=== PATIENT | female | born 1965 | race Caucasian/White ===

== ENCOUNTER → 2017-10-14 | Emergency (ER) | payer BC, MEDICAID ==
[~2017-10-14] VITALS: Ht 162.6 cm; Wt 54.0 kg
[~2017-10-14] MED LIST: ALBU18HF2 INH; CYCL-1 PO; FLUT1AER IH; FURO40TA4 PO; HYDR-569 PO; IPRA3AMP INH; LORA-269 PO; LORA0.5T PO; METO50TA16 PO; PARO20TA6 PO; POTA10TA15 PO; TIOT4MIS5; UMEC1DIS; WHEE1EAC12 MC
[2017-10-14 13:09] LABS: BASOPHILS % (AUTO) 0.1 % (0-1); EOSINOPHILS # (AUTO) 0.2 X10'3 (0-0.9); EOSINOPHILS % (AUTO) 1.8 % (0-6); HEMOGLOBIN 13.7 g/dl (12.0-16.0); LYMPHOCYTES # (AUTO) 1.5 X10'3 (1.1-4.8); LYMPHOCYTES % (AUTO) 14.7 % (21-51); MEAN CORPUSCULAR HEMOGLOBIN 33.7 PG (27.0-31.0); MEAN CORPUSCULAR HGB CONC 33.4 % (33.0-36.5); MEAN CORPUSCULAR VOLUME 100.8 FL (78-98); MEAN PLATELET VOLUME 8.5 FL (7.4-10.4); MONOCYTES # (AUTO) 0.8 X10'3 (0-0.9); MONOCYTES % (AUTO) 8.5 % (2-12); NEUTROPHILS # (AUTO) 7.5 X10'3 (1.8-7.7); NEUTROPHILS % (AUTO) 74.9 % (42-75); PLATELET COUNT 213 X10'3 (140-440); RED BLOOD COUNT 4.06 X10'6 (4.20-5.60); RED CELL DISTRIBUTION WIDTH 13.5 % (11.5-14.5)
[2017-10-14] MEDS: metoprolol tartrate 1mg/ml inj IV ONE (13:19)
[2017-10-14] MEDS: LORazepam 2 mg/ml vial IV STA (13:19)
[2017-10-14] MEDS: aspirin 81mg tab.chew PO ONE (13:19)
[2017-10-14] MEDS: normal saline 1000ml 1,000 ML IV STA (13:26)
[2017-10-14 13:29] LABS: D-DIMER 0.21 MG/L FEU (0-0.50); PARTIAL THROMBOPLASTIN TIME 29 SECONDS (22-32); PROTHROMBIN TIME 9.9 SECONDS (9.0-12.0)
[2017-10-14 13:32] LABS: ALBUMIN 3.6 G/DL (3.4-5.0); BILIRUBIN,TOTAL 0.1 MG/DL (0.1-1.0); BLOOD UREA NITROGEN 11 MG/DL (7-18); BUN/CREATININE RATIO 15.7 (6.6-38.0); CALCIUM 9.3 MG/DL (8.5-10.1); CHLORIDE 97 MMOL/L (99-107); GLUCOSE 155 MG/DL (70-104); POTASSIUM 4.1 MMOL/L (3.5-5.1); SODIUM 143 MMOL/L (135-145); TOTAL PROTEIN 7.1 G/DL (6.4-8.2); eGFR 87 ML/MIN
[2017-10-14 13:33] LABS: ALANINE AMINOTRANSFERASE 11 U/L (12-78); ALKALINE PHOSPHATASE 102 IU/L (46-116); ASPARTATE AMINO TRANSFERASE 14 U/L (10-37)
[2017-10-14] MEDS: ipratropium/albuterol 3ml nebule NEB STA (13:41)
[2017-10-14 13:52] LABS: ANION GAP -1 (8-16)
[2017-10-14] MEDS: HYDROmorphone 2mg/ml vial IV ONE (13:52)
[2017-10-14] MEDS: morphine 2 MG/ML inj. syringe IV STA (13:54)
[2017-10-14 13:58] LABS: TOTAL CARBON DIOXIDE 47.1 MMOL/L (24-32)
[2017-10-14] MEDS: labetalol 20mg/4ml (5mg/ml) syringe IV STA (16:05)
[2017-10-14 16:53] VITALS: BP 130/75
== END | disposition home or self-care (01) ==
LOC: ER 12:32
DX: F13.239 Sedative, hypnotic or anxiolytic dependence with withdrawal, unspecified (principal); J44.9 Chronic obstructive pulmonary disease, unspecified; F41.9 Anxiety disorder, unspecified; I11.0 Hypertensive heart disease with heart failure; I50.9 Heart failure, unspecified; I25.2 Old myocardial infarction; I25.10 Atherosclerotic heart disease of native coronary artery without angina pectoris; F17.210 Nicotine dependence, cigarettes, uncomplicated; Z99.81 Dependence on supplemental oxygen
CPT/HCPCS: 36415; 71045; 80053; 83880; 84484; 85025; 85379; 85610; 85730; 93005; 94640; 96374; 96375; 99285; J2060; J2270; J3490; J7030

== ENCOUNTER 2017-10-17 17:14 | Emergency (ER) | payer MEDICAID ==
[~2017-10-17] VITALS: Ht 162.6 cm; Wt 53.0 kg
[2017-10-17] MEDS ORDERED: cyclobenzaprine 10mg tablet PO ONE (18:30)
[2017-10-17] MEDS ORDERED: HYDROcodone/acetaminophen 10/325mg tab PO ONE (18:30)
[2017-10-17] MEDS ORDERED: CYCL-1 PO (18:30)
[2017-10-17 18:57] VITALS: BP 153/79
== END 2017-10-17 20:41 | disposition home or self-care (01) ==
LOC: ER 17:15
DX: M62.830 Muscle spasm of back (principal); I11.0 Hypertensive heart disease with heart failure; I50.9 Heart failure, unspecified; I25.10 Atherosclerotic heart disease of native coronary artery without angina pectoris; J44.9 Chronic obstructive pulmonary disease, unspecified; I25.2 Old myocardial infarction; F17.200 Nicotine dependence, unspecified, uncomplicated; Z98.890 Other specified postprocedural states
CPT/HCPCS: 99284

== ENCOUNTER 2017-10-20 13:10 | Emergency (ER) | payer MEDICAID ==
[~2017-10-20] VITALS: Ht 162.6 cm; Wt 116.0 kg
[2017-10-20 13:45] LABS: BASOPHILS % (AUTO) 0.2 % (0-1); EOSINOPHILS # (AUTO) 0.2 X10'3 (0-0.9); HEMATOCRIT 45.1 % (35.0-45.0); HEMOGLOBIN 14.7 g/dl (12.0-16.0); LYMPHOCYTES # (AUTO) 1.1 X10'3 (1.1-4.8); LYMPHOCYTES % (AUTO) 13.3 % (21-51); MEAN CORPUSCULAR HEMOGLOBIN 32.9 PG (27.0-31.0); MEAN CORPUSCULAR HGB CONC 32.7 % (33.0-36.5); MEAN CORPUSCULAR VOLUME 100.7 FL (78-98); MONOCYTES # (AUTO) 0.6 X10'3 (0-0.9); NEUTROPHILS # (AUTO) 6.4 X10'3 (1.8-7.7); NEUTROPHILS % (AUTO) 77.5 % (42-75); PLATELET COUNT 273 X10'3 (140-440); RED BLOOD COUNT 4.48 X10'6 (4.20-5.60); RED CELL DISTRIBUTION WIDTH 14.3 % (11.5-14.5); WHITE BLOOD COUNT 8.3 X10'3 (4.5-11.0)
[2017-10-20] MEDS ORDERED: ipratropium/albuterol 3ml nebule NEB ONE (13:45)
[2017-10-20 13:56] LABS: PARTIAL THROMBOPLASTIN TIME 30 SECONDS (22-32); PROTHROMBIN TIME 10.7 SECONDS (9.0-12.0)
[2017-10-20 14:01] LABS: ALANINE AMINOTRANSFERASE 13 U/L (12-78); ALBUMIN 4.1 G/DL (3.4-5.0); ALKALINE PHOSPHATASE 114 IU/L (46-116); ASPARTATE AMINO TRANSFERASE 19 U/L (10-37); BILIRUBIN,TOTAL 0.3 MG/DL (0.1-1.0); BLOOD UREA NITROGEN 13 MG/DL (7-18); BUN/CREATININE RATIO 18.6 (6.6-38.0); CALCIUM 9.9 MG/DL (8.5-10.1); CHLORIDE 99 MMOL/L (99-107); GLUCOSE 140 MG/DL (70-104); POTASSIUM 3.7 MMOL/L (3.5-5.1); SODIUM 144 MMOL/L (135-145); TOTAL PROTEIN 8.1 G/DL (6.4-8.2); eGFR 87 ML/MIN
[2017-10-20 14:12] LABS: ANION GAP -4 (8-16); TOTAL CARBON DIOXIDE 49.2 MMOL/L (24-32)
[2017-10-20 14:29] VITALS: BP 134/78
[2017-10-20 14:46] LABS: ABG BASE EXCESS 14.5 mmol/L (-2.0-3.0); ABG HCO3 43.7 mmol/L (22.0-26.0); ABG OXYGEN SATURATION 92.8 % (95-98); ABG PCO2 (T) 77.1 mmHg (32.0-45.0); ABG PH (T) 7.371 (7.350-7.450); ABG PO2 (T) 64.7 mmHg (83-108); ALLEN'S TEST Positive; FCOHb 4.7 % (0.5-1.5); FLOW 2 L/min; FMetHb 0.1 % (0.3-1.12); FO2Hb 88.3 % (94-100); TOTAL HEMOGLOBIN 14.1 G/dl (12.0-16.0)
[2017-10-20] MEDS ORDERED: AZIT-63 PO (15:53)
[2017-10-20] MEDS ORDERED: METH4TAB81 PO (15:53)
[2017-10-20] MEDS ORDERED: HYDROcodone/acetaminophen 10/325mg tab PO ONE (16:55)
== END 2017-10-20 18:11 | disposition home or self-care (01) ==
LOC: ER 13:11
DX: J44.1 Chronic obstructive pulmonary disease with (acute) exacerbation (principal); R06.89 Other abnormalities of breathing; I25.10 Atherosclerotic heart disease of native coronary artery without angina pectoris; I11.0 Hypertensive heart disease with heart failure; I50.9 Heart failure, unspecified; I25.2 Old myocardial infarction; I49.9 Cardiac arrhythmia, unspecified; Z90.710 Acquired absence of both cervix and uterus; Z98.890 Other specified postprocedural states; Z79.899 Other long term (current) drug therapy
CPT/HCPCS: 36415; 36600; 71045; 80053; 82803; 84484; 85018; 85025; 85610; 85730; 93005; 94640; 94760; 99285

== ENCOUNTER 2017-10-22 21:59 | Inpatient (IN) | payer MEDICAID ==
[~2017-10-22] VITALS: Ht 162.6 cm; Wt 64.0 kg
[~2017-10-22 21:59] MED LIST changes: +AZIT-63 PO; +METH4TAB81 PO
[2017-10-22] MEDS ORDERED: ipratropium/albuterol 3ml nebule NEB ONE (22:30)
[2017-10-22] MEDS ORDERED: normal saline 1000ML IV soln IVB ONE (22:30)
[2017-10-22] MEDS ORDERED: methylPREDNISolone sod succ 125mg/2ml vial IV ONE (22:30)
[2017-10-22 22:38] LABS: BASOPHILS % (AUTO) 0.3 % (0-1); EOSINOPHILS # (AUTO) 0.1 X10'3 (0-0.9); EOSINOPHILS % (AUTO) 0.7 % (0-6); HEMATOCRIT 42.5 % (35.0-45.0); HEMOGLOBIN 13.9 g/dl (12.0-16.0); LYMPHOCYTES # (AUTO) 1.6 X10'3 (1.1-4.8); LYMPHOCYTES % (AUTO) 20.4 % (21-51); MEAN CORPUSCULAR HGB CONC 32.7 % (33.0-36.5); MEAN CORPUSCULAR VOLUME 100.9 FL (78-98); MEAN PLATELET VOLUME 9.3 FL (7.4-10.4); MONOCYTES # (AUTO) 0.3 X10'3 (0-0.9); MONOCYTES % (AUTO) 3.5 % (2-12); NEUTROPHILS % (AUTO) 75.1 % (42-75); PLATELET COUNT 273 X10'3 (140-440); RED BLOOD COUNT 4.21 X10'6 (4.20-5.60); RED CELL DISTRIBUTION WIDTH 14.1 % (11.5-14.5); WHITE BLOOD COUNT 7.9 X10'3 (4.5-11.0)
[2017-10-22 22:45] LABS: PROTHROMBIN TIME 10.8 SECONDS (9.0-12.0)
[2017-10-22 22:49] LABS: ALANINE AMINOTRANSFERASE 16 U/L (12-78); ALBUMIN 3.6 G/DL (3.4-5.0); ALKALINE PHOSPHATASE 98 IU/L (46-116); ANION GAP 5 (8-16); ASPARTATE AMINO TRANSFERASE 19 U/L (10-37); BILIRUBIN,TOTAL 0.2 MG/DL (0.1-1.0); BLOOD UREA NITROGEN 14 MG/DL (7-18); BUN/CREATININE RATIO 17.5 (6.6-38.0); CALCIUM 8.6 MG/DL (8.5-10.1); CHLORIDE 102 MMOL/L (99-107); GLUCOSE 123 MG/DL (70-104); POTASSIUM 4.3 MMOL/L (3.5-5.1); SODIUM 145 MMOL/L (135-145); TOTAL CARBON DIOXIDE 37.8 MMOL/L (24-32); TOTAL PROTEIN 7.2 G/DL (6.4-8.2); eGFR 75 ML/MIN
[2017-10-22 23:29] LABS: URINE AMPHETAMINE SCREEN NEGATIVE (Neg); URINE BARBITUATE SCREEN NEGATIVE (Neg); URINE BENZODIAZEPINES SCREEN NEGATIVE (Neg); URINE CANNABINOID SCREEN POSITIVE (Neg); URINE COCAINE SCREEN NEGATIVE (Neg); URINE METHADONE SCREEN NEGATIVE (Neg); URINE OPIATE SCREEN NEGATIVE (Neg); URINE PHENCYCLIDINE SCREEN NEGATIVE (Neg)
[2017-10-23] MEDS ORDERED: magnesium 2GM in 50ml NS 50 ML IV ONE (07:45)
[2017-10-23] MEDS ORDERED: ipratropium 0.5 MG/2.5ML nebule IH ONE (07:45)
[2017-10-23] MEDS ORDERED: albuterol 2.5 MG/3 ML nebule CONTNEB PRN (07:45)
[2017-10-23 08:25] LABS: ABG BASE EXCESS -2.1 mmol/L (-2.0-3.0); ABG HCO3 27.8 mmol/L (22.0-26.0); ABG OXYGEN SATURATION 98.8 % (95-98); ABG PCO2 (T) 72.8 mmHg (32.0-45.0); ABG PH (T) 7.199 (7.350-7.450); ABG PO2 (T) 208.8 mmHg (83-108); ALLEN'S TEST Positive; FCOHb 4.7 % (0.5-1.5); FLOW 7 L/min; FMetHb 0.1 % (0.3-1.12); FO2Hb 94.1 % (94-100); TOTAL HEMOGLOBIN 13.9 G/dl (12.0-16.0)
[2017-10-23 08:26] LABS: D-DIMER 0.25 MG/L FEU (0-0.50)
[2017-10-23] MEDS ORDERED: potassium Cl 20 mEq SR tablet PO PRN ×2 (09:05)
[2017-10-23] MEDS ORDERED: magnesium hydroxide 30ml (MOM) UD suspension PO PRN (09:05)
[2017-10-23] MEDS ORDERED: magnesium Cl slow-release 64mg tablet PO PRN (09:05)
[2017-10-23] MEDS ORDERED: potassium Cl 40MEQ/NS 500ml 500 ML IV PRN ×2 (09:05)
[2017-10-23] MEDS ORDERED: bisacodyl 10mg suppository rectal RC PRN (09:05)
[2017-10-23] MEDS ORDERED: ondansetron/PF 4mg/2ml inj IV PRN (09:05)
[2017-10-23] MEDS ORDERED: mag hydrox/Alum hydrox/simeth 30ml oral suspension PO PRN (09:05)
[2017-10-23] MEDS ORDERED: morphine 2 MG/ML inj. syringe IV PRN (09:05)
[2017-10-23] MEDS ORDERED: magnesium 4gm in 100ml NS 100 ML IV PRN (09:05)
[2017-10-23] MEDS ORDERED: magnesium 2GM in 50ml NS 50 ML IV PRN (09:05)
[2017-10-23] MEDS ORDERED: cefTRIAXone 1g/NS 100ml IVPB 100 ML IV SCH (09:05)
[2017-10-23] MEDS ORDERED: acetaminophen 325mg tablet PO PRN (09:05)
[2017-10-23] MEDS ORDERED: CYCL-1 PO (09:11)
[2017-10-23] MEDS ORDERED: HYDR-565 PO (09:11)
[2017-10-23] MEDS ORDERED: METO50TA17 PO (09:11)
[2017-10-23] MEDS ORDERED: LORazepam 2 mg/ml vial IV PRN (09:15)
[2017-10-23] MEDS ORDERED: LORazepam 1 MG tablet PO PRN (09:15)
[2017-10-23] MEDS ORDERED: folic acid inj. 2 MG, thiamine inj. 100 MG, MVI, adult No.4 with vit. K 10 ML in dextro... IV SCH ×4 (09:15)
[2017-10-23] MEDS ORDERED: guaiFENesin 200 MG/10 ML oral syrup UD cup PO PRN (09:15)
[2017-10-23] MEDS ORDERED: METH4TAB17 PO (09:17)
[2017-10-23] MEDS ORDERED: AZIT-63 PO (09:17)
[2017-10-23] MEDS ORDERED: CefTRIAXone/D5W-Rocephin 1gm 50 ML IV ONE ×2 (09:37→09:50)
[2017-10-23] MEDS: HYDROcodone/acetaminophen 10/325mg tab PO PRN (09:40)
[2017-10-23] MEDS ORDERED: albuterol 2.5 MG/3 ML nebule NEB PRN (09:50)
[2017-10-23] MEDS ORDERED: [UNRECOGNIZED DRUG - REMARK] IV SCH ×4 (10:03)
[2017-10-23 10:15] LABS: ABG BASE EXCESS -4.4 mmol/L (-2.0-3.0); ABG HCO3 25.4 mmol/L (22.0-26.0); ABG OXYGEN SATURATION 91.3 % (95-98); ABG PCO2 (T) 70.3 mmHg (32.0-45.0); ABG PH (T) 7.176 (7.350-7.450); ABG PO2 (T) 72.6 mmHg (83-108); FCOHb 3.5 % (0.5-1.5); FLOW 4 L/min; FMetHb 0.2 % (0.3-1.12); FO2Hb 87.9 % (94-100); TOTAL HEMOGLOBIN 13.4 G/dl (12.0-16.0)
[2017-10-23] MEDS: aspirin 81mg tablet.DR PO SCH (11:16)
[2017-10-23] MEDS: sodium chloride 0.45% 1,000 ML IV SCH ×2 (11:18→23:23)
[2017-10-23] MEDS ORDERED: nicotine 14mg patch - 24hr TD ONE (12:00)
[2017-10-23 14:12] VITALS: BP 123/73
[2017-10-23 14:30] LABS: ABG HCO3 32.3 mmol/L (22.0-26.0); ABG OXYGEN SATURATION 91.4 % (95-98); ABG PCO2 (T) 67.8 mmHg (32.0-45.0); ABG PH (T) 7.296 (7.350-7.450); ABG PO2 (T) 64.1 mmHg (83-108); FCOHb 1.7 % (0.5-1.5); FO2Hb 89.8 % (94-100); RESPIRATORY RATE 14 b/min; TOTAL HEMOGLOBIN 12.4 G/dl (12.0-16.0)
[2017-10-23] MEDS: methylPREDNISolone sod succ 125mg/2ml vial IV SCH ×2 (14:47→19:21)
[2017-10-23 15:00] VITALS: BP 131/62
[2017-10-23] MEDS: ipratropium/albuterol 3ml nebule NEB SCH ×3 (15:00→23:17)
[2017-10-23] MEDS: cyclobenzaprine 10mg tablet PO PRN (15:32)
[2017-10-23] MEDS: morphine 2 MG/ML inj. syringe IV PRN ×2 (17:01→21:10)
[2017-10-23 19:00] VITALS: BP 148/70
[2017-10-23] MEDS: metoprolol tartrate 50mg tablet PO SCH (19:21)
[2017-10-23] MEDS: docusate sod 100mg capsule PO SCH (19:24)
[2017-10-23 23:00] VITALS: BP 140/75
[2017-10-23] MEDS: HYDROcodone/acetaminophen 5mg/325mg tablet PO PRN (23:09)
[2017-10-24] MEDS: cyclobenzaprine 10mg tablet PO PRN ×2 (00:12→19:26)
[2017-10-24] MEDS: methylPREDNISolone sod succ 125mg/2ml vial IV SCH ×4 (01:43→19:27)
[2017-10-24] MEDS: morphine 2 MG/ML inj. syringe IV PRN ×4 (01:43→19:29)
[2017-10-24 03:00] VITALS: BP 151/78
[2017-10-24] MEDS: ipratropium/albuterol 3ml nebule NEB SCH ×6 (03:13→23:16)
[2017-10-24] MEDS: HYDROcodone/acetaminophen 10/325mg tab PO PRN ×5 (03:32→19:27)
[2017-10-24] MEDS: sodium chloride 0.45% 1,000 ML IV SCH (03:33)
[2017-10-24 05:10] LABS: BASOPHILS % (AUTO) 0 % (0-1); EOSINOPHILS # (AUTO) 0.1 X10'3 (0-0.9); EOSINOPHILS % (AUTO) 0.8 % (0-6); HEMATOCRIT 35.9 % (35.0-45.0); HEMOGLOBIN 11.8 g/dl (12.0-16.0); LYMPHOCYTES # (AUTO) 0.5 X10'3 (1.1-4.8); LYMPHOCYTES % (AUTO) 3.1 % (21-51); MEAN CORPUSCULAR HEMOGLOBIN 33.2 PG (27.0-31.0); MEAN CORPUSCULAR HGB CONC 32.8 % (33.0-36.5); MEAN CORPUSCULAR VOLUME 101.1 FL (78-98); MEAN PLATELET VOLUME 9.5 FL (7.4-10.4); MONOCYTES # (AUTO) 0.4 X10'3 (0-0.9); MONOCYTES % (AUTO) 2.9 % (2-12); NEUTROPHILS % (AUTO) 93.2 % (42-75); PLATELET COUNT 232 X10'3 (140-440); RED BLOOD COUNT 3.55 X10'6 (4.20-5.60); RED CELL DISTRIBUTION WIDTH 14.4 % (11.5-14.5)
[2017-10-24 05:29] LABS: ALANINE AMINOTRANSFERASE 17 U/L (12-78); ALBUMIN 3.4 G/DL (3.4-5.0); ALKALINE PHOSPHATASE 80 IU/L (46-116); ANION GAP 4 (8-16); ASPARTATE AMINO TRANSFERASE 15 U/L (10-37); BILIRUBIN,TOTAL 0.1 MG/DL (0.1-1.0); BLOOD UREA NITROGEN 18 MG/DL (7-18); BUN/CREATININE RATIO 24.3 (6.6-38.0); CALCIUM 8.8 MG/DL (8.5-10.1); CHLORIDE 103 MMOL/L (99-107); CREATININE 0.74 MG/DL (0.40-0.90); GLUCOSE 156 MG/DL (70-104); MAGNESIUM 2.2 MG/DL (1.5-2.4); PHOSPHORUS 2.7 MG/DL (2.3-4.5); POTASSIUM 4.3 MMOL/L (3.5-5.1); SODIUM 145 MMOL/L (135-145); TOTAL CARBON DIOXIDE 38.3 MMOL/L (24-32); TOTAL PROTEIN 6.7 G/DL (6.4-8.2); eGFR 82 ML/MIN
[2017-10-24 06:00] VITALS: BP 153/90
[2017-10-24] MEDS: K and/or MAG REPLACEMENT MC SCH (08:00)
[2017-10-24] MEDS: CefTRIAXone 1 gm/50ml D5W ADV 50 ML IV SCH (08:13)
[2017-10-24] MEDS: docusate sod 100mg capsule PO SCH ×2 (08:13→19:27)
[2017-10-24] MEDS: enoxaparin 40mg/0.4ml syringe SUBCUT SCH (08:15)
[2017-10-24] MEDS: multivitamins, therapeutics tablet PO SCH (08:16)
[2017-10-24] MEDS: thiamine 100mg tablet PO SCH (08:16)
[2017-10-24] MEDS: metoprolol tartrate 50mg tablet PO SCH ×2 (08:16→19:27)
[2017-10-24] MEDS: lactobacillus rhamnosus 10,000 MMU CELLS/CAPSULE PO SCH ×2 (08:16→16:23)
[2017-10-24] MEDS: aspirin 81mg tablet.DR PO SCH (08:16)
[2017-10-24] MEDS: folic acid 1mg tablet PO SCH (08:16)
[2017-10-24] MEDS: nicotine 14mg patch - 24hr TD SCH (08:17)
[2017-10-24] MEDS: PARoxetine 20mg tablet PO SCH (08:32)
[2017-10-24 11:00] VITALS: BP 150/76
[2017-10-24 15:00] VITALS: BP 149/73
[2017-10-24 19:00] VITALS: BP 136/77
[2017-10-24 23:00] VITALS: BP 144/75
[2017-10-25] VITALS (8 sets, daily range): BP systolic 94–167; BP diastolic 44–84
[2017-10-25] MEDS: morphine 2 MG/ML inj. syringe IV PRN (00:22)
[2017-10-25] MEDS: methylPREDNISolone sod succ 125mg/2ml vial IV SCH ×4 (02:07→20:13)
[2017-10-25] MEDS: sodium chloride 0.45% 1,000 ML IV SCH ×2 (04:19→19:02)
[2017-10-25] MEDS: ipratropium/albuterol 3ml nebule NEB SCH ×6 (04:52→23:22)
[2017-10-25 05:51] LABS: BASOPHILS % (AUTO) 0 % (0-1); EOSINOPHILS % (AUTO) 0 % (0-6); HEMATOCRIT 35.1 % (35.0-45.0); HEMOGLOBIN 11.3 g/dl (12.0-16.0); LYMPHOCYTES # (AUTO) 0.3 X10'3 (1.1-4.8); LYMPHOCYTES % (AUTO) 2.3 % (21-51); MEAN CORPUSCULAR HGB CONC 32.3 % (33.0-36.5); MEAN CORPUSCULAR VOLUME 102.2 FL (78-98); MEAN PLATELET VOLUME 9.7 FL (7.4-10.4); MONOCYTES # (AUTO) 0.8 X10'3 (0-0.9); NEUTROPHILS # (AUTO) 12.7 X10'3 (1.8-7.7); NEUTROPHILS % (AUTO) 91.7 % (42-75); PLATELET COUNT 219 X10'3 (140-440); RED BLOOD COUNT 3.43 X10'6 (4.20-5.60); RED CELL DISTRIBUTION WIDTH 14.5 % (11.5-14.5); WHITE BLOOD COUNT 13.8 X10'3 (4.5-11.0)
[2017-10-25 06:12] LABS: ALANINE AMINOTRANSFERASE 14 U/L (12-78); ALBUMIN 3.3 G/DL (3.4-5.0); ALBUMIN/GLOBULIN RATIO 1.1 (1.1-1.5); ALKALINE PHOSPHATASE 72 IU/L (46-116); ANION GAP 1 (8-16); ASPARTATE AMINO TRANSFERASE 17 U/L (10-37); BILIRUBIN,TOTAL 0.1 MG/DL (0.1-1.0); BLOOD UREA NITROGEN 21 MG/DL (7-18); BUN/CREATININE RATIO 27.6 (6.6-38.0); CALCIUM 9.1 MG/DL (8.5-10.1); CHLORIDE 103 MMOL/L (99-107); CREATININE 0.76 MG/DL (0.40-0.90); GLUCOSE 131 MG/DL (70-104); MAGNESIUM 2.4 MG/DL (1.5-2.4); PHOSPHORUS 2.8 MG/DL (2.3-4.5); POTASSIUM 5.6 MMOL/L (3.5-5.1); SODIUM 145 MMOL/L (135-145); TOTAL PROTEIN 6.3 G/DL (6.4-8.2); eGFR 79 ML/MIN
[2017-10-25 06:57] LABS: TOTAL CARBON DIOXIDE 41.2 MMOL/L (24-32)
[2017-10-25] MEDS: K and/or MAG REPLACEMENT MC SCH (08:00)
[2017-10-25] MEDS: folic acid 1mg tablet PO SCH (08:21)
[2017-10-25] MEDS: aspirin 81mg tablet.DR PO SCH (08:21)
[2017-10-25] MEDS: docusate sod 100mg capsule PO SCH ×2 (08:21→20:13)
[2017-10-25] MEDS: thiamine 100mg tablet PO SCH (08:21)
[2017-10-25] MEDS: lactobacillus rhamnosus 10,000 MMU CELLS/CAPSULE PO SCH ×2 (08:22→18:08)
[2017-10-25] MEDS: HYDROcodone/acetaminophen 10/325mg tab PO PRN (08:23)
[2017-10-25] MEDS: multivitamins, therapeutics tablet PO SCH (08:23)
[2017-10-25] MEDS: metoprolol tartrate 50mg tablet PO SCH ×2 (08:23→20:13)
[2017-10-25] MEDS: enoxaparin 40mg/0.4ml syringe SUBCUT SCH (08:27)
[2017-10-25 08:31] LABS: ABG BASE EXCESS 10.6 mmol/L (-2.0-3.0); ABG HCO3 43.9 mmol/L (22.0-26.0); ABG OXYGEN SATURATION 79.7 % (95-98); ABG PCO2 (T) 122.7 mmHg (32.0-45.0); ABG PH (T) 7.171 (7.350-7.450); ABG PO2 (T) 49.5 mmHg (83-108); ALLEN'S TEST Positive; FMetHb 0.2 % (0.3-1.12); FO2Hb 79.5 % (94-100); TOTAL HEMOGLOBIN 13.2 G/dl (12.0-16.0)
[2017-10-25] MEDS: nicotine 14mg patch - 24hr TD SCH (08:45)
[2017-10-25] MEDS: CefTRIAXone 1 gm/50ml D5W ADV 50 ML IV SCH (08:49)
[2017-10-25] MEDS: PARoxetine 20mg tablet PO SCH (09:05)
[2017-10-25 12:40] LABS: ABG BASE EXCESS 9.8 mmol/L (-2.0-3.0); ABG OXYGEN SATURATION 96.9 % (95-98); ABG PH (T) 7.235 (7.350-7.450); FCOHb 0.3 % (0.5-1.5); FMetHb 0.1 % (0.3-1.12); FO2Hb 96.5 % (94-100); MINUTE VOLUME 12 L/min; RESPIRATORY RATE 14 b/min; RESPIRATORY RATE (OBSERVED) 20 b/min; TIDAL VOLUME 498 mL; TOTAL HEMOGLOBIN 12.7 G/dl (12.0-16.0)
[2017-10-25] MEDS: HYDROcodone/acetaminophen 5mg/325mg tablet PO PRN ×2 (16:03→20:14)
[2017-10-26] MEDS ORDERED: furosemide 20 MG/2 ML vial IV ONE (00:15)
[2017-10-26] MEDS: methylPREDNISolone sod succ 125mg/2ml vial IV SCH ×4 (01:43→19:26)
[2017-10-26] MEDS: HYDROcodone/acetaminophen 5mg/325mg tablet PO PRN ×5 (01:43→21:08)
[2017-10-26 03:00] VITALS: BP 178/86
[2017-10-26] MEDS: ipratropium/albuterol 3ml nebule NEB SCH ×6 (03:16→23:13)
[2017-10-26 06:00] VITALS: BP 179/95
[2017-10-26 06:02] LABS: BASOPHILS % (AUTO) 0 % (0-1); EOSINOPHILS # (AUTO) 0.1 X10'3 (0-0.9); HEMOGLOBIN 11.5 g/dl (12.0-16.0); LYMPHOCYTES # (AUTO) 0.3 X10'3 (1.1-4.8); LYMPHOCYTES % (AUTO) 3.4 % (21-51); MEAN CORPUSCULAR HEMOGLOBIN 32.9 PG (27.0-31.0); MEAN CORPUSCULAR HGB CONC 32.9 % (33.0-36.5); MEAN PLATELET VOLUME 9.9 FL (7.4-10.4); MONOCYTES # (AUTO) 0.3 X10'3 (0-0.9); MONOCYTES % (AUTO) 3.8 % (2-12); NEUTROPHILS % (AUTO) 91.8 % (42-75); PLATELET COUNT 205 X10'3 (140-440); RED CELL DISTRIBUTION WIDTH 13.7 % (11.5-14.5); WHITE BLOOD COUNT 8.7 X10'3 (4.5-11.0)
[2017-10-26 06:44] LABS: ALANINE AMINOTRANSFERASE 25 U/L (12-78); ALBUMIN 3.1 G/DL (3.4-5.0); ALBUMIN/GLOBULIN RATIO 1.1 (1.1-1.5); ALKALINE PHOSPHATASE 69 IU/L (46-116); ANION GAP 0 (8-16); ASPARTATE AMINO TRANSFERASE 23 U/L (10-37); BILIRUBIN,TOTAL 0.2 MG/DL (0.1-1.0); BLOOD UREA NITROGEN 24 MG/DL (7-18); CALCIUM 8.9 MG/DL (8.5-10.1); CHLORIDE 99 MMOL/L (99-107); CREATININE 0.75 MG/DL (0.40-0.90); GLUCOSE 126 MG/DL (70-104); MAGNESIUM 2.2 MG/DL (1.5-2.4); PHOSPHORUS 2.2 MG/DL (2.3-4.5); POTASSIUM 4.8 MMOL/L (3.5-5.1); SODIUM 143 MMOL/L (135-145); eGFR 81 ML/MIN
[2017-10-26 07:13] LABS: TOTAL CARBON DIOXIDE 44.1 MMOL/L (24-32)
[2017-10-26] MEDS: metoprolol tartrate 50mg tablet PO SCH ×2 (07:49→19:26)
[2017-10-26] MEDS: folic acid 1mg tablet PO SCH (07:49)
[2017-10-26] MEDS: lactobacillus rhamnosus 10,000 MMU CELLS/CAPSULE PO SCH ×2 (07:49→17:03)
[2017-10-26] MEDS: aspirin 81mg tablet.DR PO SCH (07:54)
[2017-10-26] MEDS: docusate sod 100mg capsule PO SCH ×2 (07:54→19:26)
[2017-10-26] MEDS: multivitamins, therapeutics tablet PO SCH (07:54)
[2017-10-26] MEDS: enoxaparin 40mg/0.4ml syringe SUBCUT SCH (07:56)
[2017-10-26] MEDS: thiamine 100mg tablet PO SCH (07:57)
[2017-10-26] MEDS: K and/or MAG REPLACEMENT MC SCH (07:57)
[2017-10-26] MEDS: sodium chloride 0.45% 1,000 ML IV SCH ×2 (07:58→21:45)
[2017-10-26] MEDS: nicotine 14mg patch - 24hr TD SCH (07:58)
[2017-10-26] MEDS: cefTRIAXone 1g/NS 100ml IVPB 100 ML IV SCH (08:00)
[2017-10-26] MEDS: PARoxetine 20mg tablet PO SCH (08:00)
[2017-10-26 11:00] VITALS: BP 166/99
[2017-10-26 16:04] VITALS: BP 182/88
[2017-10-26 16:21] LABS: ABG BASE EXCESS 12.3 mmol/L (-2.0-3.0); ABG HCO3 38.2 mmol/L (22.0-26.0); ABG OXYGEN SATURATION 95.7 % (95-98); ABG PCO2 (T) 54.5 mmHg (32.0-45.0); ABG PH (T) 7.463 (7.350-7.450); ABG PO2 (T) 72.7 mmHg (83-108); ALLEN'S TEST Positive; FCOHb 0.3 % (0.5-1.5); FLOW 2 L/min; FMetHb 0.1 % (0.3-1.12); FO2Hb 95.3 % (94-100); TOTAL HEMOGLOBIN 12.7 G/dl (12.0-16.0)
[2017-10-26] MEDS: cyclobenzaprine 10mg tablet PO PRN (17:39)
[2017-10-26 19:00] VITALS: BP 191/90
[2017-10-26] MEDS: hydrALAZINE 20mg/ml inj. IV PRN (21:16)
[2017-10-26 23:00] VITALS: BP 157/76
[2017-10-27] MEDS: methylPREDNISolone sod succ 125mg/2ml vial IV SCH ×4 (01:48→20:27)
[2017-10-27] MEDS: ipratropium/albuterol 3ml nebule NEB SCH ×6 (02:45→23:14)
[2017-10-27 03:00] VITALS: BP 151/74
[2017-10-27] MEDS: HYDROcodone/acetaminophen 5mg/325mg tablet PO PRN ×3 (03:45→20:27)
[2017-10-27] MEDS: hydrALAZINE 20mg/ml inj. IV PRN ×2 (04:26→19:21)
[2017-10-27 05:36] LABS: BASOPHILS % (AUTO) 0 % (0-1); EOSINOPHILS % (AUTO) 0.2 % (0-6); HEMATOCRIT 37.7 % (35.0-45.0); HEMOGLOBIN 12.6 g/dl (12.0-16.0); LYMPHOCYTES # (AUTO) 0.4 X10'3 (1.1-4.8); LYMPHOCYTES % (AUTO) 2.9 % (21-51); MEAN CORPUSCULAR HEMOGLOBIN 33.1 PG (27.0-31.0); MEAN CORPUSCULAR HGB CONC 33.4 % (33.0-36.5); MEAN CORPUSCULAR VOLUME 99.1 FL (78-98); MEAN PLATELET VOLUME 10.1 FL (7.4-10.4); MONOCYTES # (AUTO) 0.9 X10'3 (0-0.9); NEUTROPHILS % (AUTO) 89.9 % (42-75); PLATELET COUNT 219 X10'3 (140-440); RED BLOOD COUNT 3.81 X10'6 (4.20-5.60); WHITE BLOOD COUNT 12.3 X10'3 (4.5-11.0)
[2017-10-27 06:23] LABS: ALANINE AMINOTRANSFERASE 21 U/L (12-78); ALKALINE PHOSPHATASE 67 IU/L (46-116); ANION GAP 2 (8-16); ASPARTATE AMINO TRANSFERASE 16 U/L (10-37); BILIRUBIN,TOTAL 0.2 MG/DL (0.1-1.0); BLOOD UREA NITROGEN 23 MG/DL (7-18); BUN/CREATININE RATIO 40.4 (6.6-38.0); CALCIUM 8.8 MG/DL (8.5-10.1); CHLORIDE 101 MMOL/L (99-107); CREATININE 0.57 MG/DL (0.40-0.90); GLUCOSE 122 MG/DL (70-104); MAGNESIUM 2.4 MG/DL (1.5-2.4); PHOSPHORUS 2.6 MG/DL (2.3-4.5); SODIUM 145 MMOL/L (135-145); TOTAL PROTEIN 6.1 G/DL (6.4-8.2); eGFR > 90 ML/MIN
[2017-10-27] MEDS: cyclobenzaprine 10mg tablet PO PRN ×2 (06:30→19:21)
[2017-10-27 06:31] LABS: TOTAL CARBON DIOXIDE 41.9 MMOL/L (24-32)
[2017-10-27 07:00] VITALS: BP 159/90
[2017-10-27] MEDS: K and/or MAG REPLACEMENT MC SCH (08:00)
[2017-10-27] MEDS: lactobacillus rhamnosus 10,000 MMU CELLS/CAPSULE PO SCH ×2 (09:01→17:04)
[2017-10-27] MEDS: thiamine 100mg tablet PO SCH (09:02)
[2017-10-27] MEDS: aspirin 81mg tablet.DR PO SCH (09:02)
[2017-10-27] MEDS: docusate sod 100mg capsule PO SCH ×2 (09:02→20:27)
[2017-10-27] MEDS: PARoxetine 20mg tablet PO SCH (09:02)
[2017-10-27] MEDS: folic acid 1mg tablet PO SCH (09:02)
[2017-10-27] MEDS: metoprolol tartrate 50mg tablet PO SCH ×2 (09:02→20:26)
[2017-10-27] MEDS: multivitamins, therapeutics tablet PO SCH (09:02)
[2017-10-27] MEDS: enoxaparin 40mg/0.4ml syringe SUBCUT SCH (09:05)
[2017-10-27] MEDS: cefTRIAXone 1g/NS 100ml IVPB 100 ML IV SCH (09:06)
[2017-10-27 11:00] VITALS: BP 165/86
[2017-10-27] MEDS: nicotine 14mg patch - 24hr TD SCH (11:01)
[2017-10-27] MEDS: sodium chloride 0.45% 1,000 ML IV SCH (12:01)
[2017-10-27] MEDS: LORazepam 0.5 MG tablet PO PRN ×2 (12:01→22:18)
[2017-10-27 15:00] VITALS: BP 186/91
[2017-10-27 19:00] VITALS: BP 187/97
[2017-10-27] MEDS ORDERED: LIDOcaine Viscous 15ml cup MM PRN (20:10)
[2017-10-27 23:00] VITALS: BP 182/95
[2017-10-28] MEDS: HYDROcodone/acetaminophen 5mg/325mg tablet PO PRN ×2 (01:40→08:03)
[2017-10-28] MEDS: hydrALAZINE 20mg/ml inj. IV PRN ×2 (01:40→15:54)
[2017-10-28] MEDS: methylPREDNISolone sod succ 125mg/2ml vial IV SCH ×4 (01:40→19:58)
[2017-10-28] MEDS: sodium chloride 0.45% 1,000 ML IV SCH (01:51)
[2017-10-28 03:00] VITALS: BP 147/67
[2017-10-28] MEDS: ipratropium/albuterol 3ml nebule NEB SCH ×6 (03:00→23:00)
[2017-10-28 07:00] VITALS: BP 164/92
[2017-10-28 07:09] LABS: BASOPHILS % (AUTO) 0 % (0-1); EOSINOPHILS % (AUTO) 0 % (0-6); HEMOGLOBIN 13.3 g/dl (12.0-16.0); LYMPHOCYTES # (AUTO) 0.3 X10'3 (1.1-4.8); LYMPHOCYTES % (AUTO) 2.6 % (21-51); MEAN CORPUSCULAR HEMOGLOBIN 32.9 PG (27.0-31.0); MEAN CORPUSCULAR HGB CONC 33.2 % (33.0-36.5); MEAN CORPUSCULAR VOLUME 99.1 FL (78-98); MEAN PLATELET VOLUME 10.1 FL (7.4-10.4); MONOCYTES # (AUTO) 0.3 X10'3 (0-0.9); MONOCYTES % (AUTO) 2.1 % (2-12); NEUTROPHILS # (AUTO) 12.2 X10'3 (1.8-7.7); NEUTROPHILS % (AUTO) 95.3 % (42-75); PLATELET COUNT 233 X10'3 (140-440); RED BLOOD COUNT 4.04 X10'6 (4.20-5.60); RED CELL DISTRIBUTION WIDTH 14.1 % (11.5-14.5); WHITE BLOOD COUNT 12.8 X10'3 (4.5-11.0)
[2017-10-28 07:16] LABS: ALANINE AMINOTRANSFERASE 25 U/L (12-78); ALBUMIN/GLOBULIN RATIO 1.1 (1.1-1.5); ALKALINE PHOSPHATASE 61 IU/L (46-116); ANION GAP 4 (8-16); ASPARTATE AMINO TRANSFERASE 12 U/L (10-37); BILIRUBIN,TOTAL 0.3 MG/DL (0.1-1.0); BLOOD UREA NITROGEN 27 MG/DL (7-18); CALCIUM 8.4 MG/DL (8.5-10.1); CHLORIDE 102 MMOL/L (99-107); CREATININE 0.73 MG/DL (0.40-0.90); GLUCOSE 138 MG/DL (70-104); MAGNESIUM 2.3 MG/DL (1.5-2.4); PHOSPHORUS 3.4 MG/DL (2.3-4.5); POTASSIUM 4.1 MMOL/L (3.5-5.1); SODIUM 144 MMOL/L (135-145); TOTAL CARBON DIOXIDE 37.6 MMOL/L (24-32); TOTAL PROTEIN 5.7 G/DL (6.4-8.2); eGFR 83 ML/MIN
[2017-10-28] MEDS: PARoxetine 20mg tablet PO SCH (08:00)
[2017-10-28] MEDS: K and/or MAG REPLACEMENT MC SCH (08:00)
[2017-10-28] MEDS: thiamine 100mg tablet PO SCH (08:00)
[2017-10-28] MEDS: metoprolol tartrate 50mg tablet PO SCH ×2 (08:00→19:58)
[2017-10-28] MEDS: CefTRIAXone 1 gm/50ml D5W ADV 50 ML IV SCH (08:00)
[2017-10-28] MEDS: nicotine 14mg patch - 24hr TD SCH (08:00)
[2017-10-28] MEDS: multivitamins, therapeutics tablet PO SCH (08:01)
[2017-10-28] MEDS: folic acid 1mg tablet PO SCH (08:01)
[2017-10-28] MEDS: aspirin 81mg tablet.DR PO SCH (08:01)
[2017-10-28] MEDS: lactobacillus rhamnosus 10,000 MMU CELLS/CAPSULE PO SCH ×2 (08:01→17:43)
[2017-10-28] MEDS: docusate sod 100mg capsule PO SCH ×2 (08:01→19:58)
[2017-10-28] MEDS: pantoprazole 40mg Tablet.DR PO SCH (08:01)
[2017-10-28] MEDS: enoxaparin 40mg/0.4ml syringe SUBCUT SCH (08:02)
[2017-10-28] MEDS: cyclobenzaprine 10mg tablet PO PRN ×2 (09:29→19:58)
[2017-10-28] MEDS: LORazepam 0.5 MG tablet PO PRN (09:33)
[2017-10-28 11:00] VITALS: BP 164/84
[2017-10-28] MEDS: HYDROcodone/acetaminophen 10/325mg tab PO PRN ×3 (13:51→22:26)
[2017-10-28 15:00] VITALS: BP 178/94
[2017-10-28 19:00] VITALS: BP 157/79
[2017-10-28 23:00] VITALS: BP 158/79
[2017-10-29] MEDS: methylPREDNISolone sod succ 125mg/2ml vial IV SCH ×4 (02:01→20:01)
[2017-10-29 03:00] VITALS: BP 169/92
[2017-10-29] MEDS: ipratropium/albuterol 3ml nebule NEB SCH ×6 (03:31→23:37)
[2017-10-29] MEDS: HYDROcodone/acetaminophen 10/325mg tab PO PRN ×5 (03:48→23:57)
[2017-10-29] MEDS: cyclobenzaprine 10mg tablet PO PRN ×3 (04:26→22:12)
[2017-10-29] MEDS: hydrALAZINE 20mg/ml inj. IV PRN ×2 (04:29→17:30)
[2017-10-29 06:00] VITALS: BP 153/71
[2017-10-29 07:24] LABS: BASOPHILS % (AUTO) 0 % (0-1); EOSINOPHILS # (AUTO) 0.3 X10'3 (0-0.9); EOSINOPHILS % (AUTO) 1.4 % (0-6); HEMATOCRIT 39.9 % (35.0-45.0); HEMOGLOBIN 13.2 g/dl (12.0-16.0); LYMPHOCYTES # (AUTO) 0.4 X10'3 (1.1-4.8); LYMPHOCYTES % (AUTO) 2.1 % (21-51); MEAN CORPUSCULAR HEMOGLOBIN 32.5 PG (27.0-31.0); MEAN CORPUSCULAR HGB CONC 33.2 % (33.0-36.5); MEAN CORPUSCULAR VOLUME 98.1 FL (78-98); MONOCYTES # (AUTO) 0.6 X10'3 (0-0.9); MONOCYTES % (AUTO) 3.1 % (2-12); NEUTROPHILS # (AUTO) 16.9 X10'3 (1.8-7.7); NEUTROPHILS % (AUTO) 93.4 % (42-75); PLATELET COUNT 245 X10'3 (140-440); RED BLOOD COUNT 4.06 X10'6 (4.20-5.60); RED CELL DISTRIBUTION WIDTH 14.2 % (11.5-14.5)
[2017-10-29 07:38] LABS: ALANINE AMINOTRANSFERASE 28 U/L (12-78); ALBUMIN/GLOBULIN RATIO 1.1 (1.1-1.5); ALKALINE PHOSPHATASE 62 IU/L (46-116); ANION GAP 3 (8-16); ASPARTATE AMINO TRANSFERASE 14 U/L (10-37); BILIRUBIN,TOTAL 0.3 MG/DL (0.1-1.0); BLOOD UREA NITROGEN 33 MG/DL (7-18); CALCIUM 8.5 MG/DL (8.5-10.1); CHLORIDE 101 MMOL/L (99-107); CREATININE 0.75 MG/DL (0.40-0.90); GLUCOSE 135 MG/DL (70-104); POTASSIUM 4.2 MMOL/L (3.5-5.1); SODIUM 142 MMOL/L (135-145); TOTAL CARBON DIOXIDE 38.3 MMOL/L (24-32); TOTAL PROTEIN 5.8 G/DL (6.4-8.2); eGFR 81 ML/MIN
[2017-10-29] MEDS: metoprolol tartrate 50mg tablet PO SCH ×2 (07:44→20:00)
[2017-10-29] MEDS: multivitamins, therapeutics tablet PO SCH (07:44)
[2017-10-29] MEDS: pantoprazole 40mg Tablet.DR PO SCH (07:44)
[2017-10-29] MEDS: lactobacillus rhamnosus 10,000 MMU CELLS/CAPSULE PO SCH ×2 (07:44→17:10)
[2017-10-29] MEDS: aspirin 81mg tablet.DR PO SCH (07:44)
[2017-10-29] MEDS: PARoxetine 20mg tablet PO SCH (07:44)
[2017-10-29] MEDS: thiamine 100mg tablet PO SCH (07:44)
[2017-10-29] MEDS: enoxaparin 40mg/0.4ml syringe SUBCUT SCH (07:45)
[2017-10-29] MEDS: nicotine 14mg patch - 24hr TD SCH ×2 (07:45→08:35)
[2017-10-29] MEDS: CefTRIAXone 1 gm/50ml D5W ADV 50 ML IV SCH (07:46)
[2017-10-29] MEDS: K and/or MAG REPLACEMENT MC SCH (08:00)
[2017-10-29] MEDS: docusate sod 100mg capsule PO SCH ×2 (08:00→20:00)
[2017-10-29] MEDS: folic acid 1mg tablet PO SCH (08:35)
[2017-10-29 11:00] VITALS: BP 149/76
[2017-10-29 15:00] VITALS: BP 173/84
[2017-10-29] MEDS: LORazepam 0.5 MG tablet PO PRN (16:11)
[2017-10-29 19:00] VITALS: BP 159/80
[2017-10-29 23:00] VITALS: BP 161/79
[2017-10-30] VITALS (8 sets, daily range): BP systolic 134–184; BP diastolic 68–90
[2017-10-30] MEDS: methylPREDNISolone sod succ 125mg/2ml vial IV SCH ×4 (02:07→19:47)
[2017-10-30] MEDS: ipratropium/albuterol 3ml nebule NEB SCH ×6 (03:00→23:30)
[2017-10-30] MEDS: HYDROcodone/acetaminophen 10/325mg tab PO PRN ×5 (05:37→21:32)
[2017-10-30] MEDS: docusate sod 100mg capsule PO SCH ×2 (07:34→19:48)
[2017-10-30] MEDS: pantoprazole 40mg Tablet.DR PO SCH (07:34)
[2017-10-30] MEDS: cefTRIAXone 1g/NS 100ml IVPB 100 ML IV SCH (07:34)
[2017-10-30] MEDS: lactobacillus rhamnosus 10,000 MMU CELLS/CAPSULE PO SCH ×2 (07:34→17:11)
[2017-10-30] MEDS: nicotine 14mg patch - 24hr TD SCH (07:34)
[2017-10-30] MEDS: aspirin 81mg tablet.DR PO SCH (07:34)
[2017-10-30] MEDS: folic acid 1mg tablet PO SCH (07:35)
[2017-10-30] MEDS: thiamine 100mg tablet PO SCH (07:35)
[2017-10-30] MEDS: multivitamins, therapeutics tablet PO SCH (07:35)
[2017-10-30] MEDS: PARoxetine 20mg tablet PO SCH (07:35)
[2017-10-30] MEDS: enoxaparin 40mg/0.4ml syringe SUBCUT SCH (07:35)
[2017-10-30] MEDS: metoprolol tartrate 50mg tablet PO SCH ×2 (07:35→19:48)
[2017-10-30] MEDS: K and/or MAG REPLACEMENT MC SCH (08:00)
[2017-10-30] MEDS ORDERED: hydrALAZINE 20mg/ml inj. IV PRN (09:40)
[2017-10-30] MEDS: LORazepam 0.5 MG tablet PO PRN ×3 (11:39→23:29)
[2017-10-30] MEDS: hydrALAZINE 20mg/ml inj. IV PRN (11:40)
[2017-10-30] MEDS: cyclobenzaprine 10mg tablet PO PRN ×2 (15:26→23:29)
[2017-10-31 02:00] VITALS: BP 163/81
[2017-10-31] MEDS: HYDROcodone/acetaminophen 10/325mg tab PO PRN ×5 (02:10→19:01)
[2017-10-31] MEDS: methylPREDNISolone sod succ 125mg/2ml vial IV SCH ×3 (02:10→14:21)
[2017-10-31] MEDS: ipratropium/albuterol 3ml nebule NEB SCH ×4 (03:00→16:04)
[2017-10-31] MEDS: hydrALAZINE 20mg/ml inj. IV PRN ×2 (03:14→10:55)
[2017-10-31 06:00] VITALS: BP 177/94
[2017-10-31 06:05] VITALS: BP 163/77
[2017-10-31] MEDS: K and/or MAG REPLACEMENT MC SCH (08:00)
[2017-10-31] MEDS: docusate sod 100mg capsule PO SCH (08:00)
[2017-10-31] MEDS ORDERED: acetaZOLAMIDE 250mg tablet PO SCH (08:00)
[2017-10-31] MEDS: PARoxetine 20mg tablet PO SCH (08:28)
[2017-10-31] MEDS: lactobacillus rhamnosus 10,000 MMU CELLS/CAPSULE PO SCH ×2 (08:30→17:58)
[2017-10-31] MEDS: aspirin 81mg tablet.DR PO SCH (08:31)
[2017-10-31] MEDS: pantoprazole 40mg Tablet.DR PO SCH (08:32)
[2017-10-31] MEDS: folic acid 1mg tablet PO SCH (08:33)
[2017-10-31] MEDS: metoprolol tartrate 50mg tablet PO SCH (08:33)
[2017-10-31] MEDS: thiamine 100mg tablet PO SCH (08:34)
[2017-10-31] MEDS: multivitamins, therapeutics tablet PO SCH (08:35)
[2017-10-31] MEDS: nicotine 14mg patch - 24hr TD SCH (08:36)
[2017-10-31] MEDS: enoxaparin 40mg/0.4ml syringe SUBCUT SCH (08:38)
[2017-10-31] MEDS: cyclobenzaprine 10mg tablet PO PRN ×2 (08:51→17:58)
[2017-10-31] MEDS: LORazepam 0.5 MG tablet PO PRN ×2 (08:52→16:06)
[2017-10-31] MEDS: cefTRIAXone 1g/NS 100ml IVPB 100 ML IV SCH (09:00)
[2017-10-31 09:03] LABS: ALBUMIN 3.2 G/DL (3.4-5.0); ANION GAP 4 (8-16); BLOOD UREA NITROGEN 30 MG/DL (7-18); CALCIUM 8.3 MG/DL (8.5-10.1); CHLORIDE 102 MMOL/L (99-107); GLUCOSE 182 MG/DL (70-104); POTASSIUM 4.5 MMOL/L (3.5-5.1); SODIUM 142 MMOL/L (135-145); TOTAL CARBON DIOXIDE 35.8 MMOL/L (24-32); eGFR > 90 ML/MIN
[2017-10-31 09:50] VITALS: BP 168/83
[2017-10-31 10:06] LABS: ABG BASE EXCESS 5.4 mmol/L (-2.0-3.0); ABG OXYGEN SATURATION 94.6 % (95-98); ABG PCO2 (T) 62.2 mmHg (32.0-45.0); ABG PH (T) 7.343 (7.350-7.450); ABG PO2 (T) 79.2 mmHg (83-108); FCOHb 0.2 % (0.5-1.5); FLOW 2 L/min; FMetHb 0.1 % (0.3-1.12); FO2Hb 94.3 % (94-100); TOTAL HEMOGLOBIN 13.7 G/dl (12.0-16.0)
[2017-10-31 11:00] VITALS: BP 150/74
[2017-10-31] MEDS ORDERED: ASPI-1071 PO (12:48)
[2017-10-31] MEDS ORDERED: NICO-631 TD (12:48)
[2017-10-31] MEDS ORDERED: LEVO500T2 PO (12:52)
[2017-10-31] MEDS ORDERED: CLIN-5 PO (12:52)
[2017-10-31] MEDS ORDERED: PRED20TA PO (13:01)
[2017-10-31] MEDS ORDERED: GUAI100L97 PO (13:02)
[2017-10-31 15:00] VITALS: BP 151/84
== END 2017-10-31 19:05 | disposition home or self-care (01) | DRG 720 ==
LOC: ER 21:59 → ED HOLD 10-23 09:05 → EDBEDREQTM 10-23 09:38 → EDBEDREQ 10-23 10:45 → PCU 3S 10-23 11:35
PROVIDERS: ADMIT Internal Medicine; ATTEND Family Medicine
PROC: 5A09357 Assistance with Respiratory Ventilation, Less than 24 Consecutive Hours, Continuous Positive Airway Pressure (ICD-10-PCS; principal; 2017-10-23)
PROC: 5A09457 Assistance with Respiratory Ventilation, 24-96 Consecutive Hours, Continuous Positive Airway Pressure (ICD-10-PCS; 2017-10-25)
PROC: 5A09357 Assistance with Respiratory Ventilation, Less than 24 Consecutive Hours, Continuous Positive Airway Pressure (ICD-10-PCS; 2017-10-27)
PROC: 5A09357 Assistance with Respiratory Ventilation, Less than 24 Consecutive Hours, Continuous Positive Airway Pressure (ICD-10-PCS; 2017-10-27)
PROC: 5A09357 Assistance with Respiratory Ventilation, Less than 24 Consecutive Hours, Continuous Positive Airway Pressure (ICD-10-PCS; 2017-10-29)
PROC: 5A09357 Assistance with Respiratory Ventilation, Less than 24 Consecutive Hours, Continuous Positive Airway Pressure (ICD-10-PCS; 2017-10-30)
DX: A41.9 Sepsis, unspecified organism (principal); J96.20 Acute and chronic respiratory failure, unspecified whether with hypoxia or hypercapnia; E87.4 Mixed disorder of acid-base balance; I50.9 Heart failure, unspecified; I11.0 Hypertensive heart disease with heart failure; J96.22 Acute and chronic respiratory failure with hypercapnia; F10.239 Alcohol dependence with withdrawal, unspecified; J44.1 Chronic obstructive pulmonary disease with (acute) exacerbation; F17.209 Nicotine dependence, unspecified, with unspecified nicotine-induced disorders; I25.10 Atherosclerotic heart disease of native coronary artery without angina pectoris; E87.5 Hyperkalemia; G89.4 Chronic pain syndrome; F10.229 Alcohol dependence with intoxication, unspecified; F17.210 Nicotine dependence, cigarettes, uncomplicated; J20.9 Acute bronchitis, unspecified; J44.0 Chronic obstructive pulmonary disease with (acute) lower respiratory infection; Z90.710 Acquired absence of both cervix and uterus; Z99.81 Dependence on supplemental oxygen; I25.2 Old myocardial infarction; Z82.49 Family history of ischemic heart disease and other diseases of the circulatory system; Z82.5 Family history of asthma and other chronic lower respiratory diseases; Z80.9 Family history of malignant neoplasm, unspecified
CPT/HCPCS: 36415; 36600; 71045; 80048; 80053; 80305; 80320; 82803; 82948; 83735; 84100; 84132; 84484; 85018; 85025; 85379; 85610; 87070; 93005; 94640; 94660; 94760; 96361; 96374; 97110; 97116; 97161; 97530; 99285; A6258; J0360; J0696; J1650; J1940; J2270; J2405; J2930; J3411; J3475; J3490; J7030; J7060

== ENCOUNTER 2017-11-05 11:03 | Emergency (ER) | payer MEDICAID ==
[~2017-11-05] VITALS: Ht 162.6 cm; Wt 52.5 kg
[~2017-11-05 11:03] MED LIST changes: +ASPI-1071 PO; -AZIT-63 PO; +CLIN-5 PO; -FLUT1AER IH; +GUAI100L97 PO; +HYDR-565 PO; -HYDR-569 PO; +LEVO500T2 PO; -LORA-269 PO; -METH4TAB81 PO; -METO50TA16 PO; +METO50TA17 PO; +NICO-631 TD; -PARO20TA6 PO; +PRED20TA PO; -TIOT4MIS5; -WHEE1EAC12 MC
[2017-11-05] MEDS ORDERED: LORA1TAB PO (11:48)
[2017-11-05] MEDS ORDERED: CYCL-1 PO (11:48)
[2017-11-05 11:51] VITALS: BP 142/94
== END 2017-11-05 12:00 | disposition home or self-care (01) ==
LOC: ER 11:04
DX: Z76.0 Encounter for issue of repeat prescription (principal); F41.9 Anxiety disorder, unspecified; M54.9 Dorsalgia, unspecified; I25.10 Atherosclerotic heart disease of native coronary artery without angina pectoris; I11.0 Hypertensive heart disease with heart failure; I25.2 Old myocardial infarction; I50.9 Heart failure, unspecified; J44.9 Chronic obstructive pulmonary disease, unspecified; Z90.710 Acquired absence of both cervix and uterus; Z98.890 Other specified postprocedural states; Z79.82 Long term (current) use of aspirin; Z79.899 Other long term (current) drug therapy
CPT/HCPCS: 99284

== ENCOUNTER 2017-11-12 12:22 | Emergency (ER) | payer MEDICAID ==
[~2017-11-12] VITALS: Ht 162.6 cm; Wt 52.7 kg
[~2017-11-12 12:22] MED LIST changes: -LEVO500T2 PO; +LORA1TAB PO; -PRED20TA PO
[2017-11-12] MEDS ORDERED: cyclobenzaprine 10mg tablet PO ONE (14:20)
[2017-11-12] MEDS ORDERED: HYDROcodone/acetaminophen 10/325mg tab PO ONE (14:20)
[2017-11-12] MEDS ORDERED: ketorolac trometh. 30mg/ml inj. IM ONE (14:20)
[2017-11-12] MEDS ORDERED: ondansetron 4mg rapidly disintigrating tab PO ONE (14:20)
[2017-11-12] MEDS ORDERED: HYDR-3965 PO (14:59)
[2017-11-12] MEDS ORDERED: ONDA4TAB12 PO (14:59)
[2017-11-12] MEDS ORDERED: IBUP-1984 PO (14:59)
[2017-11-12] MEDS ORDERED: HYDROcodone/acetaminophen 5mg/325mg tablet PO ONE (16:55)
[2017-11-12 17:36] VITALS: BP 141/87
== END 2017-11-12 17:38 | disposition home or self-care (01) ==
LOC: ER 12:22
DX: S42.202A Unspecified fracture of upper end of left humerus, initial encounter for closed fracture (principal); J44.9 Chronic obstructive pulmonary disease, unspecified; R09.02 Hypoxemia; S09.90XA Unspecified injury of head, initial encounter; I25.10 Atherosclerotic heart disease of native coronary artery without angina pectoris; I11.0 Hypertensive heart disease with heart failure; I50.9 Heart failure, unspecified; G89.29 Other chronic pain; I25.2 Old myocardial infarction; Z90.710 Acquired absence of both cervix and uterus; Z79.82 Long term (current) use of aspirin; Z79.899 Other long term (current) drug therapy; Z99.81 Dependence on supplemental oxygen; W01.0XXA Fall on same level from slipping, tripping and stumbling without subsequent striking against object, initial encounter; Y93.89 Activity, other specified; Y92.89 Other specified places as the place of occurrence of the external cause; Y99.8 Other external cause status
CPT/HCPCS: 29105; 71045; 71100; 72170; 73030; 73060; 96372; 99284; J1885

== ENCOUNTER 2017-11-15 14:21 | Emergency (ER) | payer MEDICAID ==
[~2017-11-15] VITALS: Ht 152.4 cm; Wt 70.0 kg
[~2017-11-15 14:21] MED LIST changes: +HYDR-3965 PO; +IBUP-1984 PO; +ONDA4TAB12 PO
[2017-11-15 15:38] VITALS: BP 122/67
[2017-11-15] MEDS ORDERED: ASPI-1264 PO (17:49)
[2017-11-15] MEDS ORDERED: aspirin 325mg tablet PO ONE (17:50)
[2017-11-25] MEDS ORDERED: LORA1TAB (10:43)
[2017-11-25] MEDS ORDERED: IBUP-1984 (10:46)
[2017-11-25] MEDS ORDERED: PARO20TA6 (10:46)
[2017-11-25] MEDS ORDERED: BECL8.7A7 (10:46)
[2017-12-05] MEDS ORDERED: PER10325T PO (12:22)
[2017-12-05] MEDS ORDERED: ATI0.5T PO (12:22)
[2017-12-05] MEDS ORDERED: ATOR10TA PO (12:22)
[2017-12-05] MEDS ORDERED: PRED20TA PO (12:22)
[2017-12-05] MEDS ORDERED: LACT10SO32 PO (12:22)
[2017-12-05] MEDS ORDERED: DILT30TA5 PO (12:22)
[2017-12-05] MEDS ORDERED: CLON0.1T20 PO (12:22)
[2017-12-05] MEDS ORDERED: CARV-50 PO (12:22)
[2017-12-05] MEDS ORDERED: PANT40TA4 PO (12:22)
[2017-12-05] MEDS ORDERED: TEMA15CA PO (12:22)
[2017-12-05] MEDS ORDERED: PER5325T PO (12:22)
[2017-12-05] MEDS ORDERED: NITR0.4T51 SL (12:22)
[2017-12-05] MEDS ORDERED: LACT1CAP26 PO (12:22)
[2017-12-23] MEDS ORDERED: MULT-1121 PO (09:58)
[2017-12-23] MEDS ORDERED: IBUP-1984 PO (09:58)
[2017-12-23] MEDS ORDERED: OMEP20TA5 PO (09:58)
[2017-12-23] MEDS ORDERED: PRAV40TA PO (09:58)
[2017-12-23] MEDS ORDERED: PARO25TA16 PO (09:58)
[2017-12-23] MEDS ORDERED: FURO-150 PO (09:58)
[2017-12-23] MEDS ORDERED: LORA1TAB PO (09:58)
[2017-12-23] MEDS ORDERED: METO50TA17 PO (09:58)
[2017-12-23] MEDS ORDERED: MORP30CA16 PO (09:58)
== END 2017-11-15 18:03 | disposition home or self-care (01) ==
LOC: ER 14:21
DX: M79.602 Pain in left arm (principal); I25.10 Atherosclerotic heart disease of native coronary artery without angina pectoris; I11.0 Hypertensive heart disease with heart failure; I50.9 Heart failure, unspecified; I25.2 Old myocardial infarction; J44.9 Chronic obstructive pulmonary disease, unspecified; G89.29 Other chronic pain; I49.9 Cardiac arrhythmia, unspecified; Z90.710 Acquired absence of both cervix and uterus; Z79.82 Long term (current) use of aspirin; Z79.899 Other long term (current) drug therapy
CPT/HCPCS: 99282; 99283

== ENCOUNTER 2018-01-25 19:13 | Emergency (ER) | payer MEDICAID ==
[~2018-01-25] VITALS: Ht 162.6 cm; Wt 50.0 kg
[~2018-01-25 19:13] MED LIST changes: -ALBU18HF2 INH; +BECL8.7A7; -CLIN-5 PO; +FURO-150 PO; -FURO40TA4 PO; -GUAI100L97 PO; +HYDR-3964; -HYDR-3965 PO; -HYDR-565 PO; -IBUP-1984 PO; -LORA0.5T PO; +MULT-1121 PO; +NITR0.4T51 SL; -ONDA4TAB12 PO; +PARO25TA16 PO; +TEMA15CA PO
[2018-01-25 19:19] VITALS: BP 129/98
[2018-01-25] MEDS ORDERED: HYDR-3965 PO (21:07)
[2018-01-25] MEDS ORDERED: HYDROcodone/acetaminophen 10/325mg tab PO ONE (21:10)
== END 2018-01-25 21:28 | disposition home or self-care (01) ==
LOC: ER 19:13
DX: S93.402A Sprain of unspecified ligament of left ankle, initial encounter (principal); S40.012A Contusion of left shoulder, initial encounter; I25.10 Atherosclerotic heart disease of native coronary artery without angina pectoris; I11.0 Hypertensive heart disease with heart failure; I50.9 Heart failure, unspecified; G89.29 Other chronic pain; I25.2 Old myocardial infarction; J44.9 Chronic obstructive pulmonary disease, unspecified; I49.9 Cardiac arrhythmia, unspecified; Z90.710 Acquired absence of both cervix and uterus; Z98.890 Other specified postprocedural states; Z79.82 Long term (current) use of aspirin; Z79.899 Other long term (current) drug therapy; W01.0XXA Fall on same level from slipping, tripping and stumbling without subsequent striking against object, initial encounter; Y93.89 Activity, other specified; Y92.89 Other specified places as the place of occurrence of the external cause; Y99.8 Other external cause status
CPT/HCPCS: 73060; 73610; 99284

== ENCOUNTER 2018-01-31 17:17 | Inpatient (IN) | payer MEDICAID ==
[~2018-01-31] VITALS: Ht 167.6 cm; Wt 41.7 kg
[2018-01-31] MEDS: K, MAG and/or Phos replacement - Verify level? MC SCH
[~2018-01-31 17:17] MED LIST changes: +0.9 % SODIUM CHLORIDE 10 ML VIAL ONE; -BECL8.7A7; +BECL8.7A7 PO; +HYDR-3965 PO; -UMEC1DIS; +UMEC1DIS PO; +etomidate 2mg/ml inj. ONE; +rocuronium 10mg/ml inj IV ONE
[2018-01-31] MEDS ORDERED: magnesium 2GM in 50ml NS 50 ML IV ONE (17:20)
[2018-01-31] MEDS ORDERED: methylPREDNISolone sod succ 125mg/2ml vial IV ONE (17:20)
[2018-01-31] MEDS ORDERED: normal saline 1000ML IV soln IVB ONE (17:45)
[2018-01-31 17:55] LABS: ABG BASE EXCESS 23.4 mmol/L (-2.0-3.0); ABG HCO3 56.5 mmol/L (22.0-26.0); ABG OXYGEN SATURATION 91.9 % (95-98); ABG PCO2 (T) 129.6 mmHg (32.0-45.0); ABG PH (T) 7.257 (7.350-7.450); ABG PO2 (T) 66.1 mmHg (83-108); FCOHb 4.5 % (0.5-1.5); FMetHb 0.4 % (0.3-1.12); FO2Hb 87.4 % (94-100); RESPIRATORY RATE 20 b/min
[2018-01-31 17:55] LABS: HEMATOCRIT 38.7 % (35.0-45.0); HEMOGLOBIN 11.6 g/dl (12.0-16.0); MEAN CORPUSCULAR HEMOGLOBIN 27.8 PG (27.0-31.0); MEAN CORPUSCULAR VOLUME 92.8 FL (78-98); MEAN PLATELET VOLUME 8.6 FL (7.4-10.4); PLATELET COUNT 311 X10'3 (140-440); RED BLOOD COUNT 4.17 X10'6 (4.20-5.60); RED CELL DISTRIBUTION WIDTH 19.4 % (11.5-14.5)
[2018-01-31 18:03] LABS: WHITE BLOOD COUNT 45.1 X10'3 (4.5-11.0)
[2018-01-31 18:04] LABS: PROTHROMBIN TIME 10.4 SECONDS (9.0-12.0)
[2018-01-31] MEDS ORDERED: levoFLOXACIN-Levaquin 750MG/D5 150 ML IV ONE (18:05)
[2018-01-31] MEDS ORDERED: vancomycin/NS 1 GM ADD-VANTAGE 250 ML IV ONE (18:05)
[2018-01-31 18:10] LABS: PLATELET ESTIMATE NORMAL; TOTAL CELLS COUNTED 100
[2018-01-31 18:12] LABS: HYPOCHROMASIA 1+; LARGE PLATELETS FEW; POLYCHROMASIA FEW; STOMATOCYTES 1+
[2018-01-31 18:19] LABS: ALANINE AMINOTRANSFERASE 21 U/L (12-78); ALBUMIN/GLOBULIN RATIO 0.7 (1.1-1.5); ALKALINE PHOSPHATASE 187 IU/L (46-116); ASPARTATE AMINO TRANSFERASE 21 U/L (10-37); BILIRUBIN,TOTAL 0.3 MG/DL (0.1-1.0); BLOOD UREA NITROGEN 10 MG/DL (7-18); BUN/CREATININE RATIO 20.8 (6.6-38.0); CALCIUM 9.4 MG/DL (8.5-10.1); CHLORIDE 98 MMOL/L (99-107); CREATININE 0.48 MG/DL (0.40-0.90); GLUCOSE 136 MG/DL (70-104); MAGNESIUM 1.6 MG/DL (1.5-2.4); POTASSIUM 3.1 MMOL/L (3.5-5.1); SODIUM 145 MMOL/L (135-145); TOTAL PROTEIN 7.5 G/DL (6.4-8.2); eGFR > 90 ML/MIN
[2018-01-31] MEDS ORDERED: propofol 1000mg/100ml bottle 100 ML IV ONE (18:40)
[2018-01-31] MEDS ORDERED: etomidate 2mg/ml inj. IV ONE (18:45)
[2018-01-31] MEDS ORDERED: rocuronium 10mg/ml inj IV ONE (18:45)
[2018-01-31 18:55] LABS: ANION GAP -2 (8-16); TOTAL CARBON DIOXIDE 49.3 MMOL/L (24-32)
[2018-01-31 19:41] LABS: ABG BASE EXCESS 15.5 mmol/L (-2.0-3.0); ABG HCO3 41.2 mmol/L (22.0-26.0); ABG OXYGEN SATURATION 99.5 % (95-98); ABG PCO2 (T) 55.6 mmHg (32.0-45.0); ABG PH (T) 7.486 (7.350-7.450); ABG PO2 (T) 252.2 mmHg (83-108); ALLEN'S TEST Positive; FCOHb 2.9 % (0.5-1.5); FMetHb 0.3 % (0.3-1.12); FO2Hb 96.3 % (94-100); MINUTE VOLUME 8 L/min; PATIENT TEMPERATURE 36.6; PEEP 5 cm H2O; RESPIRATORY RATE 22 b/min; RESPIRATORY RATE (OBSERVED) 22 b/min; TIDAL VOLUME 325 mL; TOTAL HEMOGLOBIN 10.6 G/dl (12.0-16.0)
[2018-01-31] MEDS ORDERED: magnesium 4gm in 100ml NS 100 ML IV PRN (19:45)
[2018-01-31] MEDS ORDERED: magnesium 2GM in 50ml NS 50 ML IV PRN (19:45)
[2018-01-31] MEDS ORDERED: proCHLORperazine 10 MG/2 ml inj IV PRN (19:45)
[2018-01-31] MEDS ORDERED: acetaminophen 650mg rectal suppository RC PRN (19:45)
[2018-01-31] MEDS ORDERED: morphine 4 MG/ML inj SYRINge IV PRN ×2 (19:45)
[2018-01-31] MEDS ORDERED: potassium Cl 40MEQ/NS 500ml 500 ML IV PRN ×2 (19:45)
[2018-01-31] MEDS ORDERED: magnesium Cl slow-release 64mg tablet PO PRN (19:45)
[2018-01-31] MEDS ORDERED: ondansetron/PF 4mg/2ml inj IV PRN (19:45)
[2018-01-31 19:54] LABS: COLOR,URINE YELLOW (Yellow); GLUCOSE, URINE NEGATIVE (Neg); KETONES,URINE 15 mg/dl (Neg); LEUKOCYTE ESTERASE ,URINE NEGATIVE (Neg); NITRITES, URINE NEGATIVE (Neg); OCCULT BLOOD,URINE NEGATIVE (Neg); PROTEIN,URINE 30 mg/dl (Neg); UROBILINOGEN,URINE 0.2 E.U/dL (0.2-1.0)
[2018-01-31 20:01] LABS: CLARITY,URINE SLIGHTLY CLOUDY (Clear); UA COLLECTION TYPE FOLEY CATH
[2018-01-31 20:02] LABS: BACTERIA,URINE FEW /HPF (Neg); MUCUS STRANDS FEW /LPF (Neg); RBC,URINE NONE SEEN /HPF (0-2); SQUAMOUS EPITHELIAL CELL,UR FEW /LPF (FEW)
[2018-01-31] MEDS: normal saline 1000ml 1,000 ML IV SCH (20:12)
[2018-01-31] MEDS: famotidine/PF 10 mg/ml inj IV SCH (20:15)
[2018-01-31 21:30] VITALS: BP 134/70
[2018-01-31] MEDS ORDERED: FENTANYL-0.9 % NACL/PF 100 ML IV PRN (21:45)
[2018-01-31 22:00] VITALS: BP 109/52
[2018-01-31 23:00] VITALS: BP 113/67
[2018-02-01] VITALS (23 sets, daily range): BP systolic 109–169; BP diastolic 64–85
[2018-02-01] MEDS ORDERED: VANCOMYCIN 750MG IV in NS 250 ML IV SCH ×2
[2018-02-01] MEDS: cefepime 1GM/NS ADD-VANTAGE 100 ML IV SCH ×3 (00:29→15:59)
[2018-02-01 02:37] LABS: BASOPHILS % (AUTO) 0 % (0-1); EOSINOPHILS % (AUTO) 0.1 % (0-6); HEMATOCRIT 29.4 % (35.0-45.0); HEMOGLOBIN 8.8 g/dl (12.0-16.0); LYMPHOCYTES # (AUTO) 0.9 X10'3 (1.1-4.8); LYMPHOCYTES % (AUTO) 3.2 % (21-51); MEAN CORPUSCULAR HEMOGLOBIN 27.5 PG (27.0-31.0); MEAN CORPUSCULAR VOLUME 91.5 FL (78-98); MEAN PLATELET VOLUME 8.4 FL (7.4-10.4); MONOCYTES # (AUTO) 0.3 X10'3 (0-0.9); MONOCYTES % (AUTO) 1.2 % (2-12); NEUTROPHILS % (AUTO) 95.5 % (42-75); PLATELET COUNT 222 X10'3 (140-440); RED BLOOD COUNT 3.22 X10'6 (4.20-5.60); RED CELL DISTRIBUTION WIDTH 18.8 % (11.5-14.5)
[2018-02-01] MEDS: normal saline 1000ml 1,000 ML IV SCH ×5 (02:47→19:39)
[2018-02-01 02:54] LABS: ALANINE AMINOTRANSFERASE 14 U/L (12-78); ALBUMIN 2.1 G/DL (3.4-5.0); ALBUMIN/GLOBULIN RATIO 0.6 (1.1-1.5); ALKALINE PHOSPHATASE 125 IU/L (46-116); ANION GAP 1 (8-16); ASPARTATE AMINO TRANSFERASE 16 U/L (10-37); BILIRUBIN,TOTAL 0.3 MG/DL (0.1-1.0); BLOOD UREA NITROGEN 11 MG/DL (7-18); BUN/CREATININE RATIO 25.6 (6.6-38.0); CALCIUM 8.4 MG/DL (8.5-10.1); CHLORIDE 103 MMOL/L (99-107); CREATININE 0.43 MG/DL (0.40-0.90); GLUCOSE 99 MG/DL (70-104); MAGNESIUM 1.8 MG/DL (1.5-2.4); PHOSPHORUS 1.5 MG/DL (2.3-4.5); SODIUM 143 MMOL/L (135-145); TOTAL CARBON DIOXIDE 38.9 MMOL/L (24-32); TOTAL PROTEIN 5.5 G/DL (6.4-8.2); eGFR > 90 ML/MIN
[2018-02-01 03:04] LABS: WHITE BLOOD COUNT 28.2 X10'3 (4.5-11.0)
[2018-02-01] MEDS ORDERED: POTASSIUM CL IV ONE (03:08)
[2018-02-01] MEDS ORDERED: [UNRECOGNIZED DRUG - OTHER] IV ONE (03:08)
[2018-02-01 03:16] LABS: ABG BASE EXCESS 12.5 mmol/L (-2.0-3.0); ABG PCO2 (T) 54.3 mmHg (32.0-45.0); ABG PH (T) 7.462 (7.350-7.450); ABG PO2 (T) 52.4 mmHg (83-108); ALLEN'S TEST Positive; FCOHb 0.6 % (0.5-1.5); FMetHb 0.4 % (0.3-1.12); FO2Hb 90.1 % (94-100); MINUTE VOLUME 6 L/min; PATIENT TEMPERATURE 37.1; PEEP 5 cm H2O; RESPIRATORY RATE 16 b/min; RESPIRATORY RATE (OBSERVED) 16 b/min; TIDAL VOLUME 325 mL; TOTAL HEMOGLOBIN 9.9 G/dl (12.0-16.0)
[2018-02-01] MEDS ORDERED: potassium Cl 40MEQ/250ML bag 250 ML IV ONE (03:33)
[2018-02-01] MEDS ORDERED: sodium phosphate inj. 15 MMOL in dextrose 5%-water 145 ML IV ONE (04:15)
[2018-02-01 04:23] LABS: PLATELET ESTIMATE NORMAL; TOTAL CELLS COUNTED 100
[2018-02-01 04:24] LABS: ANISOCYTOSIS 2+; LARGE PLATELETS FEW; STOMATOCYTES 1+
[2018-02-01] MEDS: potassium Cl 40MEQ/250ML bag 250 ML IV PRN ×2 (04:30→08:01)
[2018-02-01] MEDS ORDERED: K and/or MAG REPLACEMENT MC SCH (08:00)
[2018-02-01] MEDS ORDERED: vancomycin inj 500 MG in normal saline 100ml IV soln 100 ML IV SCH (08:00)
[2018-02-01] MEDS ORDERED: levoFLOXACIN-Levaquin 750MG/D5 150 ML IV SCH (08:00)
[2018-02-01] MEDS: K, MAG and/or Phos replacement - Verify level? MC SCH (08:00)
[2018-02-01] MEDS: famotidine/PF 10 mg/ml inj IV SCH ×2 (08:09→19:39)
[2018-02-01] MEDS: levoFLOXACIN-Levaquin 500mg/D5 100 ML IV SCH (08:33)
[2018-02-01] MEDS ORDERED: iohexol 300mg/ml 100ml inj. ONE (10:17)
[2018-02-01] MEDS ORDERED: CYCL10TA26 PO (10:40)
[2018-02-01] MEDS ORDERED: PRAV40TA3 PO (10:47)
[2018-02-01] MEDS ORDERED: NICO-630 TOP (10:47)
[2018-02-01] MEDS ORDERED: CARV-50 PO (10:47)
[2018-02-01] MEDS ORDERED: MULT-933 PO (10:47)
[2018-02-01] MEDS ORDERED: OMEP20CA10 PO (10:47)
[2018-02-01] MEDS ORDERED: DILTIAZEM PO (10:47)
[2018-02-01] MEDS ORDERED: ASPI-611 PO (10:50)
[2018-02-01] MEDS: FENTANYL-0.9 % NACL/PF 100 ML IV PRN ×3 (11:46→22:15)
[2018-02-01] MEDS: midazolam 100mg in NS 100ml 100 ML IV PRN (11:47)
[2018-02-01 16:04] LABS: MAGNESIUM 1.8 MG/DL (1.5-2.4); PHOSPHORUS 1.9 MG/DL (2.3-4.5); POTASSIUM 4.2 MMOL/L (3.5-5.1)
[2018-02-01] MEDS: VANCOMYCIN 750MG IV in NS 250 ML IV SCH (16:51)
[2018-02-02] VITALS (24 sets, daily range): BP systolic 105–166; BP diastolic 55–92
[2018-02-02] MEDS: cefepime 1GM/NS ADD-VANTAGE 100 ML IV SCH ×3 (00:56→16:34)
[2018-02-02] MEDS: VANCOMYCIN 750MG IV in NS 250 ML IV SCH ×2 (00:56→08:00)
[2018-02-02 02:47] LABS: BASOPHILS % (AUTO) 0 % (0-1); EOSINOPHILS % (AUTO) 0 % (0-6); HEMATOCRIT 26.6 % (35.0-45.0); HEMOGLOBIN 8.1 g/dl (12.0-16.0); LYMPHOCYTES % (AUTO) 4.6 % (21-51); MEAN CORPUSCULAR HEMOGLOBIN 27.6 PG (27.0-31.0); MEAN CORPUSCULAR HGB CONC 30.6 % (33.0-36.5); MEAN CORPUSCULAR VOLUME 90.3 FL (78-98); MEAN PLATELET VOLUME 8.6 FL (7.4-10.4); MONOCYTES # (AUTO) 1.9 X10'3 (0-0.9); MONOCYTES % (AUTO) 8.3 % (2-12); NEUTROPHILS # (AUTO) 19.6 X10'3 (1.8-7.7); NEUTROPHILS % (AUTO) 87.1 % (42-75); PLATELET COUNT 215 X10'3 (140-440); RED BLOOD COUNT 2.95 X10'6 (4.20-5.60); RED CELL DISTRIBUTION WIDTH 20.1 % (11.5-14.5); WHITE BLOOD COUNT 22.5 X10'3 (4.5-11.0)
[2018-02-02] MEDS: FENTANYL-0.9 % NACL/PF 100 ML IV PRN ×4 (03:00→19:32)
[2018-02-02] MEDS: normal saline 1000ml 1,000 ML IV SCH ×4 (03:01→23:13)
[2018-02-02 03:02] LABS: ALANINE AMINOTRANSFERASE 15 U/L (12-78); ALBUMIN 1.9 G/DL (3.4-5.0); ALBUMIN/GLOBULIN RATIO 0.6 (1.1-1.5); ALKALINE PHOSPHATASE 105 IU/L (46-116); ANION GAP 2 (8-16); ASPARTATE AMINO TRANSFERASE 15 U/L (10-37); BILIRUBIN,TOTAL 0.2 MG/DL (0.1-1.0); BLOOD UREA NITROGEN 19 MG/DL (7-18); BUN/CREATININE RATIO 34.5 (6.6-38.0); CALCIUM 8.5 MG/DL (8.5-10.1); CHLORIDE 111 MMOL/L (99-107); CREATININE 0.55 MG/DL (0.40-0.90); GLUCOSE 80 MG/DL (70-104); MAGNESIUM 1.6 MG/DL (1.5-2.4); PHOSPHORUS 2.2 MG/DL (2.3-4.5); SODIUM 145 MMOL/L (135-145); TOTAL CARBON DIOXIDE 31.7 MMOL/L (24-32); eGFR > 90 ML/MIN
[2018-02-02 03:41] LABS: ABG BASE EXCESS 3.8 mmol/L (-2.0-3.0); ABG HCO3 28.9 mmol/L (22.0-26.0); ABG OXYGEN SATURATION 98.3 % (95-98); ABG PCO2 (T) 46.7 mmHg (32.0-45.0); ABG PO2 (T) 112.7 mmHg (83-108); ALLEN'S TEST Positive; FCOHb 0.3 % (0.5-1.5); FMetHb 0.3 % (0.3-1.12); FO2Hb 97.7 % (94-100); MINUTE VOLUME 6 L/min; PEEP 5 cm H2O; RESPIRATORY RATE 16 b/min; RESPIRATORY RATE (OBSERVED) 16 b/min; TIDAL VOLUME 325 mL; TOTAL HEMOGLOBIN 9.2 G/dl (12.0-16.0)
[2018-02-02 03:53] LABS: ANISOCYTOSIS 2+; PLATELET ESTIMATE NORMAL; TOTAL CELLS COUNTED 100
[2018-02-02 03:54] LABS: LARGE PLATELETS FEW; POLYCHROMASIA FEW; STOMATOCYTES FEW
[2018-02-02] MEDS: levoFLOXACIN-Levaquin 500mg/D5 100 ML IV SCH (07:16)
[2018-02-02] MEDS: midazolam 100mg in NS 100ml 100 ML IV PRN (07:17)
[2018-02-02] MEDS: famotidine/PF 10 mg/ml inj IV SCH ×2 (07:18→20:00)
[2018-02-02] MEDS ORDERED: VANCOMYCIN LEVEL IV NR (07:30)
[2018-02-02] MEDS ORDERED: dextrose 50%-water 50ml dispensing syringe IV ONE ×2 (14:00)
[2018-02-02] MEDS: vancomycin inj 500 MG in normal saline 100ml IV soln 100 ML IV SCH (16:31)
[2018-02-02] MEDS ORDERED: magnesium 4gm in 100ml NS 100 ML IV ONE (17:45)
[2018-02-02] MEDS ORDERED: glucagon, human recombinant 1mg kit SUBCUT PRN (23:00)
[2018-02-02] MEDS ORDERED: dextrose ORAL solution 15 GM/59 ML bottle PO PRN ×2 (23:00)
[2018-02-02] MEDS ORDERED: dextrose 50%-water 50ml dispensing syringe IV PRN ×2 (23:00)
[2018-02-02] MEDS ORDERED: insulin Lispro (HumaLOG) vial - multi-dose SQ SCH (23:00)
[2018-02-03] VITALS (24 sets, daily range): BP systolic 14–160; BP diastolic 36–105
[2018-02-03] MEDS: cefepime 1GM/NS ADD-VANTAGE 100 ML IV SCH ×4 (00:32→23:10)
[2018-02-03] MEDS: FENTANYL-0.9 % NACL/PF 100 ML IV PRN ×2 (00:55→14:22)
[2018-02-03] MEDS: vancomycin inj 500 MG in normal saline 100ml IV soln 100 ML IV SCH ×4 (01:14→23:43)
[2018-02-03 04:05] LABS: ABG BASE EXCESS 0.7 mmol/L (-2.0-3.0); ABG HCO3 26.3 mmol/L (22.0-26.0); ABG OXYGEN SATURATION 91.1 % (95-98); ABG PCO2 (T) 48.1 mmHg (32.0-45.0); ABG PH (T) 7.358 (7.350-7.450); ABG PO2 (T) 63.7 mmHg (83-108); ALLEN'S TEST Positive; FCOHb 0.1 % (0.5-1.5); FMetHb 0.3 % (0.3-1.12); FO2Hb 90.7 % (94-100); MINUTE VOLUME 6 L/min; PATIENT TEMPERATURE 37.5; PEEP 5 cm H2O; RESPIRATORY RATE 16 b/min; RESPIRATORY RATE (OBSERVED) 16 b/min; TIDAL VOLUME 325 mL; TOTAL HEMOGLOBIN 8.9 G/dl (12.0-16.0)
[2018-02-03 05:25] LABS: BASOPHILS % (AUTO) 0.1 % (0-1); EOSINOPHILS # (AUTO) 0.2 X10'3 (0-0.9); EOSINOPHILS % (AUTO) 1.6 % (0-6); HEMATOCRIT 26.1 % (35.0-45.0); LYMPHOCYTES # (AUTO) 1.4 X10'3 (1.1-4.8); LYMPHOCYTES % (AUTO) 9.7 % (21-51); MEAN CORPUSCULAR HEMOGLOBIN 27.3 PG (27.0-31.0); MEAN CORPUSCULAR HGB CONC 30.7 % (33.0-36.5); MEAN CORPUSCULAR VOLUME 88.8 FL (78-98); MEAN PLATELET VOLUME 9.3 FL (7.4-10.4); MONOCYTES # (AUTO) 1.2 X10'3 (0-0.9); MONOCYTES % (AUTO) 8.1 % (2-12); NEUTROPHILS # (AUTO) 11.6 X10'3 (1.8-7.7); NEUTROPHILS % (AUTO) 80.5 % (42-75); PLATELET COUNT 201 X10'3 (140-440); RED BLOOD COUNT 2.94 X10'6 (4.20-5.60); RED CELL DISTRIBUTION WIDTH 20.8 % (11.5-14.5); WHITE BLOOD COUNT 14.4 X10'3 (4.5-11.0)
[2018-02-03] MEDS: normal saline 1000ml 1,000 ML IV SCH ×3 (05:25→19:37)
[2018-02-03 06:01] LABS: ALANINE AMINOTRANSFERASE 12 U/L (12-78); ALBUMIN 1.8 G/DL (3.4-5.0); ALBUMIN/GLOBULIN RATIO 0.6 (1.1-1.5); ALKALINE PHOSPHATASE 93 IU/L (46-116); ANION GAP 6 (8-16); ASPARTATE AMINO TRANSFERASE 13 U/L (10-37); BILIRUBIN,TOTAL 0.2 MG/DL (0.1-1.0); BLOOD UREA NITROGEN 10 MG/DL (7-18); BUN/CREATININE RATIO 23.3 (6.6-38.0); CALCIUM 8.5 MG/DL (8.5-10.1); CHLORIDE 112 MMOL/L (99-107); CREATININE 0.43 MG/DL (0.40-0.90); GLUCOSE 92 MG/DL (70-104); MAGNESIUM 1.6 MG/DL (1.5-2.4); PHOSPHORUS 2.6 MG/DL (2.3-4.5); POTASSIUM 3.2 MMOL/L (3.5-5.1); SODIUM 146 MMOL/L (135-145); TOTAL CARBON DIOXIDE 28.4 MMOL/L (24-32); TOTAL PROTEIN 4.8 G/DL (6.4-8.2); eGFR > 90 ML/MIN
[2018-02-03 06:41] LABS: PREALBUMIN 11.6 MG/DL (19-36)
[2018-02-03] MEDS: levoFLOXACIN-Levaquin 500mg/D5 100 ML IV SCH (08:02)
[2018-02-03] MEDS: famotidine/PF 10 mg/ml inj IV SCH ×2 (08:02→19:56)
[2018-02-03] MEDS: midazolam 100mg in NS 100ml 100 ML IV PRN (08:02)
[2018-02-03] MEDS ORDERED: VANCOMYCIN LEVEL IV NR (15:30)
[2018-02-03] MEDS ORDERED: dextrose ORAL solution 15 GM/59 ML bottle NG PRN (18:55)
[2018-02-03] MEDS: potassium Cl 40MEQ/250ML bag 250 ML IV PRN (20:07)
[2018-02-03] MEDS: insulin glargine (Lantus) pen - multi-dose SQ SCH (21:00)
[2018-02-04] VITALS (28 sets, daily range): BP systolic 99–206; BP diastolic 56–110
[2018-02-04] MEDS: normal saline 1000ml 1,000 ML IV SCH ×4 (01:25→21:43)
[2018-02-04 03:44] LABS: BASOPHILS % (AUTO) 0 % (0-1); EOSINOPHILS # (AUTO) 0.1 X10'3 (0-0.9); EOSINOPHILS % (AUTO) 0.9 % (0-6); HEMATOCRIT 28.4 % (35.0-45.0); HEMOGLOBIN 8.8 g/dl (12.0-16.0); LYMPHOCYTES # (AUTO) 1.5 X10'3 (1.1-4.8); MEAN CORPUSCULAR HEMOGLOBIN 27.1 PG (27.0-31.0); MEAN CORPUSCULAR HGB CONC 30.9 % (33.0-36.5); MEAN CORPUSCULAR VOLUME 87.9 FL (78-98); MONOCYTES # (AUTO) 1.2 X10'3 (0-0.9); NEUTROPHILS # (AUTO) 12.3 X10'3 (1.8-7.7); NEUTROPHILS % (AUTO) 81.1 % (42-75); PLATELET COUNT 217 X10'3 (140-440); RED BLOOD COUNT 3.23 X10'6 (4.20-5.60); RED CELL DISTRIBUTION WIDTH 20.3 % (11.5-14.5); WHITE BLOOD COUNT 15.2 X10'3 (4.5-11.0)
[2018-02-04 03:56] LABS: ABG BASE EXCESS 2.7 mmol/L (-2.0-3.0); ABG HCO3 29.1 mmol/L (22.0-26.0); ABG OXYGEN SATURATION 92.7 % (95-98); ABG PCO2 (T) 54.5 mmHg (32.0-45.0); ABG PH (T) 7.345 (7.350-7.450); ABG PO2 (T) 68.4 mmHg (83-108); ALLEN'S TEST Positive; FMetHb 0.2 % (0.3-1.12); FO2Hb 92.5 % (94-100); MINUTE VOLUME 6 L/min; PEEP 5 cm H2O; RESPIRATORY RATE 16 b/min; RESPIRATORY RATE (OBSERVED) 16 b/min; TIDAL VOLUME 325 mL; TOTAL HEMOGLOBIN 9.5 G/dl (12.0-16.0)
[2018-02-04 03:59] LABS: ALANINE AMINOTRANSFERASE 9 U/L (12-78); ALBUMIN 1.8 G/DL (3.4-5.0); ALBUMIN/GLOBULIN RATIO 0.6 (1.1-1.5); ALKALINE PHOSPHATASE 103 IU/L (46-116); ANION GAP 4 (8-16); ASPARTATE AMINO TRANSFERASE 18 U/L (10-37); BILIRUBIN,TOTAL 0.2 MG/DL (0.1-1.0); BLOOD UREA NITROGEN 6 MG/DL (7-18); BUN/CREATININE RATIO 15.8 (6.6-38.0); CALCIUM 8.5 MG/DL (8.5-10.1); CHLORIDE 110 MMOL/L (99-107); CREATININE 0.38 MG/DL (0.40-0.90); GLUCOSE 97 MG/DL (70-104); MAGNESIUM 1.6 MG/DL (1.5-2.4); PHOSPHORUS 3.1 MG/DL (2.3-4.5); POTASSIUM 3.5 MMOL/L (3.5-5.1); SODIUM 144 MMOL/L (135-145); TOTAL CARBON DIOXIDE 29.6 MMOL/L (24-32); TOTAL PROTEIN 4.9 G/DL (6.4-8.2); eGFR > 90 ML/MIN
[2018-02-04] MEDS: FENTANYL-0.9 % NACL/PF 100 ML IV PRN ×3 (04:11→22:52)
[2018-02-04] MEDS: levoFLOXACIN-Levaquin 500mg/D5 100 ML IV SCH (07:59)
[2018-02-04] MEDS: cefepime 1GM/NS ADD-VANTAGE 100 ML IV SCH (07:59)
[2018-02-04] MEDS: famotidine/PF 10 mg/ml inj IV SCH ×2 (08:00→20:00)
[2018-02-04] MEDS: vancomycin inj 500 MG in normal saline 100ml IV soln 100 ML IV SCH (08:00)
[2018-02-04] MEDS ORDERED: methylnaltrexone br 12mg/0.6ml inj***SubQ only SQ ONE (08:25)
[2018-02-04] MEDS ORDERED: bisacodyl 10mg suppository rectal RC PRN (08:25)
[2018-02-04] MEDS ORDERED: DILT30TA5 PO (08:37)
[2018-02-04] MEDS: carVEDilol 12.5mg tablet PO SCH ×2 (08:46→20:00)
[2018-02-04] MEDS: nicotine 7mg patch - 24hr TD SCH (08:59)
[2018-02-04] MEDS: dexmedetomidin/NS 400mcg/100ml 100 ML IV SCH ×2 (09:24→22:50)
[2018-02-04 14:31] LABS: CRYPTOSPORIDIUM AG NEGATIVE (Neg); GIARDIA LAMBLIA AG NEGATIVE (Neg)
[2018-02-04] MEDS: VANCOMYCIN 750MG IV in NS 250 ML IV SCH (16:11)
[2018-02-04] MEDS: budesonide 0.5mg/2ml UD nebule IH SCH (19:04)
[2018-02-04] MEDS: ipratropium/albuterol 3ml nebule NEB PRN (19:04)
[2018-02-04] MEDS: lactobacillus rhamnosus 10,000 MMU CELLS/CAPSULE PO SCH (20:00)
[2018-02-04] MEDS: insulin glargine (Lantus) pen - multi-dose SQ SCH (21:00)
[2018-02-04] MEDS: atorvastatin 10mg tablet PO SCH (21:42)
[2018-02-05] VITALS (24 sets, daily range): BP systolic 124–177; BP diastolic 57–96
[2018-02-05] MEDS: VANCOMYCIN 750MG IV in NS 250 ML IV SCH ×4 (01:12→23:53)
[2018-02-05 03:10] LABS: BASOPHILS % (AUTO) 0 % (0-1); EOSINOPHILS # (AUTO) 0.2 X10'3 (0-0.9); EOSINOPHILS % (AUTO) 1.4 % (0-6); HEMATOCRIT 27.9 % (35.0-45.0); HEMOGLOBIN 8.7 g/dl (12.0-16.0); LYMPHOCYTES # (AUTO) 1.1 X10'3 (1.1-4.8); MEAN CORPUSCULAR HEMOGLOBIN 27.3 PG (27.0-31.0); MEAN CORPUSCULAR VOLUME 87.9 FL (78-98); MEAN PLATELET VOLUME 9.9 FL (7.4-10.4); MONOCYTES # (AUTO) 1.4 X10'3 (0-0.9); MONOCYTES % (AUTO) 8.7 % (2-12); NEUTROPHILS # (AUTO) 13.5 X10'3 (1.8-7.7); NEUTROPHILS % (AUTO) 82.9 % (42-75); PLATELET COUNT 204 X10'3 (140-440); RED BLOOD COUNT 3.18 X10'6 (4.20-5.60); RED CELL DISTRIBUTION WIDTH 19.4 % (11.5-14.5); WHITE BLOOD COUNT 16.3 X10'3 (4.5-11.0)
[2018-02-05 03:26] LABS: ALANINE AMINOTRANSFERASE 21 U/L (12-78); ALBUMIN 1.8 G/DL (3.4-5.0); ALBUMIN/GLOBULIN RATIO 0.6 (1.1-1.5); ALKALINE PHOSPHATASE 134 IU/L (46-116); ANION GAP 7 (8-16); ASPARTATE AMINO TRANSFERASE 35 U/L (10-37); BILIRUBIN,TOTAL 0.3 MG/DL (0.1-1.0); BLOOD UREA NITROGEN 3 MG/DL (7-18); BUN/CREATININE RATIO 7.1 (6.6-38.0); CALCIUM 8.3 MG/DL (8.5-10.1); CHLORIDE 107 MMOL/L (99-107); CREATININE 0.42 MG/DL (0.40-0.90); GLUCOSE 91 MG/DL (70-104); MAGNESIUM 1.5 MG/DL (1.5-2.4); PHOSPHORUS 3.4 MG/DL (2.3-4.5); POTASSIUM 3.1 MMOL/L (3.5-5.1); SODIUM 142 MMOL/L (135-145); TOTAL CARBON DIOXIDE 28.5 MMOL/L (24-32); TOTAL PROTEIN 4.8 G/DL (6.4-8.2); eGFR > 90 ML/MIN
[2018-02-05 04:28] LABS: ANISOCYTOSIS 2+; MICROCYTOSIS 1+; PLATELET ESTIMATE NORMAL; POLYCHROMASIA 1+
[2018-02-05] MEDS ORDERED: potassium Cl 40MEQ/250ML bag 250 ML IV ONE (04:28)
[2018-02-05] MEDS: normal saline 1000ml 1,000 ML IV SCH (04:33)
[2018-02-05] MEDS: potassium Cl 40MEQ/250ML bag 250 ML IV PRN (04:33)
[2018-02-05 05:11] LABS: ABG BASE EXCESS -0.7 mmol/L (-2.0-3.0); ABG HCO3 26.3 mmol/L (22.0-26.0); ABG OXYGEN SATURATION 94.4 % (95-98); ABG PCO2 (T) 54.5 mmHg (32.0-45.0); ALLEN'S TEST Positive; FCOHb 0.3 % (0.5-1.5); FMetHb 0.4 % (0.3-1.12); FO2Hb 93.7 % (94-100); MINUTE VOLUME 6 L/min; PATIENT TEMPERATURE 36.8; PEEP 5 cm H2O; RESPIRATORY RATE (OBSERVED) 18 b/min; TOTAL HEMOGLOBIN 9.8 G/dl (12.0-16.0)
[2018-02-05] MEDS: FENTANYL-0.9 % NACL/PF 100 ML IV PRN (06:00)
[2018-02-05] MEDS: budesonide 0.5mg/2ml UD nebule IH SCH ×2 (07:37→19:55)
[2018-02-05] MEDS: levoFLOXACIN-Levaquin 500mg/D5 100 ML IV SCH (08:52)
[2018-02-05] MEDS: lactobacillus rhamnosus 10,000 MMU CELLS/CAPSULE PO SCH ×2 (08:54→20:38)
[2018-02-05] MEDS: multivitamins, therapeutics tablet PO SCH (08:54)
[2018-02-05] MEDS: carVEDilol 12.5mg tablet PO SCH ×2 (08:54→20:38)
[2018-02-05] MEDS: nicotine 7mg patch - 24hr TD SCH (08:55)
[2018-02-05] MEDS: aspirin 81mg tab.chew PO SCH (08:55)
[2018-02-05] MEDS: famotidine/PF 10 mg/ml inj IV SCH ×2 (08:55→20:38)
[2018-02-05] MEDS ORDERED: HYDROcodone/acetaminophen 10/325mg tab PO PRN (15:05)
[2018-02-05] MEDS ORDERED: VANCOMYCIN LEVEL IV ONE (15:30)
[2018-02-05] MEDS: ipratropium/albuterol 3ml nebule NEB PRN (19:55)
[2018-02-05] MEDS: atorvastatin 10mg tablet PO SCH (20:39)
[2018-02-05] MEDS: HYDROcodone/acetaminophen 10/325mg tab PO PRN (21:49)
[2018-02-06] VITALS (15 sets, daily range): BP systolic 141–182; BP diastolic 67–97
[2018-02-06] MEDS: HYDROcodone/acetaminophen 10/325mg tab PO PRN ×3 (04:03→22:33)
[2018-02-06 04:55] LABS: ALANINE AMINOTRANSFERASE 17 U/L (12-78); ALBUMIN 1.9 G/DL (3.4-5.0); ALBUMIN/GLOBULIN RATIO 0.6 (1.1-1.5); ALKALINE PHOSPHATASE 134 IU/L (46-116); ANION GAP 4 (8-16); ASPARTATE AMINO TRANSFERASE 23 U/L (10-37); BILIRUBIN,TOTAL 0.3 MG/DL (0.1-1.0); BLOOD UREA NITROGEN 2 MG/DL (7-18); BUN/CREATININE RATIO 4.3 (6.6-38.0); CALCIUM 8.4 MG/DL (8.5-10.1); CHLORIDE 106 MMOL/L (99-107); CREATININE 0.46 MG/DL (0.40-0.90); GLUCOSE 107 MG/DL (70-104); MAGNESIUM 1.5 MG/DL (1.5-2.4); POTASSIUM 3.5 MMOL/L (3.5-5.1); SODIUM 143 MMOL/L (135-145); TOTAL CARBON DIOXIDE 33.4 MMOL/L (24-32); eGFR > 90 ML/MIN
[2018-02-06 04:58] LABS: PREALBUMIN 9.1 MG/DL (19-36)
[2018-02-06 04:59] LABS: BASOPHILS % (AUTO) 0.2 % (0-1); EOSINOPHILS # (AUTO) 0.5 X10'3 (0-0.9); HEMOGLOBIN 9.4 g/dl (12.0-16.0); LYMPHOCYTES # (AUTO) 1.6 X10'3 (1.1-4.8); LYMPHOCYTES % (AUTO) 10.2 % (21-51); MEAN CORPUSCULAR HEMOGLOBIN 27.2 PG (27.0-31.0); MEAN CORPUSCULAR HGB CONC 31.2 % (33.0-36.5); MEAN CORPUSCULAR VOLUME 87.2 FL (78-98); MEAN PLATELET VOLUME 9.6 FL (7.4-10.4); MONOCYTES # (AUTO) 2.1 X10'3 (0-0.9); MONOCYTES % (AUTO) 13.3 % (2-12); NEUTROPHILS # (AUTO) 11.5 X10'3 (1.8-7.7); NEUTROPHILS % (AUTO) 73.3 % (42-75); PLATELET COUNT 295 X10'3 (140-440); RED BLOOD COUNT 3.44 X10'6 (4.20-5.60); RED CELL DISTRIBUTION WIDTH 19.5 % (11.5-14.5); WHITE BLOOD COUNT 15.6 X10'3 (4.5-11.0)
[2018-02-06 05:14] LABS: TOTAL CELLS COUNTED 100
[2018-02-06 05:16] LABS: ANISOCYTOSIS 2+; HYPOCHROMASIA 2+; MICROCYTOSIS 2+; PLATELET ESTIMATE NORMAL; POLYCHROMASIA 1+
[2018-02-06] MEDS: famotidine/PF 10 mg/ml inj IV SCH ×2 (08:27→20:43)
[2018-02-06] MEDS: levoFLOXACIN-Levaquin 500mg/D5 100 ML IV SCH (08:27)
[2018-02-06] MEDS: carVEDilol 12.5mg tablet PO SCH ×2 (08:28→20:44)
[2018-02-06] MEDS: aspirin 81mg tab.chew PO SCH (08:28)
[2018-02-06] MEDS: multivitamins, therapeutics tablet PO SCH (08:28)
[2018-02-06] MEDS: lactobacillus rhamnosus 10,000 MMU CELLS/CAPSULE PO SCH ×2 (08:28→20:44)
[2018-02-06] MEDS: nicotine 7mg patch - 24hr TD SCH (08:28)
[2018-02-06] MEDS: ipratropium/albuterol 3ml nebule NEB PRN ×2 (09:24→20:01)
[2018-02-06] MEDS: budesonide 0.5mg/2ml UD nebule IH SCH ×2 (09:26→20:01)
[2018-02-06] MEDS: VANCOMYCIN 750MG IV in NS 250 ML IV SCH ×2 (11:20→16:11)
[2018-02-06 12:17] LABS: ALLEN'S TEST Positive
[2018-02-06] MEDS: atorvastatin 20mg tablet PO SCH (20:44)
[2018-02-07] MEDS ORDERED: vancomycin 750mg inj ONE (00:16)
[2018-02-07] MEDS: VANCOMYCIN 750MG IV in NS 250 ML IV SCH (00:20)
[2018-02-07 02:00] VITALS: BP 171/79
[2018-02-07] MEDS: HYDROcodone/acetaminophen 10/325mg tab PO PRN ×4 (04:37→23:00)
[2018-02-07] MEDS ORDERED: hydrALAZINE 20mg/ml inj. IV ONE (05:20)
[2018-02-07 06:00] VITALS: BP 163/73
[2018-02-07 06:05] LABS: BASOPHILS # (AUTO) 0.1 X10'3 (0-0.2); BASOPHILS % (AUTO) 0.6 % (0-1); EOSINOPHILS # (AUTO) 0.4 X10'3 (0-0.9); EOSINOPHILS % (AUTO) 3.5 % (0-6); HEMATOCRIT 29.1 % (35.0-45.0); HEMOGLOBIN 9.1 g/dl (12.0-16.0); LYMPHOCYTES # (AUTO) 1.5 X10'3 (1.1-4.8); LYMPHOCYTES % (AUTO) 11.6 % (21-51); MEAN CORPUSCULAR HGB CONC 31.2 % (33.0-36.5); MEAN CORPUSCULAR VOLUME 86.7 FL (78-98); MEAN PLATELET VOLUME 9.1 FL (7.4-10.4); MONOCYTES # (AUTO) 1.6 X10'3 (0-0.9); MONOCYTES % (AUTO) 12.4 % (2-12); NEUTROPHILS # (AUTO) 9.3 X10'3 (1.8-7.7); NEUTROPHILS % (AUTO) 71.9 % (42-75); PLATELET COUNT 313 X10'3 (140-440); RED BLOOD COUNT 3.35 X10'6 (4.20-5.60); RED CELL DISTRIBUTION WIDTH 19.5 % (11.5-14.5); WHITE BLOOD COUNT 12.9 X10'3 (4.5-11.0)
[2018-02-07 07:03] LABS: ALANINE AMINOTRANSFERASE 17 U/L (12-78); ALBUMIN 1.9 G/DL (3.4-5.0); ALBUMIN/GLOBULIN RATIO 0.6 (1.1-1.5); ALKALINE PHOSPHATASE 131 IU/L (46-116); ANION GAP 4 (8-16); ASPARTATE AMINO TRANSFERASE 26 U/L (10-37); BILIRUBIN,TOTAL 0.3 MG/DL (0.1-1.0); BLOOD UREA NITROGEN 1 MG/DL (7-18); BUN/CREATININE RATIO 2.4 (6.6-38.0); CALCIUM 8.1 MG/DL (8.5-10.1); CHLORIDE 103 MMOL/L (99-107); CREATININE 0.42 MG/DL (0.40-0.90); GLUCOSE 89 MG/DL (70-104); MAGNESIUM 1.4 MG/DL (1.5-2.4); POTASSIUM 3.2 MMOL/L (3.5-5.1); SODIUM 144 MMOL/L (135-145); TOTAL CARBON DIOXIDE 37.1 MMOL/L (24-32); TOTAL PROTEIN 4.9 G/DL (6.4-8.2); eGFR > 90 ML/MIN
[2018-02-07] MEDS: levoFLOXACIN-Levaquin 500mg/D5 100 ML IV SCH (07:50)
[2018-02-07] MEDS: famotidine/PF 10 mg/ml inj IV SCH ×2 (07:50→21:27)
[2018-02-07] MEDS: aspirin 81mg tab.chew PO SCH (07:50)
[2018-02-07] MEDS: multivitamins, therapeutics tablet PO SCH (07:50)
[2018-02-07] MEDS: lactobacillus rhamnosus 10,000 MMU CELLS/CAPSULE PO SCH ×2 (07:50→21:28)
[2018-02-07] MEDS: carVEDilol 12.5mg tablet PO SCH ×2 (07:50→21:27)
[2018-02-07] MEDS: nicotine 7mg patch - 24hr TD SCH (07:51)
[2018-02-07] MEDS: budesonide 0.5mg/2ml UD nebule IH SCH ×2 (08:02→20:04)
[2018-02-07] MEDS ORDERED: potassium Cl 40MEQ/NS 500ml 500 ML IV PRN ×2 (09:00)
[2018-02-07] MEDS ORDERED: potassium Cl 20 mEq SR tablet PO PRN (09:00)
[2018-02-07] MEDS: potassium Cl 20 mEq SR tablet PO PRN (09:42)
[2018-02-07 11:00] VITALS: BP 171/84
[2018-02-07 15:00] VITALS: BP 183/88
[2018-02-07] MEDS: hydrALAZINE 20mg/ml inj. IV PRN ×2 (16:32→21:42)
[2018-02-07] MEDS: methylPREDNISolone sod succ/PF 40mg inj. IV SCH (16:33)
[2018-02-07 19:00] VITALS: BP 192/90
[2018-02-07] MEDS: ipratropium/albuterol 3ml nebule NEB PRN (20:04)
[2018-02-07] MEDS: atorvastatin 20mg tablet PO SCH (21:41)
[2018-02-07 23:00] VITALS: BP 168/80
[2018-02-08] MEDS: methylPREDNISolone sod succ/PF 40mg inj. IV SCH ×3 (00:15→15:59)
[2018-02-08 03:00] VITALS: BP 170/89
[2018-02-08] MEDS: HYDROcodone/acetaminophen 10/325mg tab PO PRN (05:12)
[2018-02-08 05:32] LABS: BASOPHILS % (AUTO) 0.3 % (0-1); EOSINOPHILS % (AUTO) 0.5 % (0-6); LYMPHOCYTES # (AUTO) 0.7 X10'3 (1.1-4.8); LYMPHOCYTES % (AUTO) 7.7 % (21-51); MEAN CORPUSCULAR HEMOGLOBIN 27.1 PG (27.0-31.0); MEAN CORPUSCULAR HGB CONC 31.1 % (33.0-36.5); MEAN CORPUSCULAR VOLUME 86.9 FL (78-98); MEAN PLATELET VOLUME 8.9 FL (7.4-10.4); MONOCYTES # (AUTO) 0.1 X10'3 (0-0.9); MONOCYTES % (AUTO) 0.8 % (2-12); NEUTROPHILS # (AUTO) 8.3 X10'3 (1.8-7.7); NEUTROPHILS % (AUTO) 90.7 % (42-75); PLATELET COUNT 390 X10'3 (140-440); RED BLOOD COUNT 3.68 X10'6 (4.20-5.60); RED CELL DISTRIBUTION WIDTH 20.1 % (11.5-14.5); WHITE BLOOD COUNT 9.2 X10'3 (4.5-11.0)
[2018-02-08 06:00] VITALS: BP 168/80
[2018-02-08 06:01] LABS: ALANINE AMINOTRANSFERASE 16 U/L (12-78); ALBUMIN 2.5 G/DL (3.4-5.0); ALBUMIN/GLOBULIN RATIO 0.8 (1.1-1.5); ALKALINE PHOSPHATASE 151 IU/L (46-116); ANION GAP 1 (8-16); ASPARTATE AMINO TRANSFERASE 22 U/L (10-37); BILIRUBIN,TOTAL 0.3 MG/DL (0.1-1.0); BLOOD UREA NITROGEN 1 MG/DL (7-18); CALCIUM 8.3 MG/DL (8.5-10.1); CHLORIDE 99 MMOL/L (99-107); CREATININE 0.49 MG/DL (0.40-0.90); GLUCOSE 157 MG/DL (70-104); MAGNESIUM 1.7 MG/DL (1.5-2.4); POTASSIUM 3.2 MMOL/L (3.5-5.1); SODIUM 142 MMOL/L (135-145); TOTAL PROTEIN 5.8 G/DL (6.4-8.2); eGFR > 90 ML/MIN
[2018-02-08 06:03] LABS: TOTAL CARBON DIOXIDE 41.7 MMOL/L (24-32)
[2018-02-08] MEDS: levoFLOXACIN-Levaquin 500mg/D5 100 ML IV SCH (08:01)
[2018-02-08] MEDS: carVEDilol 12.5mg tablet PO SCH ×2 (08:01→20:45)
[2018-02-08] MEDS: lactobacillus rhamnosus 10,000 MMU CELLS/CAPSULE PO SCH ×2 (08:01→20:39)
[2018-02-08] MEDS: aspirin 81mg tab.chew PO SCH (08:01)
[2018-02-08] MEDS: multivitamins, therapeutics tablet PO SCH (08:01)
[2018-02-08] MEDS: nicotine 7mg patch - 24hr TD SCH (08:02)
[2018-02-08] MEDS: famotidine/PF 10 mg/ml inj IV SCH ×2 (08:03→20:46)
[2018-02-08] MEDS: potassium Cl 20 mEq SR tablet PO PRN ×2 (08:57→14:25)
[2018-02-08] MEDS: budesonide 0.5mg/2ml UD nebule IH SCH ×2 (10:13→21:13)
[2018-02-08 11:00] VITALS: BP 182/89
[2018-02-08] MEDS: HYDROcodone/acetaminophen 5mg/325mg tablet PO PRN ×3 (11:00→20:41)
[2018-02-08 12:30] LABS: ABG BASE EXCESS 17.6 mmol/L (-2.0-3.0); ABG HCO3 44.1 mmol/L (22.0-26.0); ABG OXYGEN SATURATION 93.5 % (95-98); ABG PCO2 (T) 63.9 mmHg (32.0-45.0); ABG PH (T) 7.457 (7.350-7.450); ABG PO2 (T) 68.8 mmHg (83-108); FCOHb 0.3 % (0.5-1.5); FLOW 3 L/min; FMetHb 0.3 % (0.3-1.12); FO2Hb 92.9 % (94-100); TOTAL HEMOGLOBIN 10.5 G/dl (12.0-16.0)
[2018-02-08] MEDS: lisinopril 10 MG tablet PO SCH (14:25)
[2018-02-08 15:00] VITALS: BP 171/86
[2018-02-08 19:00] VITALS: BP 188/88
[2018-02-08] MEDS: atorvastatin 20mg tablet PO SCH (20:41)
[2018-02-08] MEDS: hydrALAZINE 20mg/ml inj. IV PRN (20:56)
[2018-02-08] MEDS: ipratropium/albuterol 3ml nebule NEB PRN (21:13)
[2018-02-08 23:00] VITALS: BP 141/69
[2018-02-09] MEDS: methylPREDNISolone sod succ/PF 40mg inj. IV SCH ×3 (00:51→16:22)
[2018-02-09] MEDS: potassium Cl 20 mEq SR tablet PO PRN ×3 (00:52→21:20)
[2018-02-09] MEDS: HYDROcodone/acetaminophen 5mg/325mg tablet PO PRN ×5 (00:52→21:21)
[2018-02-09 03:00] VITALS: BP 185/98
[2018-02-09 05:31] LABS: BASOPHILS % (AUTO) 0.1 % (0-1); EOSINOPHILS % (AUTO) 0 % (0-6); HEMATOCRIT 30.4 % (35.0-45.0); HEMOGLOBIN 9.3 g/dl (12.0-16.0); LYMPHOCYTES # (AUTO) 0.8 X10'3 (1.1-4.8); LYMPHOCYTES % (AUTO) 4.3 % (21-51); MEAN CORPUSCULAR HGB CONC 30.8 % (33.0-36.5); MEAN CORPUSCULAR VOLUME 87.8 FL (78-98); MEAN PLATELET VOLUME 8.9 FL (7.4-10.4); MONOCYTES # (AUTO) 0.4 X10'3 (0-0.9); MONOCYTES % (AUTO) 2.2 % (2-12); NEUTROPHILS # (AUTO) 16.4 X10'3 (1.8-7.7); NEUTROPHILS % (AUTO) 93.4 % (42-75); PLATELET COUNT 441 X10'3 (140-440); RED BLOOD COUNT 3.46 X10'6 (4.20-5.60); RED CELL DISTRIBUTION WIDTH 20.1 % (11.5-14.5); WHITE BLOOD COUNT 17.5 X10'3 (4.5-11.0)
[2018-02-09 05:53] LABS: ALANINE AMINOTRANSFERASE 17 U/L (12-78); ALBUMIN 2.7 G/DL (3.4-5.0); ALBUMIN/GLOBULIN RATIO 0.8 (1.1-1.5); ALKALINE PHOSPHATASE 132 IU/L (46-116); ASPARTATE AMINO TRANSFERASE 24 U/L (10-37); BILIRUBIN,TOTAL 0.2 MG/DL (0.1-1.0); BLOOD UREA NITROGEN 4 MG/DL (7-18); BUN/CREATININE RATIO 7.8 (6.6-38.0); CALCIUM 8.7 MG/DL (8.5-10.1); CHLORIDE 101 MMOL/L (99-107); CREATININE 0.51 MG/DL (0.40-0.90); GLUCOSE 144 MG/DL (70-104); MAGNESIUM 1.6 MG/DL (1.5-2.4); PHOSPHORUS 2.2 MG/DL (2.3-4.5); POTASSIUM 3.3 MMOL/L (3.5-5.1); SODIUM 146 MMOL/L (135-145); TOTAL PROTEIN 5.9 G/DL (6.4-8.2); eGFR > 90 ML/MIN
[2018-02-09 06:00] VITALS: BP 186/102
[2018-02-09 06:26] LABS: ANION GAP 7 (8-16); TOTAL CARBON DIOXIDE 38.2 MMOL/L (24-32)
[2018-02-09] MEDS: lisinopril 10 MG tablet PO SCH ×2 (07:46→09:17)
[2018-02-09] MEDS: carVEDilol 12.5mg tablet PO SCH ×2 (07:46→19:20)
[2018-02-09] MEDS: multivitamins, therapeutics tablet PO SCH (07:46)
[2018-02-09] MEDS: nicotine 7mg patch - 24hr TD SCH (07:47)
[2018-02-09] MEDS: famotidine/PF 10 mg/ml inj IV SCH ×2 (07:47→19:20)
[2018-02-09] MEDS: hydrALAZINE 20mg/ml inj. IV PRN ×3 (07:47→17:02)
[2018-02-09] MEDS: levoFLOXACIN-Levaquin 500mg/D5 100 ML IV SCH (07:47)
[2018-02-09] MEDS: aspirin 81mg tab.chew PO SCH (08:45)
[2018-02-09] MEDS: lactobacillus rhamnosus 10,000 MMU CELLS/CAPSULE PO SCH ×2 (08:45→19:20)
[2018-02-09] MEDS: budesonide 0.5mg/2ml UD nebule IH SCH ×2 (08:51→19:41)
[2018-02-09 11:00] VITALS: BP 187/89
[2018-02-09 15:00] VITALS: BP 199/90
[2018-02-09 19:00] VITALS: BP 168/77
[2018-02-09] MEDS: ipratropium/albuterol 3ml nebule NEB PRN (19:41)
[2018-02-09] MEDS ORDERED: acetaminophen 325mg tablet PO PRN (19:50)
[2018-02-09] MEDS: atorvastatin 20mg tablet PO SCH (21:20)
[2018-02-09 23:00] VITALS: BP 178/76
[2018-02-10] MEDS: methylPREDNISolone sod succ/PF 40mg inj. IV SCH ×4 (00:10→23:29)
[2018-02-10] MEDS: hydrALAZINE 20mg/ml inj. IV PRN ×4 (00:20→19:22)
[2018-02-10] MEDS ORDERED: carVEDilol 12.5mg tablet PO SCH (01:45)
[2018-02-10] MEDS: HYDROcodone/acetaminophen 5mg/325mg tablet PO PRN ×5 (01:57→19:59)
[2018-02-10 03:00] VITALS: BP 151/79
[2018-02-10 05:54] LABS: BASOPHILS % (AUTO) 0 % (0-1); EOSINOPHILS # (AUTO) 0.2 X10'3 (0-0.9); EOSINOPHILS % (AUTO) 1.2 % (0-6); HEMATOCRIT 31.9 % (35.0-45.0); HEMOGLOBIN 9.9 g/dl (12.0-16.0); LYMPHOCYTES # (AUTO) 0.7 X10'3 (1.1-4.8); LYMPHOCYTES % (AUTO) 3.8 % (21-51); MEAN CORPUSCULAR VOLUME 87.1 FL (78-98); MEAN PLATELET VOLUME 8.7 FL (7.4-10.4); MONOCYTES # (AUTO) 0.8 X10'3 (0-0.9); MONOCYTES % (AUTO) 3.9 % (2-12); NEUTROPHILS # (AUTO) 17.8 X10'3 (1.8-7.7); NEUTROPHILS % (AUTO) 91.1 % (42-75); PLATELET COUNT 489 X10'3 (140-440); RED BLOOD COUNT 3.66 X10'6 (4.20-5.60); WHITE BLOOD COUNT 19.5 X10'3 (4.5-11.0)
[2018-02-10 05:55] LABS: ALANINE AMINOTRANSFERASE 12 U/L (12-78); ALBUMIN 2.9 G/DL (3.4-5.0); ALBUMIN/GLOBULIN RATIO 0.9 (1.1-1.5); ALKALINE PHOSPHATASE 131 IU/L (46-116); ASPARTATE AMINO TRANSFERASE 21 U/L (10-37); BILIRUBIN,TOTAL 0.3 MG/DL (0.1-1.0); BLOOD UREA NITROGEN 9 MG/DL (7-18); BUN/CREATININE RATIO 18.4 (6.6-38.0); CALCIUM 8.6 MG/DL (8.5-10.1); CHLORIDE 97 MMOL/L (99-107); CREATININE 0.49 MG/DL (0.40-0.90); GLUCOSE 139 MG/DL (70-104); MAGNESIUM 1.9 MG/DL (1.5-2.4); POTASSIUM 3.2 MMOL/L (3.5-5.1); PREALBUMIN 18.1 MG/DL (19-36); SODIUM 141 MMOL/L (135-145); TOTAL PROTEIN 6.2 G/DL (6.4-8.2); eGFR > 90 ML/MIN
[2018-02-10 06:00] VITALS: BP 193/92
[2018-02-10 06:09] LABS: ANION GAP -2 (8-16)
[2018-02-10 06:11] LABS: TOTAL CARBON DIOXIDE 45.5 MMOL/L (24-32)
[2018-02-10 06:42] LABS: ANISOCYTOSIS 3+; LARGE PLATELETS FEW; PLATELET ESTIMATE INCREASED; TOTAL CELLS COUNTED 100
[2018-02-10] MEDS: famotidine/PF 10 mg/ml inj IV SCH ×2 (08:09→19:58)
[2018-02-10] MEDS: lactobacillus rhamnosus 10,000 MMU CELLS/CAPSULE PO SCH ×2 (08:09→19:58)
[2018-02-10] MEDS: multivitamins, therapeutics tablet PO SCH (08:09)
[2018-02-10] MEDS: nicotine 7mg patch - 24hr TD SCH (08:09)
[2018-02-10] MEDS: aspirin 81mg tab.chew PO SCH (08:09)
[2018-02-10] MEDS: carVEDilol 12.5mg tablet PO SCH ×2 (08:09→19:59)
[2018-02-10] MEDS: lisinopril 10 MG tablet PO SCH (08:10)
[2018-02-10] MEDS: levoFLOXACIN-Levaquin 500mg/D5 100 ML IV SCH (08:34)
[2018-02-10] MEDS: budesonide 0.5mg/2ml UD nebule IH SCH ×2 (08:44→20:35)
[2018-02-10] MEDS: ipratropium/albuterol 3ml nebule NEB PRN ×2 (08:44→20:35)
[2018-02-10 11:00] VITALS: BP 177/83
[2018-02-10] MEDS ORDERED: VANCOMYCIN 750MG IV in NS 250 ML IV SCH (14:00)
[2018-02-10] MEDS ORDERED: vancomycin/NS 1 GM ADD-VANTAGE 250 ML X 1 DOSE IV ONE (14:05)
[2018-02-10 15:00] VITALS: BP 206/94
[2018-02-10] MEDS ORDERED: amLODIPine 5mg tablet PO ONE (15:35)
[2018-02-10] MEDS ORDERED: magnesium Cl slow-release 64mg tablet PO PRN (18:30)
[2018-02-10] MEDS ORDERED: magnesium 2GM in 50ml NS 50 ML IV PRN (18:30)
[2018-02-10] MEDS ORDERED: potassium Cl 40MEQ/NS 500ml 500 ML IV PRN ×2 (18:30)
[2018-02-10] MEDS ORDERED: magnesium 4gm in 100ml NS 100 ML IV PRN (18:30)
[2018-02-10] MEDS ORDERED: potassium Cl 20 mEq SR tablet PO PRN (18:30)
[2018-02-10 19:00] VITALS: BP 185/90
[2018-02-10] MEDS: atorvastatin 20mg tablet PO SCH (20:23)
[2018-02-10] MEDS: potassium Cl 20 mEq SR tablet PO PRN (21:15)
[2018-02-10 23:00] VITALS: BP 151/70
[2018-02-10] MEDS: VANCOMYCIN 750MG IV in NS 250 ML IV SCH (23:29)
[2018-02-11] MEDS: HYDROcodone/acetaminophen 5mg/325mg tablet PO PRN ×6 (00:24→21:11)
[2018-02-11] MEDS: potassium Cl 20 mEq SR tablet PO PRN ×5 (01:36→17:49)
[2018-02-11 03:00] VITALS: BP 165/85
[2018-02-11 06:00] VITALS: BP 173/94
[2018-02-11 06:27] LABS: HEMATOCRIT 34.1 % (35.0-45.0); HEMOGLOBIN 10.6 g/dl (12.0-16.0); MEAN CORPUSCULAR HEMOGLOBIN 27.3 PG (27.0-31.0); MEAN CORPUSCULAR HGB CONC 31.2 % (33.0-36.5); MEAN CORPUSCULAR VOLUME 87.5 FL (78-98); MEAN PLATELET VOLUME 8.5 FL (7.4-10.4); PLATELET COUNT 498 X10'3 (140-440); RED BLOOD COUNT 3.89 X10'6 (4.20-5.60); RED CELL DISTRIBUTION WIDTH 21.4 % (11.5-14.5); WHITE BLOOD COUNT 19.2 X10'3 (4.5-11.0)
[2018-02-11 06:45] LABS: ANISOCYTOSIS 3+; PLATELET ESTIMATE INCREASED; TOTAL CELLS COUNTED 100
[2018-02-11 06:47] LABS: ALANINE AMINOTRANSFERASE 23 U/L (12-78); ALBUMIN 3.2 G/DL (3.4-5.0); ALBUMIN/GLOBULIN RATIO 0.9 (1.1-1.5); ALKALINE PHOSPHATASE 123 IU/L (46-116); ANION GAP 4 (8-16); ASPARTATE AMINO TRANSFERASE 22 U/L (10-37); BILIRUBIN,TOTAL 0.3 MG/DL (0.1-1.0); BLOOD UREA NITROGEN 11 MG/DL (7-18); BUN/CREATININE RATIO 20.8 (6.6-38.0); CALCIUM 8.9 MG/DL (8.5-10.1); CHLORIDE 97 MMOL/L (99-107); CREATININE 0.53 MG/DL (0.40-0.90); GLUCOSE 134 MG/DL (70-104); MAGNESIUM 1.8 MG/DL (1.5-2.4); PHOSPHORUS 2.8 MG/DL (2.3-4.5); POTASSIUM 3.4 MMOL/L (3.5-5.1); SODIUM 142 MMOL/L (135-145); TOTAL PROTEIN 6.6 G/DL (6.4-8.2); eGFR > 90 ML/MIN
[2018-02-11 06:56] LABS: TOTAL CARBON DIOXIDE 41.4 MMOL/L (24-32)
[2018-02-11] MEDS: lactobacillus rhamnosus 10,000 MMU CELLS/CAPSULE PO SCH ×2 (07:39→20:44)
[2018-02-11] MEDS: carVEDilol 12.5mg tablet PO SCH ×2 (07:40→20:45)
[2018-02-11] MEDS: aspirin 81mg tab.chew PO SCH (07:40)
[2018-02-11] MEDS: amLODIPine 5mg tablet PO SCH (07:40)
[2018-02-11] MEDS: multivitamins, therapeutics tablet PO SCH (07:40)
[2018-02-11] MEDS: nicotine 7mg patch - 24hr TD SCH (07:41)
[2018-02-11] MEDS: lisinopril 10 MG tablet PO SCH (07:41)
[2018-02-11] MEDS: methylPREDNISolone sod succ/PF 40mg inj. IV SCH ×2 (07:42→20:44)
[2018-02-11] MEDS: famotidine/PF 10 mg/ml inj IV SCH ×2 (07:42→20:44)
[2018-02-11] MEDS: VANCOMYCIN 750MG IV in NS 250 ML IV SCH ×3 (07:42→14:59)
[2018-02-11] MEDS: budesonide 0.5mg/2ml UD nebule IH SCH ×2 (08:15→19:05)
[2018-02-11] MEDS: ipratropium/albuterol 3ml nebule NEB PRN ×2 (08:15→19:06)
[2018-02-11 11:00] VITALS: BP 181/88
[2018-02-11] MEDS: hydrALAZINE 20mg/ml inj. IV PRN (12:37)
[2018-02-11] MEDS ORDERED: LORazepam 0.5 MG tablet PO PRN (12:45)
[2018-02-11 15:00] VITALS: BP 160/73
[2018-02-11 19:00] VITALS: BP 172/84
[2018-02-11] MEDS: atorvastatin 20mg tablet PO SCH (20:45)
[2018-02-11] MEDS ORDERED: VANCOMYCIN LEVEL IV ONE (22:30)
[2018-02-11 23:00] VITALS: BP 162/86
[2018-02-12] MEDS: HYDROcodone/acetaminophen 5mg/325mg tablet PO PRN ×3 (02:28→14:39)
[2018-02-12 03:00] VITALS: BP 162/78
[2018-02-12 06:00] VITALS: BP 179/97
[2018-02-12 06:03] LABS: HEMATOCRIT 34.9 % (35.0-45.0); HEMOGLOBIN 10.9 g/dl (12.0-16.0); MEAN CORPUSCULAR HEMOGLOBIN 27.1 PG (27.0-31.0); MEAN CORPUSCULAR HGB CONC 31.1 % (33.0-36.5); MEAN CORPUSCULAR VOLUME 87.2 FL (78-98); MEAN PLATELET VOLUME 8.7 FL (7.4-10.4); PLATELET COUNT 469 X10'3 (140-440); RED BLOOD COUNT 4.01 X10'6 (4.20-5.60); RED CELL DISTRIBUTION WIDTH 20.2 % (11.5-14.5); WHITE BLOOD COUNT 20.2 X10'3 (4.5-11.0)
[2018-02-12 06:25] LABS: LYMPHOCYTES % (MANUAL) 4 % (21-51); MONOCYTES % (MANUAL) 5 % (2-12); NEUTROPHILS % (MANUAL) 91 % (42-75); PLATELET ESTIMATE INCREASED; TOTAL CELLS COUNTED 100
[2018-02-12 06:27] LABS: ANISOCYTOSIS 2+
[2018-02-12 06:30] LABS: ALANINE AMINOTRANSFERASE 20 U/L (12-78); ALBUMIN 3.1 G/DL (3.4-5.0); ALBUMIN/GLOBULIN RATIO 0.9 (1.1-1.5); ALKALINE PHOSPHATASE 124 IU/L (46-116); ANION GAP 4 (8-16); ASPARTATE AMINO TRANSFERASE 24 U/L (10-37); BILIRUBIN,TOTAL 0.3 MG/DL (0.1-1.0); BLOOD UREA NITROGEN 15 MG/DL (7-18); BUN/CREATININE RATIO 29.4 (6.6-38.0); CALCIUM 9.2 MG/DL (8.5-10.1); CHLORIDE 100 MMOL/L (99-107); CREATININE 0.51 MG/DL (0.40-0.90); GLUCOSE 134 MG/DL (70-104); PHOSPHORUS 3.5 MG/DL (2.3-4.5); POTASSIUM 4.6 MMOL/L (3.5-5.1); SODIUM 142 MMOL/L (135-145); TOTAL CARBON DIOXIDE 37.9 MMOL/L (24-32); TOTAL PROTEIN 6.4 G/DL (6.4-8.2); eGFR > 90 ML/MIN
[2018-02-12] MEDS: methylPREDNISolone sod succ/PF 40mg inj. IV SCH (08:05)
[2018-02-12] MEDS: famotidine/PF 10 mg/ml inj IV SCH (08:05)
[2018-02-12] MEDS: aspirin 81mg tab.chew PO SCH (08:05)
[2018-02-12] MEDS: amLODIPine 5mg tablet PO SCH (08:05)
[2018-02-12] MEDS: nicotine 7mg patch - 24hr TD SCH (08:05)
[2018-02-12] MEDS: multivitamins, therapeutics tablet PO SCH (08:05)
[2018-02-12] MEDS: lactobacillus rhamnosus 10,000 MMU CELLS/CAPSULE PO SCH (08:05)
[2018-02-12] MEDS: carVEDilol 12.5mg tablet PO SCH (08:06)
[2018-02-12] MEDS: lisinopril 10 MG tablet PO SCH (08:06)
[2018-02-12] MEDS: VANCOMYCIN 750MG IV in NS 250 ML IV SCH (08:07)
[2018-02-12] MEDS: budesonide 0.5mg/2ml UD nebule IH SCH (08:18)
[2018-02-12] MEDS: ipratropium/albuterol 3ml nebule NEB PRN (08:20)
[2018-02-12] MEDS ORDERED: VANC125C4 PO (10:28)
[2018-02-12] MEDS ORDERED: LISI40TA4 PO (10:28)
[2018-02-12] MEDS ORDERED: PRED10TA23 PO (10:28)
[2018-02-12 11:36] VITALS: BP 182/87
[2018-02-12 11:45] VITALS: BP 154/93
[2018-02-12] MEDS ORDERED: VANC125S MT (13:13)
[2018-02-12 15:00] VITALS: BP 157/83
== END 2018-02-12 17:00 | disposition home or self-care (01) | DRG 130 ==
LOC: ER 17:18 → ED HOLD 19:45 → EDBEDREQ 21:03 → CICU 2S 21:28 → PCU 3S 02-06 15:38
PROVIDERS: ADMIT Internal Medicine Critical Care Medicine; ATTEND Family Medicine
PROC: 5A09357 Assistance with Respiratory Ventilation, Less than 24 Consecutive Hours, Continuous Positive Airway Pressure (ICD-10-PCS; principal; 2018-01-31)
PROC: 5A1955Z Respiratory Ventilation, Greater than 96 Consecutive Hours (ICD-10-PCS; 2018-01-31)
PROC: 0BH17EZ Insertion of Endotracheal Airway into Trachea, Via Natural or Artificial Opening (ICD-10-PCS; 2018-01-31)
PROC: BW211ZZ Computerized Tomography (CT Scan) of Abdomen and Pelvis using Low Osmolar Contrast (ICD-10-PCS; 2018-02-01)
PROC: 5A1935Z Respiratory Ventilation, Less than 24 Consecutive Hours (ICD-10-PCS; 2018-02-05)
DX: J96.01 Acute respiratory failure with hypoxia (principal); J18.9 Pneumonia, unspecified organism; I11.0 Hypertensive heart disease with heart failure; E87.2 Acidosis; I50.9 Heart failure, unspecified; J44.0 Chronic obstructive pulmonary disease with (acute) lower respiratory infection; J96.02 Acute respiratory failure with hypercapnia; Z68.1 Body mass index [BMI] 19.9 or less, adult; E83.39 Other disorders of phosphorus metabolism; E78.5 Hyperlipidemia, unspecified; E87.6 Hypokalemia; F41.9 Anxiety disorder, unspecified; I25.10 Atherosclerotic heart disease of native coronary artery without angina pectoris; J44.1 Chronic obstructive pulmonary disease with (acute) exacerbation; K57.30 Diverticulosis of large intestine without perforation or abscess without bleeding; N28.9 Disorder of kidney and ureter, unspecified; T38.0X5A Adverse effect of glucocorticoids and synthetic analogues, initial encounter; Z82.49 Family history of ischemic heart disease and other diseases of the circulatory system; Z82.5 Family history of asthma and other chronic lower respiratory diseases; I25.2 Old myocardial infarction; Z86.19 Personal history of other infectious and parasitic diseases; Z87.891 Personal history of nicotine dependence; Z90.710 Acquired absence of both cervix and uterus; Z79.899 Other long term (current) drug therapy
CPT/HCPCS: 36415; 36556; 36600; 71045; 74176; 74177; 80053; 80202; 81001; 82803; 82948; 83605; 83735; 83880; 84100; 84132; 84134; 84145; 84484; 85018; 85025; 85610; 87040; 87045; 87046; 87070; 87088; 87328; 87329; 87336; 89055; 93005; 94002; 94003; 94640; 94660; 94760; 96365; 96375; 97110; 97116; 97161; 97530; 99291; A6213; A6253; A6449; A7015; C1758; J0360; J0692; J1815; J1956; J2250; J2704; J2920; J2930; J3370; J3475; J3480; J3490; J7030; J7060; J7626; Q9967

== ENCOUNTER 2018-03-03 12:36 | Emergency (ER) | payer MEDICAID ==
[~2018-03-03] VITALS: Ht 565.3 cm; Wt 106.0 kg
[~2018-03-03 12:36] MED LIST changes: -0.9 % SODIUM CHLORIDE 10 ML VIAL ONE; -ASPI-1071 PO; +ASPI-611 PO; +CARV-50 PO; -CYCL-1 PO; +CYCL10TA26 PO; +DILT30TA5 PO; -FURO-150 PO; -HYDR-3964; -HYDR-3965 PO; -IPRA3AMP INH; +LISI40TA4 PO; -LORA1TAB PO; -METO50TA17 PO; +MULT-933 PO; +NICO-630 TOP; -NICO-631 TD; -NITR0.4T51 SL; +OMEP20CA10 PO; -PARO25TA16 PO; +PRAV40TA3 PO; +PRED10TA23 PO; -TEMA15CA PO; +VANC125C4 PO; +VANC125S MT; -etomidate 2mg/ml inj. ONE; -rocuronium 10mg/ml inj IV ONE
[2018-03-03] MEDS ORDERED: ipratropium/albuterol 3ml nebule NEB ONE (12:40)
[2018-03-03] MEDS ORDERED: albuterol 2.5 MG/3 ML nebule NEB ONE (12:40)
[2018-03-03 12:59] LABS: BASOPHILS % (AUTO) 0 % (0-1); EOSINOPHILS # (AUTO) 0.1 X10'3 (0-0.9); EOSINOPHILS % (AUTO) 0.9 % (0-6); HEMATOCRIT 34.8 % (35.0-45.0); HEMOGLOBIN 10.8 g/dl (12.0-16.0); LYMPHOCYTES # (AUTO) 1.4 X10'3 (1.1-4.8); LYMPHOCYTES % (AUTO) 9.1 % (21-51); MEAN CORPUSCULAR HEMOGLOBIN 27.3 PG (27.0-31.0); MEAN CORPUSCULAR HGB CONC 30.9 % (33.0-36.5); MEAN CORPUSCULAR VOLUME 88.6 FL (78-98); MEAN PLATELET VOLUME 7.8 FL (7.4-10.4); MONOCYTES # (AUTO) 0.8 X10'3 (0-0.9); MONOCYTES % (AUTO) 5.1 % (2-12); NEUTROPHILS # (AUTO) 13.1 X10'3 (1.8-7.7); NEUTROPHILS % (AUTO) 84.9 % (42-75); PLATELET COUNT 303 X10'3 (140-440); RED BLOOD COUNT 3.93 X10'6 (4.20-5.60); RED CELL DISTRIBUTION WIDTH 21.2 % (11.5-14.5); WHITE BLOOD COUNT 15.4 X10'3 (4.5-11.0)
[2018-03-03 13:11] LABS: PARTIAL THROMBOPLASTIN TIME 25 SECONDS (22-32); PROTHROMBIN TIME 10.4 SECONDS (9.0-12.0)
[2018-03-03 13:15] LABS: ALANINE AMINOTRANSFERASE 23 U/L (12-78); ALBUMIN/GLOBULIN RATIO 0.9 (1.1-1.5); ALKALINE PHOSPHATASE 107 IU/L (46-116); ANION GAP 3 (8-16); ASPARTATE AMINO TRANSFERASE 13 U/L (10-37); BILIRUBIN,TOTAL 0.2 MG/DL (0.1-1.0); BLOOD UREA NITROGEN 22 MG/DL (7-18); BUN/CREATININE RATIO 23.4 (6.6-38.0); CALCIUM 9.1 MG/DL (8.5-10.1); CHLORIDE 103 MMOL/L (99-107); CREATININE 0.94 MG/DL (0.40-0.90); GLUCOSE 162 MG/DL (70-104); SODIUM 143 MMOL/L (135-145); TOTAL CARBON DIOXIDE 36.6 MMOL/L (24-32); TOTAL PROTEIN 6.5 G/DL (6.4-8.2); eGFR 62 ML/MIN
[2018-03-03] MEDS ORDERED: normal saline 1000ML IV soln IV ONE (13:45)
[2018-03-03 14:23] LABS: CLARITY,URINE SLIGHTLY CLOUDY (Clear); COLOR,URINE YELLOW (Yellow); GLUCOSE, URINE NEGATIVE (Neg); KETONES,URINE NEGATIVE (Neg); LEUKOCYTE ESTERASE ,URINE NEGATIVE (Neg); NITRITES, URINE NEGATIVE (Neg); OCCULT BLOOD,URINE NEGATIVE (Neg); PH,URINE 5.5 (4.8-8.0); PROTEIN,URINE TRACE mg/dl (Neg); UROBILINOGEN,URINE 0.2 E.U/dL (0.2-1.0)
[2018-03-03 14:25] LABS: UA COLLECTION TYPE CLN CATCH MIDSTREAM
[2018-03-03 14:38] LABS: BACTERIA,URINE FEW /HPF (Neg); RBC,URINE 0-2 /HPF (0-2); SQUAMOUS EPITHELIAL CELL,UR MANY /LPF (FEW); WBC,URINE 0-4 /HPF (0-4)
[2018-03-03 14:39] LABS: HYALINE CASTS 0-3 /LPF (NEGATIVE); TRANSITIONAL EPI CELLS,URINE FEW /HPF
[2018-03-03 15:27] VITALS: BP 106/62
[2018-03-03] MEDS ORDERED: HYDROcodone/acetaminophen 10/325mg tab PO ONE (15:30)
[2018-03-04] MEDS ORDERED: PRED5TAB PO (23:53)
[2018-03-04] MEDS ORDERED: PARO20TA6 PO (23:53)
[2018-03-04] MEDS ORDERED: FURO20TA4 PO (23:53)
[2018-03-04] MEDS ORDERED: BUSP7.5T4 PO (23:53)
[2018-03-04] MEDS ORDERED: IPRA3AMP IH (23:53)
[2018-03-04] MEDS ORDERED: LISI40TA4 PO (23:53)
[2018-03-04] MEDS ORDERED: HYDR-3973 PO (23:53)
[2018-03-04] MEDS ORDERED: ALBU18HF2 INH (23:53)
[2018-03-04] MEDS ORDERED: LORA1TAB PO (23:53)
[2018-03-04] MEDS ORDERED: METO50TA16 PO (23:53)
== END 2018-03-03 15:48 | disposition home or self-care (01) ==
LOC: ER 12:36
DX: J44.9 Chronic obstructive pulmonary disease, unspecified (principal); R42 Dizziness and giddiness; I25.10 Atherosclerotic heart disease of native coronary artery without angina pectoris; I11.0 Hypertensive heart disease with heart failure; I50.9 Heart failure, unspecified; I25.2 Old myocardial infarction; G89.29 Other chronic pain; Z90.710 Acquired absence of both cervix and uterus; Z98.890 Other specified postprocedural states; Z79.82 Long term (current) use of aspirin; Z79.899 Other long term (current) drug therapy
CPT/HCPCS: 36415; 71045; 80053; 81001; 83605; 83880; 84145; 84484; 85025; 85610; 85730; 87040; 93005; 94640; 94760; 96360; 96361; 99285; J7030

== ENCOUNTER 2018-03-04 19:29 | Inpatient (IN) | payer MEDICAID ==
[~2018-03-04] VITALS: Ht 162.6 cm; Wt 48.2 kg
[2018-03-04] MEDS ORDERED: normal saline 1000ML IV soln IVB ONE ×2 (19:50→22:20)
[2018-03-04 20:17] LABS: BASOPHILS % (AUTO) 0 % (0-1); EOSINOPHILS # (AUTO) 0.1 X10'3 (0-0.9); HEMOGLOBIN 10.5 g/dl (12.0-16.0); LYMPHOCYTES # (AUTO) 1.4 X10'3 (1.1-4.8); LYMPHOCYTES % (AUTO) 11.9 % (21-51); MEAN CORPUSCULAR HEMOGLOBIN 27.5 PG (27.0-31.0); MEAN CORPUSCULAR HGB CONC 30.9 % (33.0-36.5); MEAN PLATELET VOLUME 8.5 FL (7.4-10.4); MONOCYTES # (AUTO) 0.9 X10'3 (0-0.9); NEUTROPHILS # (AUTO) 9.1 X10'3 (1.8-7.7); NEUTROPHILS % (AUTO) 79.1 % (42-75); PLATELET COUNT 280 X10'3 (140-440); RED BLOOD COUNT 3.82 X10'6 (4.20-5.60); RED CELL DISTRIBUTION WIDTH 20.9 % (11.5-14.5); WHITE BLOOD COUNT 11.6 X10'3 (4.5-11.0)
[2018-03-04 20:24] LABS: ALANINE AMINOTRANSFERASE 24 U/L (12-78); ALBUMIN/GLOBULIN RATIO 0.9 (1.1-1.5); ALKALINE PHOSPHATASE 108 IU/L (46-116); ANION GAP 3 (8-16); ASPARTATE AMINO TRANSFERASE 19 U/L (10-37); BILIRUBIN,TOTAL 0.2 MG/DL (0.1-1.0); BLOOD UREA NITROGEN 24 MG/DL (7-18); BUN/CREATININE RATIO 22.9 (6.6-38.0); CHLORIDE 106 MMOL/L (99-107); CREATININE 1.05 MG/DL (0.40-0.90); GLUCOSE 119 MG/DL (70-104); POTASSIUM 4.5 MMOL/L (3.5-5.1); SODIUM 143 MMOL/L (135-145); TOTAL CARBON DIOXIDE 34.1 MMOL/L (24-32); TOTAL PROTEIN 6.5 G/DL (6.4-8.2); eGFR 55 ML/MIN
[2018-03-04 20:37] LABS: MAGNESIUM 1.7 MG/DL (1.5-2.4)
[2018-03-04] MEDS ORDERED: HYDROcodone/acetaminophen 10/325mg tab PO ONE (21:25)
[2018-03-04] MEDS ORDERED: metroNIDAZOLE-Flagyl 500mg/NS 100 ML IV STA (22:15)
[2018-03-04] MEDS ORDERED: vancomycin 250MG/10ML UD oral solution 10ML BOTTLE PO STA (22:17)
[2018-03-04] MEDS ORDERED: vancomcyin 250mg capsules PO STA (22:25)
[2018-03-04] MEDS ORDERED: acetaminophen 325mg tablet PO PRN (23:50)
[2018-03-04] MEDS ORDERED: magnesium hydroxide 30ml (MOM) UD suspension PO PRN (23:50)
[2018-03-04] MEDS ORDERED: mag hydrox/Alum hydrox/simeth 30ml oral suspension PO PRN (23:50)
[2018-03-04] MEDS ORDERED: ondansetron/PF 4mg/2ml inj IV PRN (23:50)
[2018-03-04] MEDS ORDERED: IPRA3AMP IH (23:53)
[2018-03-04] MEDS ORDERED: LISI40TA4 PO (23:53)
[2018-03-04] MEDS ORDERED: BUSP7.5T4 PO (23:53)
[2018-03-04] MEDS ORDERED: PARO20TA6 PO (23:53)
[2018-03-04] MEDS ORDERED: PRED5TAB PO (23:53)
[2018-03-04] MEDS ORDERED: LORA1TAB PO (23:53)
[2018-03-04] MEDS ORDERED: METO50TA16 PO (23:53)
[2018-03-04] MEDS ORDERED: FURO20TA4 PO (23:53)
[2018-03-04] MEDS ORDERED: HYDR-3973 PO (23:53)
[2018-03-04] MEDS ORDERED: ALBU18HF2 INH (23:53)
[2018-03-05] VITALS (7 sets, daily range): BP systolic 89–114; BP diastolic 54–70
[2018-03-05] MEDS ORDERED: cyclobenzaprine 10mg tablet PO PRN (00:10)
[2018-03-05] MEDS ORDERED: albuterol 2.5 MG/3 ML nebule NEB PRN (01:05)
[2018-03-05] MEDS: normal saline 1000ml 1,000 ML IV SCH ×2 (01:08→09:55)
[2018-03-05] MEDS: HYDROcodone/acetaminophen 10/325mg tab PO PRN ×5 (01:49→20:04)
[2018-03-05] MEDS: ipratropium/albuterol 3ml nebule IH SCH ×3 (02:07→16:45)
[2018-03-05 02:25] LABS: BASOPHILS % (AUTO) 0.1 % (0-1); EOSINOPHILS # (AUTO) 0.1 X10'3 (0-0.9); EOSINOPHILS % (AUTO) 0.5 % (0-6); HEMOGLOBIN 9.4 g/dl (12.0-16.0); LYMPHOCYTES # (AUTO) 1.8 X10'3 (1.1-4.8); LYMPHOCYTES % (AUTO) 17.2 % (21-51); MEAN CORPUSCULAR HEMOGLOBIN 27.6 PG (27.0-31.0); MEAN CORPUSCULAR HGB CONC 30.4 % (33.0-36.5); MEAN CORPUSCULAR VOLUME 90.7 FL (78-98); MEAN PLATELET VOLUME 8.3 FL (7.4-10.4); MONOCYTES # (AUTO) 0.7 X10'3 (0-0.9); MONOCYTES % (AUTO) 6.6 % (2-12); NEUTROPHILS # (AUTO) 7.8 X10'3 (1.8-7.7); NEUTROPHILS % (AUTO) 75.6 % (42-75); PLATELET COUNT 261 X10'3 (140-440); RED BLOOD COUNT 3.42 X10'6 (4.20-5.60); RED CELL DISTRIBUTION WIDTH 20.3 % (11.5-14.5); WHITE BLOOD COUNT 10.4 X10'3 (4.5-11.0)
[2018-03-05 02:39] LABS: ALANINE AMINOTRANSFERASE 27 U/L (12-78); ALBUMIN 2.6 G/DL (3.4-5.0); ALBUMIN/GLOBULIN RATIO 0.8 (1.1-1.5); ALKALINE PHOSPHATASE 114 IU/L (46-116); ANION GAP 5 (8-16); ASPARTATE AMINO TRANSFERASE 25 U/L (10-37); BILIRUBIN,TOTAL 0.2 MG/DL (0.1-1.0); BLOOD UREA NITROGEN 23 MG/DL (7-18); BUN/CREATININE RATIO 26.7 (6.6-38.0); CALCIUM 7.9 MG/DL (8.5-10.1); CHLORIDE 110 MMOL/L (99-107); CREATININE 0.86 MG/DL (0.40-0.90); GLUCOSE 116 MG/DL (70-104); POTASSIUM 4.4 MMOL/L (3.5-5.1); SODIUM 144 MMOL/L (135-145); TOTAL CARBON DIOXIDE 29.3 MMOL/L (24-32); TOTAL PROTEIN 5.7 G/DL (6.4-8.2); eGFR 69 ML/MIN
[2018-03-05] MEDS: furosemide 20MG tablet PO SCH ×2 (06:08→20:04)
[2018-03-05] MEDS: VILANTEROL IH SCH (08:00)
[2018-03-05] MEDS: carVEDilol 12.5mg tablet PO SCH ×2 (08:00→20:03)
[2018-03-05] MEDS: diltiazem 30mg tablet PO SCH ×3 (08:00→23:11)
[2018-03-05] MEDS: aspirin 81mg tab.chew PO SCH (08:00)
[2018-03-05] MEDS: UMECLIDINIUM IH SCH (08:00)
[2018-03-05] MEDS: PARoxetine 20mg tablet PO SCH (08:00)
[2018-03-05] MEDS: lisinopril 20mg tablet PO SCH (08:00)
[2018-03-05] MEDS: heparin, porcine 5000 units/ml vial SQ SCH ×2 (08:27→20:03)
[2018-03-05] MEDS: pantoprazole 40mg Tablet.DR PO SCH (08:28)
[2018-03-05] MEDS: busPIRone 5mg tablet PO SCH ×2 (08:31→20:04)
[2018-03-05 09:01] LABS: OCCULT BLOOD STOOL NEGATIVE (Neg)
[2018-03-05] MEDS: metroNIDAZOLE-Flagyl 250mg/NS 50 ML IV SCH ×2 (09:50→16:03)
[2018-03-05] MEDS: predniSONE 5mg tablet PO SCH (09:50)
[2018-03-05] MEDS: budesonide 0.5mg/2ml UD nebule IH SCH ×2 (10:24→19:29)
[2018-03-05 17:05] LABS: ABG BASE EXCESS -3.7 mmol/L (-2.0-3.0); ABG HCO3 25.7 mmol/L (22.0-26.0); ABG OXYGEN SATURATION 88.4 % (95-98); ABG PCO2 (T) 72.3 mmHg (32.0-45.0); ABG PH (T) 7.168 (7.350-7.450); ABG PO2 (T) 63.9 mmHg (83-108); FCOHb 1.4 % (0.5-1.5); FLOW 2 L/min; FMetHb 0.4 % (0.3-1.12); FO2Hb 86.8 % (94-100); TOTAL HEMOGLOBIN 10.4 G/dl (12.0-16.0)
[2018-03-05] MEDS: albuterol 2.5 MG/3 ML nebule NEB SCH (19:29)
[2018-03-05] MEDS: lactobacillus rhamnosus 10,000 MMU CELLS/CAPSULE PO SCH (20:03)
[2018-03-06] VITALS (11 sets, daily range): BP systolic 84–123; BP diastolic 52–71
[2018-03-06] MEDS: albuterol 2.5 MG/3 ML nebule NEB SCH ×8 (00:32→23:03)
[2018-03-06] MEDS: HYDROcodone/acetaminophen 10/325mg tab PO PRN ×6 (00:35→21:11)
[2018-03-06 01:01] LABS: ABG BASE EXCESS -2.2 mmol/L (-2.0-3.0); ABG HCO3 25.4 mmol/L (22.0-26.0); ABG OXYGEN SATURATION 98.5 % (95-98); ABG PH (T) 7.268 (7.350-7.450); ABG PO2 (T) 151.7 mmHg (83-108); ALLEN'S TEST Positive; FCOHb 0.8 % (0.5-1.5); FMetHb 0.2 % (0.3-1.12); FO2Hb 97.5 % (94-100); MINUTE VOLUME 9 L/min; PATIENT TEMPERATURE 35.8; RESPIRATORY RATE 16 b/min; RESPIRATORY RATE (OBSERVED) 32 b/min; TOTAL HEMOGLOBIN 9.6 G/dl (12.0-16.0)
[2018-03-06 05:57] LABS: BASOPHILS % (AUTO) 0.1 % (0-1); EOSINOPHILS # (AUTO) 0.1 X10'3 (0-0.9); EOSINOPHILS % (AUTO) 1.1 % (0-6); HEMATOCRIT 27.8 % (35.0-45.0); HEMOGLOBIN 8.6 g/dl (12.0-16.0); LYMPHOCYTES # (AUTO) 1.3 X10'3 (1.1-4.8); LYMPHOCYTES % (AUTO) 17.7 % (21-51); MEAN CORPUSCULAR HEMOGLOBIN 27.5 PG (27.0-31.0); MEAN CORPUSCULAR HGB CONC 31.1 % (33.0-36.5); MEAN CORPUSCULAR VOLUME 88.5 FL (78-98); MEAN PLATELET VOLUME 8.6 FL (7.4-10.4); MONOCYTES # (AUTO) 0.9 X10'3 (0-0.9); MONOCYTES % (AUTO) 12.6 % (2-12); NEUTROPHILS # (AUTO) 4.9 X10'3 (1.8-7.7); NEUTROPHILS % (AUTO) 68.5 % (42-75); PLATELET COUNT 220 X10'3 (140-440); RED BLOOD COUNT 3.15 X10'6 (4.20-5.60); RED CELL DISTRIBUTION WIDTH 20.6 % (11.5-14.5); WHITE BLOOD COUNT 7.2 X10'3 (4.5-11.0)
[2018-03-06 06:07] LABS: ALANINE AMINOTRANSFERASE 30 U/L (12-78); ALBUMIN 2.5 G/DL (3.4-5.0); ALBUMIN/GLOBULIN RATIO 0.8 (1.1-1.5); ALKALINE PHOSPHATASE 110 IU/L (46-116); ANION GAP 3 (8-16); ASPARTATE AMINO TRANSFERASE 25 U/L (10-37); BILIRUBIN,TOTAL 0.1 MG/DL (0.1-1.0); BLOOD UREA NITROGEN 18 MG/DL (7-18); BUN/CREATININE RATIO 23.7 (6.6-38.0); CALCIUM 8.3 MG/DL (8.5-10.1); CHLORIDE 109 MMOL/L (99-107); CREATININE 0.76 MG/DL (0.40-0.90); GLUCOSE 110 MG/DL (70-104); POTASSIUM 4.2 MMOL/L (3.5-5.1); SODIUM 144 MMOL/L (135-145); TOTAL CARBON DIOXIDE 31.7 MMOL/L (24-32); TOTAL PROTEIN 5.5 G/DL (6.4-8.2); eGFR 79 ML/MIN
[2018-03-06] MEDS: budesonide 0.5mg/2ml UD nebule IH SCH ×2 (07:09→19:09)
[2018-03-06] MEDS: VILANTEROL IH SCH (08:00)
[2018-03-06] MEDS: aspirin 81mg tab.chew PO SCH ×2 (08:00→08:13)
[2018-03-06] MEDS: UMECLIDINIUM IH SCH (08:00)
[2018-03-06] MEDS: lactobacillus rhamnosus 10,000 MMU CELLS/CAPSULE PO SCH ×2 (08:13→20:49)
[2018-03-06] MEDS: busPIRone 5mg tablet PO SCH ×2 (08:13→20:49)
[2018-03-06] MEDS: diltiazem 30mg tablet PO SCH ×2 (08:13→16:20)
[2018-03-06] MEDS: predniSONE 5mg tablet PO SCH (08:14)
[2018-03-06] MEDS: PARoxetine 20mg tablet PO SCH (08:14)
[2018-03-06] MEDS: lisinopril 20mg tablet PO SCH (08:14)
[2018-03-06] MEDS: furosemide 20MG tablet PO SCH ×2 (08:14→20:49)
[2018-03-06] MEDS: carVEDilol 12.5mg tablet PO SCH ×2 (08:14→20:49)
[2018-03-06] MEDS: heparin, porcine 5000 units/ml vial SQ SCH ×2 (08:15→20:50)
[2018-03-06] MEDS: pantoprazole 40mg Tablet.DR PO SCH (08:16)
[2018-03-06 16:56] LABS: ABG BASE EXCESS 1.3 mmol/L (-2.0-3.0); ABG HCO3 30.9 mmol/L (22.0-26.0); ABG PCO2 (T) 81.4 mmHg (32.0-45.0); ABG PH (T) 7.197 (7.350-7.450); ABG PO2 (T) 54.4 mmHg (83-108); ALLEN'S TEST Positive; FLOW 5 L/min; FMetHb 0.4 % (0.3-1.12); FO2Hb 82.7 % (94-100); TOTAL HEMOGLOBIN 10.2 G/dl (12.0-16.0)
[2018-03-06] MEDS ORDERED: prednisone 10mg tablet PO SCH (18:21)
[2018-03-06] MEDS: methylPREDNISolone sod succ/PF 40mg inj. IV SCH (20:50)
[2018-03-07] MEDS: diltiazem 30mg tablet PO SCH ×2 (00:52→08:50)
[2018-03-07 03:00] VITALS: BP 155/72
[2018-03-07] MEDS: albuterol 2.5 MG/3 ML nebule NEB SCH ×3 (03:05→12:00)
[2018-03-07] MEDS: HYDROcodone/acetaminophen 10/325mg tab PO PRN ×3 (03:19→15:50)
[2018-03-07 06:28] LABS: ALANINE AMINOTRANSFERASE 28 U/L (12-78); ALBUMIN 2.9 G/DL (3.4-5.0); ALBUMIN/GLOBULIN RATIO 0.9 (1.1-1.5); ALKALINE PHOSPHATASE 108 IU/L (46-116); ANION GAP 4 (8-16); ASPARTATE AMINO TRANSFERASE 19 U/L (10-37); BILIRUBIN,TOTAL 0.1 MG/DL (0.1-1.0); BLOOD UREA NITROGEN 15 MG/DL (7-18); BUN/CREATININE RATIO 16.1 (6.6-38.0); CALCIUM 8.7 MG/DL (8.5-10.1); CHLORIDE 104 MMOL/L (99-107); CREATININE 0.93 MG/DL (0.40-0.90); GLUCOSE 163 MG/DL (70-104); POTASSIUM 4.3 MMOL/L (3.5-5.1); SODIUM 142 MMOL/L (135-145); TOTAL CARBON DIOXIDE 33.6 MMOL/L (24-32); TOTAL PROTEIN 6.1 G/DL (6.4-8.2); eGFR 63 ML/MIN
[2018-03-07 06:44] LABS: BASOPHILS % (AUTO) 0 % (0-1); EOSINOPHILS % (AUTO) 0.1 % (0-6); HEMATOCRIT 28.7 % (35.0-45.0); HEMOGLOBIN 8.9 g/dl (12.0-16.0); LYMPHOCYTES # (AUTO) 0.4 X10'3 (1.1-4.8); LYMPHOCYTES % (AUTO) 8.2 % (21-51); MEAN CORPUSCULAR HEMOGLOBIN 27.7 PG (27.0-31.0); MEAN CORPUSCULAR VOLUME 89.2 FL (78-98); MEAN PLATELET VOLUME 8.9 FL (7.4-10.4); MONOCYTES # (AUTO) 0.1 X10'3 (0-0.9); NEUTROPHILS # (AUTO) 4.8 X10'3 (1.8-7.7); NEUTROPHILS % (AUTO) 89.7 % (42-75); PLATELET COUNT 201 X10'3 (140-440); RED BLOOD COUNT 3.21 X10'6 (4.20-5.60); RED CELL DISTRIBUTION WIDTH 19.3 % (11.5-14.5); WHITE BLOOD COUNT 5.3 X10'3 (4.5-11.0)
[2018-03-07] MEDS: VILANTEROL IH SCH (08:00)
[2018-03-07] MEDS: UMECLIDINIUM IH SCH (08:00)
[2018-03-07] MEDS ORDERED: levoFLOXACIN 500mg tablet PO SCH (08:00)
[2018-03-07] MEDS: carVEDilol 12.5mg tablet PO SCH (08:49)
[2018-03-07] MEDS: lactobacillus rhamnosus 10,000 MMU CELLS/CAPSULE PO SCH (08:50)
[2018-03-07] MEDS: PARoxetine 20mg tablet PO SCH (08:50)
[2018-03-07] MEDS: furosemide 20MG tablet PO SCH (08:50)
[2018-03-07] MEDS: busPIRone 5mg tablet PO SCH (08:50)
[2018-03-07] MEDS: lisinopril 20mg tablet PO SCH (08:51)
[2018-03-07] MEDS: aspirin 81mg tab.chew PO SCH (08:51)
[2018-03-07] MEDS: pantoprazole 40mg Tablet.DR PO SCH (08:51)
[2018-03-07] MEDS: methylPREDNISolone sod succ/PF 40mg inj. IV SCH (08:52)
[2018-03-07] MEDS: heparin, porcine 5000 units/ml vial SQ SCH (08:52)
[2018-03-07] MEDS: budesonide 0.5mg/2ml UD nebule IH SCH (09:18)
[2018-03-07 11:00] VITALS: BP 119/64
[2018-03-07 11:01] LABS: ABG BASE EXCESS 5.9 mmol/L (-2.0-3.0); ABG HCO3 33.1 mmol/L (22.0-26.0); ABG OXYGEN SATURATION 92.5 % (95-98); ABG PCO2 (T) 63.7 mmHg (32.0-45.0); ABG PH (T) 7.333 (7.350-7.450); ABG PO2 (T) 67.4 mmHg (83-108); ALLEN'S TEST Positive; FCOHb 0.3 % (0.5-1.5); FMetHb 0.2 % (0.3-1.12); RESPIRATORY RATE 16 b/min; TOTAL HEMOGLOBIN 9.5 G/dl (12.0-16.0)
== END 2018-03-07 16:55 | disposition home or self-care (01) | DRG 140 ==
LOC: ER 19:29 → ED HOLD 23:49 → SUR 3N 03-05 04:50 → PCU 3S 03-05 19:30
PROVIDERS: ADMIT Internal Medicine; ATTEND Internal Medicine
PROC: 5A09357 Assistance with Respiratory Ventilation, Less than 24 Consecutive Hours, Continuous Positive Airway Pressure (ICD-10-PCS; principal; 2018-03-05)
PROC: 5A09457 Assistance with Respiratory Ventilation, 24-96 Consecutive Hours, Continuous Positive Airway Pressure (ICD-10-PCS; 2018-03-06)
DX: J44.1 Chronic obstructive pulmonary disease with (acute) exacerbation (principal); I11.0 Hypertensive heart disease with heart failure; I50.9 Heart failure, unspecified; Z68.1 Body mass index [BMI] 19.9 or less, adult; E86.0 Dehydration; G89.29 Other chronic pain; M54.9 Dorsalgia, unspecified; R19.7 Diarrhea, unspecified; I25.10 Atherosclerotic heart disease of native coronary artery without angina pectoris; I25.2 Old myocardial infarction; Z90.710 Acquired absence of both cervix and uterus; Z79.899 Other long term (current) drug therapy; Z80.9 Family history of malignant neoplasm, unspecified; Z82.49 Family history of ischemic heart disease and other diseases of the circulatory system; Z82.5 Family history of asthma and other chronic lower respiratory diseases
CPT/HCPCS: 36415; 36600; 71045; 72100; 80053; 82272; 82803; 83605; 83735; 83880; 84145; 84484; 85018; 85025; 87040; 87045; 87046; 87070; 89055; 93005; 94640; 94660; 94760; 96365; 97116; 97162; 97530; 99285; J1644; J2920; J3490; J7030; J7512; J7626

== ENCOUNTER 2018-03-09 15:45 | Observation (INO) | payer MEDICAID ==
[~2018-03-09] VITALS: Ht 162.6 cm; Wt 50.0 kg
[~2018-03-09 15:45] MED LIST changes: +ALBU18HF2 INH; +BUSP7.5T4 PO; +FURO20TA4 PO; +HYDR-3973 PO; +IPRA3AMP IH; +LORA1TAB PO; +METO50TA16 PO; -MULT-933 PO; -NICO-630 TOP; +PARO20TA6 PO; -PRAV40TA3 PO; -PRED10TA23 PO; +PRED5TAB PO; -VANC125C4 PO; -VANC125S MT
[2018-03-09] MEDS ORDERED: albuterol 2.5 MG/3 ML nebule CONTNEB PRN (15:55)
[2018-03-09] MEDS ORDERED: levoFLOXACIN-Levaquin 750MG/D5 150 ML IV ONE (15:55)
[2018-03-09] MEDS ORDERED: CefTRIAXone 2gm/D5W 50ml 50 ML IV ONE (15:55)
[2018-03-09 16:35] LABS: ABG BASE EXCESS 18.6 mmol/L (-2.0-3.0); ABG HCO3 47.8 mmol/L (22.0-26.0); ABG OXYGEN SATURATION 91.4 % (95-98); ABG PCO2 (T) 89.1 mmHg (32.0-45.0); ABG PH (T) 7.347 (7.350-7.450); ABG PO2 (T) 66.1 mmHg (83-108); ALLEN'S TEST Positive; FCOHb 6.2 % (0.5-1.5); FLOW 3 L/min; FO2Hb 85.7 % (94-100); TOTAL HEMOGLOBIN 10.4 G/dl (12.0-16.0)
[2018-03-09 16:39] LABS: BASOPHILS % (AUTO) 0 % (0-1); EOSINOPHILS # (AUTO) 0.1 X10'3 (0-0.9); EOSINOPHILS % (AUTO) 0.7 % (0-6); HEMATOCRIT 32.2 % (35.0-45.0); HEMOGLOBIN 9.9 g/dl (12.0-16.0); LYMPHOCYTES # (AUTO) 1.2 X10'3 (1.1-4.8); LYMPHOCYTES % (AUTO) 7.3 % (21-51); MEAN CORPUSCULAR HEMOGLOBIN 27.1 PG (27.0-31.0); MEAN CORPUSCULAR HGB CONC 30.6 % (33.0-36.5); MEAN CORPUSCULAR VOLUME 88.6 FL (78-98); MEAN PLATELET VOLUME 8.5 FL (7.4-10.4); MONOCYTES # (AUTO) 1.7 X10'3 (0-0.9); MONOCYTES % (AUTO) 10.5 % (2-12); NEUTROPHILS # (AUTO) 13.1 X10'3 (1.8-7.7); NEUTROPHILS % (AUTO) 81.5 % (42-75); PLATELET COUNT 286 X10'3 (140-440); RED BLOOD COUNT 3.64 X10'6 (4.20-5.60); RED CELL DISTRIBUTION WIDTH 20.8 % (11.5-14.5)
[2018-03-09 16:56] LABS: ANISOCYTOSIS 3+; HYPOCHROMASIA 1+; NUCLEATED RED BLOOD CELLS 1 /100WBC (0-0); PLATELET ESTIMATE NORMAL; POLYCHROMASIA 2+; TOTAL CELLS COUNTED 100
[2018-03-09 16:57] LABS: STOMATOCYTES 1+
[2018-03-09 17:08] LABS: INR 1.1 INR; PARTIAL THROMBOPLASTIN TIME 24 SECONDS (22-32); PROTHROMBIN TIME 11.5 SECONDS (9.0-12.0)
[2018-03-09 17:13] LABS: ALANINE AMINOTRANSFERASE 35 U/L (12-78); ALBUMIN 3.4 G/DL (3.4-5.0); ALKALINE PHOSPHATASE 132 IU/L (46-116); ASPARTATE AMINO TRANSFERASE 31 U/L (10-37); BILIRUBIN,TOTAL 0.3 MG/DL (0.1-1.0); BLOOD UREA NITROGEN 22 MG/DL (7-18); BUN/CREATININE RATIO 27.2 (6.6-38.0); CALCIUM 8.9 MG/DL (8.5-10.1); CHLORIDE 101 MMOL/L (99-107); CREATININE 0.81 MG/DL (0.40-0.90); GLUCOSE 161 MG/DL (70-104); MAGNESIUM 1.7 MG/DL (1.5-2.4); POTASSIUM 3.4 MMOL/L (3.5-5.1); SODIUM 148 MMOL/L (135-145); TOTAL PROTEIN 6.9 G/DL (6.4-8.2); eGFR 74 ML/MIN
[2018-03-09 17:23] LABS: ANION GAP -2 (8-16)
[2018-03-09 17:24] LABS: TOTAL CARBON DIOXIDE 48.8 MMOL/L (24-32)
[2018-03-09] MEDS ORDERED: azithromycin/NS 500mg/250ml 250 ML IV ONE (17:55)
[2018-03-09] MEDS ORDERED: methylPREDNISolone sod succ 125mg/2ml vial IV ONE (17:55)
[2018-03-09] MEDS ORDERED: cefepime 1GM/NS ADD-VANTAGE 100 ML IV ONE (17:55)
[2018-03-09] MEDS ORDERED: ondansetron/PF 4mg/2ml inj IV PRN (18:20)
[2018-03-09] MEDS ORDERED: mag hydrox/Alum hydrox/simeth 30ml oral suspension PO PRN (18:20)
[2018-03-09] MEDS ORDERED: magnesium hydroxide 30ml (MOM) UD suspension PO PRN (18:20)
[2018-03-09] MEDS ORDERED: albuterol 2.5 MG/3 ML nebule NEB PRN (18:20)
[2018-03-09] MEDS ORDERED: HYDROcodone/acetaminophen 10/325mg tab PO PRN (18:20)
[2018-03-09] MEDS ORDERED: acetaminophen 325mg tablet PO PRN ×2 (18:20)
[2018-03-09] MEDS ORDERED: cyclobenzaprine 10mg tablet PO PRN (18:25)
[2018-03-09] MEDS ORDERED: potassium Cl 20 mEq SR tablet PO PRN ×2 (18:30)
[2018-03-09] MEDS ORDERED: potassium Cl 40MEQ/NS 500ml 500 ML IV PRN ×2 (18:30)
[2018-03-09] MEDS: enoxaparin 40mg/0.4ml syringe SUBCUT SCH (18:37)
[2018-03-09] MEDS: ipratropium/albuterol 3ml nebule NEB SCH ×2 (19:18→22:39)
[2018-03-09] MEDS: budesonide 0.5mg/2ml UD nebule IH SCH (19:18)
[2018-03-09] MEDS: methylPREDNISolone sod succ 125mg/2ml vial IV SCH (20:00)
[2018-03-09] MEDS ORDERED: BUSPIRONE HCL 7.5 MG PO SCH (20:00)
[2018-03-09] MEDS: furosemide 20MG tablet PO SCH (20:15)
[2018-03-09] MEDS: LORazepam 1 MG tablet PO SCH (20:15)
[2018-03-09] MEDS: carVEDilol 12.5mg tablet PO SCH (20:15)
[2018-03-09] MEDS: busPIRone 15mg tablet PO SCH (20:16)
[2018-03-09 20:50] VITALS: BP 94/54
[2018-03-09] MEDS ORDERED: temazepam 15mg capsule PO PRN (21:00)
[2018-03-09 23:00] VITALS: BP 119/71
[2018-03-09] MEDS: diltiazem 30mg tablet PO SCH (23:59)
[2018-03-10] MEDS: ipratropium/albuterol 3ml nebule NEB SCH ×4 (02:35→14:53)
[2018-03-10 04:00] VITALS: BP 138/81
[2018-03-10 04:13] LABS: BASOPHILS % (AUTO) 0 % (0-1); EOSINOPHILS # (AUTO) 0.1 X10'3 (0-0.9); EOSINOPHILS % (AUTO) 1.1 % (0-6); HEMATOCRIT 29.8 % (35.0-45.0); LYMPHOCYTES # (AUTO) 0.4 X10'3 (1.1-4.8); LYMPHOCYTES % (AUTO) 4.2 % (21-51); MEAN CORPUSCULAR HEMOGLOBIN 27.3 PG (27.0-31.0); MEAN CORPUSCULAR HGB CONC 30.3 % (33.0-36.5); MEAN CORPUSCULAR VOLUME 89.9 FL (78-98); MEAN PLATELET VOLUME 8.9 FL (7.4-10.4); MONOCYTES # (AUTO) 0.1 X10'3 (0-0.9); MONOCYTES % (AUTO) 1.5 % (2-12); NEUTROPHILS # (AUTO) 9.3 X10'3 (1.8-7.7); NEUTROPHILS % (AUTO) 93.2 % (42-75); PLATELET COUNT 217 X10'3 (140-440); RED BLOOD COUNT 3.31 X10'6 (4.20-5.60); RED CELL DISTRIBUTION WIDTH 20.8 % (11.5-14.5)
[2018-03-10 04:29] LABS: ALBUMIN 2.9 G/DL (3.4-5.0); BLOOD UREA NITROGEN 21 MG/DL (7-18); BUN/CREATININE RATIO 24.7 (6.6-38.0); CALCIUM 8.2 MG/DL (8.5-10.1); CHLORIDE 101 MMOL/L (99-107); CHOL/HDL RATIO 2.6 (0.00-4.99); CHOLESTEROL 104 MG/DL (0-200); CREATININE 0.85 MG/DL (0.40-0.90); GLUCOSE 134 MG/DL (70-104); HDL CHOLESTEROL 40 MG/DL (35-60); LDL CHOLESTEROL 55 MG/DL (50-100); POTASSIUM 4.2 MMOL/L (3.5-5.1); SODIUM 146 MMOL/L (135-145); TRIGLYCERIDES 79 MG/DL (20-135); eGFR 70 ML/MIN
[2018-03-10 04:30] LABS: ANION GAP -2 (8-16)
[2018-03-10 04:32] LABS: TOTAL CARBON DIOXIDE 47.3 MMOL/L (24-32)
[2018-03-10] MEDS: HYDROcodone/acetaminophen 5mg/325mg tablet PO PRN ×4 (05:04→17:38)
[2018-03-10 05:30] VITALS: BP 145/77
[2018-03-10 05:48] LABS: ANISOCYTOSIS 3+; ELLIPTOCYTES 1+; PLATELET ESTIMATE NORMAL; STOMATOCYTES 1+; TARGET CELLS 1+
[2018-03-10] MEDS: budesonide 0.5mg/2ml UD nebule IH SCH (06:54)
[2018-03-10] MEDS ORDERED: pantoprazole 40mg Tablet.DR PO SCH (07:30)
[2018-03-10] MEDS ORDERED: non-formulary drug (Umeclidinium Brm/Vilanterol Tr (Anoro Ellipta 62.5-25 Mcg INH) 1 PUFF) PO SCH (08:00)
[2018-03-10] MEDS ORDERED: non-formulary drug (Omeprazole 1 CAP) PO SCH (08:00)
[2018-03-10] MEDS ORDERED: PARoxetine 20mg tablet PO SCH (08:00)
[2018-03-10] MEDS: diltiazem 30mg tablet PO SCH (08:00)
[2018-03-10] MEDS ORDERED: aspirin 81mg tablet.DR PO SCH (08:00)
[2018-03-10] MEDS ORDERED: lisinopril 20mg tablet PO SCH (08:00)
[2018-03-10] MEDS ORDERED: non-formulary drug (Lisinopril* 1 TAB) PO SCH (08:00)
[2018-03-10] MEDS ORDERED: azithromycin/NS 500mg/250ml 250 ML IV SCH (08:00)
[2018-03-10] MEDS ORDERED: potassium chloride 10mEq ER tablet PO SCH (08:00)
[2018-03-10] MEDS ORDERED: non-formulary drug (Aspirin (Aspir 81) 1 TAB) PO SCH (08:00)
[2018-03-10] MEDS: carVEDilol 12.5mg tablet PO SCH (08:00)
[2018-03-10] MEDS ORDERED: ANORO ELLIPTA IH SCH (08:00)
[2018-03-10] MEDS: LORazepam 1 MG tablet PO SCH (08:13)
[2018-03-10] MEDS: furosemide 20MG tablet PO SCH (08:13)
[2018-03-10] MEDS: busPIRone 15mg tablet PO SCH (08:14)
[2018-03-10] MEDS: methylPREDNISolone sod succ 125mg/2ml vial IV SCH (08:15)
[2018-03-10] MEDS: enoxaparin 40mg/0.4ml syringe SUBCUT SCH (08:15)
[2018-03-10 15:00] VITALS: BP 142/77
[2018-03-10] MEDS ORDERED: PRED20TA PO (17:30)
[2018-03-10] MEDS ORDERED: lactobacillus rhamnosus 10,000 MMU CELLS/CAPSULE PO SCH (20:00)
== END 2018-03-10 17:55 | disposition home or self-care (01) ==
LOC: ER 15:45 → ED HOLD 18:17 → EDBEDREQ 19:45 → PCU 3S 21:02
PROVIDERS: ADMIT Hospitalist; ATTEND Hospitalist
DX: J44.1 Chronic obstructive pulmonary disease with (acute) exacerbation (principal); J96.22 Acute and chronic respiratory failure with hypercapnia; E87.0 Hyperosmolality and hypernatremia; E87.6 Hypokalemia; E87.2 Acidosis; I11.0 Hypertensive heart disease with heart failure; I50.9 Heart failure, unspecified; I25.10 Atherosclerotic heart disease of native coronary artery without angina pectoris; D72.829 Elevated white blood cell count, unspecified; J45.909 Unspecified asthma, uncomplicated; M54.9 Dorsalgia, unspecified; G89.29 Other chronic pain; I25.2 Old myocardial infarction; Z72.0 Tobacco use; Z90.49 Acquired absence of other specified parts of digestive tract; Z90.710 Acquired absence of both cervix and uterus
CPT/HCPCS: 36415; 36600; 71045; 80048; 80053; 80061; 82803; 83605; 83735; 84484; 85018; 85025; 85610; 85730; 87040; 87070; 93005; 94640; 94660; 94760; 96365; 96366; 96368; 96372; 96375; 96376; 99291; G0378; J0456; J0692; J0696; J1650; J1956; J2405; J2930; J7626

== ENCOUNTER 2018-03-12 17:54 | Inpatient (IN) | payer MEDICAID ==
[~2018-03-12] VITALS: Ht 154.9 cm; Wt 55.3 kg
[~2018-03-12 17:54] MED LIST changes: +PRED20TA PO; -PRED5TAB PO
[2018-03-12 18:28] LABS: BASOPHILS % (AUTO) 0.1 % (0-1); EOSINOPHILS % (AUTO) 0.2 % (0-6); HEMATOCRIT 32.6 % (35.0-45.0); HEMOGLOBIN 9.9 g/dl (12.0-16.0); LYMPHOCYTES # (AUTO) 1.4 X10'3 (1.1-4.8); LYMPHOCYTES % (AUTO) 7.6 % (21-51); MEAN CORPUSCULAR HEMOGLOBIN 26.9 PG (27.0-31.0); MEAN CORPUSCULAR HGB CONC 30.4 % (33.0-36.5); MEAN CORPUSCULAR VOLUME 88.3 FL (78-98); MEAN PLATELET VOLUME 8.4 FL (7.4-10.4); MONOCYTES # (AUTO) 1.6 X10'3 (0-0.9); MONOCYTES % (AUTO) 8.4 % (2-12); NEUTROPHILS # (AUTO) 15.5 X10'3 (1.8-7.7); NEUTROPHILS % (AUTO) 83.7 % (42-75); PLATELET COUNT 299 X10'3 (140-440); RED CELL DISTRIBUTION WIDTH 20.6 % (11.5-14.5); WHITE BLOOD COUNT 18.5 X10'3 (4.5-11.0)
[2018-03-12 18:37] LABS: INR 1.1 INR; PARTIAL THROMBOPLASTIN TIME 24 SECONDS (22-32); PROTHROMBIN TIME 11.8 SECONDS (9.0-12.0)
[2018-03-12 18:42] LABS: ALANINE AMINOTRANSFERASE 34 U/L (12-78); ALBUMIN 3.5 G/DL (3.4-5.0); ALKALINE PHOSPHATASE 139 IU/L (46-116); ASPARTATE AMINO TRANSFERASE 24 U/L (10-37); BILIRUBIN,TOTAL 0.3 MG/DL (0.1-1.0); BLOOD UREA NITROGEN 23 MG/DL (7-18); BUN/CREATININE RATIO 26.1 (6.6-38.0); CALCIUM 8.9 MG/DL (8.5-10.1); CHLORIDE 98 MMOL/L (99-107); CREATININE 0.88 MG/DL (0.40-0.90); GLUCOSE 108 MG/DL (70-104); POTASSIUM 4.1 MMOL/L (3.5-5.1); SODIUM 145 MMOL/L (135-145); TOTAL PROTEIN 6.9 G/DL (6.4-8.2); eGFR 67 ML/MIN
[2018-03-12 19:16] LABS: ANION GAP -3 (8-16); TOTAL CARBON DIOXIDE > 50 MMOL/L (24-32)
[2018-03-12] MEDS ORDERED: albuterol 2.5 MG/3 ML nebule CONTNEB PRN (20:20)
[2018-03-12] MEDS ORDERED: ipratropium 0.5 MG/2.5ML nebule IH ONE (20:20)
[2018-03-12] MEDS ORDERED: methylPREDNISolone sod succ 125mg/2ml vial IV ONE (20:20)
[2018-03-12 21:01] LABS: ABG BASE EXCESS 20.3 mmol/L (-2.0-3.0); ABG HCO3 49.8 mmol/L (22.0-26.0); ABG OXYGEN SATURATION 93.6 % (95-98); ABG PCO2 (T) 92.3 mmHg (32.0-45.0); ABG PH (T) 7.349 (7.350-7.450); ABG PO2 (T) 72.7 mmHg (83-108); FCOHb 6.3 % (0.5-1.5); FLOW 2 L/min; FO2Hb 87.7 % (94-100); PATIENT TEMPERATURE 36.8; RESPIRATORY RATE (OBSERVED) 18 b/min; TOTAL HEMOGLOBIN 10.3 G/dl (12.0-16.0)
[2018-03-12] MEDS ORDERED: LORazepam 2 mg/ml vial IV ONE (21:35)
[2018-03-12 23:06] LABS: NUCLEATED RED BLOOD CELLS 2 /100WBC (0-0); TOTAL CELLS COUNTED 100
[2018-03-12 23:07] LABS: ANISOCYTOSIS 3+; PLATELET ESTIMATE NORMAL; POLYCHROMASIA 1+; STOMATOCYTES 2+
[2018-03-12 23:08] LABS: ELLIPTOCYTES 1+
[2018-03-12 23:30] LABS: ABG BASE EXCESS 31.1 mmol/L (-2.0-3.0); ABG HCO3 62.7 mmol/L (22.0-26.0); ABG OXYGEN SATURATION 95.2 % (95-98); ABG PH (T) 7.339 (7.350-7.450); ABG PO2 (T) 82.1 mmHg (83-108); FCOHb 5.4 % (0.5-1.5); FMetHb 0.1 % (0.3-1.12); MINUTE VOLUME 8 L/min; PATIENT TEMPERATURE 36.8; RESPIRATORY RATE 20 b/min; RESPIRATORY RATE (OBSERVED) 21 b/min; TOTAL HEMOGLOBIN 10.5 G/dl (12.0-16.0)
[2018-03-12] MEDS ORDERED: etomidate 2mg/ml inj. IV ONE (23:40)
[2018-03-12] MEDS ORDERED: succinylcholine 20mg/ml inj IV ONE (23:40)
[2018-03-13] VITALS (18 sets, daily range): BP systolic 105–187; BP diastolic 53–90
[2018-03-13] MEDS: propofol 1000mg/100ml bottle 100 ML IV PRN ×3 (00:09→13:10)
[2018-03-13] MEDS ORDERED: midazolam 100mg in NS 100ml 100 ML IV PRN (00:21)
[2018-03-13] MEDS ORDERED: potassium Cl 40MEQ/250ML bag 250 ML IV PRN (00:25)
[2018-03-13] MEDS ORDERED: morphine 4 MG/ML inj SYRINge IV PRN ×2 (00:25)
[2018-03-13] MEDS ORDERED: acetaminophen 325mg tablet PO PRN ×2 (00:25)
[2018-03-13] MEDS ORDERED: ondansetron/PF 4mg/2ml inj IV PRN (00:25)
[2018-03-13] MEDS: K, MAG and/or Phos replacement - Verify level? MC SCH ×2 (00:25→07:58)
[2018-03-13] MEDS ORDERED: potassium Cl 40MEQ/250ML bag 250 ML IV SCH (00:25)
[2018-03-13] MEDS ORDERED: potassium Cl 20 mEq SR tablet PO PRN ×2 (00:25)
[2018-03-13] MEDS ORDERED: ipratropium/albuterol 3ml nebule NEB PRN ×2 (00:25→15:25)
[2018-03-13 00:46] LABS: ABG BASE EXCESS 23.3 mmol/L (-2.0-3.0); ABG HCO3 47.1 mmol/L (22.0-26.0); ABG OXYGEN SATURATION 98.6 % (95-98); ABG PCO2 (T) 46.4 mmHg (32.0-45.0); ABG PH (T) 7.624 (7.350-7.450); ABG PO2 (T) 147.1 mmHg (83-108); FCOHb 3.9 % (0.5-1.5); FMetHb 0.3 % (0.3-1.12); FO2Hb 94.5 % (94-100); MINUTE VOLUME 8 L/min; PATIENT TEMPERATURE 36.8; PEEP 5 cm H2O; RESPIRATORY RATE 20 b/min; RESPIRATORY RATE (OBSERVED) 20 b/min; TIDAL VOLUME 375 mL; TOTAL HEMOGLOBIN 10.5 G/dl (12.0-16.0)
[2018-03-13] MEDS: normal saline 1000ml 1,000 ML IV SCH ×2 (01:49→13:09)
[2018-03-13] MEDS: methylPREDNISolone sod succ/PF 40mg inj. IV SCH ×4 (02:18→20:01)
[2018-03-13 03:41] LABS: ABG BASE EXCESS 21.6 mmol/L (-2.0-3.0); ABG HCO3 46.1 mmol/L (22.0-26.0); ABG OXYGEN SATURATION 96.1 % (95-98); ABG PCO2 (T) 50.4 mmHg (32.0-45.0); ABG PH (T) 7.579 (7.350-7.450); FCOHb 2.7 % (0.5-1.5); FO2Hb 93.5 % (94-100); MINUTE VOLUME 6 L/min; PEEP 5 cm H2O; RESPIRATORY RATE 14 b/min; RESPIRATORY RATE (OBSERVED) 14 b/min; TIDAL VOLUME 375 mL; TOTAL HEMOGLOBIN 10.5 G/dl (12.0-16.0)
[2018-03-13] MEDS: FENTANYL-0.9 % NACL/PF 100 ML IV PRN ×3 (03:44→13:59)
[2018-03-13] MEDS ORDERED: cyclobenzaprine 10mg tablet PO PRN (05:45)
[2018-03-13] MEDS ORDERED: non-formulary drug (Albuterol Sulfate (Ventolin Hfa) 2 PUFFS) INH SCH (05:45)
[2018-03-13] MEDS: budesonide 0.5mg/2ml UD nebule IH SCH ×2 (07:10→20:41)
[2018-03-13] MEDS: ipratropium/albuterol 3ml nebule IH SCH ×2 (07:10→15:13)
[2018-03-13] MEDS: furosemide 20MG tablet PO SCH ×2 (07:49→19:53)
[2018-03-13] MEDS: busPIRone 15mg tablet PO SCH ×2 (07:49→20:01)
[2018-03-13] MEDS: lisinopril 20mg tablet PO SCH (07:50)
[2018-03-13] MEDS: diltiazem 30mg tablet PO SCH ×3 (07:50→23:43)
[2018-03-13] MEDS: metoprolol tartrate 50mg tablet PO SCH ×2 (07:50→19:53)
[2018-03-13] MEDS: PARoxetine 20mg tablet PO SCH (07:50)
[2018-03-13] MEDS: carVEDilol 12.5mg tablet PO SCH ×2 (07:50→19:53)
[2018-03-13] MEDS: enoxaparin 40mg/0.4ml syringe SUBCUT SCH (07:51)
[2018-03-13] MEDS: pantoprazole 40 MG vial IV SCH (07:57)
[2018-03-13] MEDS: aspirin 81mg tablet.DR PO SCH (07:58)
[2018-03-13] MEDS: Umeclidinium Brm/Vilanterol Tr (Anoro Ellipta 62.5-25 Mcg INH) PO SCH (08:00)
[2018-03-13] MEDS ORDERED: etomidate 2mg/ml inj. ONE (08:00)
[2018-03-13] MEDS ORDERED: racepinephrine 11.25mg/0.5ml nebule NEB PRN (15:25)
[2018-03-13 16:36] LABS: ABG BASE EXCESS 18.1 mmol/L (-2.0-3.0); ABG HCO3 52.8 mmol/L (22.0-26.0); ABG OXYGEN SATURATION 96.8 % (95-98); ABG PCO2 (T) > 150.0 mmHg (32.0-45.0); ABG PH (T) 7.119 (7.350-7.450); ABG PO2 (T) 125.8 mmHg (83-108); ALLEN'S TEST Positive; FCOHb 0.1 % (0.5-1.5); FLOW 2 L/min; FMetHb 0.3 % (0.3-1.12); FO2Hb 96.4 % (94-100); TOTAL HEMOGLOBIN 10.9 G/dl (12.0-16.0)
[2018-03-13 19:11] LABS: ABG BASE EXCESS 16.1 mmol/L (-2.0-3.0); ABG HCO3 44.9 mmol/L (22.0-26.0); ABG PCO2 (T) 85.1 mmHg (32.0-45.0); ABG PO2 (T) 104.4 mmHg (83-108); ALLEN'S TEST Positive; FCOHb 0.1 % (0.5-1.5); FMetHb 0.2 % (0.3-1.12); FO2Hb 96.7 % (94-100); RESPIRATORY RATE 20 b/min; RESPIRATORY RATE (OBSERVED) 21 b/min
[2018-03-13] MEDS: ipratropium/albuterol 3ml nebule NEB SCH (20:41)
[2018-03-13] MEDS: HYDROcodone/acetaminophen 5mg/325mg tablet PO PRN (21:06)
[2018-03-14] VITALS (20 sets, daily range): BP systolic 97–153; BP diastolic 53–84
[2018-03-14] MEDS: HYDROcodone/acetaminophen 10/325mg tab PO PRN ×4 (01:17→21:00)
[2018-03-14] MEDS: methylPREDNISolone sod succ/PF 40mg inj. IV SCH ×2 (01:19→07:53)
[2018-03-14] MEDS: mineral oil/petrolatum ophthal oint EACHEYE SCH ×3 (02:00→14:00)
[2018-03-14] MEDS: ipratropium/albuterol 3ml nebule NEB SCH ×4 (02:54→21:50)
[2018-03-14] MEDS: normal saline 1000ml 1,000 ML IV SCH (03:07)
[2018-03-14] MEDS ORDERED: cyclobenzaprine 10mg tablet PO PRN (04:10)
[2018-03-14] MEDS: LORazepam 1 MG tablet PO PRN (04:17)
[2018-03-14 05:36] LABS: BASOPHILS % (AUTO) 0 % (0-1); EOSINOPHILS % (AUTO) 0.3 % (0-6); HEMATOCRIT 27.9 % (35.0-45.0); HEMOGLOBIN 8.6 g/dl (12.0-16.0); LYMPHOCYTES # (AUTO) 0.2 X10'3 (1.1-4.8); LYMPHOCYTES % (AUTO) 1.1 % (21-51); MEAN CORPUSCULAR HGB CONC 30.7 % (33.0-36.5); MONOCYTES # (AUTO) 0.4 X10'3 (0-0.9); MONOCYTES % (AUTO) 2.8 % (2-12); NEUTROPHILS # (AUTO) 15.2 X10'3 (1.8-7.7); NEUTROPHILS % (AUTO) 95.8 % (42-75); PLATELET COUNT 242 X10'3 (140-440); RED BLOOD COUNT 3.17 X10'6 (4.20-5.60); RED CELL DISTRIBUTION WIDTH 19.9 % (11.5-14.5); WHITE BLOOD COUNT 15.9 X10'3 (4.5-11.0)
[2018-03-14 05:59] LABS: ALANINE AMINOTRANSFERASE 25 U/L (12-78); ALBUMIN 2.9 G/DL (3.4-5.0); ALKALINE PHOSPHATASE 106 IU/L (46-116); ANION GAP 2 (8-16); ASPARTATE AMINO TRANSFERASE 20 U/L (10-37); BILIRUBIN,TOTAL 0.4 MG/DL (0.1-1.0); BLOOD UREA NITROGEN 30 MG/DL (7-18); CALCIUM 8.3 MG/DL (8.5-10.1); CHLORIDE 100 MMOL/L (99-107); CREATININE 0.91 MG/DL (0.40-0.90); GLUCOSE 175 MG/DL (70-104); MAGNESIUM 1.8 MG/DL (1.5-2.4); PHOSPHORUS 4.9 MG/DL (2.3-4.5); POTASSIUM 3.7 MMOL/L (3.5-5.1); SODIUM 144 MMOL/L (135-145); TOTAL PROTEIN 5.9 G/DL (6.4-8.2); eGFR 64 ML/MIN
[2018-03-14] MEDS: pantoprazole 40 MG vial IV SCH (07:53)
[2018-03-14] MEDS: enoxaparin 40mg/0.4ml syringe SUBCUT SCH (07:58)
[2018-03-14] MEDS: furosemide 20MG tablet PO SCH ×2 (07:59→21:00)
[2018-03-14] MEDS: PARoxetine 20mg tablet PO SCH (08:00)
[2018-03-14] MEDS: Umeclidinium Brm/Vilanterol Tr (Anoro Ellipta 62.5-25 Mcg INH) PO SCH (08:00)
[2018-03-14] MEDS: potassium chloride 10mEq ER tablet PO SCH (08:00)
[2018-03-14] MEDS ORDERED: non-formulary drug (Omeprazole 1 CAP) PO SCH (08:00)
[2018-03-14] MEDS: lisinopril 20mg tablet PO SCH (08:00)
[2018-03-14] MEDS ORDERED: LORazepam 1 MG tablet PO SCH (08:00)
[2018-03-14] MEDS: K, MAG and/or Phos replacement - Verify level? MC SCH (08:00)
[2018-03-14] MEDS: metoprolol tartrate 50mg tablet PO SCH ×2 (08:01→20:59)
[2018-03-14] MEDS: diltiazem 30mg tablet PO SCH ×3 (08:01→23:10)
[2018-03-14] MEDS: aspirin 81mg tablet.DR PO SCH (08:01)
[2018-03-14] MEDS: busPIRone 15mg tablet PO SCH ×2 (08:02→21:01)
[2018-03-14] MEDS: carVEDilol 12.5mg tablet PO SCH ×2 (08:02→21:00)
[2018-03-14] MEDS: budesonide 0.5mg/2ml UD nebule IH SCH ×2 (08:38→21:51)
[2018-03-14] MEDS: predniSONE 20 mg tablet PO SCH (12:03)
[2018-03-14] MEDS: pantoprazole 40mg Tablet.DR PO SCH (12:03)
[2018-03-14] MEDS: cyclobenzaprine 10mg tablet PO PRN (23:09)
[2018-03-15 02:00] VITALS: BP 198/75
[2018-03-15] MEDS: ipratropium/albuterol 3ml nebule NEB SCH ×4 (02:27→20:19)
[2018-03-15] MEDS: HYDROcodone/acetaminophen 10/325mg tab PO PRN ×4 (04:07→21:26)
[2018-03-15 05:46] LABS: BASOPHILS % (AUTO) 0 % (0-1); EOSINOPHILS % (AUTO) 0 % (0-6); HEMATOCRIT 28.8 % (35.0-45.0); HEMOGLOBIN 8.6 g/dl (12.0-16.0); LYMPHOCYTES # (AUTO) 0.2 X10'3 (1.1-4.8); LYMPHOCYTES % (AUTO) 1.3 % (21-51); MEAN CORPUSCULAR HEMOGLOBIN 26.7 PG (27.0-31.0); MEAN PLATELET VOLUME 9.1 FL (7.4-10.4); MONOCYTES # (AUTO) 0.9 X10'3 (0-0.9); NEUTROPHILS # (AUTO) 16.6 X10'3 (1.8-7.7); NEUTROPHILS % (AUTO) 93.7 % (42-75); PLATELET COUNT 241 X10'3 (140-440); RED BLOOD COUNT 3.23 X10'6 (4.20-5.60); RED CELL DISTRIBUTION WIDTH 19.8 % (11.5-14.5); WHITE BLOOD COUNT 17.7 X10'3 (4.5-11.0)
[2018-03-15 06:00] VITALS: BP 135/67
[2018-03-15 06:20] LABS: ALANINE AMINOTRANSFERASE 23 U/L (12-78); ALKALINE PHOSPHATASE 97 IU/L (46-116); ANION GAP 2 (8-16); ASPARTATE AMINO TRANSFERASE 14 U/L (10-37); BILIRUBIN,TOTAL 0.2 MG/DL (0.1-1.0); BLOOD UREA NITROGEN 24 MG/DL (7-18); BUN/CREATININE RATIO 33.8 (6.6-38.0); CALCIUM 8.3 MG/DL (8.5-10.1); CHLORIDE 101 MMOL/L (99-107); CREATININE 0.71 MG/DL (0.40-0.90); GLUCOSE 154 MG/DL (70-104); MAGNESIUM 2.1 MG/DL (1.5-2.4); PHOSPHORUS 2.6 MG/DL (2.3-4.5); POTASSIUM 3.7 MMOL/L (3.5-5.1); SODIUM 145 MMOL/L (135-145); TOTAL PROTEIN 6.1 G/DL (6.4-8.2); eGFR 86 ML/MIN
[2018-03-15 06:30] LABS: TOTAL CARBON DIOXIDE 41.8 MMOL/L (24-32)
[2018-03-15] MEDS: K, MAG and/or Phos replacement - Verify level? MC SCH (08:00)
[2018-03-15] MEDS: Umeclidinium Brm/Vilanterol Tr (Anoro Ellipta 62.5-25 Mcg INH) PO SCH (08:00)
[2018-03-15] MEDS: budesonide 0.5mg/2ml UD nebule IH SCH ×2 (08:30→20:19)
[2018-03-15] MEDS: metoprolol tartrate 50mg tablet PO SCH ×2 (08:49→20:09)
[2018-03-15] MEDS: enoxaparin 40mg/0.4ml syringe SUBCUT SCH (08:49)
[2018-03-15] MEDS: pantoprazole 40mg Tablet.DR PO SCH (08:49)
[2018-03-15] MEDS: PARoxetine 20mg tablet PO SCH (08:49)
[2018-03-15] MEDS: busPIRone 15mg tablet PO SCH ×2 (08:50→20:08)
[2018-03-15] MEDS: predniSONE 20 mg tablet PO SCH (08:50)
[2018-03-15] MEDS: diltiazem 30mg tablet PO SCH ×3 (08:50→23:32)
[2018-03-15] MEDS: carVEDilol 12.5mg tablet PO SCH ×2 (08:50→20:08)
[2018-03-15] MEDS: potassium chloride 10mEq ER tablet PO SCH (08:50)
[2018-03-15] MEDS: aspirin 81mg tablet.DR PO SCH (08:50)
[2018-03-15] MEDS: furosemide 20MG tablet PO SCH ×2 (08:50→20:09)
[2018-03-15] MEDS: lisinopril 20mg tablet PO SCH (08:50)
[2018-03-15] MEDS: cyclobenzaprine 10mg tablet PO PRN ×2 (08:58→20:08)
[2018-03-15] MEDS: LORazepam 1 MG tablet PO PRN (10:46)
[2018-03-15 11:00] VITALS: BP 120/61
[2018-03-15 15:00] VITALS: BP 139/64
[2018-03-15] MEDS ORDERED: glucagon, human recombinant 1mg kit SUBCUT PRN (18:45)
[2018-03-15] MEDS ORDERED: dextrose 50%-water 50ml dispensing syringe IV PRN ×2 (18:45)
[2018-03-15] MEDS ORDERED: dextrose ORAL solution 15 GM/59 ML bottle PO PRN ×2 (18:45)
[2018-03-15] MEDS: insulin glargine (Lantus) pen - multi-dose SQ SCH (21:31)
[2018-03-15 22:00] VITALS: BP 152/65
[2018-03-16 02:00] VITALS: BP 155/81
[2018-03-16] MEDS: ipratropium/albuterol 3ml nebule NEB SCH ×4 (03:01→20:26)
[2018-03-16] MEDS: HYDROcodone/acetaminophen 10/325mg tab PO PRN ×2 (04:46→12:45)
[2018-03-16 05:30] LABS: BASOPHILS % (AUTO) 0 % (0-1); EOSINOPHILS % (AUTO) 0 % (0-6); HEMATOCRIT 26.1 % (35.0-45.0); HEMOGLOBIN 7.9 g/dl (12.0-16.0); LYMPHOCYTES # (AUTO) 0.3 X10'3 (1.1-4.8); LYMPHOCYTES % (AUTO) 1.7 % (21-51); MEAN CORPUSCULAR HEMOGLOBIN 26.9 PG (27.0-31.0); MEAN CORPUSCULAR HGB CONC 30.1 % (33.0-36.5); MEAN CORPUSCULAR VOLUME 89.3 FL (78-98); MEAN PLATELET VOLUME 8.7 FL (7.4-10.4); MONOCYTES # (AUTO) 0.8 X10'3 (0-0.9); MONOCYTES % (AUTO) 4.5 % (2-12); NEUTROPHILS # (AUTO) 16.6 X10'3 (1.8-7.7); NEUTROPHILS % (AUTO) 93.8 % (42-75); PLATELET COUNT 204 X10'3 (140-440); RED BLOOD COUNT 2.93 X10'6 (4.20-5.60); RED CELL DISTRIBUTION WIDTH 19.7 % (11.5-14.5); WHITE BLOOD COUNT 17.8 X10'3 (4.5-11.0)
[2018-03-16 05:59] LABS: ALANINE AMINOTRANSFERASE 21 U/L (12-78); ALBUMIN 2.7 G/DL (3.4-5.0); ALKALINE PHOSPHATASE 76 IU/L (46-116); ASPARTATE AMINO TRANSFERASE 15 U/L (10-37); BILIRUBIN,TOTAL 0.2 MG/DL (0.1-1.0); BLOOD UREA NITROGEN 23 MG/DL (7-18); BUN/CREATININE RATIO 37.1 (6.6-38.0); CALCIUM 8.3 MG/DL (8.5-10.1); CHLORIDE 103 MMOL/L (99-107); CREATININE 0.62 MG/DL (0.40-0.90); GLUCOSE 133 MG/DL (70-104); PHOSPHORUS 1.9 MG/DL (2.3-4.5); POTASSIUM 3.8 MMOL/L (3.5-5.1); SODIUM 148 MMOL/L (135-145); TOTAL PROTEIN 5.3 G/DL (6.4-8.2); eGFR > 90 ML/MIN
[2018-03-16 06:22] LABS: ANION GAP -2 (8-16)
[2018-03-16 06:25] VITALS: BP 120/65
[2018-03-16] MEDS: K, MAG and/or Phos replacement - Verify level? MC SCH (07:06)
[2018-03-16] MEDS: diltiazem 30mg tablet PO SCH ×2 (07:43→15:05)
[2018-03-16] MEDS: furosemide 20MG tablet PO SCH ×2 (07:43→21:34)
[2018-03-16] MEDS: metoprolol tartrate 50mg tablet PO SCH ×2 (07:43→21:34)
[2018-03-16] MEDS: busPIRone 15mg tablet PO SCH ×2 (07:43→21:35)
[2018-03-16] MEDS: predniSONE 20 mg tablet PO SCH (07:43)
[2018-03-16] MEDS: carVEDilol 12.5mg tablet PO SCH ×2 (07:43→21:34)
[2018-03-16] MEDS: enoxaparin 40mg/0.4ml syringe SUBCUT SCH (07:43)
[2018-03-16] MEDS: PARoxetine 20mg tablet PO SCH (07:44)
[2018-03-16] MEDS: lisinopril 20mg tablet PO SCH (07:44)
[2018-03-16] MEDS: aspirin 81mg tablet.DR PO SCH (07:44)
[2018-03-16] MEDS: potassium chloride 10mEq ER tablet PO SCH (07:44)
[2018-03-16] MEDS: pantoprazole 40mg Tablet.DR PO SCH (07:44)
[2018-03-16] MEDS: Umeclidinium Brm/Vilanterol Tr (Anoro Ellipta 62.5-25 Mcg INH) PO SCH (07:44)
[2018-03-16] MEDS: cyclobenzaprine 10mg tablet PO PRN ×2 (07:51→19:15)
[2018-03-16] MEDS: LORazepam 1 MG tablet PO PRN ×2 (07:51→21:35)
[2018-03-16] MEDS: budesonide 0.5mg/2ml UD nebule IH SCH ×2 (08:31→20:26)
[2018-03-16] MEDS: insulin Lispro (HumaLOG) vial - multi-dose SQ SCH ×3 (08:41→19:15)
[2018-03-16 11:44] VITALS: BP 120/67
[2018-03-16 17:11] VITALS: BP 115/54
[2018-03-16 19:00] VITALS: BP 117/69
[2018-03-16] MEDS: insulin glargine (Lantus) pen - multi-dose SQ SCH (21:39)
[2018-03-16 23:00] VITALS: BP 127/62
[2018-03-17] MEDS: HYDROcodone/acetaminophen 10/325mg tab PO PRN (00:41)
[2018-03-17 03:00] VITALS: BP 146/70
[2018-03-17] MEDS: ipratropium/albuterol 3ml nebule NEB SCH ×4 (03:19→21:02)
[2018-03-17] MEDS: HYDROcodone/acetaminophen 5mg/325mg tablet PO PRN ×4 (04:40→21:38)
[2018-03-17 05:21] LABS: BASOPHILS % (AUTO) 0 % (0-1); EOSINOPHILS % (AUTO) 0.1 % (0-6); HEMOGLOBIN 8.4 g/dl (12.0-16.0); LYMPHOCYTES # (AUTO) 0.6 X10'3 (1.1-4.8); LYMPHOCYTES % (AUTO) 1.8 % (21-51); MEAN CORPUSCULAR HEMOGLOBIN 26.9 PG (27.0-31.0); MEAN CORPUSCULAR HGB CONC 29.9 % (33.0-36.5); MEAN PLATELET VOLUME 8.8 FL (7.4-10.4); MONOCYTES # (AUTO) 1.2 X10'3 (0-0.9); MONOCYTES % (AUTO) 3.7 % (2-12); NEUTROPHILS # (AUTO) 29.7 X10'3 (1.8-7.7); NEUTROPHILS % (AUTO) 94.4 % (42-75); PLATELET COUNT 207 X10'3 (140-440); RED BLOOD COUNT 3.11 X10'6 (4.20-5.60)
[2018-03-17 05:24] LABS: WHITE BLOOD COUNT 31.5 X10'3 (4.5-11.0)
[2018-03-17 05:31] LABS: ABG BASE EXCESS 19.1 mmol/L (-2.0-3.0); ABG HCO3 46.2 mmol/L (22.0-26.0); ABG OXYGEN SATURATION 92.8 % (95-98); ABG PCO2 (T) 71.5 mmHg (32.0-45.0); ABG PH (T) 7.427 (7.350-7.450); ABG PO2 (T) 65.7 mmHg (83-108); FCOHb 0.3 % (0.5-1.5); FMetHb 0.1 % (0.3-1.12); FO2Hb 92.4 % (94-100); PATIENT TEMPERATURE 36.7; RESPIRATORY RATE 16 b/min; TOTAL HEMOGLOBIN 9.2 G/dl (12.0-16.0)
[2018-03-17 05:45] LABS: ALANINE AMINOTRANSFERASE 34 U/L (12-78); ALBUMIN 2.8 G/DL (3.4-5.0); ALBUMIN/GLOBULIN RATIO 1.1 (1.1-1.5); ALKALINE PHOSPHATASE 79 IU/L (46-116); ASPARTATE AMINO TRANSFERASE 23 U/L (10-37); BILIRUBIN,TOTAL 0.4 MG/DL (0.1-1.0); BLOOD UREA NITROGEN 21 MG/DL (7-18); BUN/CREATININE RATIO 36.2 (6.6-38.0); CALCIUM 8.5 MG/DL (8.5-10.1); CHLORIDE 100 MMOL/L (99-107); CREATININE 0.58 MG/DL (0.40-0.90); GLUCOSE 67 MG/DL (70-104); MAGNESIUM 1.7 MG/DL (1.5-2.4); PHOSPHORUS 1.6 MG/DL (2.3-4.5); POTASSIUM 3.2 MMOL/L (3.5-5.1); SODIUM 146 MMOL/L (135-145); TOTAL PROTEIN 5.3 G/DL (6.4-8.2); eGFR > 90 ML/MIN
[2018-03-17 06:09] LABS: ANION GAP -1 (8-16); TOTAL CARBON DIOXIDE 47.3 MMOL/L (24-32)
[2018-03-17 06:17] LABS: LYMPHOCYTES % (MANUAL) 1 % (21-51); MONOCYTES % (MANUAL) 3 % (2-12); NEUTROPHILS % (MANUAL) 96 % (42-75); TOTAL CELLS COUNTED 100
[2018-03-17 06:18] LABS: PLATELET ESTIMATE NORMAL
[2018-03-17 06:19] LABS: ANISOCYTOSIS 2+
[2018-03-17 06:30] VITALS: BP 155/71
[2018-03-17] MEDS: diltiazem 30mg tablet PO SCH ×3 (07:30→16:24)
[2018-03-17] MEDS: cyclobenzaprine 10mg tablet PO PRN ×2 (07:31→19:42)
[2018-03-17] MEDS: lisinopril 20mg tablet PO SCH (07:31)
[2018-03-17] MEDS: predniSONE 20 mg tablet PO SCH (07:32)
[2018-03-17] MEDS: potassium chloride 10mEq ER tablet PO SCH (07:32)
[2018-03-17] MEDS: pantoprazole 40mg Tablet.DR PO SCH (07:32)
[2018-03-17] MEDS: aspirin 81mg tablet.DR PO SCH (07:32)
[2018-03-17] MEDS: furosemide 20MG tablet PO SCH ×2 (07:32→19:42)
[2018-03-17] MEDS: busPIRone 15mg tablet PO SCH ×2 (07:32→19:42)
[2018-03-17] MEDS: metoprolol tartrate 50mg tablet PO SCH ×2 (07:32→19:42)
[2018-03-17] MEDS: PARoxetine 20mg tablet PO SCH (07:32)
[2018-03-17] MEDS: carVEDilol 12.5mg tablet PO SCH ×2 (07:32→19:42)
[2018-03-17] MEDS: enoxaparin 40mg/0.4ml syringe SUBCUT SCH (07:33)
[2018-03-17] MEDS: K, MAG and/or Phos replacement - Verify level? MC SCH ×2 (07:34→08:00)
[2018-03-17] MEDS: Umeclidinium Brm/Vilanterol Tr (Anoro Ellipta 62.5-25 Mcg INH) PO SCH (08:00)
[2018-03-17] MEDS: budesonide 0.5mg/2ml UD nebule IH SCH ×2 (08:08→21:03)
[2018-03-17] MEDS: LORazepam 1 MG tablet PO PRN (10:01)
[2018-03-17 11:00] VITALS: BP 111/58
[2018-03-17 15:00] VITALS: BP 125/64
[2018-03-17] MEDS ORDERED: potassium Cl oral solution 20 MEQ/15 ML PO PRN (16:05)
[2018-03-17] MEDS: potassium Cl oral solution 20 MEQ/15 ML PO PRN ×2 (16:30→20:35)
[2018-03-17 19:00] VITALS: BP 132/68
[2018-03-17] MEDS: clotrimazole 10mg troche MM SCH (20:35)
[2018-03-17] MEDS: insulin glargine (Lantus) pen - multi-dose SQ SCH (20:42)
[2018-03-17 23:00] VITALS: BP 121/73
[2018-03-18] MEDS: diltiazem 30mg tablet PO SCH ×4 (00:17→23:18)
[2018-03-18] MEDS: LORazepam 1 MG tablet PO PRN ×2 (00:17→13:22)
[2018-03-18 02:30] VITALS: BP 128/65
[2018-03-18] MEDS: ipratropium/albuterol 3ml nebule NEB SCH ×4 (03:01→20:10)
[2018-03-18] MEDS: HYDROcodone/acetaminophen 5mg/325mg tablet PO PRN (04:32)
[2018-03-18 05:22] LABS: BASOPHILS % (AUTO) 0 % (0-1); EOSINOPHILS # (AUTO) 0.2 X10'3 (0-0.9); EOSINOPHILS % (AUTO) 0.6 % (0-6); HEMATOCRIT 28.3 % (35.0-45.0); HEMOGLOBIN 8.6 g/dl (12.0-16.0); LYMPHOCYTES # (AUTO) 0.7 X10'3 (1.1-4.8); LYMPHOCYTES % (AUTO) 2.3 % (21-51); MEAN CORPUSCULAR HEMOGLOBIN 27.1 PG (27.0-31.0); MEAN CORPUSCULAR HGB CONC 30.4 % (33.0-36.5); MEAN CORPUSCULAR VOLUME 88.9 FL (78-98); MEAN PLATELET VOLUME 8.9 FL (7.4-10.4); MONOCYTES # (AUTO) 0.9 X10'3 (0-0.9); MONOCYTES % (AUTO) 3.1 % (2-12); NEUTROPHILS # (AUTO) 27.4 X10'3 (1.8-7.7); PLATELET COUNT 184 X10'3 (140-440); RED BLOOD COUNT 3.18 X10'6 (4.20-5.60); RED CELL DISTRIBUTION WIDTH 20.2 % (11.5-14.5)
[2018-03-18 05:34] LABS: WHITE BLOOD COUNT 29.2 X10'3 (4.5-11.0)
[2018-03-18 05:50] LABS: ALANINE AMINOTRANSFERASE 31 U/L (12-78); ALBUMIN 2.7 G/DL (3.4-5.0); ALKALINE PHOSPHATASE 74 IU/L (46-116); ASPARTATE AMINO TRANSFERASE 25 U/L (10-37); BILIRUBIN,TOTAL 0.3 MG/DL (0.1-1.0); BLOOD UREA NITROGEN 23 MG/DL (7-18); BUN/CREATININE RATIO 42.6 (6.6-38.0); CALCIUM 8.5 MG/DL (8.5-10.1); CHLORIDE 101 MMOL/L (99-107); CREATININE 0.54 MG/DL (0.40-0.90); GLUCOSE 71 MG/DL (70-104); MAGNESIUM 1.9 MG/DL (1.5-2.4); PHOSPHORUS 2.5 MG/DL (2.3-4.5); POTASSIUM 3.5 MMOL/L (3.5-5.1); SODIUM 143 MMOL/L (135-145); TOTAL PROTEIN 5.4 G/DL (6.4-8.2); eGFR > 90 ML/MIN
[2018-03-18 06:00] VITALS: BP 150/67
[2018-03-18] MEDS: clotrimazole 10mg troche MM SCH ×5 (06:00→22:29)
[2018-03-18 06:07] LABS: ANION GAP -8 (8-16); TOTAL CARBON DIOXIDE > 50 MMOL/L (24-32)
[2018-03-18 06:26] LABS: ANISOCYTOSIS 2+; HYPOCHROMASIA 1+; PLATELET ESTIMATE NORMAL; TOTAL CELLS COUNTED 100
[2018-03-18 06:27] LABS: POLYCHROMASIA FEW
[2018-03-18] MEDS: budesonide 0.5mg/2ml UD nebule IH SCH ×2 (07:41→20:10)
[2018-03-18] MEDS: K, MAG and/or Phos replacement - Verify level? MC SCH (08:00)
[2018-03-18] MEDS: potassium chloride 10mEq ER tablet PO SCH (08:41)
[2018-03-18] MEDS: PARoxetine 20mg tablet PO SCH (08:41)
[2018-03-18] MEDS: metoprolol tartrate 50mg tablet PO SCH ×2 (08:41→20:11)
[2018-03-18] MEDS: predniSONE 20 mg tablet PO SCH (08:41)
[2018-03-18] MEDS: carVEDilol 12.5mg tablet PO SCH ×2 (08:41→20:10)
[2018-03-18] MEDS: aspirin 81mg tablet.DR PO SCH (08:42)
[2018-03-18] MEDS: pantoprazole 40mg Tablet.DR PO SCH (08:42)
[2018-03-18] MEDS: furosemide 20MG tablet PO SCH ×2 (08:42→20:10)
[2018-03-18] MEDS: lisinopril 20mg tablet PO SCH (08:42)
[2018-03-18] MEDS: busPIRone 15mg tablet PO SCH ×2 (08:42→20:10)
[2018-03-18] MEDS: enoxaparin 40mg/0.4ml syringe SUBCUT SCH (08:43)
[2018-03-18 11:00] VITALS: BP 139/69
[2018-03-18] MEDS: cyclobenzaprine 10mg tablet PO PRN ×2 (12:05→20:10)
[2018-03-18] MEDS: HYDROcodone/acetaminophen 10/325mg tab PO PRN ×3 (12:06→23:18)
[2018-03-18] MEDS: insulin Lispro (HumaLOG) vial - multi-dose SQ SCH (13:26)
[2018-03-18 15:00] VITALS: BP 102/53
[2018-03-18 19:00] VITALS: BP 152/68
[2018-03-18] MEDS: insulin glargine (Lantus) pen - multi-dose SQ SCH (21:00)
[2018-03-18 23:00] VITALS: BP 107/65
[2018-03-19] MEDS: ipratropium/albuterol 3ml nebule NEB SCH ×3 (02:17→14:18)
[2018-03-19 03:00] VITALS: BP 107/65
[2018-03-19] MEDS: HYDROcodone/acetaminophen 10/325mg tab PO PRN (04:39)
[2018-03-19 05:04] LABS: BASOPHILS % (AUTO) 0 % (0-1); EOSINOPHILS % (AUTO) 0 % (0-6); HEMATOCRIT 25.3 % (35.0-45.0); HEMOGLOBIN 7.5 g/dl (12.0-16.0); LYMPHOCYTES # (AUTO) 0.5 X10'3 (1.1-4.8); LYMPHOCYTES % (AUTO) 1.9 % (21-51); MEAN CORPUSCULAR HEMOGLOBIN 26.9 PG (27.0-31.0); MEAN CORPUSCULAR HGB CONC 29.7 % (33.0-36.5); MEAN CORPUSCULAR VOLUME 90.7 FL (78-98); MEAN PLATELET VOLUME 9.1 FL (7.4-10.4); MONOCYTES # (AUTO) 1.6 X10'3 (0-0.9); MONOCYTES % (AUTO) 5.7 % (2-12); NEUTROPHILS # (AUTO) 25.7 X10'3 (1.8-7.7); NEUTROPHILS % (AUTO) 92.4 % (42-75); PLATELET COUNT 188 X10'3 (140-440); RED BLOOD COUNT 2.79 X10'6 (4.20-5.60); RED CELL DISTRIBUTION WIDTH 20.6 % (11.5-14.5)
[2018-03-19 05:22] LABS: WHITE BLOOD COUNT 27.8 X10'3 (4.5-11.0)
[2018-03-19 05:26] LABS: ALANINE AMINOTRANSFERASE 25 U/L (12-78); ALBUMIN 2.3 G/DL (3.4-5.0); ALBUMIN/GLOBULIN RATIO 0.9 (1.1-1.5); ALKALINE PHOSPHATASE 64 IU/L (46-116); ASPARTATE AMINO TRANSFERASE 18 U/L (10-37); BILIRUBIN,TOTAL 0.2 MG/DL (0.1-1.0); BLOOD UREA NITROGEN 24 MG/DL (7-18); CALCIUM 8.4 MG/DL (8.5-10.1); CHLORIDE 99 MMOL/L (99-107); GLUCOSE 115 MG/DL (70-104); MAGNESIUM 1.8 MG/DL (1.5-2.4); PHOSPHORUS 1.9 MG/DL (2.3-4.5); POTASSIUM 3.7 MMOL/L (3.5-5.1); SODIUM 145 MMOL/L (135-145); eGFR > 90 ML/MIN
[2018-03-19 05:30] LABS: ANION GAP -4 (8-16); TOTAL CARBON DIOXIDE > 50 MMOL/L (24-32)
[2018-03-19 06:00] VITALS: BP 111/52
[2018-03-19] MEDS: clotrimazole 10mg troche MM SCH ×2 (07:22→13:45)
[2018-03-19] MEDS: cyclobenzaprine 10mg tablet PO PRN (07:22)
[2018-03-19] MEDS: LORazepam 1 MG tablet PO PRN (07:22)
[2018-03-19] MEDS: predniSONE 20 mg tablet PO SCH (07:23)
[2018-03-19] MEDS: pantoprazole 40mg Tablet.DR PO SCH (07:23)
[2018-03-19] MEDS: potassium chloride 10mEq ER tablet PO SCH (07:23)
[2018-03-19] MEDS: diltiazem 30mg tablet PO SCH (07:23)
[2018-03-19] MEDS: aspirin 81mg tablet.DR PO SCH (07:23)
[2018-03-19] MEDS: lisinopril 20mg tablet PO SCH (07:23)
[2018-03-19] MEDS: carVEDilol 12.5mg tablet PO SCH (07:23)
[2018-03-19] MEDS: furosemide 20MG tablet PO SCH (07:23)
[2018-03-19] MEDS: metoprolol tartrate 50mg tablet PO SCH (07:23)
[2018-03-19] MEDS: PARoxetine 20mg tablet PO SCH (07:23)
[2018-03-19] MEDS: enoxaparin 40mg/0.4ml syringe SUBCUT SCH (07:24)
[2018-03-19 07:54] LABS: TOTAL CELLS COUNTED 100
[2018-03-19 07:55] LABS: ANISOCYTOSIS 3+; HYPOCHROMASIA 3+; PLATELET ESTIMATE NORMAL; POLYCHROMASIA FEW
[2018-03-19 07:56] LABS: SPHEROCYTES FEW
[2018-03-19] MEDS: busPIRone 15mg tablet PO SCH (08:00)
[2018-03-19] MEDS: K, MAG and/or Phos replacement - Verify level? MC SCH (08:00)
[2018-03-19] MEDS: budesonide 0.5mg/2ml UD nebule IH SCH (08:03)
[2018-03-19] MEDS ORDERED: PRED20TA PO (09:42)
[2018-03-19 11:00] VITALS: BP 116/60
[2018-03-19] MEDS: insulin Lispro (HumaLOG) vial - multi-dose SQ SCH (13:54)
== END 2018-03-19 15:15 | disposition home or self-care (01) | DRG 133 ==
LOC: ER 17:55 → ED HOLD 03-13 00:21 → EDBEDREQ 03-13 04:13 → ICU 2S 03-13 05:00 → PCU 3S 03-14 19:26
PROC: 5A09357 Assistance with Respiratory Ventilation, Less than 24 Consecutive Hours, Continuous Positive Airway Pressure (ICD-10-PCS; 2018-03-12)
PROC: 0BH17EZ Insertion of Endotracheal Airway into Trachea, Via Natural or Artificial Opening (ICD-10-PCS; principal; 2018-03-13)
PROC: 5A1935Z Respiratory Ventilation, Less than 24 Consecutive Hours (ICD-10-PCS; 2018-03-13)
PROC: 5A09357 Assistance with Respiratory Ventilation, Less than 24 Consecutive Hours, Continuous Positive Airway Pressure (ICD-10-PCS; 2018-03-13)
PROC: 5A09357 Assistance with Respiratory Ventilation, Less than 24 Consecutive Hours, Continuous Positive Airway Pressure (ICD-10-PCS; 2018-03-15)
PROC: 5A09357 Assistance with Respiratory Ventilation, Less than 24 Consecutive Hours, Continuous Positive Airway Pressure (ICD-10-PCS; 2018-03-16)
PROC: 5A09357 Assistance with Respiratory Ventilation, Less than 24 Consecutive Hours, Continuous Positive Airway Pressure (ICD-10-PCS; 2018-03-18)
DX: J96.22 Acute and chronic respiratory failure with hypercapnia (principal); E87.4 Mixed disorder of acid-base balance; J44.1 Chronic obstructive pulmonary disease with (acute) exacerbation; B37.0 Candidal stomatitis; I11.0 Hypertensive heart disease with heart failure; I50.9 Heart failure, unspecified; F41.9 Anxiety disorder, unspecified; I25.10 Atherosclerotic heart disease of native coronary artery without angina pectoris; G89.29 Other chronic pain; M54.9 Dorsalgia, unspecified; Z80.9 Family history of malignant neoplasm, unspecified; Z82.49 Family history of ischemic heart disease and other diseases of the circulatory system; Z82.5 Family history of asthma and other chronic lower respiratory diseases; Z83.2 Family history of diseases of the blood and blood-forming organs and certain disorders involving the immune mechanism; I25.2 Old myocardial infarction; Z87.891 Personal history of nicotine dependence; Z90.49 Acquired absence of other specified parts of digestive tract; Z90.710 Acquired absence of both cervix and uterus; Z79.899 Other long term (current) drug therapy
CPT/HCPCS: 36415; 36600; 71045; 80053; 82803; 82948; 83735; 84100; 84484; 85018; 85025; 85610; 85730; 87040; 87070; 93005; 94002; 94003; 94640; 94660; 94760; 96374; 96375; 97116; 97162; 97530; 99291; A4623; A6213; A7015; C1758; C9113; J0330; J1650; J1815; J2060; J2704; J2920; J2930; J3490; J7030; J7512; J7626

== ENCOUNTER 2018-03-21 01:24 | Inpatient (IN) | payer MEDICAID ==
[~2018-03-21] VITALS: Ht 162.6 cm; Wt 51.3 kg
[2018-03-21] VITALS (24 sets, daily range): BP systolic 109–164; BP diastolic 54–83
[2018-03-21] MEDS ORDERED: normal saline 1000ML IV soln IVB ONE (01:35)
[2018-03-21] MEDS ORDERED: methylPREDNISolone sod succ 125mg/2ml vial IV ONE (01:35)
[2018-03-21 02:24] LABS: BASOPHILS % (AUTO) 0 % (0-1); EOSINOPHILS % (AUTO) 0 % (0-6); LYMPHOCYTES # (AUTO) 1.5 X10'3 (1.1-4.8); MEAN CORPUSCULAR HEMOGLOBIN 27.5 PG (27.0-31.0); MEAN CORPUSCULAR HGB CONC 29.9 % (33.0-36.5); MEAN CORPUSCULAR VOLUME 91.8 FL (78-98); MEAN PLATELET VOLUME 9.3 FL (7.4-10.4); MONOCYTES # (AUTO) 0.7 X10'3 (0-0.9); MONOCYTES % (AUTO) 2.1 % (2-12); NEUTROPHILS # (AUTO) 28.7 X10'3 (1.8-7.7); NEUTROPHILS % (AUTO) 92.9 % (42-75); PLATELET COUNT 238 X10'3 (140-440); RED BLOOD COUNT 2.25 X10'6 (4.20-5.60); RED CELL DISTRIBUTION WIDTH 21.5 % (11.5-14.5)
[2018-03-21] MEDS ORDERED: midazolam 100mg in NS 100ml 100 ML IV PRN (02:25)
[2018-03-21] MEDS ORDERED: MIDAZolam 5mg/ml 2ml vial IV ONE (02:25)
[2018-03-21 02:30] LABS: ABG BASE EXCESS 26.5 mmol/L (-2.0-3.0); ABG HCO3 51.1 mmol/L (22.0-26.0); ABG OXYGEN SATURATION 98.6 % (95-98); ABG PCO2 (T) 56.8 mmHg (32.0-45.0); ABG PH (T) 7.571 (7.350-7.450); ABG PO2 (T) 127.9 mmHg (83-108); FCOHb 3.1 % (0.5-1.5); FMetHb 0.1 % (0.3-1.12); FO2Hb 95.4 % (94-100); PATIENT TEMPERATURE 36.7; PEEP 5 cm H2O; RESPIRATORY RATE 16 b/min; RESPIRATORY RATE (OBSERVED) 16 b/min; TIDAL VOLUME 400 mL; TOTAL HEMOGLOBIN 6.5 G/dl (12.0-16.0)
[2018-03-21] MEDS: midazolam 100mg in NS 100ml 100 ML IV PRN ×3 (02:33→15:42)
[2018-03-21 02:37] LABS: WHITE BLOOD COUNT 30.9 X10'3 (4.5-11.0)
[2018-03-21 02:38] LABS: HEMATOCRIT 20.7 % (35.0-45.0); HEMOGLOBIN 6.2 g/dl (12.0-16.0)
[2018-03-21 02:40] LABS: ALANINE AMINOTRANSFERASE 37 U/L (12-78); ALBUMIN 2.6 G/DL (3.4-5.0); ALBUMIN/GLOBULIN RATIO 0.9 (1.1-1.5); ALKALINE PHOSPHATASE 86 IU/L (46-116); ASPARTATE AMINO TRANSFERASE 22 U/L (10-37); BILIRUBIN,TOTAL 0.3 MG/DL (0.1-1.0); BLOOD UREA NITROGEN 25 MG/DL (7-18); BUN/CREATININE RATIO 47.2 (6.6-38.0); CALCIUM 8.5 MG/DL (8.5-10.1); CHLORIDE 101 MMOL/L (99-107); CREATININE 0.53 MG/DL (0.40-0.90); GLUCOSE 171 MG/DL (70-104); POTASSIUM 3.9 MMOL/L (3.5-5.1); SODIUM 146 MMOL/L (135-145); TOTAL PROTEIN 5.5 G/DL (6.4-8.2); eGFR > 90 ML/MIN
[2018-03-21 02:45] LABS: OCCULT BLOOD STOOL POSITIVE (Neg)
[2018-03-21] MEDS ORDERED: albuterol 2.5 MG/3 ML nebule NEB ONE (02:50)
[2018-03-21 02:54] LABS: ANION GAP -5 (8-16)
[2018-03-21 02:55] LABS: TOTAL CARBON DIOXIDE > 50 MMOL/L (24-32)
[2018-03-21] MEDS ORDERED: vancomycin/NS 1 GM ADD-VANTAGE 250 ML IV ONE (03:05)
[2018-03-21] MEDS ORDERED: azithromycin/NS 500mg/250ml 250 ML IV ONE (03:05)
[2018-03-21 03:12] LABS: ANISOCYTOSIS 3+; PLATELET ESTIMATE NORMAL; TOTAL CELLS COUNTED 100
[2018-03-21 03:13] LABS: HYPOCHROMASIA 2+; MICROCYTOSIS 2+; POLYCHROMASIA 2+
[2018-03-21] MEDS: piperacillin/tazo 3.375gm/50ml 50 ML IV SCH ×4 (03:26→21:19)
[2018-03-21] MEDS ORDERED: FENTANYL-0.9 % NACL/PF 100 ML IV PRN (03:40)
[2018-03-21] MEDS ORDERED: fentaNYL/PF 50MCG/1 ML 2ML syringe IV ONE (03:40)
[2018-03-21] MEDS: normal saline 1000ml 1,000 ML IV SCH ×3 (03:59→23:59)
[2018-03-21] MEDS ORDERED: ondansetron/PF 4mg/2ml inj IV PRN (04:00)
[2018-03-21] MEDS: K, MAG and/or Phos replacement - Verify level? MC SCH ×2 (04:00→08:00)
[2018-03-21] MEDS ORDERED: morphine 4 MG/ML inj SYRINge IV PRN ×2 (04:00)
[2018-03-21] MEDS ORDERED: ipratropium/albuterol 3ml nebule NEB PRN (04:00)
[2018-03-21] MEDS ORDERED: potassium Cl 40MEQ/NS 500ml 500 ML IV PRN (04:00)
[2018-03-21] MEDS ORDERED: magnesium hydroxide 30ml (MOM) UD suspension PO PRN (04:00)
[2018-03-21] MEDS ORDERED: acetaminophen 325mg tablet PO PRN ×2 (04:00)
[2018-03-21 04:06] LABS: INR 1.1 INR; PARTIAL THROMBOPLASTIN TIME 25 SECONDS (22-32); PROTHROMBIN TIME 11.7 SECONDS (9.0-12.0)
[2018-03-21] MEDS: levoFLOXACIN-Levaquin 750MG/D5 150 ML IV SCH (06:02)
[2018-03-21] MEDS: ipratropium/albuterol 3ml nebule NEB SCH ×5 (07:33→22:32)
[2018-03-21] MEDS ORDERED: etomidate 2mg/ml inj. ONE (08:00)
[2018-03-21] MEDS ORDERED: VECuronium br 10mg inj. IV ONE (08:00)
[2018-03-21] MEDS: pantoprazole 40MG/NS 100ML BAG 100 ML IV SCH ×4 (10:12→19:51)
[2018-03-21] MEDS: vancomycin/NS 1 GM ADD-VANTAGE 250 ML IV SCH ×2 (10:13→19:41)
[2018-03-21 11:30] LABS: URINE AMPHETAMINE SCREEN NEGATIVE (Neg); URINE BARBITUATE SCREEN NEGATIVE (Neg); URINE BENZODIAZEPINES SCREEN POSITIVE (Neg); URINE CANNABINOID SCREEN POSITIVE (Neg); URINE COCAINE SCREEN NEGATIVE (Neg); URINE METHADONE SCREEN NEGATIVE (Neg); URINE OPIATE SCREEN POSITIVE (Neg); URINE PHENCYCLIDINE SCREEN NEGATIVE (Neg)
[2018-03-21] MEDS: methylPREDNISolone sod succ 125mg/2ml vial IV SCH ×2 (14:14→20:12)
[2018-03-21 16:14] LABS: HEMATOCRIT 29.2 % (35.0-45.0); HEMOGLOBIN 9.6 g/dl (12.0-16.0); MEAN CORPUSCULAR HEMOGLOBIN 29.3 PG (27.0-31.0); PLATELET COUNT 158 X10'3 (140-440); RED BLOOD COUNT 3.28 X10'6 (4.20-5.60); WHITE BLOOD COUNT 22.4 X10'3 (4.5-11.0)
[2018-03-21] MEDS: lactobacillus rhamnosus 10,000 MMU CELLS/CAPSULE PO SCH (20:12)
[2018-03-21] MEDS: FENTANYL-0.9 % NACL/PF 100 ML IV PRN (22:48)
[2018-03-22] VITALS (24 sets, daily range): BP systolic 150–176; BP diastolic 62–87
[2018-03-22] MEDS: pantoprazole 40MG/NS 100ML BAG 100 ML IV SCH ×5 (01:12→21:54)
[2018-03-22] MEDS: methylPREDNISolone sod succ 125mg/2ml vial IV SCH ×4 (02:08→19:30)
[2018-03-22] MEDS: piperacillin/tazo 3.375gm/50ml 50 ML IV SCH ×4 (02:14→19:31)
[2018-03-22] MEDS ORDERED: VANCOMYCIN LEVEL IV ONE (02:30)
[2018-03-22] MEDS ORDERED: midazolam 100mg in NS 100ml 100 ML IV PRN (02:30)
[2018-03-22] MEDS: ipratropium/albuterol 3ml nebule NEB SCH ×6 (02:57→23:00)
[2018-03-22 03:25] LABS: BASOPHILS % (AUTO) 0.2 % (0-1); EOSINOPHILS % (AUTO) 0 % (0-6); HEMOGLOBIN 8.2 g/dl (12.0-16.0); LYMPHOCYTES # (AUTO) 0.3 X10'3 (1.1-4.8); LYMPHOCYTES % (AUTO) 1.5 % (21-51); MEAN CORPUSCULAR HEMOGLOBIN 29.9 PG (27.0-31.0); MEAN CORPUSCULAR VOLUME 90.6 FL (78-98); MEAN PLATELET VOLUME 9.3 FL (7.4-10.4); MONOCYTES # (AUTO) 0.9 X10'3 (0-0.9); MONOCYTES % (AUTO) 4.5 % (2-12); NEUTROPHILS % (AUTO) 93.8 % (42-75); PLATELET COUNT 161 X10'3 (140-440); RED BLOOD COUNT 2.76 X10'6 (4.20-5.60); RED CELL DISTRIBUTION WIDTH 17.2 % (11.5-14.5); WHITE BLOOD COUNT 19.2 X10'3 (4.5-11.0)
[2018-03-22 03:40] LABS: ALANINE AMINOTRANSFERASE 31 U/L (12-78); ALBUMIN 2.2 G/DL (3.4-5.0); ALBUMIN/GLOBULIN RATIO 0.8 (1.1-1.5); ALKALINE PHOSPHATASE 69 IU/L (46-116); ANION GAP 1 (8-16); ASPARTATE AMINO TRANSFERASE 24 U/L (10-37); BILIRUBIN,TOTAL 0.5 MG/DL (0.1-1.0); BLOOD UREA NITROGEN 17 MG/DL (7-18); BUN/CREATININE RATIO 21.5 (6.6-38.0); CHLORIDE 108 MMOL/L (99-107); CREATININE 0.79 MG/DL (0.40-0.90); GLUCOSE 156 MG/DL (70-104); MAGNESIUM 1.7 MG/DL (1.5-2.4); PHOSPHORUS 2.8 MG/DL (2.3-4.5); POTASSIUM 3.3 MMOL/L (3.5-5.1); SODIUM 147 MMOL/L (135-145); TOTAL CARBON DIOXIDE 38.3 MMOL/L (24-32); TOTAL PROTEIN 4.8 G/DL (6.4-8.2); eGFR 76 ML/MIN
[2018-03-22] MEDS: vancomycin/NS 1 GM ADD-VANTAGE 250 ML IV SCH ×3 (03:41→23:37)
[2018-03-22 03:50] LABS: VANCOMYCIN,TROUGH 26.9 UG/ML (6.0-14.0)
[2018-03-22 04:25] LABS: ABG BASE EXCESS 11.6 mmol/L (-2.0-3.0); ABG HCO3 36.9 mmol/L (22.0-26.0); ABG OXYGEN SATURATION 93.1 % (95-98); ABG PCO2 (T) 54.2 mmHg (32.0-45.0); ABG PH (T) 7.451 (7.350-7.450); ABG PO2 (T) 69.5 mmHg (83-108); ALLEN'S TEST Positive; FCOHb 0.3 % (0.5-1.5); FMetHb 0.3 % (0.3-1.12); FO2Hb 92.5 % (94-100); MINUTE VOLUME 6 L/min; PATIENT TEMPERATURE 37.3; PEEP 5 cm H2O; RESPIRATORY RATE 12 b/min; RESPIRATORY RATE (OBSERVED) 12 b/min; TIDAL VOLUME 400 mL; TOTAL HEMOGLOBIN 8.9 G/dl (12.0-16.0)
[2018-03-22] MEDS ORDERED: potassium Cl 40MEQ/NS 500ml 500 ML IV ONE ×2 (05:09→22:01)
[2018-03-22] MEDS: midazolam 100mg in NS 100ml 100 ML IV PRN ×2 (05:15→15:24)
[2018-03-22] MEDS: potassium Cl 40MEQ/NS 500ml 500 ML IV PRN ×2 (05:16→22:11)
[2018-03-22] MEDS: mineral oil/petrolatum ophthal oint EACHEYE SCH ×3 (07:49→19:31)
[2018-03-22] MEDS: lactobacillus rhamnosus 10,000 MMU CELLS/CAPSULE PO SCH ×2 (07:53→19:30)
[2018-03-22] MEDS: levoFLOXACIN-Levaquin 750MG/D5 150 ML IV SCH (07:53)
[2018-03-22] MEDS: K, MAG and/or Phos replacement - Verify level? MC SCH (08:00)
[2018-03-22] MEDS: normal saline 1000ml 1,000 ML IV SCH ×2 (11:36→17:50)
[2018-03-22] MEDS: FENTANYL-0.9 % NACL/PF 100 ML IV PRN (19:32)
[2018-03-23] VITALS (24 sets, daily range): BP systolic 133–182; BP diastolic 75–95
[2018-03-23] MEDS: mineral oil/petrolatum ophthal oint EACHEYE SCH ×4 (02:00→20:00)
[2018-03-23] MEDS: pantoprazole 40MG/NS 100ML BAG 100 ML IV SCH ×5 (02:57→18:50)
[2018-03-23] MEDS: midazolam 100mg in NS 100ml 100 ML IV PRN (02:57)
[2018-03-23] MEDS: methylPREDNISolone sod succ 125mg/2ml vial IV SCH ×2 (03:01→07:22)
[2018-03-23] MEDS: piperacillin/tazo 3.375gm/50ml 50 ML IV SCH ×2 (03:02→07:23)
[2018-03-23] MEDS: ipratropium/albuterol 3ml nebule NEB SCH ×6 (03:16→22:56)
[2018-03-23 03:36] LABS: ABG BASE EXCESS 2.5 mmol/L (-2.0-3.0); ABG HCO3 28.2 mmol/L (22.0-26.0); ABG PO2 (T) 71.7 mmHg (83-108); ALLEN'S TEST Positive; FCOHb 0.6 % (0.5-1.5); FMetHb 0.1 % (0.3-1.12); FO2Hb 91.4 % (94-100); MINUTE VOLUME 6 L/min; PATIENT TEMPERATURE 37.1; PEEP 5 cm H2O; RESPIRATORY RATE 12 b/min; RESPIRATORY RATE (OBSERVED) 12 b/min; TIDAL VOLUME 400 mL; TOTAL HEMOGLOBIN 8.9 G/dl (12.0-16.0)
[2018-03-23] MEDS: FENTANYL-0.9 % NACL/PF 100 ML IV PRN ×2 (05:43→21:52)
[2018-03-23 06:27] LABS: HEMATOCRIT 27.1 % (35.0-45.0); HEMOGLOBIN 8.7 g/dl (12.0-16.0); MEAN CORPUSCULAR HEMOGLOBIN 29.5 PG (27.0-31.0); MEAN CORPUSCULAR HGB CONC 32.2 % (33.0-36.5); MEAN CORPUSCULAR VOLUME 91.8 FL (78-98); PLATELET COUNT 138 X10'3 (140-440); RED BLOOD COUNT 2.95 X10'6 (4.20-5.60); RED CELL DISTRIBUTION WIDTH 17.4 % (11.5-14.5)
[2018-03-23 06:55] LABS: ALANINE AMINOTRANSFERASE 27 U/L (12-78); ALBUMIN 2.2 G/DL (3.4-5.0); ALBUMIN/GLOBULIN RATIO 0.8 (1.1-1.5); ALKALINE PHOSPHATASE 59 IU/L (46-116); ANION GAP 5 (8-16); ASPARTATE AMINO TRANSFERASE 16 U/L (10-37); BILIRUBIN,TOTAL 0.4 MG/DL (0.1-1.0); BLOOD UREA NITROGEN 18 MG/DL (7-18); BUN/CREATININE RATIO 21.4 (6.6-38.0); CALCIUM 8.9 MG/DL (8.5-10.1); CHLORIDE 113 MMOL/L (99-107); CREATININE 0.84 MG/DL (0.40-0.90); GLUCOSE 129 MG/DL (70-104); MAGNESIUM 1.5 MG/DL (1.5-2.4); PHOSPHORUS 2.9 MG/DL (2.3-4.5); POTASSIUM 3.9 MMOL/L (3.5-5.1); SODIUM 150 MMOL/L (135-145); TOTAL CARBON DIOXIDE 32.1 MMOL/L (24-32); TOTAL PROTEIN 4.8 G/DL (6.4-8.2); eGFR 71 ML/MIN
[2018-03-23 07:02] LABS: WHITE BLOOD COUNT 27.5 X10'3 (4.5-11.0)
[2018-03-23] MEDS: lactobacillus rhamnosus 10,000 MMU CELLS/CAPSULE PO SCH ×2 (07:22→20:00)
[2018-03-23 07:23] LABS: ANISOCYTOSIS 1+; PLATELET ESTIMATE DECREASED; TOTAL CELLS COUNTED 100
[2018-03-23] MEDS: K, MAG and/or Phos replacement - Verify level? MC SCH (07:23)
[2018-03-23] MEDS: levoFLOXACIN-Levaquin 750MG/D5 150 ML IV SCH (07:23)
[2018-03-23 07:24] LABS: HYPOCHROMASIA 1+; POLYCHROMASIA 1+
[2018-03-23] MEDS: propofol 1000mg/100ml bottle 100 ML IV PRN (10:54)
[2018-03-23] MEDS: normal saline 1000ml 1,000 ML IV SCH (15:33)
[2018-03-24] VITALS (19 sets, daily range): BP systolic 102–184; BP diastolic 65–89
[2018-03-24] MEDS: pantoprazole 40MG/NS 100ML BAG 100 ML IV SCH ×6 (00:13→22:56)
[2018-03-24] MEDS: mineral oil/petrolatum ophthal oint EACHEYE SCH ×4 (02:19→19:36)
[2018-03-24] MEDS: ipratropium/albuterol 3ml nebule NEB SCH ×6 (03:06→23:10)
[2018-03-24 04:56] LABS: ABG BASE EXCESS 4.3 mmol/L (-2.0-3.0); ABG HCO3 30.6 mmol/L (22.0-26.0); ABG OXYGEN SATURATION 90.3 % (95-98); ABG PCO2 (T) 54.4 mmHg (32.0-45.0); ABG PH (T) 7.367 (7.350-7.450); ABG PO2 (T) 62.5 mmHg (83-108); ALLEN'S TEST Positive; FCOHb 0.3 % (0.5-1.5); FMetHb 0.3 % (0.3-1.12); FO2Hb 89.8 % (94-100); MINUTE VOLUME 6 L/min; PATIENT TEMPERATURE 36.9; PEEP 5 cm H2O; RESPIRATORY RATE 12 b/min; RESPIRATORY RATE (OBSERVED) 12 b/min; TIDAL VOLUME 400 mL; TOTAL HEMOGLOBIN 10.2 G/dl (12.0-16.0)
[2018-03-24 06:02] LABS: BASOPHILS % (AUTO) 0 % (0-1); EOSINOPHILS % (AUTO) 0 % (0-6); HEMATOCRIT 29.4 % (35.0-45.0); HEMOGLOBIN 9.4 g/dl (12.0-16.0); LYMPHOCYTES # (AUTO) 0.2 X10'3 (1.1-4.8); LYMPHOCYTES % (AUTO) 0.8 % (21-51); MEAN CORPUSCULAR HEMOGLOBIN 29.7 PG (27.0-31.0); MEAN CORPUSCULAR HGB CONC 32.1 % (33.0-36.5); MEAN CORPUSCULAR VOLUME 92.6 FL (78-98); MEAN PLATELET VOLUME 9.4 FL (7.4-10.4); MONOCYTES # (AUTO) 0.7 X10'3 (0-0.9); MONOCYTES % (AUTO) 2.6 % (2-12); NEUTROPHILS % (AUTO) 96.6 % (42-75); PLATELET COUNT 161 X10'3 (140-440); RED BLOOD COUNT 3.17 X10'6 (4.20-5.60)
[2018-03-24 06:25] LABS: ALANINE AMINOTRANSFERASE 27 U/L (12-78); ALBUMIN 2.2 G/DL (3.4-5.0); ALBUMIN/GLOBULIN RATIO 0.9 (1.1-1.5); ALKALINE PHOSPHATASE 61 IU/L (46-116); ANION GAP 6 (8-16); ASPARTATE AMINO TRANSFERASE 17 U/L (10-37); BILIRUBIN,TOTAL 0.4 MG/DL (0.1-1.0); BLOOD UREA NITROGEN 21 MG/DL (7-18); BUN/CREATININE RATIO 28.4 (6.6-38.0); CALCIUM 8.8 MG/DL (8.5-10.1); CHLORIDE 113 MMOL/L (99-107); CREATININE 0.74 MG/DL (0.40-0.90); GLUCOSE 116 MG/DL (70-104); MAGNESIUM 1.7 MG/DL (1.5-2.4); PHOSPHORUS 2.7 MG/DL (2.3-4.5); POTASSIUM 3.5 MMOL/L (3.5-5.1); SODIUM 150 MMOL/L (135-145); TOTAL CARBON DIOXIDE 31.3 MMOL/L (24-32); TOTAL PROTEIN 4.6 G/DL (6.4-8.2); eGFR 82 ML/MIN
[2018-03-24 06:50] LABS: TOTAL CELLS COUNTED 100
[2018-03-24 06:51] LABS: ANISOCYTOSIS 2+; PLATELET ESTIMATE NORMAL
[2018-03-24] MEDS: K, MAG and/or Phos replacement - Verify level? MC SCH (08:00)
[2018-03-24] MEDS: levoFLOXACIN-Levaquin 750MG/D5 150 ML IV SCH (08:46)
[2018-03-24] MEDS: lactobacillus rhamnosus 10,000 MMU CELLS/CAPSULE PO SCH ×2 (08:47→20:02)
[2018-03-24] MEDS: propofol 1000mg/100ml bottle 100 ML IV PRN (08:47)
[2018-03-24] MEDS: methylPREDNISolone sod succ 125mg/2ml vial IV SCH (08:47)
[2018-03-24] MEDS ORDERED: VANCOMYCIN LEVEL IV ONE (10:30)
[2018-03-24] MEDS ORDERED: LORazepam 2 mg/ml vial IV ONE (10:45)
[2018-03-24] MEDS ORDERED: HYDROcodone/acetaminophen 10/325mg tab PO PRN (10:55)
[2018-03-24] MEDS ORDERED: albuterol 2.5 MG/3 ML nebule NEB PRN (11:20)
[2018-03-24] MEDS: (Umeclidinium Brm/Vilanterol Tr (Anoro Ellipta 62.5-25 Mcg INH) 1 PUFF) IH SCH (11:25)
[2018-03-24] MEDS: normal saline 1000ml 1,000 ML IV SCH (11:33)
[2018-03-24] MEDS: metoprolol tartrate 50mg tablet PO SCH ×2 (12:40→21:23)
[2018-03-24] MEDS: carVEDilol 12.5mg tablet PO SCH ×2 (12:40→20:02)
[2018-03-24] MEDS ORDERED: ipratropium/albuterol 3ml nebule IH SCH (14:00)
[2018-03-24] MEDS ORDERED: sodium chloride 0.45% 1,000 ML IV ONE (16:15)
[2018-03-24] MEDS: diltiazem 30mg tablet PO SCH (16:31)
[2018-03-24] MEDS: budesonide 0.5mg/2ml UD nebule IH SCH (20:00)
[2018-03-24] MEDS: furosemide 20MG tablet PO SCH (20:02)
[2018-03-24] MEDS: cyclobenzaprine 10mg tablet PO PRN (20:02)
[2018-03-24] MEDS: LORazepam 1 MG tablet PO SCH (21:23)
[2018-03-24] MEDS: busPIRone 15mg tablet PO SCH (21:25)
[2018-03-25] VITALS (23 sets, daily range): BP systolic 78–113; BP diastolic 37–66
[2018-03-25] MEDS: diltiazem 30mg tablet PO SCH ×4 (00:10→23:17)
[2018-03-25] MEDS ORDERED: HYDROcodone/acetaminophen 10/325mg tab PO ONE (01:55)
[2018-03-25] MEDS: ipratropium/albuterol 3ml nebule NEB SCH ×6 (02:56→20:39)
[2018-03-25 03:46] LABS: ABG BASE EXCESS -1.4 mmol/L (-2.0-3.0); ABG HCO3 28.7 mmol/L (22.0-26.0); ABG OXYGEN SATURATION 92.8 % (95-98); ABG PCO2 (T) 81.4 mmHg (32.0-45.0); ABG PH (T) 7.163 (7.350-7.450); ABG PO2 (T) 77.8 mmHg (83-108); ALLEN'S TEST Positive; FCOHb 0.1 % (0.5-1.5); FLOW 2 L/min; FMetHb 0.1 % (0.3-1.12); FO2Hb 92.6 % (94-100); PATIENT TEMPERATURE 36.6; TOTAL HEMOGLOBIN 10.6 G/dl (12.0-16.0)
[2018-03-25] MEDS: pantoprazole 40MG/NS 100ML BAG 100 ML IV SCH (04:19)
[2018-03-25 05:26] LABS: ABG BASE EXCESS 1.3 mmol/L (-2.0-3.0); ABG HCO3 30.8 mmol/L (22.0-26.0); ABG OXYGEN SATURATION 89.6 % (95-98); ABG PCO2 (T) 78.6 mmHg (32.0-45.0); ABG PH (T) 7.208 (7.350-7.450); ABG PO2 (T) 64.6 mmHg (83-108); ALLEN'S TEST Positive; FCOHb 0.3 % (0.5-1.5); FMetHb 0.4 % (0.3-1.12); MINUTE VOLUME 6 L/min; PATIENT TEMPERATURE 36.6; RESPIRATORY RATE 20 b/min; RESPIRATORY RATE (OBSERVED) 24 b/min; TIDAL VOLUME 312 mL; TOTAL HEMOGLOBIN 10.4 G/dl (12.0-16.0)
[2018-03-25] MEDS: budesonide 0.5mg/2ml UD nebule IH SCH ×2 (07:33→20:36)
[2018-03-25] MEDS: normal saline 1000ml 1,000 ML IV SCH ×2 (07:33→10:50)
[2018-03-25] MEDS: LORazepam 1 MG tablet PO SCH (07:36)
[2018-03-25] MEDS: lactobacillus rhamnosus 10,000 MMU CELLS/CAPSULE PO SCH ×2 (07:36→19:30)
[2018-03-25] MEDS: lisinopril 20mg tablet PO SCH (07:36)
[2018-03-25] MEDS: PARoxetine 20mg tablet PO SCH (07:36)
[2018-03-25] MEDS: aspirin 81mg tab.chew PO SCH (07:37)
[2018-03-25] MEDS: metoprolol tartrate 50mg tablet PO SCH (07:37)
[2018-03-25] MEDS: prednisone 10mg tablet PO SCH (07:37)
[2018-03-25] MEDS: carVEDilol 12.5mg tablet PO SCH ×2 (07:37→19:30)
[2018-03-25] MEDS: furosemide 20MG tablet PO SCH ×2 (07:37→19:30)
[2018-03-25] MEDS: pantoprazole 40mg Tablet.DR PO SCH (07:37)
[2018-03-25] MEDS: potassium chloride 10mEq ER tablet PO SCH (07:37)
[2018-03-25] MEDS: busPIRone 15mg tablet PO SCH ×2 (07:38→19:30)
[2018-03-25] MEDS: levoFLOXACIN-Levaquin 750MG/D5 150 ML IV SCH (07:39)
[2018-03-25] MEDS: methylPREDNISolone sod succ 125mg/2ml vial IV SCH (07:39)
[2018-03-25] MEDS: K, MAG and/or Phos replacement - Verify level? MC SCH (07:44)
[2018-03-25] MEDS: (Umeclidinium Brm/Vilanterol Tr (Anoro Ellipta 62.5-25 Mcg INH) 1 PUFF) IH SCH (07:45)
[2018-03-25 08:12] LABS: BASOPHILS % (AUTO) 0 % (0-1); EOSINOPHILS # (AUTO) 0.4 X10'3 (0-0.9); EOSINOPHILS % (AUTO) 1.2 % (0-6); HEMATOCRIT 32.4 % (35.0-45.0); HEMOGLOBIN 10.4 g/dl (12.0-16.0); LYMPHOCYTES # (AUTO) 0.7 X10'3 (1.1-4.8); LYMPHOCYTES % (AUTO) 1.9 % (21-51); MEAN CORPUSCULAR HEMOGLOBIN 29.9 PG (27.0-31.0); MEAN CORPUSCULAR HGB CONC 31.9 % (33.0-36.5); MEAN CORPUSCULAR VOLUME 93.7 FL (78-98); MEAN PLATELET VOLUME 9.1 FL (7.4-10.4); MONOCYTES # (AUTO) 0.5 X10'3 (0-0.9); MONOCYTES % (AUTO) 1.3 % (2-12); NEUTROPHILS # (AUTO) 34.4 X10'3 (1.8-7.7); NEUTROPHILS % (AUTO) 95.6 % (42-75); PLATELET COUNT 166 X10'3 (140-440); RED BLOOD COUNT 3.46 X10'6 (4.20-5.60); RED CELL DISTRIBUTION WIDTH 17.9 % (11.5-14.5)
[2018-03-25 08:27] LABS: ALANINE AMINOTRANSFERASE 36 U/L (12-78); ALBUMIN 2.4 G/DL (3.4-5.0); ALKALINE PHOSPHATASE 70 IU/L (46-116); ANION GAP 6 (8-16); ASPARTATE AMINO TRANSFERASE 26 U/L (10-37); BILIRUBIN,TOTAL 0.3 MG/DL (0.1-1.0); BLOOD UREA NITROGEN 33 MG/DL (7-18); CALCIUM 8.8 MG/DL (8.5-10.1); CHLORIDE 111 MMOL/L (99-107); CREATININE 0.97 MG/DL (0.40-0.90); GLUCOSE 64 MG/DL (70-104); MAGNESIUM 1.8 MG/DL (1.5-2.4); PHOSPHORUS 4.7 MG/DL (2.3-4.5); SODIUM 147 MMOL/L (135-145); TOTAL CARBON DIOXIDE 30.5 MMOL/L (24-32); TOTAL PROTEIN 4.9 G/DL (6.4-8.2); eGFR 60 ML/MIN
[2018-03-25 08:51] LABS: TOTAL CELLS COUNTED 100
[2018-03-25 08:52] LABS: ANISOCYTOSIS 2+; PLATELET ESTIMATE NORMAL
[2018-03-25 08:53] LABS: POLYCHROMASIA FEW; TOXIC GRANULATION 1+; TOXIC VACUOLATION 2+
[2018-03-25] MEDS: predniSONE 20 mg tablet PO SCH (19:30)
[2018-03-25] MEDS: HYDROcodone/acetaminophen 10/325mg tab PO PRN (23:39)
[2018-03-26] VITALS (23 sets, daily range): BP systolic 80–105; BP diastolic 43–61
[2018-03-26] MEDS: ipratropium/albuterol 3ml nebule NEB SCH ×5 (02:50→20:43)
[2018-03-26 07:07] LABS: BASOPHILS % (AUTO) 0 % (0-1); EOSINOPHILS % (AUTO) 0 % (0-6); HEMATOCRIT 36.1 % (35.0-45.0); HEMOGLOBIN 11.5 g/dl (12.0-16.0); LYMPHOCYTES # (AUTO) 0.3 X10'3 (1.1-4.8); LYMPHOCYTES % (AUTO) 0.5 % (21-51); MEAN CORPUSCULAR HEMOGLOBIN 29.7 PG (27.0-31.0); MEAN CORPUSCULAR HGB CONC 31.8 % (33.0-36.5); MEAN CORPUSCULAR VOLUME 93.1 FL (78-98); MEAN PLATELET VOLUME 9.7 FL (7.4-10.4); MONOCYTES # (AUTO) 0.8 X10'3 (0-0.9); MONOCYTES % (AUTO) 1.5 % (2-12); NEUTROPHILS # (AUTO) 52.1 X10'3 (1.8-7.7); PLATELET COUNT 163 X10'3 (140-440); RED BLOOD COUNT 3.88 X10'6 (4.20-5.60); RED CELL DISTRIBUTION WIDTH 17.8 % (11.5-14.5)
[2018-03-26 07:14] LABS: WHITE BLOOD COUNT 53.1 X10'3 (4.5-11.0)
[2018-03-26 07:36] LABS: ANISOCYTOSIS 2+; PLATELET ESTIMATE NORMAL; POLYCHROMASIA FEW; TOTAL CELLS COUNTED 100
[2018-03-26 07:37] LABS: TOXIC GRANULATION 1+
[2018-03-26] MEDS: lisinopril 20mg tablet PO SCH (07:53)
[2018-03-26] MEDS: furosemide 20MG tablet PO SCH ×2 (07:53→20:00)
[2018-03-26] MEDS: carVEDilol 12.5mg tablet PO SCH ×2 (07:53→20:00)
[2018-03-26] MEDS: diltiazem 30mg tablet PO SCH ×2 (07:53→15:18)
[2018-03-26] MEDS: K, MAG and/or Phos replacement - Verify level? MC SCH (08:00)
[2018-03-26] MEDS: PARoxetine 20mg tablet PO SCH (08:00)
[2018-03-26] MEDS: lactobacillus rhamnosus 10,000 MMU CELLS/CAPSULE PO SCH ×2 (08:00→20:16)
[2018-03-26] MEDS: busPIRone 15mg tablet PO SCH ×2 (08:00→20:16)
[2018-03-26] MEDS: prednisone 10mg tablet PO SCH (08:00)
[2018-03-26] MEDS: pantoprazole 40mg Tablet.DR PO SCH (08:00)
[2018-03-26] MEDS: aspirin 81mg tab.chew PO SCH (08:00)
[2018-03-26] MEDS: predniSONE 20 mg tablet PO SCH (08:00)
[2018-03-26] MEDS: HYDROcodone/acetaminophen 10/325mg tab PO PRN ×2 (08:00→15:23)
[2018-03-26] MEDS: potassium chloride 10mEq ER tablet PO SCH (08:00)
[2018-03-26] MEDS: budesonide 0.5mg/2ml UD nebule IH SCH ×2 (08:45→20:43)
[2018-03-26 08:55] LABS: ALANINE AMINOTRANSFERASE 30 U/L (12-78); ALBUMIN/GLOBULIN RATIO 0.9 (1.1-1.5); ALKALINE PHOSPHATASE 67 IU/L (46-116); ANION GAP 6 (8-16); ASPARTATE AMINO TRANSFERASE 24 U/L (10-37); BILIRUBIN,TOTAL 0.3 MG/DL (0.1-1.0); BLOOD UREA NITROGEN 36 MG/DL (7-18); BUN/CREATININE RATIO 37.9 (6.6-38.0); CHLORIDE 110 MMOL/L (99-107); CREATININE 0.95 MG/DL (0.40-0.90); GLUCOSE 107 MG/DL (70-104); MAGNESIUM 1.6 MG/DL (1.5-2.4); PHOSPHORUS 5.4 MG/DL (2.3-4.5); POTASSIUM 4.2 MMOL/L (3.5-5.1); SODIUM 147 MMOL/L (135-145); TOTAL PROTEIN 4.3 G/DL (6.4-8.2); eGFR 61 ML/MIN
[2018-03-26] MEDS: dextrose 5%-water 1,000 ML IV SCH ×2 (11:37→18:50)
[2018-03-26] MEDS: diatr meglu/diatrizoate 30ml oral sol.-(3 dose) bottle PO PRN (23:00)
[2018-03-27] VITALS: BP 95/55
[2018-03-27] MEDS: ipratropium/albuterol 3ml nebule NEB SCH ×7 (00:12→23:00)
[2018-03-27] MEDS: dextrose 5%-water 1,000 ML IV SCH ×3 (01:00→21:54)
[2018-03-27 02:25] VITALS: BP 113/53
[2018-03-27] MEDS: HYDROcodone/acetaminophen 10/325mg tab PO PRN ×2 (03:10→13:02)
[2018-03-27 07:00] VITALS: BP 113/70
[2018-03-27 07:00] LABS: BASOPHILS % (AUTO) 0 % (0-1); EOSINOPHILS % (AUTO) 0 % (0-6); HEMOGLOBIN 10.8 g/dl (12.0-16.0); LYMPHOCYTES # (AUTO) 0.4 X10'3 (1.1-4.8); MEAN CORPUSCULAR HEMOGLOBIN 29.5 PG (27.0-31.0); MEAN CORPUSCULAR HGB CONC 31.9 % (33.0-36.5); MEAN CORPUSCULAR VOLUME 92.6 FL (78-98); MEAN PLATELET VOLUME 9.6 FL (7.4-10.4); MONOCYTES # (AUTO) 0.2 X10'3 (0-0.9); MONOCYTES % (AUTO) 0.5 % (2-12); NEUTROPHILS # (AUTO) 38.2 X10'3 (1.8-7.7); NEUTROPHILS % (AUTO) 98.5 % (42-75); PLATELET COUNT 161 X10'3 (140-440); RED BLOOD COUNT 3.67 X10'6 (4.20-5.60); RED CELL DISTRIBUTION WIDTH 18.4 % (11.5-14.5)
[2018-03-27 07:07] LABS: WHITE BLOOD COUNT 38.8 X10'3 (4.5-11.0)
[2018-03-27 07:19] LABS: ALANINE AMINOTRANSFERASE 31 U/L (12-78); ALBUMIN/GLOBULIN RATIO 0.8 (1.1-1.5); ALKALINE PHOSPHATASE 72 IU/L (46-116); ANION GAP 4 (8-16); ASPARTATE AMINO TRANSFERASE 18 U/L (10-37); BILIRUBIN,TOTAL 0.3 MG/DL (0.1-1.0); BLOOD UREA NITROGEN 38 MG/DL (7-18); BUN/CREATININE RATIO 30.6 (6.6-38.0); CALCIUM 7.7 MG/DL (8.5-10.1); CHLORIDE 105 MMOL/L (99-107); CREATININE 1.24 MG/DL (0.40-0.90); GLUCOSE 161 MG/DL (70-104); MAGNESIUM 1.7 MG/DL (1.5-2.4); PHOSPHORUS 4.4 MG/DL (2.3-4.5); POTASSIUM 3.6 MMOL/L (3.5-5.1); SODIUM 142 MMOL/L (135-145); TOTAL CARBON DIOXIDE 32.8 MMOL/L (24-32); TOTAL PROTEIN 4.4 G/DL (6.4-8.2); eGFR 45 ML/MIN
[2018-03-27 07:25] LABS: ANISOCYTOSIS 2+; NUCLEATED RED BLOOD CELLS 1 /100WBC (0-0); PLATELET ESTIMATE NORMAL; POLYCHROMASIA FEW; TOTAL CELLS COUNTED 100
[2018-03-27 07:26] LABS: ACANTHOCYTES FEW; TOXIC GRANULATION 1+
[2018-03-27] MEDS: K, MAG and/or Phos replacement - Verify level? MC SCH (08:00)
[2018-03-27] MEDS: lisinopril 20mg tablet PO SCH (08:05)
[2018-03-27] MEDS: carVEDilol 12.5mg tablet PO SCH ×2 (08:05→19:47)
[2018-03-27] MEDS: potassium chloride 10mEq ER tablet PO SCH (08:05)
[2018-03-27] MEDS: prednisone 10mg tablet PO SCH (08:05)
[2018-03-27] MEDS: aspirin 81mg tab.chew PO SCH (08:06)
[2018-03-27] MEDS: diltiazem 30mg tablet PO SCH ×3 (08:06→16:51)
[2018-03-27] MEDS: busPIRone 15mg tablet PO SCH ×2 (08:06→19:47)
[2018-03-27] MEDS: lactobacillus rhamnosus 10,000 MMU CELLS/CAPSULE PO SCH ×2 (08:06→19:47)
[2018-03-27] MEDS: furosemide 20MG tablet PO SCH ×2 (08:06→19:47)
[2018-03-27] MEDS: budesonide 0.5mg/2ml UD nebule IH SCH ×2 (08:07→19:31)
[2018-03-27] MEDS: pantoprazole 40mg Tablet.DR PO SCH (08:07)
[2018-03-27] MEDS: PARoxetine 20mg tablet PO SCH (08:07)
[2018-03-27] MEDS: diatr meglu/diatrizoate 30ml oral sol.-(3 dose) bottle PO PRN ×2 (08:12→11:23)
[2018-03-27 11:00] VITALS: BP 109/58
[2018-03-27] MEDS ORDERED: iohexol 300mg/ml 100ml inj. ONE (11:07)
[2018-03-27] MEDS ORDERED: LORazepam 2 mg/ml vial IV ONE (12:00)
[2018-03-27] MEDS: piperacillin-tazo 2.25gm/50ml 50 ML IV SCH ×2 (14:54→19:47)
[2018-03-27 18:00] VITALS: BP 114/58
[2018-03-28] VITALS (10 sets, daily range): BP systolic 80–115; BP diastolic 50–88
[2018-03-28] MEDS: diltiazem 30mg tablet PO SCH ×3 (00:05→16:00)
[2018-03-28] MEDS: dextrose 5%-water 1,000 ML IV SCH ×3 (02:50→18:34)
[2018-03-28] MEDS: ipratropium/albuterol 3ml nebule NEB SCH ×6 (03:00→23:08)
[2018-03-28] MEDS: piperacillin-tazo 2.25gm/50ml 50 ML IV SCH ×2 (03:09→08:31)
[2018-03-28 06:22] LABS: ALANINE AMINOTRANSFERASE 23 U/L (12-78); ALBUMIN 1.7 G/DL (3.4-5.0); ALBUMIN/GLOBULIN RATIO 0.7 (1.1-1.5); ALKALINE PHOSPHATASE 72 IU/L (46-116); ANION GAP 1 (8-16); ASPARTATE AMINO TRANSFERASE 24 U/L (10-37); BILIRUBIN,TOTAL 0.2 MG/DL (0.1-1.0); BLOOD UREA NITROGEN 30 MG/DL (7-18); BUN/CREATININE RATIO 32.6 (6.6-38.0); CALCIUM 7.9 MG/DL (8.5-10.1); CHLORIDE 105 MMOL/L (99-107); CREATININE 0.92 MG/DL (0.40-0.90); GLUCOSE 146 MG/DL (70-104); MAGNESIUM 1.7 MG/DL (1.5-2.4); PHOSPHORUS 3.8 MG/DL (2.3-4.5); SODIUM 139 MMOL/L (135-145); TOTAL CARBON DIOXIDE 32.8 MMOL/L (24-32); eGFR 64 ML/MIN
[2018-03-28 06:26] LABS: POTASSIUM 3.8 MMOL/L (3.5-5.1)
[2018-03-28] MEDS: lisinopril 20mg tablet PO SCH (08:00)
[2018-03-28] MEDS: K, MAG and/or Phos replacement - Verify level? MC SCH (08:00)
[2018-03-28] MEDS: budesonide 0.5mg/2ml UD nebule IH SCH ×2 (08:00→19:47)
[2018-03-28] MEDS: furosemide 20MG tablet PO SCH ×2 (08:00→21:42)
[2018-03-28] MEDS: carVEDilol 12.5mg tablet PO SCH ×2 (08:00→20:00)
[2018-03-28] MEDS: pantoprazole 40mg Tablet.DR PO SCH (08:35)
[2018-03-28] MEDS: busPIRone 15mg tablet PO SCH ×2 (08:35→21:42)
[2018-03-28] MEDS: PARoxetine 20mg tablet PO SCH (08:35)
[2018-03-28] MEDS: potassium chloride 10mEq ER tablet PO SCH (08:35)
[2018-03-28] MEDS: lactobacillus rhamnosus 10,000 MMU CELLS/CAPSULE PO SCH ×2 (08:35→21:41)
[2018-03-28] MEDS: prednisone 10mg tablet PO SCH (08:35)
[2018-03-28] MEDS: HYDROcodone/acetaminophen 10/325mg tab PO PRN (12:45)
[2018-03-28 13:10] LABS: HEMATOCRIT 34.2 % (35.0-45.0); HEMOGLOBIN 10.9 g/dl (12.0-16.0); MEAN CORPUSCULAR HEMOGLOBIN 29.5 PG (27.0-31.0); MEAN CORPUSCULAR HGB CONC 31.8 % (33.0-36.5); MEAN CORPUSCULAR VOLUME 92.6 FL (78-98); MEAN PLATELET VOLUME 9.7 FL (7.4-10.4); PLATELET COUNT 118 X10'3 (140-440); RED BLOOD COUNT 3.69 X10'6 (4.20-5.60); RED CELL DISTRIBUTION WIDTH 18.2 % (11.5-14.5)
[2018-03-28] MEDS ORDERED: LIDOcaine Viscous 15ml cup PO ONE (13:30)
[2018-03-28] MEDS ORDERED: normal saline 1000ml 1,000 ML IV SCH (13:30)
[2018-03-28] MEDS ORDERED: MIDAZolam 5mg/5ml vial IV PRN (13:30)
[2018-03-28] MEDS ORDERED: simethicone 40mg/0.6ml oral drops 30ml MC ONE (13:30)
[2018-03-28] MEDS ORDERED: fentaNYL/PF 50MCG/1 ML 2ML syringe IV PRN (13:30)
[2018-03-28] MEDS ORDERED: fentaNYL/PF 50MCG/1 ML 2ML syringe ONE (13:50)
[2018-03-28] MEDS ORDERED: MIDAZolam 5mg/5ml vial ONE (13:50)
[2018-03-28] MEDS ORDERED: LIDOcaine Viscous 15ml cup ONE (13:50)
[2018-03-28 13:59] LABS: WHITE BLOOD COUNT 31.6 X10'3 (4.5-11.0)
[2018-03-28 14:10] LABS: ANISOCYTOSIS 2+; PLATELET ESTIMATE DECREASED; POLYCHROMASIA 1+; TOTAL CELLS COUNTED 100; TOXIC GRANULATION 2+
[2018-03-28 16:40] LABS: ABG BASE EXCESS 3.2 mmol/L (-2.0-3.0); ABG HCO3 31.9 mmol/L (22.0-26.0); ABG OXYGEN SATURATION 97.4 % (95-98); ABG PCO2 (T) 72.8 mmHg (32.0-45.0); ABG PH (T) 7.259 (7.350-7.450); ABG PO2 (T) 102.6 mmHg (83-108); ALLEN'S TEST Positive; FCOHb 0.3 % (0.5-1.5); FMetHb 0.4 % (0.3-1.12); FO2Hb 96.7 % (94-100); MINUTE VOLUME 8 L/min; RESPIRATORY RATE 20 b/min; RESPIRATORY RATE (OBSERVED) 20 b/min
[2018-03-28] MEDS ORDERED: flumazenil 0.1 mg/ml inj. IV STA (16:41)
[2018-03-28] MEDS ORDERED: flumazenil 0.1 mg/ml inj. IV ONE (16:45)
[2018-03-28 21:26] LABS: ABG BASE EXCESS 6.6 mmol/L (-2.0-3.0); ABG HCO3 31.9 mmol/L (22.0-26.0); ABG PCO2 (T) 48.5 mmHg (32.0-45.0); ABG PH (T) 7.434 (7.350-7.450); ABG PO2 (T) 71.5 mmHg (83-108); FCOHb 0.3 % (0.5-1.5); FMetHb 0.2 % (0.3-1.12); FO2Hb 95.5 % (94-100); MINUTE VOLUME 8 L/min; PATIENT TEMPERATURE 36.6; RESPIRATORY RATE 20 b/min; RESPIRATORY RATE (OBSERVED) 21 b/min; TIDAL VOLUME 412 mL; TOTAL HEMOGLOBIN 10.9 G/dl (12.0-16.0)
[2018-03-29] MEDS: diltiazem 30mg tablet PO SCH ×3 (00:09→16:26)
[2018-03-29] MEDS: dextrose 5%-water 1,000 ML IV SCH ×3 (01:52→18:50)
[2018-03-29] MEDS: cyclobenzaprine 10mg tablet PO PRN (02:17)
[2018-03-29] MEDS: ipratropium/albuterol 3ml nebule NEB SCH ×6 (03:37→23:43)
[2018-03-29 06:00] VITALS: BP 125/67
[2018-03-29] MEDS: K, MAG and/or Phos replacement - Verify level? MC SCH (08:00)
[2018-03-29] MEDS: budesonide 0.5mg/2ml UD nebule IH SCH ×2 (08:05→19:51)
[2018-03-29] MEDS: pantoprazole 40mg Tablet.DR PO SCH (08:35)
[2018-03-29] MEDS: carVEDilol 12.5mg tablet PO SCH ×2 (08:44→20:51)
[2018-03-29] MEDS: prednisone 10mg tablet PO SCH (08:45)
[2018-03-29] MEDS: lisinopril 20mg tablet PO SCH (08:45)
[2018-03-29] MEDS: lactobacillus rhamnosus 10,000 MMU CELLS/CAPSULE PO SCH ×2 (08:45→20:51)
[2018-03-29] MEDS: potassium chloride 10mEq ER tablet PO SCH (08:45)
[2018-03-29] MEDS: furosemide 20MG tablet PO SCH ×2 (08:45→20:50)
[2018-03-29] MEDS: PARoxetine 20mg tablet PO SCH (08:46)
[2018-03-29] MEDS: busPIRone 15mg tablet PO SCH ×2 (08:46→20:52)
[2018-03-29 11:00] VITALS: BP 104/57
[2018-03-29 11:37] LABS: BASOPHILS % (AUTO) 0 % (0-1); EOSINOPHILS % (AUTO) 0 % (0-6); HEMATOCRIT 33.1 % (35.0-45.0); HEMOGLOBIN 10.7 g/dl (12.0-16.0); LYMPHOCYTES # (AUTO) 0.3 X10'3 (1.1-4.8); LYMPHOCYTES % (AUTO) 1.4 % (21-51); MEAN CORPUSCULAR HEMOGLOBIN 29.4 PG (27.0-31.0); MEAN CORPUSCULAR HGB CONC 32.2 % (33.0-36.5); MEAN CORPUSCULAR VOLUME 91.1 FL (78-98); MEAN PLATELET VOLUME 9.5 FL (7.4-10.4); MONOCYTES # (AUTO) 0.4 X10'3 (0-0.9); MONOCYTES % (AUTO) 1.5 % (2-12); NEUTROPHILS # (AUTO) 22.3 X10'3 (1.8-7.7); NEUTROPHILS % (AUTO) 97.1 % (42-75); PLATELET COUNT 162 X10'3 (140-440); RED BLOOD COUNT 3.63 X10'6 (4.20-5.60)
[2018-03-29 11:55] LABS: TOTAL CELLS COUNTED 100
[2018-03-29 11:56] LABS: ANISOCYTOSIS 2+; HYPOCHROMASIA 1+; PLATELET ESTIMATE NORMAL; POLYCHROMASIA 1+; TOXIC GRANULATION 1+; TOXIC VACUOLATION FEW
[2018-03-29 12:03] LABS: ALANINE AMINOTRANSFERASE 23 U/L (12-78); ALBUMIN 1.8 G/DL (3.4-5.0); ALBUMIN/GLOBULIN RATIO 0.7 (1.1-1.5); ALKALINE PHOSPHATASE 78 IU/L (46-116); ANION GAP 1 (8-16); ASPARTATE AMINO TRANSFERASE 24 U/L (10-37); BILIRUBIN,TOTAL 0.3 MG/DL (0.1-1.0); BLOOD UREA NITROGEN 14 MG/DL (7-18); BUN/CREATININE RATIO 25.9 (6.6-38.0); CALCIUM 7.9 MG/DL (8.5-10.1); CHLORIDE 101 MMOL/L (99-107); CREATININE 0.54 MG/DL (0.40-0.90); GLUCOSE 179 MG/DL (70-104); MAGNESIUM 1.4 MG/DL (1.5-2.4); PHOSPHORUS 1.6 MG/DL (2.3-4.5); SODIUM 140 MMOL/L (135-145); TOTAL CARBON DIOXIDE 37.9 MMOL/L (24-32); TOTAL PROTEIN 4.5 G/DL (6.4-8.2); eGFR > 90 ML/MIN
[2018-03-29 15:00] VITALS: BP 133/70
[2018-03-29] MEDS: potassium Cl 20 mEq SR tablet PO PRN (15:17)
[2018-03-29] MEDS: metroNIDAZOLE-Flagyl 500mg/NS 100 ML IV SCH (16:26)
[2018-03-29] MEDS: vancomycin 250MG/10ML UD oral solution 10ML BOTTLE PO SCH ×2 (16:27→20:52)
[2018-03-29 19:00] VITALS: BP 132/58
[2018-03-29 23:00] VITALS: BP 125/61
[2018-03-30] VITALS (7 sets, daily range): BP systolic 105–126; BP diastolic 55–86
[2018-03-30] MEDS: diltiazem 30mg tablet PO SCH ×3 (00:56→16:03)
[2018-03-30] MEDS: metroNIDAZOLE-Flagyl 500mg/NS 100 ML IV SCH ×3 (00:56→16:03)
[2018-03-30] MEDS: vancomycin 250MG/10ML UD oral solution 10ML BOTTLE PO SCH ×3 (01:00→14:05)
[2018-03-30] MEDS: dextrose 5%-water 1,000 ML IV SCH ×3 (01:02→12:02)
[2018-03-30] MEDS: ipratropium/albuterol 3ml nebule NEB SCH ×6 (03:54→23:41)
[2018-03-30 05:39] LABS: BASOPHILS % (AUTO) 0.1 % (0-1); EOSINOPHILS % (AUTO) 0.2 % (0-6); HEMATOCRIT 29.8 % (35.0-45.0); HEMOGLOBIN 9.6 g/dl (12.0-16.0); LYMPHOCYTES # (AUTO) 0.6 X10'3 (1.1-4.8); LYMPHOCYTES % (AUTO) 4.2 % (21-51); MEAN CORPUSCULAR HEMOGLOBIN 29.2 PG (27.0-31.0); MEAN CORPUSCULAR HGB CONC 32.2 % (33.0-36.5); MEAN CORPUSCULAR VOLUME 90.6 FL (78-98); MONOCYTES # (AUTO) 0.6 X10'3 (0-0.9); NEUTROPHILS # (AUTO) 13.9 X10'3 (1.8-7.7); NEUTROPHILS % (AUTO) 91.5 % (42-75); PLATELET COUNT 170 X10'3 (140-440); RED BLOOD COUNT 3.29 X10'6 (4.20-5.60); RED CELL DISTRIBUTION WIDTH 17.7 % (11.5-14.5); WHITE BLOOD COUNT 15.1 X10'3 (4.5-11.0)
[2018-03-30 06:44] LABS: ALANINE AMINOTRANSFERASE 23 U/L (12-78); ALBUMIN 1.8 G/DL (3.4-5.0); ALBUMIN/GLOBULIN RATIO 0.8 (1.1-1.5); ALKALINE PHOSPHATASE 76 IU/L (46-116); ANION GAP 1 (8-16); ASPARTATE AMINO TRANSFERASE 19 U/L (10-37); BILIRUBIN,TOTAL 0.3 MG/DL (0.1-1.0); BLOOD UREA NITROGEN 9 MG/DL (7-18); BUN/CREATININE RATIO 16.7 (6.6-38.0); CALCIUM 7.3 MG/DL (8.5-10.1); CHLORIDE 99 MMOL/L (99-107); CREATININE 0.54 MG/DL (0.40-0.90); GLUCOSE 111 MG/DL (70-104); MAGNESIUM 1.1 MG/DL (1.5-2.4); SODIUM 142 MMOL/L (135-145); TOTAL PROTEIN 4.2 G/DL (6.4-8.2); eGFR > 90 ML/MIN
[2018-03-30 06:58] LABS: POTASSIUM 2.9 MMOL/L (3.5-5.1)
[2018-03-30 07:00] LABS: TOTAL CARBON DIOXIDE 42.4 MMOL/L (24-32)
[2018-03-30] MEDS: K, MAG and/or Phos replacement - Verify level? MC SCH (08:00)
[2018-03-30] MEDS: budesonide 0.5mg/2ml UD nebule IH SCH ×2 (08:17→19:57)
[2018-03-30] MEDS: pantoprazole 40mg Tablet.DR PO SCH (08:44)
[2018-03-30] MEDS: carVEDilol 12.5mg tablet PO SCH ×2 (08:45→19:20)
[2018-03-30] MEDS: lactobacillus rhamnosus 10,000 MMU CELLS/CAPSULE PO SCH ×2 (08:45→19:20)
[2018-03-30] MEDS: busPIRone 15mg tablet PO SCH ×2 (08:45→19:20)
[2018-03-30] MEDS: PARoxetine 20mg tablet PO SCH (08:46)
[2018-03-30] MEDS: potassium chloride 10mEq ER tablet PO SCH (08:46)
[2018-03-30] MEDS: furosemide 20MG tablet PO SCH ×2 (08:46→19:20)
[2018-03-30] MEDS: potassium Cl 20 mEq SR tablet PO PRN ×3 (08:48→16:03)
[2018-03-30] MEDS: lisinopril 20mg tablet PO SCH (08:48)
[2018-03-30] MEDS: prednisone 10mg tablet PO SCH (08:48)
[2018-03-30] MEDS ORDERED: magnesium 1gm/100ml D5W IVPB 100 ML IV PRN (10:20)
[2018-03-30] MEDS ORDERED: magnesium 4gm in 100ml NS 100 ML IV PRN (10:20)
[2018-03-30] MEDS: magnesium Cl slow-release 64mg tablet PO PRN ×2 (10:27→22:42)
[2018-03-30] MEDS ORDERED: LIDOcaine 0.5% (5mg/ml) 50ml vial ONE (10:33)
[2018-03-30 11:01] LABS: ABG BASE EXCESS 19.4 mmol/L (-2.0-3.0); ABG HCO3 45.9 mmol/L (22.0-26.0); ABG OXYGEN SATURATION 95.5 % (95-98); ABG PCO2 (T) 61.9 mmHg (32.0-45.0); ABG PH (T) 7.487 (7.350-7.450); ABG PO2 (T) 71.8 mmHg (83-108); ALLEN'S TEST Positive; FCOHb 1.2 % (0.5-1.5); FLOW 1 L/min; FMetHb 0.2 % (0.3-1.12); FO2Hb 94.2 % (94-100); PATIENT TEMPERATURE 36.7; TOTAL HEMOGLOBIN 11.3 G/dl (12.0-16.0)
[2018-03-30] MEDS ORDERED: acetaZOLAMIDE 250mg tablet PO ONE (12:15)
[2018-03-30] MEDS ORDERED: sodium phosphate inj. 30 MMOL in dextrose 5%-water 250 ML IV ONE (12:35)
[2018-03-30] MEDS: acetaZOLAMIDE 250mg tablet PO SCH (19:20)
[2018-03-30] MEDS ORDERED: sodium phosphate inj. 30 MMOL in dextrose 5%-water 250 ML IV PRN (19:35)
[2018-03-30] MEDS ORDERED: sodium phosphate inj. 15 MMOL in dextrose 5%-water 150 ML IV PRN (19:40)
[2018-03-30] MEDS: cyclobenzaprine 10mg tablet PO PRN (22:42)
[2018-03-31] MEDS: diltiazem 30mg tablet PO SCH ×3 (00:25→16:21)
[2018-03-31] MEDS: metroNIDAZOLE-Flagyl 500mg/NS 100 ML IV SCH ×2 (00:25→07:34)
[2018-03-31] MEDS: dextrose 5%-water 1,000 ML IV SCH ×3 (02:12→20:22)
[2018-03-31 03:00] VITALS: BP 102/58
[2018-03-31] MEDS: ipratropium/albuterol 3ml nebule NEB SCH ×6 (03:35→23:18)
[2018-03-31 06:00] VITALS: BP 136/96
[2018-03-31 06:01] LABS: BASOPHILS % (AUTO) 0 % (0-1); EOSINOPHILS % (AUTO) 0.1 % (0-6); HEMATOCRIT 31.4 % (35.0-45.0); HEMOGLOBIN 10.2 g/dl (12.0-16.0); LYMPHOCYTES # (AUTO) 0.7 X10'3 (1.1-4.8); LYMPHOCYTES % (AUTO) 4.9 % (21-51); MEAN CORPUSCULAR HEMOGLOBIN 29.5 PG (27.0-31.0); MEAN CORPUSCULAR HGB CONC 32.4 % (33.0-36.5); MEAN CORPUSCULAR VOLUME 91.1 FL (78-98); MEAN PLATELET VOLUME 8.9 FL (7.4-10.4); MONOCYTES # (AUTO) 0.9 X10'3 (0-0.9); MONOCYTES % (AUTO) 6.3 % (2-12); NEUTROPHILS # (AUTO) 12.1 X10'3 (1.8-7.7); NEUTROPHILS % (AUTO) 88.7 % (42-75); PLATELET COUNT 200 X10'3 (140-440); RED BLOOD COUNT 3.45 X10'6 (4.20-5.60); RED CELL DISTRIBUTION WIDTH 18.6 % (11.5-14.5); WHITE BLOOD COUNT 13.7 X10'3 (4.5-11.0)
[2018-03-31 06:19] LABS: ALANINE AMINOTRANSFERASE 21 U/L (12-78); ALBUMIN/GLOBULIN RATIO 0.8 (1.1-1.5); ALKALINE PHOSPHATASE 87 IU/L (46-116); ANION GAP 2 (8-16); ASPARTATE AMINO TRANSFERASE 22 U/L (10-37); BILIRUBIN,TOTAL 0.3 MG/DL (0.1-1.0); BLOOD UREA NITROGEN 6 MG/DL (7-18); BUN/CREATININE RATIO 9.2 (6.6-38.0); CALCIUM 7.4 MG/DL (8.5-10.1); CHLORIDE 99 MMOL/L (99-107); CREATININE 0.65 MG/DL (0.40-0.90); GLUCOSE 113 MG/DL (70-104); MAGNESIUM 1.3 MG/DL (1.5-2.4); PHOSPHORUS 2.1 MG/DL (2.3-4.5); POTASSIUM 3.2 MMOL/L (3.5-5.1); SODIUM 140 MMOL/L (135-145); TOTAL CARBON DIOXIDE 39.3 MMOL/L (24-32); TOTAL PROTEIN 4.6 G/DL (6.4-8.2); eGFR > 90 ML/MIN
[2018-03-31 06:34] LABS: PLATELET ESTIMATE NORMAL
[2018-03-31 06:35] LABS: ANISOCYTOSIS 2+; HYPOCHROMASIA 1+; MICROCYTOSIS 1+
[2018-03-31] MEDS: K, MAG and/or Phos replacement - Verify level? MC SCH (06:38)
[2018-03-31] MEDS: pantoprazole 40mg Tablet.DR PO SCH (07:32)
[2018-03-31] MEDS: busPIRone 15mg tablet PO SCH ×2 (07:34→20:22)
[2018-03-31] MEDS: carVEDilol 12.5mg tablet PO SCH ×2 (07:34→20:23)
[2018-03-31] MEDS: lactobacillus rhamnosus 10,000 MMU CELLS/CAPSULE PO SCH ×2 (07:35→20:24)
[2018-03-31] MEDS: furosemide 20MG tablet PO SCH ×2 (07:35→20:23)
[2018-03-31] MEDS: acetaZOLAMIDE 250mg tablet PO SCH ×2 (07:35→20:27)
[2018-03-31] MEDS: potassium chloride 10mEq ER tablet PO SCH (07:35)
[2018-03-31] MEDS: lisinopril 20mg tablet PO SCH (07:36)
[2018-03-31] MEDS: PARoxetine 20mg tablet PO SCH (07:36)
[2018-03-31] MEDS: potassium Cl 20 mEq SR tablet PO PRN ×3 (07:38→16:21)
[2018-03-31] MEDS: prednisone 10mg tablet PO SCH (07:38)
[2018-03-31] MEDS: magnesium Cl slow-release 64mg tablet PO PRN ×2 (07:38→20:23)
[2018-03-31] MEDS: budesonide 0.5mg/2ml UD nebule IH SCH ×2 (08:23→19:39)
[2018-03-31] MEDS ORDERED: sodium phosphate inj. 15 MMOL in dextrose 5%-water 150 ML IV ONE (09:10)
[2018-03-31 11:00] VITALS: BP 130/65
[2018-03-31 15:00] VITALS: BP 123/65
[2018-03-31] MEDS: traMADol 50MG tablet PO PRN ×2 (15:22→21:30)
[2018-03-31 19:00] VITALS: BP 129/67
[2018-03-31 23:00] VITALS: BP 127/63
[2018-04-01] MEDS: diltiazem 30mg tablet PO SCH ×4 (00:17→23:40)
[2018-04-01 03:00] VITALS: BP 129/59
[2018-04-01] MEDS: ipratropium/albuterol 3ml nebule NEB SCH ×5 (03:24→19:50)
[2018-04-01] MEDS: traMADol 50MG tablet PO PRN ×4 (04:42→23:40)
[2018-04-01] MEDS: dextrose 5%-water 1,000 ML IV SCH ×3 (04:43→18:50)
[2018-04-01 05:45] LABS: BASOPHILS % (AUTO) 0 % (0-1); EOSINOPHILS % (AUTO) 0 % (0-6); HEMATOCRIT 30.9 % (35.0-45.0); HEMOGLOBIN 9.9 g/dl (12.0-16.0); LYMPHOCYTES # (AUTO) 0.7 X10'3 (1.1-4.8); LYMPHOCYTES % (AUTO) 6.2 % (21-51); MEAN CORPUSCULAR HEMOGLOBIN 29.4 PG (27.0-31.0); MEAN CORPUSCULAR HGB CONC 32.1 % (33.0-36.5); MEAN CORPUSCULAR VOLUME 91.6 FL (78-98); MONOCYTES # (AUTO) 0.8 X10'3 (0-0.9); MONOCYTES % (AUTO) 7.8 % (2-12); NEUTROPHILS # (AUTO) 9.3 X10'3 (1.8-7.7); PLATELET COUNT 232 X10'3 (140-440); RED BLOOD COUNT 3.37 X10'6 (4.20-5.60); RED CELL DISTRIBUTION WIDTH 18.6 % (11.5-14.5); WHITE BLOOD COUNT 10.8 X10'3 (4.5-11.0)
[2018-04-01 06:00] VITALS: BP 139/63
[2018-04-01 06:02] LABS: ALANINE AMINOTRANSFERASE 25 U/L (12-78); ALBUMIN/GLOBULIN RATIO 0.8 (1.1-1.5); ALKALINE PHOSPHATASE 90 IU/L (46-116); ANION GAP -2 (8-16); ASPARTATE AMINO TRANSFERASE 17 U/L (10-37); BILIRUBIN,TOTAL 0.3 MG/DL (0.1-1.0); BLOOD UREA NITROGEN 6 MG/DL (7-18); BUN/CREATININE RATIO 8.3 (6.6-38.0); CALCIUM 7.4 MG/DL (8.5-10.1); CHLORIDE 102 MMOL/L (99-107); CREATININE 0.72 MG/DL (0.40-0.90); GLUCOSE 109 MG/DL (70-104); MAGNESIUM 1.6 MG/DL (1.5-2.4); PHOSPHORUS 2.4 MG/DL (2.3-4.5); POTASSIUM 3.7 MMOL/L (3.5-5.1); SODIUM 138 MMOL/L (135-145); TOTAL CARBON DIOXIDE 38.3 MMOL/L (24-32); TOTAL PROTEIN 4.6 G/DL (6.4-8.2); eGFR 84 ML/MIN
[2018-04-01 07:19] LABS: ANISOCYTOSIS 2+; PLATELET ESTIMATE NORMAL
[2018-04-01] MEDS: K, MAG and/or Phos replacement - Verify level? MC SCH (08:00)
[2018-04-01] MEDS: budesonide 0.5mg/2ml UD nebule IH SCH ×2 (08:26→19:50)
[2018-04-01] MEDS: busPIRone 15mg tablet PO SCH ×2 (08:47→20:14)
[2018-04-01] MEDS: pantoprazole 40mg Tablet.DR PO SCH (08:48)
[2018-04-01] MEDS: carVEDilol 12.5mg tablet PO SCH ×2 (08:48→20:13)
[2018-04-01] MEDS: lactobacillus rhamnosus 10,000 MMU CELLS/CAPSULE PO SCH ×2 (08:48→20:14)
[2018-04-01] MEDS: acetaZOLAMIDE 250mg tablet PO SCH ×2 (08:49→20:14)
[2018-04-01] MEDS: furosemide 20MG tablet PO SCH ×2 (08:49→20:14)
[2018-04-01] MEDS: potassium chloride 10mEq ER tablet PO SCH (08:49)
[2018-04-01] MEDS: lisinopril 20mg tablet PO SCH (08:49)
[2018-04-01] MEDS: PARoxetine 20mg tablet PO SCH (08:49)
[2018-04-01] MEDS: prednisone 10mg tablet PO SCH (08:50)
[2018-04-01 11:00] VITALS: BP 138/76
[2018-04-01 15:00] VITALS: BP 125/69
[2018-04-01 19:00] VITALS: BP 124/48
[2018-04-01 23:00] VITALS: BP 142/78
[2018-04-02] MEDS: ipratropium/albuterol 3ml nebule NEB SCH ×7 (00:24→22:58)
[2018-04-02] MEDS: cyclobenzaprine 10mg tablet PO PRN (00:40)
[2018-04-02 03:00] VITALS: BP 134/69
[2018-04-02 05:07] LABS: BASOPHILS % (AUTO) 0 % (0-1); EOSINOPHILS % (AUTO) 0.1 % (0-6); HEMATOCRIT 32.2 % (35.0-45.0); HEMOGLOBIN 10.2 g/dl (12.0-16.0); LYMPHOCYTES # (AUTO) 0.8 X10'3 (1.1-4.8); LYMPHOCYTES % (AUTO) 7.5 % (21-51); MEAN CORPUSCULAR HGB CONC 31.5 % (33.0-36.5); MEAN CORPUSCULAR VOLUME 92.1 FL (78-98); MEAN PLATELET VOLUME 8.8 FL (7.4-10.4); MONOCYTES % (AUTO) 9.2 % (2-12); NEUTROPHILS # (AUTO) 8.8 X10'3 (1.8-7.7); NEUTROPHILS % (AUTO) 83.2 % (42-75); PLATELET COUNT 263 X10'3 (140-440); RED CELL DISTRIBUTION WIDTH 19.4 % (11.5-14.5); WHITE BLOOD COUNT 10.6 X10'3 (4.5-11.0)
[2018-04-02 05:37] LABS: ALANINE AMINOTRANSFERASE 22 U/L (12-78); ALBUMIN/GLOBULIN RATIO 0.7 (1.1-1.5); ALKALINE PHOSPHATASE 97 IU/L (46-116); ANION GAP -1 (8-16); ASPARTATE AMINO TRANSFERASE 15 U/L (10-37); BILIRUBIN,TOTAL 0.2 MG/DL (0.1-1.0); BLOOD UREA NITROGEN 5 MG/DL (7-18); BUN/CREATININE RATIO 7.6 (6.6-38.0); CALCIUM 8.3 MG/DL (8.5-10.1); CHLORIDE 101 MMOL/L (99-107); CREATININE 0.66 MG/DL (0.40-0.90); GLUCOSE 126 MG/DL (70-104); MAGNESIUM 1.8 MG/DL (1.5-2.4); PHOSPHORUS 2.4 MG/DL (2.3-4.5); POTASSIUM 3.7 MMOL/L (3.5-5.1); SODIUM 137 MMOL/L (135-145); TOTAL CARBON DIOXIDE 37.4 MMOL/L (24-32); TOTAL PROTEIN 4.8 G/DL (6.4-8.2); eGFR > 90 ML/MIN
[2018-04-02 06:29] LABS: ANISOCYTOSIS 2+; PLATELET ESTIMATE NORMAL
[2018-04-02 06:30] VITALS: BP 101/55
[2018-04-02] MEDS: traMADol 50MG tablet PO PRN ×3 (07:14→20:01)
[2018-04-02] MEDS: pantoprazole 40mg Tablet.DR PO SCH (07:14)
[2018-04-02] MEDS: budesonide 0.5mg/2ml UD nebule IH SCH ×2 (07:17→19:47)
[2018-04-02] MEDS: K, MAG and/or Phos replacement - Verify level? MC SCH (08:00)
[2018-04-02] MEDS: carVEDilol 12.5mg tablet PO SCH ×2 (08:33→19:59)
[2018-04-02] MEDS: lisinopril 20mg tablet PO SCH (08:33)
[2018-04-02] MEDS: busPIRone 15mg tablet PO SCH ×2 (08:34→20:00)
[2018-04-02] MEDS: lactobacillus rhamnosus 10,000 MMU CELLS/CAPSULE PO SCH ×2 (08:34→19:59)
[2018-04-02] MEDS: furosemide 20MG tablet PO SCH ×2 (08:34→20:01)
[2018-04-02] MEDS: acetaZOLAMIDE 250mg tablet PO SCH ×2 (08:34→20:00)
[2018-04-02] MEDS: diltiazem 30mg tablet PO SCH ×2 (08:34→16:30)
[2018-04-02] MEDS: potassium chloride 10mEq ER tablet PO SCH (08:34)
[2018-04-02] MEDS: prednisone 10mg tablet PO SCH (08:41)
[2018-04-02] MEDS: PARoxetine 20mg tablet PO SCH (08:42)
[2018-04-02] MEDS: dextrose 5%-water 1,000 ML IV SCH ×3 (09:23→20:15)
[2018-04-02 11:00] VITALS: BP 104/55
[2018-04-02 15:00] VITALS: BP 130/61
[2018-04-02 19:00] VITALS: BP 116/62
[2018-04-02 23:00] VITALS: BP 139/74
[2018-04-03] MEDS: diltiazem 30mg tablet PO SCH ×3 (00:52→16:10)
[2018-04-03] MEDS: cyclobenzaprine 10mg tablet PO PRN (01:03)
[2018-04-03 02:00] VITALS: BP 139/74
[2018-04-03] MEDS: dextrose 5%-water 1,000 ML IV SCH ×3 (02:50→15:03)
[2018-04-03] MEDS: ipratropium/albuterol 3ml nebule NEB SCH ×6 (03:55→23:13)
[2018-04-03 06:00] VITALS: BP 119/63
[2018-04-03 06:19] LABS: ALANINE AMINOTRANSFERASE 20 U/L (12-78); ALBUMIN/GLOBULIN RATIO 0.7 (1.1-1.5); ALKALINE PHOSPHATASE 102 IU/L (46-116); ANION GAP 1 (8-16); ASPARTATE AMINO TRANSFERASE 27 U/L (10-37); BILIRUBIN,TOTAL 0.1 MG/DL (0.1-1.0); BLOOD UREA NITROGEN 7 MG/DL (7-18); BUN/CREATININE RATIO 12.5 (6.6-38.0); CALCIUM 8.1 MG/DL (8.5-10.1); CHLORIDE 100 MMOL/L (99-107); CREATININE 0.56 MG/DL (0.40-0.90); GLUCOSE 113 MG/DL (70-104); MAGNESIUM 1.8 MG/DL (1.5-2.4); PHOSPHORUS 3.3 MG/DL (2.3-4.5); POTASSIUM 3.8 MMOL/L (3.5-5.1); SODIUM 137 MMOL/L (135-145); TOTAL CARBON DIOXIDE 36.3 MMOL/L (24-32); TOTAL PROTEIN 4.8 G/DL (6.4-8.2); eGFR > 90 ML/MIN
[2018-04-03] MEDS: budesonide 0.5mg/2ml UD nebule IH SCH ×2 (07:51→20:20)
[2018-04-03] MEDS: K, MAG and/or Phos replacement - Verify level? MC SCH (08:00)
[2018-04-03 08:06] LABS: BASOPHILS % (AUTO) 0.1 % (0-1); EOSINOPHILS % (AUTO) 0 % (0-6); HEMATOCRIT 31.5 % (35.0-45.0); HEMOGLOBIN 10.2 g/dl (12.0-16.0); LYMPHOCYTES # (AUTO) 0.7 X10'3 (1.1-4.8); LYMPHOCYTES % (AUTO) 7.3 % (21-51); MEAN CORPUSCULAR HEMOGLOBIN 29.7 PG (27.0-31.0); MEAN CORPUSCULAR HGB CONC 32.3 % (33.0-36.5); MEAN CORPUSCULAR VOLUME 92.1 FL (78-98); MEAN PLATELET VOLUME 8.7 FL (7.4-10.4); MONOCYTES # (AUTO) 1.1 X10'3 (0-0.9); MONOCYTES % (AUTO) 10.8 % (2-12); NEUTROPHILS # (AUTO) 8.1 X10'3 (1.8-7.7); NEUTROPHILS % (AUTO) 81.8 % (42-75); PLATELET COUNT 263 X10'3 (140-440); RED BLOOD COUNT 3.42 X10'6 (4.20-5.60); RED CELL DISTRIBUTION WIDTH 19.5 % (11.5-14.5); WHITE BLOOD COUNT 9.9 X10'3 (4.5-11.0)
[2018-04-03] MEDS: PARoxetine 20mg tablet PO SCH (08:29)
[2018-04-03] MEDS: carVEDilol 12.5mg tablet PO SCH ×2 (08:29→19:39)
[2018-04-03] MEDS: furosemide 20MG tablet PO SCH ×2 (08:29→19:39)
[2018-04-03] MEDS: lisinopril 20mg tablet PO SCH (08:29)
[2018-04-03] MEDS: potassium chloride 10mEq ER tablet PO SCH (08:29)
[2018-04-03] MEDS: busPIRone 15mg tablet PO SCH ×2 (08:30→19:39)
[2018-04-03] MEDS: prednisone 10mg tablet PO SCH (08:30)
[2018-04-03] MEDS: pantoprazole 40mg Tablet.DR PO SCH (08:30)
[2018-04-03] MEDS: lactobacillus rhamnosus 10,000 MMU CELLS/CAPSULE PO SCH ×2 (08:30→19:39)
[2018-04-03] MEDS: traMADol 50MG tablet PO PRN ×3 (08:37→21:13)
[2018-04-03] MEDS: acetaZOLAMIDE 250mg tablet PO SCH ×2 (09:26→19:38)
[2018-04-03 09:45] LABS: ANISOCYTOSIS 2+; PLATELET ESTIMATE NORMAL; POLYCHROMASIA 1+
[2018-04-03 11:00] VITALS: BP 119/75
[2018-04-03 19:00] VITALS: BP 115/61
[2018-04-03 23:00] VITALS: BP 127/63
[2018-04-04] MEDS: cyclobenzaprine 10mg tablet PO PRN (00:31)
[2018-04-04] MEDS: diltiazem 30mg tablet PO SCH ×3 (00:31→16:29)
[2018-04-04 02:47] VITALS: BP 124/62
[2018-04-04] MEDS: dextrose 5%-water 1,000 ML IV SCH ×2 (02:50→10:50)
[2018-04-04] MEDS: ipratropium/albuterol 3ml nebule NEB SCH ×6 (03:01→23:20)
[2018-04-04] MEDS: traMADol 50MG tablet PO PRN ×3 (05:31→17:22)
[2018-04-04 05:50] LABS: BASOPHILS % (AUTO) 0.3 % (0-1); EOSINOPHILS % (AUTO) 0 % (0-6); HEMATOCRIT 29.1 % (35.0-45.0); HEMOGLOBIN 9.3 g/dl (12.0-16.0); LYMPHOCYTES # (AUTO) 0.8 X10'3 (1.1-4.8); LYMPHOCYTES % (AUTO) 8.1 % (21-51); MEAN CORPUSCULAR HEMOGLOBIN 29.7 PG (27.0-31.0); MEAN CORPUSCULAR VOLUME 92.6 FL (78-98); MEAN PLATELET VOLUME 8.7 FL (7.4-10.4); MONOCYTES # (AUTO) 1.2 X10'3 (0-0.9); MONOCYTES % (AUTO) 11.5 % (2-12); NEUTROPHILS # (AUTO) 8.2 X10'3 (1.8-7.7); NEUTROPHILS % (AUTO) 80.1 % (42-75); PLATELET COUNT 229 X10'3 (140-440); RED BLOOD COUNT 3.14 X10'6 (4.20-5.60); RED CELL DISTRIBUTION WIDTH 19.1 % (11.5-14.5); WHITE BLOOD COUNT 10.3 X10'3 (4.5-11.0)
[2018-04-04 06:00] VITALS: BP 123/59
[2018-04-04 06:10] LABS: ALANINE AMINOTRANSFERASE 25 U/L (12-78); ALBUMIN/GLOBULIN RATIO 0.7 (1.1-1.5); ALKALINE PHOSPHATASE 96 IU/L (46-116); ANION GAP 0 (8-16); ASPARTATE AMINO TRANSFERASE 23 U/L (10-37); BILIRUBIN,TOTAL 0.2 MG/DL (0.1-1.0); BLOOD UREA NITROGEN 10 MG/DL (7-18); BUN/CREATININE RATIO 13.2 (6.6-38.0); CALCIUM 8.4 MG/DL (8.5-10.1); CHLORIDE 102 MMOL/L (99-107); CREATININE 0.76 MG/DL (0.40-0.90); GLUCOSE 106 MG/DL (70-104); MAGNESIUM 1.8 MG/DL (1.5-2.4); PHOSPHORUS 2.9 MG/DL (2.3-4.5); POTASSIUM 3.5 MMOL/L (3.5-5.1); SODIUM 139 MMOL/L (135-145); TOTAL CARBON DIOXIDE 37.2 MMOL/L (24-32); TOTAL PROTEIN 4.7 G/DL (6.4-8.2); eGFR 79 ML/MIN
[2018-04-04] MEDS: budesonide 0.5mg/2ml UD nebule IH SCH ×2 (06:53→19:27)
[2018-04-04 07:08] LABS: ANISOCYTOSIS 2+; HYPOCHROMASIA 1+; PLATELET ESTIMATE NORMAL; POIKILOCYTOSIS FEW
[2018-04-04] MEDS: K, MAG and/or Phos replacement - Verify level? MC SCH (08:00)
[2018-04-04] MEDS: carVEDilol 12.5mg tablet PO SCH ×2 (08:29→19:33)
[2018-04-04] MEDS: acetaZOLAMIDE 250mg tablet PO SCH ×2 (08:29→19:33)
[2018-04-04] MEDS: potassium chloride 10mEq ER tablet PO SCH (08:29)
[2018-04-04] MEDS: lactobacillus rhamnosus 10,000 MMU CELLS/CAPSULE PO SCH ×2 (08:30→19:33)
[2018-04-04] MEDS: lisinopril 20mg tablet PO SCH (08:30)
[2018-04-04] MEDS: PARoxetine 20mg tablet PO SCH (08:30)
[2018-04-04] MEDS: prednisone 10mg tablet PO SCH (08:30)
[2018-04-04] MEDS: furosemide 20MG tablet PO SCH ×2 (08:31→19:33)
[2018-04-04] MEDS: busPIRone 15mg tablet PO SCH ×2 (08:31→19:33)
[2018-04-04] MEDS: pantoprazole 40mg Tablet.DR PO SCH (08:31)
[2018-04-04 11:00] VITALS: BP 126/60
[2018-04-04 15:00] VITALS: BP 125/67
[2018-04-04 19:00] VITALS: BP 133/69
[2018-04-04 23:00] VITALS: BP 147/89
[2018-04-05] MEDS: cyclobenzaprine 10mg tablet PO PRN (01:05)
[2018-04-05] MEDS: diltiazem 30mg tablet PO SCH ×4 (01:05→23:41)
[2018-04-05 02:47] VITALS: BP 136/75
[2018-04-05] MEDS: ipratropium/albuterol 3ml nebule NEB SCH ×6 (03:23→23:19)
[2018-04-05] MEDS: traMADol 50MG tablet PO PRN ×3 (03:52→17:58)
[2018-04-05 06:00] VITALS: BP 102/56
[2018-04-05] MEDS: lactobacillus rhamnosus 10,000 MMU CELLS/CAPSULE PO SCH ×2 (07:46→19:19)
[2018-04-05] MEDS: prednisone 10mg tablet PO SCH (07:46)
[2018-04-05] MEDS: acetaZOLAMIDE 250mg tablet PO SCH ×2 (07:46→19:19)
[2018-04-05] MEDS: potassium chloride 10mEq ER tablet PO SCH (07:46)
[2018-04-05] MEDS: PARoxetine 20mg tablet PO SCH (07:46)
[2018-04-05] MEDS: lisinopril 20mg tablet PO SCH (07:46)
[2018-04-05] MEDS: busPIRone 15mg tablet PO SCH ×2 (07:47→19:19)
[2018-04-05] MEDS: carVEDilol 12.5mg tablet PO SCH ×2 (07:47→19:19)
[2018-04-05] MEDS: pantoprazole 40mg Tablet.DR PO SCH (07:47)
[2018-04-05] MEDS: furosemide 20MG tablet PO SCH ×2 (07:47→19:19)
[2018-04-05] MEDS: budesonide 0.5mg/2ml UD nebule IH SCH ×2 (07:59→19:22)
[2018-04-05] MEDS: K, MAG and/or Phos replacement - Verify level? MC SCH (08:00)
[2018-04-05 11:00] VITALS: BP 126/70
[2018-04-05 15:00] VITALS: BP 114/59
[2018-04-05 19:00] VITALS: BP 128/69
[2018-04-05 23:00] VITALS: BP 133/69
[2018-04-06] MEDS: traMADol 50MG tablet PO PRN ×4 (01:22→20:49)
[2018-04-06 02:56] VITALS: BP 101/61
[2018-04-06] MEDS: ipratropium/albuterol 3ml nebule NEB SCH ×6 (03:15→23:21)
[2018-04-06 05:19] LABS: BASOPHILS % (AUTO) 0.1 % (0-1); EOSINOPHILS % (AUTO) 0 % (0-6); HEMATOCRIT 31.4 % (35.0-45.0); HEMOGLOBIN 10.2 g/dl (12.0-16.0); LYMPHOCYTES # (AUTO) 1.1 X10'3 (1.1-4.8); LYMPHOCYTES % (AUTO) 8.4 % (21-51); MEAN CORPUSCULAR HEMOGLOBIN 29.9 PG (27.0-31.0); MEAN CORPUSCULAR HGB CONC 32.5 % (33.0-36.5); MEAN CORPUSCULAR VOLUME 91.9 FL (78-98); MEAN PLATELET VOLUME 8.1 FL (7.4-10.4); MONOCYTES # (AUTO) 0.8 X10'3 (0-0.9); NEUTROPHILS # (AUTO) 10.8 X10'3 (1.8-7.7); NEUTROPHILS % (AUTO) 85.5 % (42-75); PLATELET COUNT 246 X10'3 (140-440); RED BLOOD COUNT 3.42 X10'6 (4.20-5.60); RED CELL DISTRIBUTION WIDTH 19.4 % (11.5-14.5); WHITE BLOOD COUNT 12.6 X10'3 (4.5-11.0)
[2018-04-06 05:41] LABS: ALANINE AMINOTRANSFERASE 28 U/L (12-78); ALBUMIN 2.5 G/DL (3.4-5.0); ALBUMIN/GLOBULIN RATIO 0.8 (1.1-1.5); ALKALINE PHOSPHATASE 121 IU/L (46-116); ANION GAP 6 (8-16); ASPARTATE AMINO TRANSFERASE 44 U/L (10-37); BILIRUBIN,TOTAL 0.3 MG/DL (0.1-1.0); BLOOD UREA NITROGEN 16 MG/DL (7-18); CALCIUM 8.2 MG/DL (8.5-10.1); CHLORIDE 101 MMOL/L (99-107); CREATININE 0.64 MG/DL (0.40-0.90); GLUCOSE 91 MG/DL (70-104); SODIUM 140 MMOL/L (135-145); TOTAL CARBON DIOXIDE 33.5 MMOL/L (24-32); TOTAL PROTEIN 5.6 G/DL (6.4-8.2); eGFR > 90 ML/MIN
[2018-04-06 06:00] VITALS: BP 116/66
[2018-04-06] MEDS: budesonide 0.5mg/2ml UD nebule IH SCH ×2 (06:54→19:16)
[2018-04-06] MEDS: potassium chloride 10mEq ER tablet PO SCH (07:43)
[2018-04-06] MEDS: lisinopril 20mg tablet PO SCH (07:43)
[2018-04-06] MEDS: prednisone 10mg tablet PO SCH (07:43)
[2018-04-06] MEDS: PARoxetine 20mg tablet PO SCH (07:43)
[2018-04-06] MEDS: acetaZOLAMIDE 250mg tablet PO SCH ×2 (07:43→20:23)
[2018-04-06] MEDS: lactobacillus rhamnosus 10,000 MMU CELLS/CAPSULE PO SCH ×2 (07:43→20:21)
[2018-04-06] MEDS: carVEDilol 12.5mg tablet PO SCH ×2 (07:44→20:23)
[2018-04-06] MEDS: busPIRone 15mg tablet PO SCH ×2 (07:44→20:22)
[2018-04-06] MEDS: pantoprazole 40mg Tablet.DR PO SCH (07:44)
[2018-04-06] MEDS: furosemide 20MG tablet PO SCH ×2 (07:44→20:22)
[2018-04-06] MEDS: diltiazem 30mg tablet PO SCH ×2 (07:44→17:55)
[2018-04-06] MEDS: K, MAG and/or Phos replacement - Verify level? MC SCH (07:48)
[2018-04-06 15:00] VITALS: BP 114/65
[2018-04-06 19:00] VITALS: BP 126/67
[2018-04-06 23:00] VITALS: BP 128/75
[2018-04-07] MEDS: diltiazem 30mg tablet PO SCH ×3 (00:10→16:14)
[2018-04-07 00:55] VITALS: BP 127/71
[2018-04-07] MEDS: ipratropium/albuterol 3ml nebule NEB SCH ×5 (03:00→19:47)
[2018-04-07] MEDS: traMADol 50MG tablet PO PRN ×3 (04:02→16:15)
[2018-04-07 06:00] VITALS: BP 125/66
[2018-04-07] MEDS: budesonide 0.5mg/2ml UD nebule IH SCH ×2 (07:16→19:46)
[2018-04-07] MEDS: K, MAG and/or Phos replacement - Verify level? MC SCH (08:00)
[2018-04-07] MEDS: acetaZOLAMIDE 250mg tablet PO SCH ×2 (08:49→19:39)
[2018-04-07] MEDS: potassium chloride 10mEq ER tablet PO SCH (08:50)
[2018-04-07] MEDS: lactobacillus rhamnosus 10,000 MMU CELLS/CAPSULE PO SCH ×2 (08:50→19:39)
[2018-04-07] MEDS: furosemide 20MG tablet PO SCH ×2 (08:50→19:39)
[2018-04-07] MEDS: lisinopril 20mg tablet PO SCH (08:51)
[2018-04-07] MEDS: PARoxetine 20mg tablet PO SCH (08:51)
[2018-04-07] MEDS: pantoprazole 40mg Tablet.DR PO SCH (08:52)
[2018-04-07] MEDS: carVEDilol 12.5mg tablet PO SCH ×2 (08:52→19:39)
[2018-04-07] MEDS: busPIRone 15mg tablet PO SCH ×2 (08:52→19:39)
[2018-04-07] MEDS: prednisone 10mg tablet PO SCH (08:52)
[2018-04-07 10:00] VITALS: BP 129/66
[2018-04-07 18:00] VITALS: BP 117/59
[2018-04-07 21:57] VITALS: BP 119/68
[2018-04-08] MEDS: diltiazem 30mg tablet PO SCH ×3 (00:58→15:08)
[2018-04-08] MEDS: ipratropium/albuterol 3ml nebule NEB SCH ×5 (03:02→15:20)
[2018-04-08 06:00] VITALS: BP 141/67
[2018-04-08 06:24] LABS: BASOPHILS % (AUTO) 0.1 % (0-1); EOSINOPHILS % (AUTO) 0 % (0-6); HEMATOCRIT 31.7 % (35.0-45.0); HEMOGLOBIN 10.3 g/dl (12.0-16.0); LYMPHOCYTES # (AUTO) 1.4 X10'3 (1.1-4.8); LYMPHOCYTES % (AUTO) 10.7 % (21-51); MEAN CORPUSCULAR HEMOGLOBIN 29.9 PG (27.0-31.0); MEAN CORPUSCULAR HGB CONC 32.6 % (33.0-36.5); MEAN CORPUSCULAR VOLUME 91.7 FL (78-98); MEAN PLATELET VOLUME 7.8 FL (7.4-10.4); MONOCYTES # (AUTO) 0.8 X10'3 (0-0.9); MONOCYTES % (AUTO) 5.9 % (2-12); NEUTROPHILS # (AUTO) 10.6 X10'3 (1.8-7.7); NEUTROPHILS % (AUTO) 83.3 % (42-75); PLATELET COUNT 252 X10'3 (140-440); RED BLOOD COUNT 3.46 X10'6 (4.20-5.60); RED CELL DISTRIBUTION WIDTH 19.8 % (11.5-14.5); WHITE BLOOD COUNT 12.8 X10'3 (4.5-11.0)
[2018-04-08 06:42] LABS: ALANINE AMINOTRANSFERASE 38 U/L (12-78); ALBUMIN 2.6 G/DL (3.4-5.0); ALBUMIN/GLOBULIN RATIO 0.9 (1.1-1.5); ALKALINE PHOSPHATASE 133 IU/L (46-116); ANION GAP 5 (8-16); ASPARTATE AMINO TRANSFERASE 31 U/L (10-37); BILIRUBIN,TOTAL 0.2 MG/DL (0.1-1.0); BLOOD UREA NITROGEN 19 MG/DL (7-18); CALCIUM 8.9 MG/DL (8.5-10.1); CHLORIDE 102 MMOL/L (99-107); CREATININE 0.73 MG/DL (0.40-0.90); GLUCOSE 96 MG/DL (70-104); MAGNESIUM 1.8 MG/DL (1.5-2.4); PHOSPHORUS 3.1 MG/DL (2.3-4.5); POTASSIUM 3.7 MMOL/L (3.5-5.1); SODIUM 140 MMOL/L (135-145); TOTAL CARBON DIOXIDE 32.6 MMOL/L (24-32); TOTAL PROTEIN 5.6 G/DL (6.4-8.2); eGFR 83 ML/MIN
[2018-04-08 06:46] LABS: PLATELET ESTIMATE NORMAL
[2018-04-08 06:47] LABS: ANISOCYTOSIS 2+; HYPOCHROMASIA 1+; MICROCYTOSIS 1+
[2018-04-08] MEDS: busPIRone 15mg tablet PO SCH (07:52)
[2018-04-08] MEDS: prednisone 10mg tablet PO SCH (07:52)
[2018-04-08] MEDS: pantoprazole 40mg Tablet.DR PO SCH (07:52)
[2018-04-08] MEDS: carVEDilol 12.5mg tablet PO SCH (07:52)
[2018-04-08] MEDS: lactobacillus rhamnosus 10,000 MMU CELLS/CAPSULE PO SCH (07:53)
[2018-04-08] MEDS: potassium chloride 10mEq ER tablet PO SCH (07:53)
[2018-04-08] MEDS: PARoxetine 20mg tablet PO SCH (07:53)
[2018-04-08] MEDS: acetaZOLAMIDE 250mg tablet PO SCH (07:53)
[2018-04-08] MEDS: lisinopril 20mg tablet PO SCH (07:53)
[2018-04-08] MEDS: furosemide 20MG tablet PO SCH (07:53)
[2018-04-08] MEDS: K, MAG and/or Phos replacement - Verify level? MC SCH (08:00)
[2018-04-08] MEDS: budesonide 0.5mg/2ml UD nebule IH SCH (08:05)
[2018-04-08 10:00] VITALS: BP 127/90
[2018-04-08] MEDS: traMADol 50MG tablet PO PRN (10:47)
[2018-04-08] MEDS ORDERED: guaiFENesin ER 600mg tablet PO SCH (13:00)
[2018-04-08] MEDS ORDERED: ACET250T3 PO (14:03)
[2018-04-08] MEDS ORDERED: LACT1CAP26 PO (14:03)
[2018-04-08] MEDS ORDERED: VANC125C4 PO (14:03)
[2018-04-08] MEDS ORDERED: GUAI600T45 PO (14:03)
[2018-04-09] MEDS ORDERED: ACET250T3 PO (12:32)
[2018-04-09] MEDS ORDERED: VANC1VIA21 PO (12:32)
[2018-04-09] MEDS ORDERED: GUAI600T45 PO (12:32)
[2018-04-09] MEDS ORDERED: LACTC PO (12:32)
== END 2018-04-08 17:22 | disposition home or self-care (01) | DRG 133 ==
LOC: ER 01:24 → ED HOLD 03:59 → CICU 2S 05:00 → ICU 2S 19:39 → SUR 3N 03-26 21:45 → PCU 3S 03-28 17:32 → ORTHO 4S 04-07 00:35
PROVIDERS: ADMIT Internal Medicine Critical Care Medicine; ATTEND Family Medicine
PROC: 5A1945Z Respiratory Ventilation, 24-96 Consecutive Hours (ICD-10-PCS; principal; 2018-03-21)
PROC: 0BH17EZ Insertion of Endotracheal Airway into Trachea, Via Natural or Artificial Opening (ICD-10-PCS; 2018-03-21)
PROC: 30233N1 Transfusion of Nonautologous Red Blood Cells into Peripheral Vein, Percutaneous Approach (ICD-10-PCS; 2018-03-21)
PROC: BW251ZZ Computerized Tomography (CT Scan) of Chest, Abdomen and Pelvis using Low Osmolar Contrast (ICD-10-PCS; 2018-03-27)
DX: J96.21 Acute and chronic respiratory failure with hypoxia (principal); E87.3 Alkalosis; A04.72 Enterocolitis due to Clostridium difficile, not specified as recurrent; R18.8 Other ascites; I50.9 Heart failure, unspecified; J44.1 Chronic obstructive pulmonary disease with (acute) exacerbation; I11.0 Hypertensive heart disease with heart failure; F11.20 Opioid dependence, uncomplicated; I25.10 Atherosclerotic heart disease of native coronary artery without angina pectoris; I25.2 Old myocardial infarction; E83.39 Other disorders of phosphorus metabolism; J98.4 Other disorders of lung; G89.29 Other chronic pain; K92.2 Gastrointestinal hemorrhage, unspecified; E83.42 Hypomagnesemia; E87.6 Hypokalemia; K21.9 Gastro-esophageal reflux disease without esophagitis; Z87.891 Personal history of nicotine dependence; Z90.49 Acquired absence of other specified parts of digestive tract; Z90.710 Acquired absence of both cervix and uterus; Z99.81 Dependence on supplemental oxygen; Z88.5 Allergy status to narcotic agent; Z88.8 Allergy status to other drugs, medicaments and biological substances; Z82.49 Family history of ischemic heart disease and other diseases of the circulatory system; Z80.9 Family history of malignant neoplasm, unspecified; Z82.5 Family history of asthma and other chronic lower respiratory diseases
CPT/HCPCS: 36415; 36600; 49083; 71045; 71260; 72148; 74177; 78806; 80053; 80202; 80305; 82272; 82803; 82948; 83605; 83735; 84100; 84132; 84145; 84484; 85018; 85025; 85027; 85610; 85730; 86870; 86885; 86900; 86901; 86902; 86922; 87040; 87070; 87077; 87088; 93005; 94002; 94003; 94640; 94660; 94760; 96365; 96375; 97110; 97116; 97162; 97530; 99291; A4333; A4620; A6213; A6250; A6251; A6257; A7015; A9570; C1758; C9113; J0456; J1956; J2001; J2060; J2250; J2543; J2704; J2930; J3010; J3370; J3480; J3490; J7030; J7042; J7060; J7070; J7120; J7512; J7626; P9016; Q9963; Q9967

== ENCOUNTER 2018-04-09 09:04 | Inpatient (IN) | payer MEDICAID ==
[~2018-04-09] VITALS: Ht 162.6 cm; Wt 50.0 kg
[~2018-04-09 09:04] MED LIST changes: +ACET250T3 PO; -ASPI-611 PO; +GUAI600T45 PO; -HYDR-3973 PO; -IPRA3AMP IH; +IPRA3AMP31 IH; +LACT1CAP26 PO; -LORA1TAB PO; -METO50TA16 PO; +VANC125C4 PO
[2018-04-09] MEDS ORDERED: metoprolol succinate 25mg (24-HOUR) SR. Tablet PO STA (09:13)
[2018-04-09] MEDS ORDERED: ipratropium/albuterol 3ml nebule NEB ONE (09:15)
[2018-04-09 09:41] LABS: BASOPHILS % (AUTO) 0.1 % (0-1); EOSINOPHILS # (AUTO) 0.1 X10'3 (0-0.9); EOSINOPHILS % (AUTO) 0.4 % (0-6); HEMATOCRIT 36.4 % (35.0-45.0); HEMOGLOBIN 11.8 g/dl (12.0-16.0); LYMPHOCYTES # (AUTO) 1.6 X10'3 (1.1-4.8); LYMPHOCYTES % (AUTO) 9.4 % (21-51); MEAN CORPUSCULAR HEMOGLOBIN 29.9 PG (27.0-31.0); MEAN CORPUSCULAR HGB CONC 32.3 % (33.0-36.5); MEAN CORPUSCULAR VOLUME 92.6 FL (78-98); MEAN PLATELET VOLUME 7.9 FL (7.4-10.4); MONOCYTES # (AUTO) 1.2 X10'3 (0-0.9); MONOCYTES % (AUTO) 7.1 % (2-12); NEUTROPHILS # (AUTO) 14.1 X10'3 (1.8-7.7); PLATELET COUNT 345 X10'3 (140-440); RED BLOOD COUNT 3.93 X10'6 (4.20-5.60); RED CELL DISTRIBUTION WIDTH 20.3 % (11.5-14.5)
[2018-04-09 09:57] LABS: ALANINE AMINOTRANSFERASE 43 U/L (12-78); ALBUMIN 3.1 G/DL (3.4-5.0); ALBUMIN/GLOBULIN RATIO 0.8 (1.1-1.5); ALKALINE PHOSPHATASE 172 IU/L (46-116); ANION GAP 4 (8-16); ASPARTATE AMINO TRANSFERASE 33 U/L (10-37); BILIRUBIN,TOTAL 0.2 MG/DL (0.1-1.0); BLOOD UREA NITROGEN 21 MG/DL (7-18); BUN/CREATININE RATIO 33.9 (6.6-38.0); CALCIUM 9.2 MG/DL (8.5-10.1); CHLORIDE 104 MMOL/L (99-107); CREATININE 0.62 MG/DL (0.40-0.90); GLUCOSE 169 MG/DL (70-104); SODIUM 143 MMOL/L (135-145); TOTAL CARBON DIOXIDE 35.3 MMOL/L (24-32); TOTAL PROTEIN 6.8 G/DL (6.4-8.2); eGFR > 90 ML/MIN
[2018-04-09 10:15] LABS: PLATELET ESTIMATE NORMAL
[2018-04-09 10:16] LABS: ANISOCYTOSIS 2+; MICROCYTOSIS 1+
[2018-04-09] MEDS ORDERED: acetaminophen 325mg tablet PO ONE (11:30)
[2018-04-09] MEDS ORDERED: ACET250T3 PO (12:32)
[2018-04-09] MEDS ORDERED: GUAI600T45 PO (12:32)
[2018-04-09] MEDS ORDERED: VANC1VIA21 PO (12:32)
[2018-04-09] MEDS ORDERED: LACTC PO (12:32)
[2018-04-09] MEDS ORDERED: ondansetron/PF 4mg/2ml inj IV PRN (14:20)
[2018-04-09] MEDS ORDERED: magnesium Cl slow-release 64mg tablet PO PRN (14:20)
[2018-04-09] MEDS ORDERED: potassium Cl 40MEQ/NS 500ml 500 ML IV PRN ×2 (14:20)
[2018-04-09] MEDS ORDERED: ipratropium/albuterol 3ml nebule NEB PRN (14:20)
[2018-04-09] MEDS ORDERED: magnesium 4gm in 100ml NS 100 ML IV PRN (14:20)
[2018-04-09] MEDS ORDERED: magnesium 1gm/100ml D5W IVPB 100 ML IV PRN (14:20)
[2018-04-09] MEDS ORDERED: diphenhydrAMINE 25mg capsule PO PRN (14:20)
[2018-04-09] MEDS ORDERED: potassium Cl 20 mEq SR tablet PO PRN ×2 (14:20)
[2018-04-09] MEDS ORDERED: mag hydrox/Alum hydrox/simeth 30ml oral suspension PO PRN (14:20)
[2018-04-09] MEDS ORDERED: acetaminophen 325mg tablet PO PRN ×2 (14:20)
[2018-04-09] MEDS: K and/or MAG REPLACEMENT MC SCH (14:20)
[2018-04-09] MEDS ORDERED: magnesium hydroxide 30ml (MOM) UD suspension PO PRN (14:20)
[2018-04-09 15:03] LABS: CLARITY,URINE CLOUDY (Clear); COLOR,URINE YELLOW (Yellow); GLUCOSE, URINE NEGATIVE (Neg); KETONES,URINE NEGATIVE (Neg); LEUKOCYTE ESTERASE ,URINE SMALL (Neg); NITRITES, URINE NEGATIVE (Neg); OCCULT BLOOD,URINE TRACE-INTACT (Neg); PH,URINE 5.5 (4.8-8.0); PROTEIN,URINE TRACE mg/dl (Neg); UROBILINOGEN,URINE 0.2 E.U/dL (0.2-1.0)
[2018-04-09 15:14] LABS: UA COLLECTION TYPE VOIDED
[2018-04-09 15:15] LABS: RBC,URINE 0-2 /HPF (0-2); WBC,URINE 50-100 /HPF (0-4)
[2018-04-09 15:16] LABS: BACTERIA,URINE FEW /HPF (Neg); MUCUS STRANDS MODERATE /LPF (Neg); SQUAMOUS EPITHELIAL CELL,UR MODERATE /LPF (FEW); TRANSITIONAL EPI CELLS,URINE FEW /HPF; YEAST MANY /HPF (NEGATIVE)
[2018-04-09] MEDS: diltiazem 30mg tablet PO SCH (16:11)
[2018-04-09] MEDS ORDERED: ipratropium/albuterol 3ml nebule IH SCH (20:00)
[2018-04-09] MEDS ORDERED: BUSPIRONE HCL 7.5 MG PO SCH (20:00)
[2018-04-09 20:10] VITALS: BP 112/71
[2018-04-09] MEDS: budesonide 0.5mg/2ml UD nebule IH SCH (20:53)
[2018-04-09] MEDS: ipratropium/albuterol 3ml nebule IH SCH (20:54)
[2018-04-09] MEDS: busPIRone 15mg tablet PO SCH (22:07)
[2018-04-09] MEDS: carVEDilol 12.5mg tablet PO SCH (22:07)
[2018-04-09] MEDS: acetaZOLAMIDE 250mg tablet PO SCH (22:08)
[2018-04-09] MEDS: furosemide 20MG tablet PO SCH (22:08)
[2018-04-09] MEDS: guaiFENesin ER 600mg tablet PO SCH (22:09)
[2018-04-09] MEDS: heparin, porcine 5000 units/ml vial SQ SCH (22:10)
[2018-04-10 00:23] VITALS: BP 126/73
[2018-04-10] MEDS: diltiazem 30mg tablet PO SCH ×3 (00:25→16:37)
[2018-04-10] MEDS: cyclobenzaprine 10mg tablet PO PRN ×2 (00:50→21:06)
[2018-04-10] MEDS: ipratropium/albuterol 3ml nebule IH SCH ×4 (03:04→20:02)
[2018-04-10 05:04] LABS: BASOPHILS % (AUTO) 0.3 % (0-1); EOSINOPHILS # (AUTO) 0.1 X10'3 (0-0.9); HEMATOCRIT 34.9 % (35.0-45.0); HEMOGLOBIN 11.1 g/dl (12.0-16.0); LYMPHOCYTES # (AUTO) 1.4 X10'3 (1.1-4.8); LYMPHOCYTES % (AUTO) 12.1 % (21-51); MEAN CORPUSCULAR HEMOGLOBIN 29.8 PG (27.0-31.0); MEAN CORPUSCULAR HGB CONC 31.8 % (33.0-36.5); MEAN CORPUSCULAR VOLUME 93.5 FL (78-98); MEAN PLATELET VOLUME 8.7 FL (7.4-10.4); MONOCYTES # (AUTO) 0.9 X10'3 (0-0.9); MONOCYTES % (AUTO) 7.6 % (2-12); NEUTROPHILS # (AUTO) 8.9 X10'3 (1.8-7.7); PLATELET COUNT 270 X10'3 (140-440); RED BLOOD COUNT 3.73 X10'6 (4.20-5.60); RED CELL DISTRIBUTION WIDTH 19.5 % (11.5-14.5); WHITE BLOOD COUNT 11.3 X10'3 (4.5-11.0)
[2018-04-10 05:39] LABS: ALANINE AMINOTRANSFERASE 36 U/L (12-78); ALBUMIN 2.7 G/DL (3.4-5.0); ALBUMIN/GLOBULIN RATIO 0.8 (1.1-1.5); ALKALINE PHOSPHATASE 151 IU/L (46-116); ANION GAP 4 (8-16); ASPARTATE AMINO TRANSFERASE 29 U/L (10-37); BILIRUBIN,TOTAL 0.2 MG/DL (0.1-1.0); BLOOD UREA NITROGEN 20 MG/DL (7-18); BUN/CREATININE RATIO 39.2 (6.6-38.0); CALCIUM 8.5 MG/DL (8.5-10.1); CHLORIDE 103 MMOL/L (99-107); CREATININE 0.51 MG/DL (0.40-0.90); GLUCOSE 102 MG/DL (70-104); PHOSPHORUS 3.7 MG/DL (2.3-4.5); POTASSIUM 3.6 MMOL/L (3.5-5.1); SODIUM 141 MMOL/L (135-145); TOTAL CARBON DIOXIDE 34.3 MMOL/L (24-32); eGFR > 90 ML/MIN
[2018-04-10 08:00] VITALS: BP 123/77
[2018-04-10] MEDS ORDERED: [UNRECOGNIZED DRUG - OTHER] IH SCH (08:00)
[2018-04-10] MEDS ORDERED: VILANTEROL IH SCH (08:00)
[2018-04-10] MEDS ORDERED: non-formulary drug (Lisinopril* 1 TAB) PO SCH (08:00)
[2018-04-10] MEDS ORDERED: MULTIVITS CA MINERALS PO SCH (08:00)
[2018-04-10] MEDS ORDERED: UMECLIDINIUM IH SCH (08:00)
[2018-04-10] MEDS ORDERED: non-formulary drug (Omeprazole 1 CAP) PO SCH (08:00)
[2018-04-10] MEDS ORDERED: IRON PO SCH (08:00)
[2018-04-10] MEDS: K and/or MAG REPLACEMENT MC SCH (08:00)
[2018-04-10] MEDS ORDERED: [UNRECOGNIZED DRUG - OTHER] PO SCH (08:00)
[2018-04-10] MEDS ORDERED: non-formulary drug (Umeclidinium Brm/Vilanterol Tr (Anoro Ellipta 62.5-25 Mcg INH) 1 PUFF) PO SCH (08:00)
[2018-04-10] MEDS ORDERED: non-formulary drug (Lactobacillus Acidophilus (ACIDOPHILUS capsule) 1 CAP) PO SCH (08:00)
[2018-04-10] MEDS: budesonide 0.5mg/2ml UD nebule IH SCH ×2 (08:15→20:02)
[2018-04-10] MEDS: lactobacillus rhamnosus 10,000 MMU CELLS/CAPSULE PO SCH (10:27)
[2018-04-10] MEDS: predniSONE 5mg tablet PO SCH (10:27)
[2018-04-10] MEDS: PARoxetine 20mg tablet PO SCH (10:27)
[2018-04-10] MEDS: busPIRone 15mg tablet PO SCH ×2 (10:28→21:03)
[2018-04-10] MEDS: multivitamins, therapeutics tablet PO SCH (10:28)
[2018-04-10] MEDS: guaiFENesin ER 600mg tablet PO SCH ×2 (10:28→20:46)
[2018-04-10] MEDS: pantoprazole 40mg Tablet.DR PO SCH (10:28)
[2018-04-10] MEDS: furosemide 20MG tablet PO SCH ×2 (10:29→20:46)
[2018-04-10] MEDS: lisinopril 20mg tablet PO SCH (10:29)
[2018-04-10] MEDS: carVEDilol 12.5mg tablet PO SCH ×2 (10:29→20:46)
[2018-04-10] MEDS: acetaZOLAMIDE 250mg tablet PO SCH ×2 (10:30→20:46)
[2018-04-10] MEDS: heparin, porcine 5000 units/ml vial SQ SCH ×2 (10:31→20:47)
[2018-04-10 11:39] LABS: ANISOCYTOSIS 2+; PLATELET ESTIMATE NORMAL
[2018-04-10 12:06] VITALS: BP 121/69
[2018-04-10] MEDS: ketorolac tromethamine 15mg/ml inj. IV PRN ×2 (14:21→20:48)
[2018-04-10 18:00] VITALS: BP 119/57
[2018-04-10] MEDS: nystatin 15 GM powder TP SCH (20:48)
[2018-04-11] VITALS: BP 114/64
[2018-04-11] MEDS: diltiazem 30mg tablet PO SCH ×3 (00:07→16:34)
[2018-04-11] MEDS: ipratropium/albuterol 3ml nebule IH SCH ×4 (02:02→20:51)
[2018-04-11 04:48] LABS: BASOPHILS % (AUTO) 0.1 % (0-1); EOSINOPHILS # (AUTO) 0.2 X10'3 (0-0.9); EOSINOPHILS % (AUTO) 1.5 % (0-6); HEMOGLOBIN 9.7 g/dl (12.0-16.0); LYMPHOCYTES # (AUTO) 1.6 X10'3 (1.1-4.8); MEAN CORPUSCULAR HGB CONC 32.3 % (33.0-36.5); MEAN CORPUSCULAR VOLUME 93.1 FL (78-98); MEAN PLATELET VOLUME 8.2 FL (7.4-10.4); MONOCYTES # (AUTO) 1.2 X10'3 (0-0.9); MONOCYTES % (AUTO) 12.3 % (2-12); NEUTROPHILS # (AUTO) 6.9 X10'3 (1.8-7.7); NEUTROPHILS % (AUTO) 70.1 % (42-75); PLATELET COUNT 290 X10'3 (140-440); RED BLOOD COUNT 3.23 X10'6 (4.20-5.60); WHITE BLOOD COUNT 9.8 X10'3 (4.5-11.0)
[2018-04-11 05:07] LABS: ALANINE AMINOTRANSFERASE 30 U/L (12-78); ALBUMIN 2.6 G/DL (3.4-5.0); ALBUMIN/GLOBULIN RATIO 0.8 (1.1-1.5); ALKALINE PHOSPHATASE 124 IU/L (46-116); ANION GAP 2 (8-16); ASPARTATE AMINO TRANSFERASE 20 U/L (10-37); BILIRUBIN,TOTAL 0.2 MG/DL (0.1-1.0); BLOOD UREA NITROGEN 29 MG/DL (7-18); BUN/CREATININE RATIO 30.9 (6.6-38.0); CALCIUM 8.8 MG/DL (8.5-10.1); CHLORIDE 102 MMOL/L (99-107); CREATININE 0.94 MG/DL (0.40-0.90); GLUCOSE 110 MG/DL (70-104); PHOSPHORUS 3.8 MG/DL (2.3-4.5); POTASSIUM 4.4 MMOL/L (3.5-5.1); SODIUM 138 MMOL/L (135-145); TOTAL PROTEIN 5.8 G/DL (6.4-8.2); eGFR 62 ML/MIN
[2018-04-11 05:09] LABS: ANISOCYTOSIS 2+; PLATELET ESTIMATE NORMAL
[2018-04-11 05:10] LABS: MICROCYTOSIS 2+
[2018-04-11] MEDS: K and/or MAG REPLACEMENT MC SCH (08:00)
[2018-04-11 08:06] VITALS: BP 118/67
[2018-04-11] MEDS: budesonide 0.5mg/2ml UD nebule IH SCH ×2 (08:19→20:50)
[2018-04-11] MEDS: carVEDilol 12.5mg tablet PO SCH ×2 (09:09→22:24)
[2018-04-11] MEDS: lactobacillus rhamnosus 10,000 MMU CELLS/CAPSULE PO SCH (09:09)
[2018-04-11] MEDS: ketorolac tromethamine 15mg/ml inj. IV PRN ×3 (09:09→22:23)
[2018-04-11] MEDS: heparin, porcine 5000 units/ml vial SQ SCH ×2 (09:09→22:22)
[2018-04-11] MEDS: lisinopril 20mg tablet PO SCH (09:10)
[2018-04-11] MEDS: multivitamins, therapeutics tablet PO SCH (09:10)
[2018-04-11] MEDS: acetaZOLAMIDE 250mg tablet PO SCH ×2 (09:10→22:23)
[2018-04-11] MEDS: predniSONE 5mg tablet PO SCH (09:10)
[2018-04-11] MEDS: busPIRone 15mg tablet PO SCH ×2 (09:11→22:23)
[2018-04-11] MEDS: pantoprazole 40mg Tablet.DR PO SCH (09:11)
[2018-04-11] MEDS: PARoxetine 20mg tablet PO SCH (09:11)
[2018-04-11] MEDS: guaiFENesin ER 600mg tablet PO SCH ×2 (09:11→22:23)
[2018-04-11] MEDS: furosemide 20MG tablet PO SCH ×2 (09:11→22:23)
[2018-04-11] MEDS: nystatin 15 GM powder TP SCH ×3 (09:12→22:25)
[2018-04-11 20:00] VITALS: BP 136/63
[2018-04-11] MEDS: cyclobenzaprine 10mg tablet PO PRN (22:22)
[2018-04-12] VITALS: BP 128/68
[2018-04-12] MEDS: diltiazem 30mg tablet PO SCH ×3 (00:16→16:31)
[2018-04-12] MEDS: ipratropium/albuterol 3ml nebule IH SCH ×4 (02:53→20:55)
[2018-04-12] MEDS: ketorolac tromethamine 15mg/ml inj. IV PRN (05:31)
[2018-04-12 06:08] LABS: BASOPHILS # (AUTO) 0.1 X10'3 (0-0.2); BASOPHILS % (AUTO) 1.7 % (0-1); EOSINOPHILS # (AUTO) 0.1 X10'3 (0-0.9); EOSINOPHILS % (AUTO) 1.3 % (0-6); HEMATOCRIT 28.4 % (35.0-45.0); LYMPHOCYTES # (AUTO) 1.6 X10'3 (1.1-4.8); LYMPHOCYTES % (AUTO) 21.3 % (21-51); MEAN CORPUSCULAR HEMOGLOBIN 29.4 PG (27.0-31.0); MEAN CORPUSCULAR HGB CONC 31.8 % (33.0-36.5); MEAN CORPUSCULAR VOLUME 92.4 FL (78-98); MEAN PLATELET VOLUME 8.5 FL (7.4-10.4); MONOCYTES # (AUTO) 0.7 X10'3 (0-0.9); NEUTROPHILS # (AUTO) 4.9 X10'3 (1.8-7.7); NEUTROPHILS % (AUTO) 65.7 % (42-75); PLATELET COUNT 121 X10'3 (140-440); RED BLOOD COUNT 3.07 X10'6 (4.20-5.60); RED CELL DISTRIBUTION WIDTH 19.4 % (11.5-14.5); WHITE BLOOD COUNT 7.4 X10'3 (4.5-11.0)
[2018-04-12 06:29] LABS: ALANINE AMINOTRANSFERASE 25 U/L (12-78); ALBUMIN 2.5 G/DL (3.4-5.0); ALBUMIN/GLOBULIN RATIO 0.8 (1.1-1.5); ALKALINE PHOSPHATASE 101 IU/L (46-116); ANION GAP 1 (8-16); ASPARTATE AMINO TRANSFERASE 20 U/L (10-37); BILIRUBIN,TOTAL 0.1 MG/DL (0.1-1.0); BLOOD UREA NITROGEN 37 MG/DL (7-18); BUN/CREATININE RATIO 36.6 (6.6-38.0); CALCIUM 8.8 MG/DL (8.5-10.1); CHLORIDE 103 MMOL/L (99-107); CREATININE 1.01 MG/DL (0.40-0.90); GLUCOSE 98 MG/DL (70-104); MAGNESIUM 2.2 MG/DL (1.5-2.4); PHOSPHORUS 3.8 MG/DL (2.3-4.5); POTASSIUM 4.4 MMOL/L (3.5-5.1); SODIUM 138 MMOL/L (135-145); TOTAL CARBON DIOXIDE 34.3 MMOL/L (24-32); TOTAL PROTEIN 5.6 G/DL (6.4-8.2); eGFR 57 ML/MIN
[2018-04-12 07:30] VITALS: BP 133/65
[2018-04-12] MEDS: K and/or MAG REPLACEMENT MC SCH (08:00)
[2018-04-12] MEDS: budesonide 0.5mg/2ml UD nebule IH SCH ×2 (08:37→20:56)
[2018-04-12] MEDS: carVEDilol 12.5mg tablet PO SCH ×2 (09:14→20:05)
[2018-04-12] MEDS: pantoprazole 40mg Tablet.DR PO SCH (09:15)
[2018-04-12] MEDS: furosemide 20MG tablet PO SCH ×2 (09:15→20:08)
[2018-04-12] MEDS: guaiFENesin ER 600mg tablet PO SCH ×2 (09:16→20:08)
[2018-04-12] MEDS: busPIRone 15mg tablet PO SCH ×2 (09:16→20:08)
[2018-04-12] MEDS: lactobacillus rhamnosus 10,000 MMU CELLS/CAPSULE PO SCH (09:16)
[2018-04-12] MEDS: PARoxetine 20mg tablet PO SCH (09:16)
[2018-04-12] MEDS: acetaZOLAMIDE 250mg tablet PO SCH ×2 (09:17→20:08)
[2018-04-12] MEDS: multivitamins, therapeutics tablet PO SCH (09:17)
[2018-04-12] MEDS: predniSONE 5mg tablet PO SCH (09:18)
[2018-04-12] MEDS: lisinopril 20mg tablet PO SCH (09:18)
[2018-04-12] MEDS: nystatin 15 GM powder TP SCH ×3 (09:19→20:09)
[2018-04-12] MEDS: heparin, porcine 5000 units/ml vial SQ SCH ×2 (09:20→20:05)
[2018-04-12 11:00] VITALS: BP 131/69
[2018-04-12] MEDS: traMADol 50MG tablet PO PRN ×3 (12:39→20:33)
[2018-04-12 18:00] VITALS: BP 107/53
[2018-04-12] MEDS: cyclobenzaprine 10mg tablet PO PRN (20:07)
[2018-04-13] VITALS: BP 133/68
[2018-04-13] MEDS: diltiazem 30mg tablet PO SCH ×4 (00:50→23:50)
[2018-04-13] MEDS: ipratropium/albuterol 3ml nebule IH SCH ×4 (03:06→21:13)
[2018-04-13] MEDS: traMADol 50MG tablet PO PRN ×3 (04:52→21:10)
[2018-04-13] MEDS: budesonide 0.5mg/2ml UD nebule IH SCH ×2 (07:05→21:13)
[2018-04-13 07:30] VITALS: BP 119/61
[2018-04-13] MEDS: K and/or MAG REPLACEMENT MC SCH (08:00)
[2018-04-13] MEDS: heparin, porcine 5000 units/ml vial SQ SCH ×2 (08:00→20:00)
[2018-04-13] MEDS: lactobacillus rhamnosus 10,000 MMU CELLS/CAPSULE PO SCH (08:05)
[2018-04-13] MEDS: pantoprazole 40mg Tablet.DR PO SCH (08:05)
[2018-04-13] MEDS: carVEDilol 12.5mg tablet PO SCH ×2 (08:05→20:35)
[2018-04-13] MEDS: busPIRone 15mg tablet PO SCH ×2 (08:05→20:35)
[2018-04-13] MEDS: furosemide 20MG tablet PO SCH ×2 (08:06→20:35)
[2018-04-13] MEDS: acetaZOLAMIDE 250mg tablet PO SCH ×2 (08:06→20:35)
[2018-04-13] MEDS: guaiFENesin ER 600mg tablet PO SCH ×2 (08:06→20:35)
[2018-04-13] MEDS: PARoxetine 20mg tablet PO SCH (08:06)
[2018-04-13] MEDS: multivitamins, therapeutics tablet PO SCH (08:07)
[2018-04-13] MEDS: predniSONE 5mg tablet PO SCH (08:07)
[2018-04-13] MEDS: lisinopril 20mg tablet PO SCH (08:07)
[2018-04-13] MEDS: nystatin 15 GM powder TP SCH ×3 (08:08→20:34)
[2018-04-13 12:21] VITALS: BP 113/66
[2018-04-13 19:00] VITALS: BP 121/81
[2018-04-13] MEDS: cyclobenzaprine 10mg tablet PO PRN (20:35)
[2018-04-13 23:35] VITALS: BP 132/77
[2018-04-14] MEDS: ipratropium/albuterol 3ml nebule IH SCH ×4 (03:41→21:20)
[2018-04-14 04:36] LABS: BASOPHILS % (AUTO) 0.2 % (0-1); EOSINOPHILS # (AUTO) 0.1 X10'3 (0-0.9); HEMATOCRIT 31.4 % (35.0-45.0); HEMOGLOBIN 10.1 g/dl (12.0-16.0); LYMPHOCYTES % (AUTO) 22.5 % (21-51); MEAN CORPUSCULAR HEMOGLOBIN 29.8 PG (27.0-31.0); MEAN CORPUSCULAR VOLUME 93.1 FL (78-98); MEAN PLATELET VOLUME 8.2 FL (7.4-10.4); MONOCYTES # (AUTO) 1.5 X10'3 (0-0.9); MONOCYTES % (AUTO) 16.4 % (2-12); NEUTROPHILS # (AUTO) 5.4 X10'3 (1.8-7.7); NEUTROPHILS % (AUTO) 59.9 % (42-75); PLATELET COUNT 371 X10'3 (140-440); RED BLOOD COUNT 3.38 X10'6 (4.20-5.60); RED CELL DISTRIBUTION WIDTH 18.6 % (11.5-14.5)
[2018-04-14 04:51] LABS: PLATELET ESTIMATE NORMAL
[2018-04-14 04:52] LABS: ANISOCYTOSIS 2+; ELLIPTOCYTES FEW; POLYCHROMASIA FEW; STOMATOCYTES 1+; TEAR DROP CELLS FEW
[2018-04-14 04:56] LABS: ALANINE AMINOTRANSFERASE 35 U/L (12-78); ALBUMIN 2.9 G/DL (3.4-5.0); ALBUMIN/GLOBULIN RATIO 0.9 (1.1-1.5); ALKALINE PHOSPHATASE 110 IU/L (46-116); ASPARTATE AMINO TRANSFERASE 25 U/L (10-37); BILIRUBIN,TOTAL 0.2 MG/DL (0.1-1.0); BLOOD UREA NITROGEN 23 MG/DL (7-18); BUN/CREATININE RATIO 31.9 (6.6-38.0); CALCIUM 9.2 MG/DL (8.5-10.1); CHLORIDE 102 MMOL/L (99-107); CREATININE 0.72 MG/DL (0.40-0.90); GLUCOSE 100 MG/DL (70-104); MAGNESIUM 2.1 MG/DL (1.5-2.4); PHOSPHORUS 3.4 MG/DL (2.3-4.5); POTASSIUM 4.2 MMOL/L (3.5-5.1); TOTAL PROTEIN 6.3 G/DL (6.4-8.2); eGFR 84 ML/MIN
[2018-04-14 05:08] LABS: ANION GAP 1 (8-16); SODIUM 136 MMOL/L (135-145); TOTAL CARBON DIOXIDE 33.2 MMOL/L (24-32)
[2018-04-14] MEDS: traMADol 50MG tablet PO PRN ×3 (05:12→21:30)
[2018-04-14 07:36] VITALS: BP 125/75
[2018-04-14] MEDS: K and/or MAG REPLACEMENT MC SCH (08:00)
[2018-04-14] MEDS: pantoprazole 40mg Tablet.DR PO SCH (08:47)
[2018-04-14] MEDS: busPIRone 15mg tablet PO SCH ×2 (08:48→20:59)
[2018-04-14] MEDS: diltiazem 30mg tablet PO SCH ×3 (08:48→23:44)
[2018-04-14] MEDS: furosemide 20MG tablet PO SCH ×2 (08:49→20:59)
[2018-04-14] MEDS: lactobacillus rhamnosus 10,000 MMU CELLS/CAPSULE PO SCH (08:49)
[2018-04-14] MEDS: guaiFENesin ER 600mg tablet PO SCH ×2 (08:49→20:59)
[2018-04-14] MEDS: carVEDilol 12.5mg tablet PO SCH ×2 (08:49→20:59)
[2018-04-14] MEDS: PARoxetine 20mg tablet PO SCH (08:49)
[2018-04-14] MEDS: acetaZOLAMIDE 250mg tablet PO SCH ×2 (08:49→20:59)
[2018-04-14] MEDS: nystatin 15 GM powder TP SCH ×3 (08:50→20:59)
[2018-04-14] MEDS: lisinopril 20mg tablet PO SCH (08:50)
[2018-04-14] MEDS: multivitamins, therapeutics tablet PO SCH (08:50)
[2018-04-14] MEDS: predniSONE 5mg tablet PO SCH (08:50)
[2018-04-14] MEDS: heparin, porcine 5000 units/ml vial SQ SCH ×2 (08:51→20:59)
[2018-04-14] MEDS: budesonide 0.5mg/2ml UD nebule IH SCH ×2 (09:32→21:20)
[2018-04-14 11:33] VITALS: BP 104/56
[2018-04-14 19:00] VITALS: BP 113/63
[2018-04-14] MEDS: cyclobenzaprine 10mg tablet PO PRN (20:59)
[2018-04-14 23:15] VITALS: BP 112/74
[2018-04-15 06:07] LABS: BASOPHILS % (AUTO) 0.3 % (0-1); EOSINOPHILS % (AUTO) 0.4 % (0-6); HEMATOCRIT 33.1 % (35.0-45.0); HEMOGLOBIN 10.6 g/dl (12.0-16.0); LYMPHOCYTES # (AUTO) 2.5 X10'3 (1.1-4.8); MEAN CORPUSCULAR HEMOGLOBIN 29.7 PG (27.0-31.0); MEAN CORPUSCULAR VOLUME 92.7 FL (78-98); MEAN PLATELET VOLUME 8.3 FL (7.4-10.4); MONOCYTES # (AUTO) 1.6 X10'3 (0-0.9); MONOCYTES % (AUTO) 15.5 % (2-12); NEUTROPHILS # (AUTO) 5.9 X10'3 (1.8-7.7); NEUTROPHILS % (AUTO) 58.8 % (42-75); PLATELET COUNT 409 X10'3 (140-440); RED BLOOD COUNT 3.57 X10'6 (4.20-5.60); RED CELL DISTRIBUTION WIDTH 18.2 % (11.5-14.5)
[2018-04-15 06:22] LABS: ALANINE AMINOTRANSFERASE 35 U/L (12-78); ALBUMIN 3.1 G/DL (3.4-5.0); ALBUMIN/GLOBULIN RATIO 0.9 (1.1-1.5); ALKALINE PHOSPHATASE 115 IU/L (46-116); ANION GAP 2 (8-16); ASPARTATE AMINO TRANSFERASE 25 U/L (10-37); BILIRUBIN,TOTAL 0.2 MG/DL (0.1-1.0); BLOOD UREA NITROGEN 29 MG/DL (7-18); BUN/CREATININE RATIO 31.5 (6.6-38.0); CALCIUM 9.3 MG/DL (8.5-10.1); CHLORIDE 101 MMOL/L (99-107); CREATININE 0.92 MG/DL (0.40-0.90); GLUCOSE 101 MG/DL (70-104); MAGNESIUM 2.1 MG/DL (1.5-2.4); PHOSPHORUS 3.5 MG/DL (2.3-4.5); SODIUM 138 MMOL/L (135-145); TOTAL CARBON DIOXIDE 35.2 MMOL/L (24-32); TOTAL PROTEIN 6.7 G/DL (6.4-8.2); eGFR 64 ML/MIN
[2018-04-15 06:38] LABS: TOTAL CELLS COUNTED 100
[2018-04-15 06:39] LABS: ANISOCYTOSIS 2+; PLATELET ESTIMATE NORMAL
[2018-04-15 07:00] VITALS: BP 115/65
[2018-04-15] MEDS: K and/or MAG REPLACEMENT MC SCH (08:00)
[2018-04-15] MEDS: budesonide 0.5mg/2ml UD nebule IH SCH ×2 (08:06→20:41)
[2018-04-15] MEDS: acetaZOLAMIDE 250mg tablet PO SCH ×2 (08:20→20:35)
[2018-04-15] MEDS: multivitamins, therapeutics tablet PO SCH (08:21)
[2018-04-15] MEDS: predniSONE 5mg tablet PO SCH (08:21)
[2018-04-15] MEDS: lisinopril 20mg tablet PO SCH (08:21)
[2018-04-15] MEDS: diltiazem 30mg tablet PO SCH ×2 (08:21→16:14)
[2018-04-15] MEDS: pantoprazole 40mg Tablet.DR PO SCH (08:22)
[2018-04-15] MEDS: carVEDilol 12.5mg tablet PO SCH ×2 (08:22→20:36)
[2018-04-15] MEDS: busPIRone 15mg tablet PO SCH ×2 (08:22→20:36)
[2018-04-15] MEDS: guaiFENesin ER 600mg tablet PO SCH ×2 (08:22→20:35)
[2018-04-15] MEDS: PARoxetine 20mg tablet PO SCH (08:22)
[2018-04-15] MEDS: furosemide 20MG tablet PO SCH ×2 (08:23→20:36)
[2018-04-15] MEDS: nystatin 15 GM powder TP SCH ×3 (08:23→20:35)
[2018-04-15] MEDS: traMADol 50MG tablet PO PRN ×2 (08:26→19:22)
[2018-04-15] MEDS: lactobacillus rhamnosus 10,000 MMU CELLS/CAPSULE PO SCH (08:26)
[2018-04-15] MEDS: heparin, porcine 5000 units/ml vial SQ SCH ×2 (08:27→20:36)
[2018-04-15 11:00] VITALS: BP_SYST 112; BP_SYST 96; BP_DIAS 52; BP_DIAS 54
[2018-04-15] MEDS: ipratropium/albuterol 3ml nebule IH SCH ×2 (14:25→20:41)
[2018-04-15 19:15] VITALS: BP 121/72
[2018-04-15] MEDS: cyclobenzaprine 10mg tablet PO PRN (20:38)
[2018-04-16] VITALS: BP 109/59
[2018-04-16] MEDS: diltiazem 30mg tablet PO SCH ×3 (00:15→17:02)
[2018-04-16] MEDS: ipratropium/albuterol 3ml nebule IH SCH ×4 (02:29→20:19)
[2018-04-16] MEDS: traMADol 50MG tablet PO PRN ×3 (03:50→18:47)
[2018-04-16 05:33] LABS: BASOPHILS % (AUTO) 0.2 % (0-1); EOSINOPHILS # (AUTO) 0.1 X10'3 (0-0.9); EOSINOPHILS % (AUTO) 0.6 % (0-6); HEMATOCRIT 33.1 % (35.0-45.0); HEMOGLOBIN 10.7 g/dl (12.0-16.0); LYMPHOCYTES # (AUTO) 2.5 X10'3 (1.1-4.8); LYMPHOCYTES % (AUTO) 22.3 % (21-51); MEAN CORPUSCULAR HEMOGLOBIN 29.7 PG (27.0-31.0); MEAN CORPUSCULAR HGB CONC 32.2 % (33.0-36.5); MEAN CORPUSCULAR VOLUME 92.2 FL (78-98); MEAN PLATELET VOLUME 8.5 FL (7.4-10.4); MONOCYTES # (AUTO) 1.4 X10'3 (0-0.9); MONOCYTES % (AUTO) 12.2 % (2-12); NEUTROPHILS # (AUTO) 7.3 X10'3 (1.8-7.7); NEUTROPHILS % (AUTO) 64.7 % (42-75); PLATELET COUNT 435 X10'3 (140-440); RED BLOOD COUNT 3.59 X10'6 (4.20-5.60); RED CELL DISTRIBUTION WIDTH 18.2 % (11.5-14.5); WHITE BLOOD COUNT 11.3 X10'3 (4.5-11.0)
[2018-04-16 06:08] LABS: ALANINE AMINOTRANSFERASE 37 U/L (12-78); ALBUMIN 3.1 G/DL (3.4-5.0); ALBUMIN/GLOBULIN RATIO 0.8 (1.1-1.5); ALKALINE PHOSPHATASE 125 IU/L (46-116); ANION GAP 5 (8-16); BILIRUBIN,TOTAL 0.2 MG/DL (0.1-1.0); BLOOD UREA NITROGEN 32 MG/DL (7-18); CALCIUM 9.4 MG/DL (8.5-10.1); CHLORIDE 100 MMOL/L (99-107); CREATININE 0.89 MG/DL (0.40-0.90); GLUCOSE 94 MG/DL (70-104); MAGNESIUM 2.2 MG/DL (1.5-2.4); SODIUM 138 MMOL/L (135-145); TOTAL CARBON DIOXIDE 32.8 MMOL/L (24-32); TOTAL PROTEIN 6.9 G/DL (6.4-8.2); eGFR 66 ML/MIN
[2018-04-16 06:10] LABS: ASPARTATE AMINO TRANSFERASE 39 U/L (10-37); PHOSPHORUS 3.8 MG/DL (2.3-4.5); POTASSIUM 4.5 MMOL/L (3.5-5.1)
[2018-04-16 07:00] VITALS: BP 126/64
[2018-04-16] MEDS: budesonide 0.5mg/2ml UD nebule IH SCH ×2 (07:25→20:19)
[2018-04-16] MEDS: K and/or MAG REPLACEMENT MC SCH (08:00)
[2018-04-16] MEDS: nystatin 15 GM powder TP SCH ×3 (09:05→21:07)
[2018-04-16] MEDS: heparin, porcine 5000 units/ml vial SQ SCH ×2 (09:06→20:53)
[2018-04-16] MEDS: guaiFENesin ER 600mg tablet PO SCH ×2 (09:07→20:52)
[2018-04-16] MEDS: predniSONE 5mg tablet PO SCH (09:07)
[2018-04-16] MEDS: lisinopril 20mg tablet PO SCH (09:08)
[2018-04-16] MEDS: carVEDilol 12.5mg tablet PO SCH (09:08)
[2018-04-16] MEDS: acetaZOLAMIDE 250mg tablet PO SCH (09:08)
[2018-04-16] MEDS: multivitamins, therapeutics tablet PO SCH (09:08)
[2018-04-16] MEDS: busPIRone 15mg tablet PO SCH ×2 (09:08→20:53)
[2018-04-16] MEDS: furosemide 20MG tablet PO SCH (09:09)
[2018-04-16] MEDS: PARoxetine 20mg tablet PO SCH (09:09)
[2018-04-16] MEDS: lactobacillus rhamnosus 10,000 MMU CELLS/CAPSULE PO SCH (09:09)
[2018-04-16] MEDS: pantoprazole 40mg Tablet.DR PO SCH (09:10)
[2018-04-16 11:00] VITALS: BP 95/59
[2018-04-16 12:15] LABS: MYELOCYTES % (MANUAL) 1 % (0-0); TOTAL CELLS COUNTED 100
[2018-04-16 12:21] LABS: PLATELET ESTIMATE NORMAL
[2018-04-16 12:22] LABS: ANISOCYTOSIS 2+
[2018-04-16 12:23] LABS: POLYCHROMASIA 1+
[2018-04-16 19:30] VITALS: BP 109/59
[2018-04-16] MEDS: carVEDilol 3.125mg tablet PO SCH (20:52)
[2018-04-17] VITALS: BP 111/61
[2018-04-17 01:25] VITALS: BP 108/65
[2018-04-17] MEDS: diltiazem 30mg tablet PO SCH ×3 (01:25→15:41)
[2018-04-17] MEDS: traMADol 50MG tablet PO PRN ×4 (01:26→22:55)
[2018-04-17] MEDS: cyclobenzaprine 10mg tablet PO PRN ×2 (02:32→22:55)
[2018-04-17] MEDS: ipratropium/albuterol 3ml nebule IH SCH ×4 (03:12→19:44)
[2018-04-17 05:55] LABS: BASOPHILS % (AUTO) 0.1 % (0-1); EOSINOPHILS # (AUTO) 0.1 X10'3 (0-0.9); EOSINOPHILS % (AUTO) 0.4 % (0-6); HEMATOCRIT 31.4 % (35.0-45.0); LYMPHOCYTES # (AUTO) 2.8 X10'3 (1.1-4.8); MEAN CORPUSCULAR HEMOGLOBIN 29.1 PG (27.0-31.0); MEAN CORPUSCULAR HGB CONC 31.8 % (33.0-36.5); MEAN CORPUSCULAR VOLUME 91.6 FL (78-98); MEAN PLATELET VOLUME 7.9 FL (7.4-10.4); MONOCYTES # (AUTO) 1.6 X10'3 (0-0.9); MONOCYTES % (AUTO) 13.3 % (2-12); NEUTROPHILS # (AUTO) 7.7 X10'3 (1.8-7.7); NEUTROPHILS % (AUTO) 63.2 % (42-75); PLATELET COUNT 394 X10'3 (140-440); RED BLOOD COUNT 3.43 X10'6 (4.20-5.60); RED CELL DISTRIBUTION WIDTH 18.3 % (11.5-14.5); WHITE BLOOD COUNT 12.1 X10'3 (4.5-11.0)
[2018-04-17 06:13] LABS: ALANINE AMINOTRANSFERASE 36 U/L (12-78); ALBUMIN/GLOBULIN RATIO 0.9 (1.1-1.5); ALKALINE PHOSPHATASE 113 IU/L (46-116); ANION GAP 3 (8-16); ASPARTATE AMINO TRANSFERASE 27 U/L (10-37); BILIRUBIN,TOTAL 0.2 MG/DL (0.1-1.0); BLOOD UREA NITROGEN 34 MG/DL (7-18); BUN/CREATININE RATIO 44.2 (6.6-38.0); CALCIUM 9.1 MG/DL (8.5-10.1); CHLORIDE 101 MMOL/L (99-107); CREATININE 0.77 MG/DL (0.40-0.90); GLUCOSE 109 MG/DL (70-104); MAGNESIUM 2.2 MG/DL (1.5-2.4); PHOSPHORUS 3.7 MG/DL (2.3-4.5); POTASSIUM 4.4 MMOL/L (3.5-5.1); SODIUM 137 MMOL/L (135-145); TOTAL CARBON DIOXIDE 33.5 MMOL/L (24-32); TOTAL PROTEIN 6.5 G/DL (6.4-8.2); eGFR 78 ML/MIN
[2018-04-17 07:06] VITALS: BP 112/71
[2018-04-17 07:16] LABS: ANISOCYTOSIS 1+; PLATELET ESTIMATE NORMAL; POLYCHROMASIA 1+
[2018-04-17 07:17] LABS: POIKILOCYTOSIS 1+
[2018-04-17] MEDS: budesonide 0.5mg/2ml UD nebule IH SCH ×2 (07:24→19:44)
[2018-04-17] MEDS: K and/or MAG REPLACEMENT MC SCH (08:00)
[2018-04-17] MEDS: multivitamins, therapeutics tablet PO SCH (08:26)
[2018-04-17] MEDS: pantoprazole 40mg Tablet.DR PO SCH (08:27)
[2018-04-17] MEDS: carVEDilol 3.125mg tablet PO SCH ×2 (08:27→20:34)
[2018-04-17] MEDS: PARoxetine 20mg tablet PO SCH (08:27)
[2018-04-17] MEDS: guaiFENesin ER 600mg tablet PO SCH ×2 (08:27→20:32)
[2018-04-17] MEDS: lisinopril 10 MG tablet PO SCH (08:27)
[2018-04-17] MEDS: lactobacillus rhamnosus 10,000 MMU CELLS/CAPSULE PO SCH (08:27)
[2018-04-17] MEDS: heparin, porcine 5000 units/ml vial SQ SCH ×2 (08:28→20:32)
[2018-04-17] MEDS: nystatin 15 GM powder TP SCH ×3 (08:28→20:41)
[2018-04-17] MEDS: busPIRone 15mg tablet PO SCH ×2 (08:28→20:33)
[2018-04-17] MEDS ORDERED: predniSONE 5mg tablet PO SCH (08:30)
[2018-04-17 11:00] VITALS: BP 112/66
[2018-04-17 20:00] VITALS: BP 106/68
[2018-04-17 20:30] VITALS: BP 112/65
[2018-04-17 23:34] LABS: CLARITY,URINE CLEAR (Clear); COLOR,URINE STRAW (Yellow); GLUCOSE, URINE NEGATIVE (Neg); KETONES,URINE NEGATIVE (Neg); LEUKOCYTE ESTERASE ,URINE NEGATIVE (Neg); NITRITES, URINE NEGATIVE (Neg); OCCULT BLOOD,URINE NEGATIVE (Neg); PROTEIN,URINE NEGATIVE (Neg); UROBILINOGEN,URINE 0.2 E.U/dL (0.2-1.0)
[2018-04-17 23:36] LABS: UA COLLECTION TYPE NON-SPECIFIED
[2018-04-18] VITALS: BP 107/64
[2018-04-18] MEDS: diltiazem 30mg tablet PO SCH ×2 (00:01→08:20)
[2018-04-18] MEDS: ipratropium/albuterol 3ml nebule IH SCH ×2 (02:51→07:12)
[2018-04-18] MEDS: traMADol 50MG tablet PO PRN ×2 (05:22→13:32)
[2018-04-18 05:50] LABS: BASOPHILS % (AUTO) 0 % (0-1); EOSINOPHILS # (AUTO) 0.2 X10'3 (0-0.9); EOSINOPHILS % (AUTO) 1.3 % (0-6); HEMOGLOBIN 10.6 g/dl (12.0-16.0); LYMPHOCYTES # (AUTO) 2.7 X10'3 (1.1-4.8); LYMPHOCYTES % (AUTO) 21.5 % (21-51); MEAN CORPUSCULAR HEMOGLOBIN 29.6 PG (27.0-31.0); MEAN CORPUSCULAR HGB CONC 32.1 % (33.0-36.5); MEAN CORPUSCULAR VOLUME 92.3 FL (78-98); MONOCYTES # (AUTO) 1.3 X10'3 (0-0.9); NEUTROPHILS # (AUTO) 8.4 X10'3 (1.8-7.7); NEUTROPHILS % (AUTO) 67.2 % (42-75); PLATELET COUNT 455 X10'3 (140-440); RED BLOOD COUNT 3.58 X10'6 (4.20-5.60); WHITE BLOOD COUNT 12.6 X10'3 (4.5-11.0)
[2018-04-18 06:29] LABS: ALANINE AMINOTRANSFERASE 40 U/L (12-78); ALBUMIN 3.3 G/DL (3.4-5.0); ALBUMIN/GLOBULIN RATIO 0.9 (1.1-1.5); ALKALINE PHOSPHATASE 112 IU/L (46-116); ANION GAP 3 (8-16); ASPARTATE AMINO TRANSFERASE 32 U/L (10-37); BILIRUBIN,TOTAL 0.2 MG/DL (0.1-1.0); BLOOD UREA NITROGEN 30 MG/DL (7-18); BUN/CREATININE RATIO 36.1 (6.6-38.0); CALCIUM 9.3 MG/DL (8.5-10.1); CHLORIDE 102 MMOL/L (99-107); CREATININE 0.83 MG/DL (0.40-0.90); GLUCOSE 97 MG/DL (70-104); POTASSIUM 5.1 MMOL/L (3.5-5.1); SODIUM 138 MMOL/L (135-145); TOTAL CARBON DIOXIDE 32.6 MMOL/L (24-32); TOTAL PROTEIN 6.9 G/DL (6.4-8.2); eGFR 72 ML/MIN
[2018-04-18 07:09] VITALS: BP 128/77
[2018-04-18] MEDS: budesonide 0.5mg/2ml UD nebule IH SCH (07:12)
[2018-04-18] MEDS: K and/or MAG REPLACEMENT MC SCH (08:00)
[2018-04-18] MEDS: nystatin 15 GM powder TP SCH ×2 (08:19→12:53)
[2018-04-18] MEDS: heparin, porcine 5000 units/ml vial SQ SCH (08:19)
[2018-04-18] MEDS: pantoprazole 40mg Tablet.DR PO SCH (08:19)
[2018-04-18] MEDS: carVEDilol 3.125mg tablet PO SCH (08:20)
[2018-04-18] MEDS: busPIRone 15mg tablet PO SCH (08:20)
[2018-04-18] MEDS: lactobacillus rhamnosus 10,000 MMU CELLS/CAPSULE PO SCH (08:20)
[2018-04-18] MEDS: PARoxetine 20mg tablet PO SCH (08:20)
[2018-04-18] MEDS: lisinopril 10 MG tablet PO SCH (08:20)
[2018-04-18] MEDS: multivitamins, therapeutics tablet PO SCH (08:20)
[2018-04-18] MEDS: guaiFENesin ER 600mg tablet PO SCH (08:20)
[2018-04-18 10:39] LABS: ANISOCYTOSIS 2+; PLATELET ESTIMATE INCREASED
[2018-04-18 10:40] LABS: POIKILOCYTOSIS 1+; POLYCHROMASIA 1+; STOMATOCYTES 1+
[2018-04-18 11:30] VITALS: BP 123/69
[2018-04-18] MEDS ORDERED: COR3.125T PO (11:32)
[2018-04-18] MEDS ORDERED: LISI10TA4 PO (11:32)
[2018-04-18] MEDS ORDERED: TRAM50TA2 PO (11:36)
[2018-04-19] MEDS ORDERED: LEVO500T2 PO (10:45)
[2018-04-19] MEDS ORDERED: PRED20TA PO (10:45)
== END 2018-04-18 16:34 | disposition home or self-care (01) | DRG 140 ==
LOC: ER 09:04 → ED HOLD 14:17 → SUR 3N 18:40
PROVIDERS: ADMIT Family Medicine; ATTEND Internal Medicine
DX: J44.1 Chronic obstructive pulmonary disease with (acute) exacerbation (principal); E87.3 Alkalosis; I27.21 Secondary pulmonary arterial hypertension; I11.0 Hypertensive heart disease with heart failure; I50.30 Unspecified diastolic (congestive) heart failure; I25.10 Atherosclerotic heart disease of native coronary artery without angina pectoris; I27.81 Cor pulmonale (chronic); R62.7 Adult failure to thrive; D72.829 Elevated white blood cell count, unspecified; F32.9 Major depressive disorder, single episode, unspecified; G89.29 Other chronic pain; M54.9 Dorsalgia, unspecified; Z88.5 Allergy status to narcotic agent; Z88.8 Allergy status to other drugs, medicaments and biological substances; Z79.899 Other long term (current) drug therapy; Z79.2 Long term (current) use of antibiotics; Z90.710 Acquired absence of both cervix and uterus; Z90.49 Acquired absence of other specified parts of digestive tract; Z83.6 Family history of other diseases of the respiratory system; Z80.9 Family history of malignant neoplasm, unspecified; I25.2 Old myocardial infarction; Z91.19 Patient's noncompliance with other medical treatment and regimen; Z86.19 Personal history of other infectious and parasitic diseases
CPT/HCPCS: 36415; 71045; 80053; 81001; 81003; 83605; 83735; 83880; 84100; 85025; 87040; 87070; 87077; 87088; 87186; 94640; 94667; 94668; 94760; 97110; 97116; 97161; 97530; 99285; A6212; A6213; A6250; J1644; J1885; J7512; J7626

== ENCOUNTER 2018-04-18 17:50 | Emergency (ER) | payer MEDICAID ==
[~2018-04-18] VITALS: Ht 162.6 cm; Wt 54.0 kg
[~2018-04-18 17:50] MED LIST changes: +COR3.125T PO; +LACTC PO; +LISI10TA4 PO; +TRAM50TA2 PO; +VANC1VIA21 PO
[2018-04-18] MEDS ORDERED: carVEDilol 3.125mg tablet PO ONE (19:15)
[2018-04-18] MEDS ORDERED: busPIRone 5mg tablet PO ONE (19:45)
[2018-04-18] MEDS ORDERED: diltiazem 30mg tablet PO ONE (19:45)
[2018-04-18 23:00] VITALS: BP 113/74
[2018-04-19] MEDS ORDERED: LEVO500T2 PO (10:45)
[2018-04-19] MEDS ORDERED: PRED20TA PO (10:45)
== END 2018-04-18 23:30 | disposition home or self-care (01) ==
LOC: ER 17:50
DX: R53.1 Weakness (principal); I25.10 Atherosclerotic heart disease of native coronary artery without angina pectoris; I50.9 Heart failure, unspecified; I11.0 Hypertensive heart disease with heart failure; I25.2 Old myocardial infarction; J44.9 Chronic obstructive pulmonary disease, unspecified; G89.29 Other chronic pain; Z90.49 Acquired absence of other specified parts of digestive tract; Z90.710 Acquired absence of both cervix and uterus; Z98.890 Other specified postprocedural states; Z88.5 Allergy status to narcotic agent; Z79.899 Other long term (current) drug therapy; Z79.2 Long term (current) use of antibiotics
CPT/HCPCS: 99284

== ENCOUNTER 2018-04-19 08:51 | Inpatient (IN) | payer MEDICAID ==
[~2018-04-19] VITALS: Ht 162.6 cm; Wt 52.0 kg
[~2018-04-19 08:51] MED LIST changes: -ACET250T3 PO; -CARV-50 PO; -FURO20TA4 PO; -LACT1CAP26 PO; -LISI40TA4 PO; -POTA10TA15 PO; -PRED20TA PO; -UMEC1DIS PO; -VANC125C4 PO; -VANC1VIA21 PO
[2018-04-19] MEDS ORDERED: ipratropium/albuterol 3ml nebule NEB ONE (09:00)
[2018-04-19] MEDS ORDERED: methylPREDNISolone sod succ 125mg/2ml vial IV ONE (09:00)
[2018-04-19 09:42] LABS: BASOPHILS % (AUTO) 0.2 % (0-1); EOSINOPHILS # (AUTO) 0.2 X10'3 (0-0.9); EOSINOPHILS % (AUTO) 1.3 % (0-6); HEMATOCRIT 36.3 % (35.0-45.0); HEMOGLOBIN 11.9 g/dl (12.0-16.0); LYMPHOCYTES # (AUTO) 3.1 X10'3 (1.1-4.8); LYMPHOCYTES % (AUTO) 17.3 % (21-51); MEAN CORPUSCULAR HEMOGLOBIN 30.1 PG (27.0-31.0); MEAN CORPUSCULAR HGB CONC 32.9 % (33.0-36.5); MEAN CORPUSCULAR VOLUME 91.4 FL (78-98); MEAN PLATELET VOLUME 8.1 FL (7.4-10.4); MONOCYTES # (AUTO) 1.7 X10'3 (0-0.9); MONOCYTES % (AUTO) 9.3 % (2-12); NEUTROPHILS # (AUTO) 12.8 X10'3 (1.8-7.7); NEUTROPHILS % (AUTO) 71.9 % (42-75); PLATELET COUNT 440 X10'3 (140-440); RED BLOOD COUNT 3.97 X10'6 (4.20-5.60); RED CELL DISTRIBUTION WIDTH 17.5 % (11.5-14.5); WHITE BLOOD COUNT 17.8 X10'3 (4.5-11.0)
[2018-04-19] MEDS: magnesium 1gm/100ml D5W IVPB 100 ML IV SCH ×2 (09:48→11:10)
[2018-04-19 09:55] LABS: D-DIMER 1.14 MG/L FEU (0-0.50); PROTHROMBIN TIME 9.9 SECONDS (9.0-12.0)
[2018-04-19 09:59] LABS: ALANINE AMINOTRANSFERASE 44 U/L (12-78); ALBUMIN 3.8 G/DL (3.4-5.0); ALBUMIN/GLOBULIN RATIO 0.9 (1.1-1.5); ALKALINE PHOSPHATASE 138 IU/L (46-116); ANION GAP 7 (8-16); ASPARTATE AMINO TRANSFERASE 32 U/L (10-37); BILIRUBIN,TOTAL 0.2 MG/DL (0.1-1.0); BLOOD UREA NITROGEN 31 MG/DL (7-18); BUN/CREATININE RATIO 35.6 (6.6-38.0); CALCIUM 9.6 MG/DL (8.5-10.1); CHLORIDE 100 MMOL/L (99-107); CREATININE 0.87 MG/DL (0.40-0.90); GLUCOSE 132 MG/DL (70-104); POTASSIUM 4.9 MMOL/L (3.5-5.1); SODIUM 138 MMOL/L (135-145); TOTAL CARBON DIOXIDE 30.7 MMOL/L (24-32); TOTAL PROTEIN 7.9 G/DL (6.4-8.2); eGFR 68 ML/MIN
[2018-04-19 10:44] LABS: TOTAL CELLS COUNTED 100
[2018-04-19] MEDS ORDERED: LEVO500T2 PO (10:45)
[2018-04-19] MEDS ORDERED: PRED20TA PO (10:45)
[2018-04-19 10:46] LABS: ANISOCYTOSIS 2+; PLATELET ESTIMATE NORMAL; POLYCHROMASIA 1+; TOXIC GRANULATION 1+
[2018-04-19] MEDS ORDERED: potassium Cl 40MEQ/NS 500ml 500 ML IV PRN ×2 (14:10)
[2018-04-19] MEDS ORDERED: magnesium 1gm/100ml D5W IVPB 100 ML IV PRN (14:10)
[2018-04-19] MEDS ORDERED: magnesium 4gm in 100ml NS 100 ML IV PRN (14:10)
[2018-04-19] MEDS ORDERED: potassium Cl 20 mEq SR tablet PO PRN ×2 (14:10)
[2018-04-19] MEDS ORDERED: magnesium Cl slow-release 64mg tablet PO PRN (14:10)
[2018-04-19 15:35] VITALS: BP 141/76
[2018-04-19] MEDS ORDERED: non-formulary drug (Albuterol Sulfate (Ventolin Hfa) 2 PUFFS) INH SCH (16:05)
[2018-04-19 18:00] VITALS: BP 132/80
[2018-04-19] MEDS: traMADol 50MG tablet PO PRN (19:02)
[2018-04-19] MEDS: ipratropium/albuterol 3ml nebule IH PRN (19:15)
[2018-04-19] MEDS: budesonide 0.5mg/2ml UD nebule IH SCH (19:15)
[2018-04-19] MEDS ORDERED: BUSPIRONE HCL 7.5 MG PO SCH (20:00)
[2018-04-19] MEDS: guaiFENesin ER 600mg tablet PO SCH (20:40)
[2018-04-19] MEDS: carVEDilol 3.125mg tablet PO SCH ×2 (20:40→23:53)
[2018-04-19] MEDS: busPIRone 15mg tablet PO SCH (20:41)
[2018-04-19] MEDS: nystatin 15 GM powder TP SCH (20:41)
[2018-04-19] MEDS: ALPRAZolam 0.25mg tablet PO PRN (21:41)
[2018-04-19 22:00] VITALS: BP 123/71
[2018-04-19] MEDS: albuterol 2.5 MG/3 ML nebule NEB PRN (23:19)
[2018-04-19] MEDS: cyclobenzaprine 10mg tablet PO PRN (23:54)
[2018-04-19] MEDS: diltiazem 30mg tablet PO SCH (23:54)
[2018-04-20] MEDS: diltiazem 30mg tablet PO SCH ×4 (01:36→23:58)
[2018-04-20] MEDS: traMADol 50MG tablet PO PRN ×2 (05:39→17:21)
[2018-04-20 06:36] LABS: BASOPHILS % (AUTO) 0 % (0-1); EOSINOPHILS # (AUTO) 0.3 X10'3 (0-0.9); EOSINOPHILS % (AUTO) 1.7 % (0-6); HEMATOCRIT 29.9 % (35.0-45.0); HEMOGLOBIN 9.8 g/dl (12.0-16.0); LYMPHOCYTES # (AUTO) 1.4 X10'3 (1.1-4.8); LYMPHOCYTES % (AUTO) 8.1 % (21-51); MEAN CORPUSCULAR HEMOGLOBIN 29.6 PG (27.0-31.0); MEAN CORPUSCULAR HGB CONC 32.9 % (33.0-36.5); MEAN CORPUSCULAR VOLUME 90.1 FL (78-98); MEAN PLATELET VOLUME 7.6 FL (7.4-10.4); MONOCYTES # (AUTO) 1.2 X10'3 (0-0.9); MONOCYTES % (AUTO) 6.8 % (2-12); NEUTROPHILS # (AUTO) 14.2 X10'3 (1.8-7.7); NEUTROPHILS % (AUTO) 83.4 % (42-75); PLATELET COUNT 386 X10'3 (140-440); RED BLOOD COUNT 3.32 X10'6 (4.20-5.60); RED CELL DISTRIBUTION WIDTH 17.3 % (11.5-14.5); WHITE BLOOD COUNT 17.1 X10'3 (4.5-11.0)
[2018-04-20 06:54] LABS: ALBUMIN 3.3 G/DL (3.4-5.0); ANION GAP 4 (8-16); BLOOD UREA NITROGEN 31 MG/DL (7-18); BUN/CREATININE RATIO 40.8 (6.6-38.0); CALCIUM 9.7 MG/DL (8.5-10.1); CHLORIDE 100 MMOL/L (99-107); CREATININE 0.76 MG/DL (0.40-0.90); GLUCOSE 135 MG/DL (70-104); MAGNESIUM 2.2 MG/DL (1.5-2.4); POTASSIUM 5.5 MMOL/L (3.5-5.1); SODIUM 136 MMOL/L (135-145); TOTAL CARBON DIOXIDE 32.1 MMOL/L (24-32); eGFR 79 ML/MIN
[2018-04-20 07:00] VITALS: BP 130/81
[2018-04-20] MEDS: budesonide 0.5mg/2ml UD nebule IH SCH ×2 (07:11→21:05)
[2018-04-20] MEDS: K and/or MAG REPLACEMENT MC SCH (07:15)
[2018-04-20] MEDS: ALPRAZolam 0.25mg tablet PO PRN ×2 (07:49→20:18)
[2018-04-20] MEDS: levoFLOXACIN 500mg tablet PO SCH (07:49)
[2018-04-20] MEDS: nystatin 15 GM powder TP SCH ×3 (07:49→20:19)
[2018-04-20] MEDS: multivitamins, therapeutics tablet PO SCH (07:49)
[2018-04-20] MEDS: pantoprazole 40mg Tablet.DR PO SCH (07:49)
[2018-04-20] MEDS: lisinopril 10 MG tablet PO SCH (07:49)
[2018-04-20] MEDS: lactobacillus rhamnosus 10,000 MMU CELLS/CAPSULE PO SCH (07:49)
[2018-04-20] MEDS: PARoxetine 20mg tablet PO SCH (07:50)
[2018-04-20] MEDS: guaiFENesin ER 600mg tablet PO SCH ×2 (07:50→20:18)
[2018-04-20] MEDS: enoxaparin 40mg/0.4ml syringe SUBCUT SCH (07:50)
[2018-04-20] MEDS: busPIRone 15mg tablet PO SCH ×2 (07:51→20:18)
[2018-04-20] MEDS ORDERED: non-formulary drug (Lactobacillus Acidophilus (ACIDOPHILUS capsule) 1 CAP) PO SCH (08:00)
[2018-04-20] MEDS ORDERED: IRON PO SCH (08:00)
[2018-04-20] MEDS ORDERED: [UNRECOGNIZED DRUG - OTHER] PO SCH (08:00)
[2018-04-20] MEDS ORDERED: non-formulary drug (Omeprazole 1 CAP) PO SCH (08:00)
[2018-04-20] MEDS ORDERED: MULTIVITS CA MINERALS PO SCH (08:00)
[2018-04-20 11:32] VITALS: BP 123/63
[2018-04-20] MEDS ORDERED: sodium polystyrene sulfonate 15gm/60ml oral suspension PO ONE (15:15)
[2018-04-20 18:00] VITALS: BP 131/52
[2018-04-20] MEDS: carVEDilol 3.125mg tablet PO SCH (20:18)
[2018-04-20] MEDS: ipratropium/albuterol 3ml nebule IH PRN (21:05)
[2018-04-20 22:00] VITALS: BP 128/73
[2018-04-21] MEDS: cyclobenzaprine 10mg tablet PO PRN ×2 (00:01→15:52)
[2018-04-21 06:14] LABS: BASOPHILS % (AUTO) 0 % (0-1); EOSINOPHILS # (AUTO) 0.2 X10'3 (0-0.9); EOSINOPHILS % (AUTO) 1.2 % (0-6); HEMATOCRIT 27.7 % (35.0-45.0); HEMOGLOBIN 9.2 g/dl (12.0-16.0); LYMPHOCYTES # (AUTO) 2.4 X10'3 (1.1-4.8); LYMPHOCYTES % (AUTO) 14.7 % (21-51); MEAN CORPUSCULAR HEMOGLOBIN 29.8 PG (27.0-31.0); MEAN CORPUSCULAR HGB CONC 33.1 % (33.0-36.5); MEAN CORPUSCULAR VOLUME 90.3 FL (78-98); MONOCYTES # (AUTO) 1.7 X10'3 (0-0.9); MONOCYTES % (AUTO) 10.2 % (2-12); NEUTROPHILS % (AUTO) 73.9 % (42-75); PLATELET COUNT 338 X10'3 (140-440); RED BLOOD COUNT 3.07 X10'6 (4.20-5.60); RED CELL DISTRIBUTION WIDTH 17.4 % (11.5-14.5); WHITE BLOOD COUNT 16.2 X10'3 (4.5-11.0)
[2018-04-21 06:28] LABS: ANION GAP 3 (8-16); BLOOD UREA NITROGEN 27 MG/DL (7-18); BUN/CREATININE RATIO 42.2 (6.6-38.0); CALCIUM 9.1 MG/DL (8.5-10.1); CHLORIDE 101 MMOL/L (99-107); CREATININE 0.64 MG/DL (0.40-0.90); GLUCOSE 81 MG/DL (70-104); MAGNESIUM 1.9 MG/DL (1.5-2.4); POTASSIUM 4.6 MMOL/L (3.5-5.1); SODIUM 138 MMOL/L (135-145); TOTAL CARBON DIOXIDE 34.1 MMOL/L (24-32); eGFR > 90 ML/MIN
[2018-04-21 07:14] LABS: ANISOCYTOSIS 1+; PLATELET ESTIMATE NORMAL; TOTAL CELLS COUNTED 100
[2018-04-21 07:20] VITALS: BP 143/70
[2018-04-21] MEDS: PARoxetine 20mg tablet PO SCH (07:50)
[2018-04-21] MEDS: lactobacillus rhamnosus 10,000 MMU CELLS/CAPSULE PO SCH (07:50)
[2018-04-21] MEDS: traMADol 50MG tablet PO PRN ×3 (07:50→20:31)
[2018-04-21] MEDS: guaiFENesin ER 600mg tablet PO SCH ×2 (07:50→20:04)
[2018-04-21] MEDS: ALPRAZolam 0.25mg tablet PO PRN ×2 (07:50→20:04)
[2018-04-21] MEDS: carVEDilol 3.125mg tablet PO SCH ×2 (07:50→20:03)
[2018-04-21] MEDS: busPIRone 15mg tablet PO SCH ×2 (07:51→20:04)
[2018-04-21] MEDS: multivitamins, therapeutics tablet PO SCH (07:51)
[2018-04-21] MEDS: pantoprazole 40mg Tablet.DR PO SCH (07:51)
[2018-04-21] MEDS: diltiazem 30mg tablet PO SCH ×2 (07:51→15:52)
[2018-04-21] MEDS: lisinopril 10 MG tablet PO SCH (07:51)
[2018-04-21] MEDS: levoFLOXACIN 500mg tablet PO SCH (07:51)
[2018-04-21] MEDS: nystatin 15 GM powder TP SCH ×3 (07:52→20:05)
[2018-04-21] MEDS: enoxaparin 40mg/0.4ml syringe SUBCUT SCH (07:52)
[2018-04-21] MEDS: budesonide 0.5mg/2ml UD nebule IH SCH ×2 (07:55→21:16)
[2018-04-21] MEDS: ipratropium/albuterol 3ml nebule IH PRN ×2 (07:55→21:16)
[2018-04-21] MEDS: K and/or MAG REPLACEMENT MC SCH (07:57)
[2018-04-21 10:43] VITALS: BP 114/60
[2018-04-21 18:00] VITALS: BP 109/63
[2018-04-21 22:00] VITALS: BP 112/60
[2018-04-22] MEDS: diltiazem 30mg tablet PO SCH ×3 (00:19→16:19)
[2018-04-22] MEDS: traMADol 50MG tablet PO PRN ×3 (04:59→17:46)
[2018-04-22 06:00] VITALS: BP 134/70
[2018-04-22 06:09] LABS: BASOPHILS % (AUTO) 0.3 % (0-1); EOSINOPHILS # (AUTO) 0.2 X10'3 (0-0.9); EOSINOPHILS % (AUTO) 1.7 % (0-6); HEMATOCRIT 29.8 % (35.0-45.0); HEMOGLOBIN 9.9 g/dl (12.0-16.0); LYMPHOCYTES # (AUTO) 2.7 X10'3 (1.1-4.8); LYMPHOCYTES % (AUTO) 18.8 % (21-51); MEAN CORPUSCULAR HEMOGLOBIN 30.6 PG (27.0-31.0); MEAN CORPUSCULAR HGB CONC 33.4 % (33.0-36.5); MEAN CORPUSCULAR VOLUME 91.5 FL (78-98); MEAN PLATELET VOLUME 8.1 FL (7.4-10.4); MONOCYTES # (AUTO) 1.6 X10'3 (0-0.9); MONOCYTES % (AUTO) 11.5 % (2-12); NEUTROPHILS # (AUTO) 9.7 X10'3 (1.8-7.7); NEUTROPHILS % (AUTO) 67.7 % (42-75); PLATELET COUNT 327 X10'3 (140-440); RED BLOOD COUNT 3.26 X10'6 (4.20-5.60); RED CELL DISTRIBUTION WIDTH 17.6 % (11.5-14.5); WHITE BLOOD COUNT 14.4 X10'3 (4.5-11.0)
[2018-04-22 06:21] LABS: ANION GAP 2 (8-16); BLOOD UREA NITROGEN 22 MG/DL (7-18); BUN/CREATININE RATIO 28.2 (6.6-38.0); CALCIUM 9.1 MG/DL (8.5-10.1); CHLORIDE 101 MMOL/L (99-107); CREATININE 0.78 MG/DL (0.40-0.90); GLUCOSE 93 MG/DL (70-104); MAGNESIUM 1.8 MG/DL (1.5-2.4); POTASSIUM 4.6 MMOL/L (3.5-5.1); SODIUM 139 MMOL/L (135-145); TOTAL CARBON DIOXIDE 36.4 MMOL/L (24-32); eGFR 77 ML/MIN
[2018-04-22] MEDS: budesonide 0.5mg/2ml UD nebule IH SCH ×2 (07:36→20:53)
[2018-04-22] MEDS: K and/or MAG REPLACEMENT MC SCH (08:00)
[2018-04-22] MEDS: multivitamins, therapeutics tablet PO SCH (08:41)
[2018-04-22] MEDS: lactobacillus rhamnosus 10,000 MMU CELLS/CAPSULE PO SCH (08:41)
[2018-04-22] MEDS: PARoxetine 20mg tablet PO SCH (08:42)
[2018-04-22] MEDS: lisinopril 10 MG tablet PO SCH (08:42)
[2018-04-22] MEDS: busPIRone 15mg tablet PO SCH ×2 (08:43→20:07)
[2018-04-22] MEDS: carVEDilol 3.125mg tablet PO SCH ×2 (08:43→20:07)
[2018-04-22] MEDS: guaiFENesin ER 600mg tablet PO SCH ×2 (08:43→20:08)
[2018-04-22] MEDS: pantoprazole 40mg Tablet.DR PO SCH (08:43)
[2018-04-22] MEDS: nystatin 15 GM powder TP SCH ×3 (08:44→20:08)
[2018-04-22] MEDS: enoxaparin 40mg/0.4ml syringe SUBCUT SCH (08:44)
[2018-04-22] MEDS: ALPRAZolam 0.25mg tablet PO PRN ×2 (08:51→20:07)
[2018-04-22 11:30] VITALS: BP 110/57
[2018-04-22 18:00] VITALS: BP 115/75
[2018-04-22] MEDS: albuterol 2.5 MG/3 ML nebule NEB PRN (20:53)
[2018-04-23] MEDS: diltiazem 30mg tablet PO SCH ×3 (00:01→15:57)
[2018-04-23] MEDS: cyclobenzaprine 10mg tablet PO PRN (00:03)
[2018-04-23] MEDS: traMADol 50MG tablet PO PRN ×4 (05:00→22:20)
[2018-04-23 06:00] VITALS: BP 108/58
[2018-04-23 06:03] LABS: BASOPHILS % (AUTO) 0.3 % (0-1); EOSINOPHILS # (AUTO) 0.3 X10'3 (0-0.9); HEMATOCRIT 28.8 % (35.0-45.0); HEMOGLOBIN 9.3 g/dl (12.0-16.0); LYMPHOCYTES # (AUTO) 2.8 X10'3 (1.1-4.8); LYMPHOCYTES % (AUTO) 19.5 % (21-51); MEAN CORPUSCULAR HEMOGLOBIN 29.5 PG (27.0-31.0); MEAN CORPUSCULAR HGB CONC 32.2 % (33.0-36.5); MEAN CORPUSCULAR VOLUME 91.6 FL (78-98); MEAN PLATELET VOLUME 8.2 FL (7.4-10.4); MONOCYTES # (AUTO) 1.4 X10'3 (0-0.9); MONOCYTES % (AUTO) 9.8 % (2-12); NEUTROPHILS # (AUTO) 9.8 X10'3 (1.8-7.7); NEUTROPHILS % (AUTO) 68.4 % (42-75); PLATELET COUNT 328 X10'3 (140-440); RED BLOOD COUNT 3.14 X10'6 (4.20-5.60); WHITE BLOOD COUNT 14.3 X10'3 (4.5-11.0)
[2018-04-23 06:11] LABS: ALBUMIN 2.9 G/DL (3.4-5.0); ANION GAP -1 (8-16); BLOOD UREA NITROGEN 21 MG/DL (7-18); BUN/CREATININE RATIO 32.8 (6.6-38.0); CALCIUM 8.9 MG/DL (8.5-10.1); CHLORIDE 101 MMOL/L (99-107); CREATININE 0.64 MG/DL (0.40-0.90); GLUCOSE 94 MG/DL (70-104); MAGNESIUM 1.7 MG/DL (1.5-2.4); POTASSIUM 4.8 MMOL/L (3.5-5.1); SODIUM 137 MMOL/L (135-145); TOTAL CARBON DIOXIDE 36.5 MMOL/L (24-32); eGFR > 90 ML/MIN
[2018-04-23] MEDS: budesonide 0.5mg/2ml UD nebule IH SCH ×2 (07:21→21:11)
[2018-04-23] MEDS: lisinopril 10 MG tablet PO SCH (07:28)
[2018-04-23] MEDS: K and/or MAG REPLACEMENT MC SCH (07:28)
[2018-04-23] MEDS: ALPRAZolam 0.25mg tablet PO PRN ×2 (07:35→17:01)
[2018-04-23] MEDS: multivitamins, therapeutics tablet PO SCH (07:36)
[2018-04-23] MEDS: PARoxetine 20mg tablet PO SCH (07:36)
[2018-04-23] MEDS: guaiFENesin ER 600mg tablet PO SCH ×2 (07:36→20:45)
[2018-04-23] MEDS: carVEDilol 3.125mg tablet PO SCH ×2 (07:36→20:46)
[2018-04-23] MEDS: pantoprazole 40mg Tablet.DR PO SCH (07:36)
[2018-04-23] MEDS: busPIRone 15mg tablet PO SCH ×2 (07:37→20:46)
[2018-04-23] MEDS: lactobacillus rhamnosus 10,000 MMU CELLS/CAPSULE PO SCH (07:37)
[2018-04-23] MEDS: nystatin 15 GM powder TP SCH ×3 (07:38→20:46)
[2018-04-23] MEDS: enoxaparin 40mg/0.4ml syringe SUBCUT SCH (07:39)
[2018-04-23 10:00] VITALS: BP 105/67
[2018-04-23 15:58] VITALS: BP 125/77
[2018-04-23 17:00] VITALS: BP 130/64
[2018-04-23 22:00] VITALS: BP 118/60
[2018-04-24 00:10] VITALS: BP 127/65
[2018-04-24] MEDS: diltiazem 30mg tablet PO SCH ×4 (00:16→23:34)
[2018-04-24] MEDS: cyclobenzaprine 10mg tablet PO PRN ×2 (00:16→23:34)
[2018-04-24] MEDS: traMADol 50MG tablet PO PRN ×3 (05:01→21:42)
[2018-04-24 06:00] VITALS: BP 125/62
[2018-04-24 06:04] LABS: BASOPHILS # (AUTO) 0.1 X10'3 (0-0.2); BASOPHILS % (AUTO) 0.4 % (0-1); EOSINOPHILS % (AUTO) 0.1 % (0-6); HEMATOCRIT 28.4 % (35.0-45.0); HEMOGLOBIN 9.3 g/dl (12.0-16.0); LYMPHOCYTES # (AUTO) 2.4 X10'3 (1.1-4.8); LYMPHOCYTES % (AUTO) 14.9 % (21-51); MEAN CORPUSCULAR HEMOGLOBIN 29.8 PG (27.0-31.0); MEAN CORPUSCULAR HGB CONC 32.6 % (33.0-36.5); MEAN CORPUSCULAR VOLUME 91.6 FL (78-98); MEAN PLATELET VOLUME 8.5 FL (7.4-10.4); MONOCYTES # (AUTO) 1.3 X10'3 (0-0.9); MONOCYTES % (AUTO) 8.2 % (2-12); NEUTROPHILS # (AUTO) 12.2 X10'3 (1.8-7.7); NEUTROPHILS % (AUTO) 76.4 % (42-75); PLATELET COUNT 298 X10'3 (140-440); RED BLOOD COUNT 3.11 X10'6 (4.20-5.60)
[2018-04-24 06:10] LABS: ALBUMIN 2.8 G/DL (3.4-5.0); ANION GAP -1 (8-16); BLOOD UREA NITROGEN 17 MG/DL (7-18); BUN/CREATININE RATIO 30.9 (6.6-38.0); CALCIUM 8.7 MG/DL (8.5-10.1); CHLORIDE 100 MMOL/L (99-107); CREATININE 0.55 MG/DL (0.40-0.90); GLUCOSE 93 MG/DL (70-104); MAGNESIUM 1.9 MG/DL (1.5-2.4); POTASSIUM 5.1 MMOL/L (3.5-5.1); SODIUM 136 MMOL/L (135-145); TOTAL CARBON DIOXIDE 36.7 MMOL/L (24-32); eGFR > 90 ML/MIN
[2018-04-24] MEDS: ALPRAZolam 0.25mg tablet PO PRN ×2 (06:11→15:09)
[2018-04-24] MEDS: budesonide 0.5mg/2ml UD nebule IH SCH ×2 (07:57→19:11)
[2018-04-24] MEDS: K and/or MAG REPLACEMENT MC SCH (08:00)
[2018-04-24] MEDS: busPIRone 15mg tablet PO SCH ×2 (08:53→19:09)
[2018-04-24] MEDS: PARoxetine 20mg tablet PO SCH (08:53)
[2018-04-24] MEDS: enoxaparin 40mg/0.4ml syringe SUBCUT SCH (08:53)
[2018-04-24] MEDS: lactobacillus rhamnosus 10,000 MMU CELLS/CAPSULE PO SCH (08:53)
[2018-04-24] MEDS: multivitamins, therapeutics tablet PO SCH (08:53)
[2018-04-24] MEDS: lisinopril 10 MG tablet PO SCH (08:54)
[2018-04-24] MEDS: pantoprazole 40mg Tablet.DR PO SCH (08:54)
[2018-04-24] MEDS: carVEDilol 3.125mg tablet PO SCH ×2 (08:54→19:09)
[2018-04-24] MEDS: guaiFENesin ER 600mg tablet PO SCH ×2 (08:54→19:09)
[2018-04-24] MEDS: nystatin 15 GM powder TP SCH ×3 (08:58→21:43)
[2018-04-24 10:00] VITALS: BP 124/76
[2018-04-24 18:00] VITALS: BP 158/62
[2018-04-24] MEDS: albuterol 2.5 MG/3 ML nebule NEB PRN (19:11)
[2018-04-24 22:00] VITALS: BP 150/72
[2018-04-25] MEDS: ALPRAZolam 0.25mg tablet PO PRN ×3 (01:30→18:01)
[2018-04-25 06:00] VITALS: BP 115/64
[2018-04-25] MEDS: busPIRone 15mg tablet PO SCH ×2 (07:22→20:03)
[2018-04-25] MEDS: PARoxetine 20mg tablet PO SCH (07:23)
[2018-04-25] MEDS: enoxaparin 40mg/0.4ml syringe SUBCUT SCH (07:23)
[2018-04-25] MEDS: carVEDilol 3.125mg tablet PO SCH ×2 (07:25→20:02)
[2018-04-25] MEDS: lactobacillus rhamnosus 10,000 MMU CELLS/CAPSULE PO SCH (07:25)
[2018-04-25] MEDS: multivitamins, therapeutics tablet PO SCH (07:25)
[2018-04-25] MEDS: pantoprazole 40mg Tablet.DR PO SCH (07:25)
[2018-04-25] MEDS: traMADol 50MG tablet PO PRN ×3 (07:25→21:28)
[2018-04-25] MEDS: lisinopril 10 MG tablet PO SCH (07:26)
[2018-04-25] MEDS: diltiazem 30mg tablet PO SCH ×2 (07:26→16:24)
[2018-04-25] MEDS: guaiFENesin ER 600mg tablet PO SCH ×2 (07:26→20:02)
[2018-04-25] MEDS: nystatin 15 GM powder TP SCH ×3 (07:27→21:08)
[2018-04-25] MEDS: K and/or MAG REPLACEMENT MC SCH (08:00)
[2018-04-25] MEDS: acetaminophen 325mg tablet PO PRN ×2 (08:47→21:28)
[2018-04-25] MEDS: budesonide 0.5mg/2ml UD nebule IH SCH ×2 (09:00→20:29)
[2018-04-25 10:00] VITALS: BP 102/43
[2018-04-25 18:00] VITALS: BP 110/58
[2018-04-25] MEDS: cyclobenzaprine 10mg tablet PO PRN (20:02)
[2018-04-25 22:00] VITALS: BP 126/62
[2018-04-26] MEDS: diltiazem 30mg tablet PO SCH ×3 (00:27→16:59)
[2018-04-26] MEDS: traMADol 50MG tablet PO PRN ×3 (04:47→21:53)
[2018-04-26 06:00] VITALS: BP 119/68
[2018-04-26] MEDS: busPIRone 15mg tablet PO SCH ×2 (07:22→20:55)
[2018-04-26] MEDS: multivitamins, therapeutics tablet PO SCH (07:22)
[2018-04-26] MEDS: lisinopril 10 MG tablet PO SCH (07:22)
[2018-04-26] MEDS: pantoprazole 40mg Tablet.DR PO SCH (07:23)
[2018-04-26] MEDS: PARoxetine 20mg tablet PO SCH (07:23)
[2018-04-26] MEDS: carVEDilol 3.125mg tablet PO SCH ×2 (07:23→20:54)
[2018-04-26] MEDS: guaiFENesin ER 600mg tablet PO SCH ×2 (07:23→20:55)
[2018-04-26] MEDS: lactobacillus rhamnosus 10,000 MMU CELLS/CAPSULE PO SCH (07:23)
[2018-04-26] MEDS: enoxaparin 40mg/0.4ml syringe SUBCUT SCH (07:24)
[2018-04-26] MEDS: nystatin 15 GM powder TP SCH ×3 (07:24→20:55)
[2018-04-26] MEDS: acetaminophen 325mg tablet PO PRN ×2 (07:30→16:59)
[2018-04-26] MEDS: ALPRAZolam 0.25mg tablet PO PRN ×2 (07:31→16:59)
[2018-04-26] MEDS: K and/or MAG REPLACEMENT MC SCH (08:00)
[2018-04-26] MEDS: albuterol 2.5 MG/3 ML nebule NEB PRN ×2 (08:21→19:32)
[2018-04-26] MEDS: budesonide 0.5mg/2ml UD nebule IH SCH ×2 (08:21→19:32)
[2018-04-26 10:00] VITALS: BP 111/69
[2018-04-26 18:00] VITALS: BP 121/67
[2018-04-26] MEDS: cyclobenzaprine 10mg tablet PO PRN (20:55)
[2018-04-26 22:00] VITALS: BP 96/51
[2018-04-27] MEDS: ALPRAZolam 0.25mg tablet PO PRN ×2 (02:38→17:52)
[2018-04-27] MEDS: acetaminophen 325mg tablet PO PRN ×2 (02:39→19:45)
[2018-04-27] MEDS: traMADol 50MG tablet PO PRN ×4 (04:18→23:06)
[2018-04-27 05:53] LABS: ALBUMIN 2.7 G/DL (3.4-5.0); ANION GAP 2 (8-16); BLOOD UREA NITROGEN 13 MG/DL (7-18); CHLORIDE 99 MMOL/L (99-107); CREATININE 0.62 MG/DL (0.40-0.90); GLUCOSE 129 MG/DL (70-104); POTASSIUM 4.7 MMOL/L (3.5-5.1); SODIUM 136 MMOL/L (135-145); TOTAL CARBON DIOXIDE 35.2 MMOL/L (24-32); eGFR > 90 ML/MIN
[2018-04-27 06:00] VITALS: BP 119/69
[2018-04-27] MEDS: K and/or MAG REPLACEMENT MC SCH (08:00)
[2018-04-27] MEDS: pantoprazole 40mg Tablet.DR PO SCH (08:04)
[2018-04-27] MEDS: diltiazem 30mg tablet PO SCH ×4 (08:04→23:04)
[2018-04-27] MEDS: guaiFENesin ER 600mg tablet PO SCH ×2 (08:04→19:45)
[2018-04-27] MEDS: busPIRone 15mg tablet PO SCH ×2 (08:04→19:45)
[2018-04-27] MEDS: carVEDilol 3.125mg tablet PO SCH ×2 (08:04→19:45)
[2018-04-27] MEDS: lactobacillus rhamnosus 10,000 MMU CELLS/CAPSULE PO SCH (08:04)
[2018-04-27] MEDS: nystatin 15 GM powder TP SCH ×3 (08:05→21:00)
[2018-04-27] MEDS: multivitamins, therapeutics tablet PO SCH (08:05)
[2018-04-27] MEDS: lisinopril 10 MG tablet PO SCH (08:05)
[2018-04-27] MEDS: PARoxetine 20mg tablet PO SCH (08:05)
[2018-04-27] MEDS: enoxaparin 40mg/0.4ml syringe SUBCUT SCH (08:05)
[2018-04-27] MEDS: budesonide 0.5mg/2ml UD nebule IH SCH ×2 (09:00→19:16)
[2018-04-27 10:00] VITALS: BP 120/60
[2018-04-27] MEDS: metroNIDAZOLE-Flagyl 500mg/NS 100 ML IV SCH ×3 (10:39→23:04)
[2018-04-27 18:00] VITALS: BP 126/70
[2018-04-27] MEDS: ipratropium/albuterol 3ml nebule IH PRN (19:16)
[2018-04-27 22:00] VITALS: BP 116/60
[2018-04-28] MEDS: ALPRAZolam 0.25mg tablet PO PRN ×2 (05:08→13:29)
[2018-04-28] MEDS: traMADol 50MG tablet PO PRN ×3 (05:08→17:01)
[2018-04-28 06:00] VITALS: BP 122/67
[2018-04-28] MEDS: albuterol 2.5 MG/3 ML nebule NEB PRN (07:31)
[2018-04-28] MEDS: budesonide 0.5mg/2ml UD nebule IH SCH ×2 (07:31→20:00)
[2018-04-28] MEDS: metroNIDAZOLE-Flagyl 500mg/NS 100 ML IV SCH ×3 (07:57→23:09)
[2018-04-28] MEDS: PARoxetine 20mg tablet PO SCH (07:57)
[2018-04-28] MEDS: busPIRone 15mg tablet PO SCH ×2 (07:57→19:45)
[2018-04-28] MEDS: diltiazem 30mg tablet PO SCH ×3 (07:58→23:09)
[2018-04-28] MEDS: guaiFENesin ER 600mg tablet PO SCH ×2 (07:58→19:45)
[2018-04-28] MEDS: lisinopril 10 MG tablet PO SCH (07:58)
[2018-04-28] MEDS: multivitamins, therapeutics tablet PO SCH (07:58)
[2018-04-28] MEDS: carVEDilol 3.125mg tablet PO SCH ×2 (07:59→19:45)
[2018-04-28] MEDS: lactobacillus rhamnosus 10,000 MMU CELLS/CAPSULE PO SCH (07:59)
[2018-04-28] MEDS: pantoprazole 40mg Tablet.DR PO SCH (07:59)
[2018-04-28] MEDS: enoxaparin 40mg/0.4ml syringe SUBCUT SCH (08:00)
[2018-04-28] MEDS: K and/or MAG REPLACEMENT MC SCH (08:00)
[2018-04-28] MEDS: nystatin 15 GM powder TP SCH ×4 (08:03→19:56)
[2018-04-28 10:24] VITALS: BP 97/63
[2018-04-28 18:00] VITALS: BP 119/72
[2018-04-28] MEDS: normal saline 1000ml 1,000 ML IV SCH (19:45)
[2018-04-28] MEDS: levoFLOXACIN-Levaquin 500mg/D5 100 ML IV SCH (19:45)
[2018-04-28] MEDS: HYDROcodone/acetaminophen 5mg/325mg tablet PO PRN (19:46)
[2018-04-28] MEDS: ipratropium/albuterol 3ml nebule IH PRN (20:00)
[2018-04-28 22:00] VITALS: BP 102/59
[2018-04-28] MEDS: cyclobenzaprine 10mg tablet PO PRN (23:09)
[2018-04-29] MEDS: HYDROcodone/acetaminophen 5mg/325mg tablet PO PRN ×4 (00:01→20:00)
[2018-04-29] MEDS: normal saline 1000ml 1,000 ML IV SCH ×3 (05:25→15:12)
[2018-04-29 06:00] VITALS: BP 104/43
[2018-04-29 06:05] LABS: BASOPHILS % (AUTO) 0.1 % (0-1); EOSINOPHILS # (AUTO) 0.2 X10'3 (0-0.9); EOSINOPHILS % (AUTO) 1.4 % (0-6); HEMATOCRIT 28.6 % (35.0-45.0); HEMOGLOBIN 9.1 g/dl (12.0-16.0); LYMPHOCYTES % (AUTO) 14.3 % (21-51); MEAN CORPUSCULAR HEMOGLOBIN 29.5 PG (27.0-31.0); MEAN CORPUSCULAR HGB CONC 31.7 % (33.0-36.5); MEAN CORPUSCULAR VOLUME 93.1 FL (78-98); MEAN PLATELET VOLUME 8.6 FL (7.4-10.4); MONOCYTES # (AUTO) 1.6 X10'3 (0-0.9); MONOCYTES % (AUTO) 11.6 % (2-12); NEUTROPHILS % (AUTO) 72.6 % (42-75); PLATELET COUNT 247 X10'3 (140-440); RED BLOOD COUNT 3.07 X10'6 (4.20-5.60); RED CELL DISTRIBUTION WIDTH 17.1 % (11.5-14.5); WHITE BLOOD COUNT 13.7 X10'3 (4.5-11.0)
[2018-04-29 06:16] LABS: ALANINE AMINOTRANSFERASE 39 U/L (12-78); ALBUMIN 2.6 G/DL (3.4-5.0); ALBUMIN/GLOBULIN RATIO 0.7 (1.1-1.5); ALKALINE PHOSPHATASE 132 IU/L (46-116); ANION GAP -1 (8-16); ASPARTATE AMINO TRANSFERASE 21 U/L (10-37); BILIRUBIN,TOTAL 0.2 MG/DL (0.1-1.0); BLOOD UREA NITROGEN 11 MG/DL (7-18); BUN/CREATININE RATIO 19.3 (6.6-38.0); CHLORIDE 102 MMOL/L (99-107); CREATININE 0.57 MG/DL (0.40-0.90); GLUCOSE 96 MG/DL (70-104); POTASSIUM 4.1 MMOL/L (3.5-5.1); SODIUM 137 MMOL/L (135-145); TOTAL CARBON DIOXIDE 36.3 MMOL/L (24-32); TOTAL PROTEIN 6.2 G/DL (6.4-8.2); eGFR > 90 ML/MIN
[2018-04-29] MEDS: K and/or MAG REPLACEMENT MC SCH (07:44)
[2018-04-29] MEDS: enoxaparin 40mg/0.4ml syringe SUBCUT SCH (07:47)
[2018-04-29] MEDS: lactobacillus rhamnosus 10,000 MMU CELLS/CAPSULE PO SCH (07:48)
[2018-04-29] MEDS: busPIRone 15mg tablet PO SCH ×2 (07:48→20:01)
[2018-04-29] MEDS: guaiFENesin ER 600mg tablet PO SCH ×2 (07:49→20:01)
[2018-04-29] MEDS: multivitamins, therapeutics tablet PO SCH (07:49)
[2018-04-29] MEDS: levoFLOXACIN-Levaquin 500mg/D5 100 ML IV SCH (07:50)
[2018-04-29] MEDS: pantoprazole 40mg Tablet.DR PO SCH (07:50)
[2018-04-29] MEDS: diltiazem 30mg tablet PO SCH ×2 (07:53→17:54)
[2018-04-29] MEDS: PARoxetine 20mg tablet PO SCH (07:54)
[2018-04-29] MEDS: carVEDilol 3.125mg tablet PO SCH ×2 (07:54→20:00)
[2018-04-29] MEDS: lisinopril 10 MG tablet PO SCH (07:54)
[2018-04-29 07:55] VITALS: BP 128/73
[2018-04-29] MEDS: nystatin 15 GM powder TP SCH ×3 (08:01→20:01)
[2018-04-29] MEDS: budesonide 0.5mg/2ml UD nebule IH SCH ×2 (08:18→19:26)
[2018-04-29] MEDS: ALPRAZolam 0.25mg tablet PO PRN (09:52)
[2018-04-29] MEDS: metroNIDAZOLE-Flagyl 500mg/NS 100 ML IV SCH (09:52)
[2018-04-29 10:00] VITALS: BP 102/63
[2018-04-29] MEDS: vancomycin 125mg/5ml ORAL solution 5ml UD bottle PO SCH ×2 (13:54→20:00)
[2018-04-29 18:00] VITALS: BP 132/67
[2018-04-29] MEDS: acetaminophen 325mg tablet PO PRN (21:23)
[2018-04-29] MEDS: cyclobenzaprine 10mg tablet PO PRN (21:23)
[2018-04-29 22:00] VITALS: BP 133/65
[2018-04-30] MEDS: HYDROcodone/acetaminophen 5mg/325mg tablet PO PRN ×4 (00:12→19:43)
[2018-04-30] MEDS: ALPRAZolam 0.25mg tablet PO PRN ×2 (00:12→09:32)
[2018-04-30] MEDS: diltiazem 30mg tablet PO SCH ×4 (00:13→23:54)
[2018-04-30] MEDS: vancomycin 125mg/5ml ORAL solution 5ml UD bottle PO SCH ×4 (01:43→19:56)
[2018-04-30] MEDS: normal saline 1000ml 1,000 ML IV SCH ×2 (02:20→09:33)
[2018-04-30 06:00] VITALS: BP 113/57
[2018-04-30 06:32] LABS: BASOPHILS # (AUTO) 0.1 X10'3 (0-0.2); BASOPHILS % (AUTO) 0.5 % (0-1); EOSINOPHILS # (AUTO) 0.1 X10'3 (0-0.9); EOSINOPHILS % (AUTO) 1.2 % (0-6); HEMATOCRIT 25.5 % (35.0-45.0); HEMOGLOBIN 8.2 g/dl (12.0-16.0); LYMPHOCYTES # (AUTO) 1.8 X10'3 (1.1-4.8); LYMPHOCYTES % (AUTO) 15.9 % (21-51); MEAN CORPUSCULAR HEMOGLOBIN 29.8 PG (27.0-31.0); MEAN CORPUSCULAR HGB CONC 32.3 % (33.0-36.5); MEAN CORPUSCULAR VOLUME 92.4 FL (78-98); MEAN PLATELET VOLUME 8.2 FL (7.4-10.4); MONOCYTES # (AUTO) 1.5 X10'3 (0-0.9); MONOCYTES % (AUTO) 13.2 % (2-12); NEUTROPHILS # (AUTO) 7.7 X10'3 (1.8-7.7); NEUTROPHILS % (AUTO) 69.2 % (42-75); PLATELET COUNT 240 X10'3 (140-440); RED BLOOD COUNT 2.76 X10'6 (4.20-5.60); RED CELL DISTRIBUTION WIDTH 17.2 % (11.5-14.5); WHITE BLOOD COUNT 11.1 X10'3 (4.5-11.0)
[2018-04-30 06:53] LABS: ALANINE AMINOTRANSFERASE 32 U/L (12-78); ALBUMIN 2.3 G/DL (3.4-5.0); ALBUMIN/GLOBULIN RATIO 0.7 (1.1-1.5); ALKALINE PHOSPHATASE 113 IU/L (46-116); ANION GAP 1 (8-16); ASPARTATE AMINO TRANSFERASE 19 U/L (10-37); BILIRUBIN,TOTAL 0.1 MG/DL (0.1-1.0); BLOOD UREA NITROGEN 5 MG/DL (7-18); BUN/CREATININE RATIO 8.1 (6.6-38.0); CALCIUM 8.9 MG/DL (8.5-10.1); CHLORIDE 105 MMOL/L (99-107); CREATININE 0.62 MG/DL (0.40-0.90); GLUCOSE 115 MG/DL (70-104); POTASSIUM 4.2 MMOL/L (3.5-5.1); SODIUM 141 MMOL/L (135-145); TOTAL CARBON DIOXIDE 34.7 MMOL/L (24-32); TOTAL PROTEIN 5.5 G/DL (6.4-8.2); eGFR > 90 ML/MIN
[2018-04-30] MEDS: budesonide 0.5mg/2ml UD nebule IH SCH ×2 (07:39→21:06)
[2018-04-30] MEDS: nystatin 15 GM powder TP SCH ×3 (08:00→21:00)
[2018-04-30] MEDS: K and/or MAG REPLACEMENT MC SCH (08:00)
[2018-04-30] MEDS: busPIRone 15mg tablet PO SCH ×2 (08:03→19:56)
[2018-04-30] MEDS: carVEDilol 3.125mg tablet PO SCH ×2 (08:03→19:43)
[2018-04-30] MEDS: pantoprazole 40mg Tablet.DR PO SCH (08:03)
[2018-04-30] MEDS: multivitamins, therapeutics tablet PO SCH (08:04)
[2018-04-30] MEDS: guaiFENesin ER 600mg tablet PO SCH ×2 (08:04→19:43)
[2018-04-30] MEDS: lactobacillus rhamnosus 10,000 MMU CELLS/CAPSULE PO SCH (08:04)
[2018-04-30] MEDS: lisinopril 10 MG tablet PO SCH (08:04)
[2018-04-30] MEDS: PARoxetine 20mg tablet PO SCH (08:04)
[2018-04-30] MEDS: enoxaparin 40mg/0.4ml syringe SUBCUT SCH (08:05)
[2018-04-30 10:00] VITALS: BP 113/60
[2018-04-30 15:36] VITALS: BP 124/71
[2018-04-30] MEDS: acetaminophen 325mg tablet PO PRN (16:01)
[2018-04-30 18:00] VITALS: BP 121/61
[2018-04-30] MEDS ORDERED: PEG 3350/Na sulf,bicarb,Cl/KCl oral sol 4 liter bottle PO ONE (18:10)
[2018-04-30 19:40] VITALS: BP 138/67
[2018-04-30] MEDS: albuterol 2.5 MG/3 ML nebule NEB PRN (21:06)
[2018-04-30 22:00] VITALS: BP 146/74
[2018-05-01] VITALS (11 sets, daily range): BP systolic 99–150; BP diastolic 58–83
[2018-05-01] MEDS: HYDROcodone/acetaminophen 5mg/325mg tablet PO PRN ×4 (00:55→20:24)
[2018-05-01] MEDS: vancomycin 125mg/5ml ORAL solution 5ml UD bottle PO SCH ×4 (02:08→20:23)
[2018-05-01 03:33] LABS: OCCULT BLOOD STOOL NEGATIVE (Neg)
[2018-05-01] MEDS: cyclobenzaprine 10mg tablet PO PRN (03:38)
[2018-05-01] MEDS: ALPRAZolam 0.25mg tablet PO PRN ×2 (05:33→18:57)
[2018-05-01 05:35] LABS: BASOPHILS % (AUTO) 0.2 % (0-1); EOSINOPHILS # (AUTO) 0.1 X10'3 (0-0.9); EOSINOPHILS % (AUTO) 1.2 % (0-6); HEMATOCRIT 27.3 % (35.0-45.0); HEMOGLOBIN 8.6 g/dl (12.0-16.0); LYMPHOCYTES # (AUTO) 1.5 X10'3 (1.1-4.8); LYMPHOCYTES % (AUTO) 15.6 % (21-51); MEAN CORPUSCULAR HEMOGLOBIN 29.6 PG (27.0-31.0); MEAN CORPUSCULAR HGB CONC 31.6 % (33.0-36.5); MEAN CORPUSCULAR VOLUME 93.6 FL (78-98); MEAN PLATELET VOLUME 7.9 FL (7.4-10.4); MONOCYTES # (AUTO) 1.1 X10'3 (0-0.9); MONOCYTES % (AUTO) 11.4 % (2-12); NEUTROPHILS # (AUTO) 7.1 X10'3 (1.8-7.7); NEUTROPHILS % (AUTO) 71.6 % (42-75); PLATELET COUNT 244 X10'3 (140-440); RED BLOOD COUNT 2.92 X10'6 (4.20-5.60); RED CELL DISTRIBUTION WIDTH 17.1 % (11.5-14.5); WHITE BLOOD COUNT 9.9 X10'3 (4.5-11.0)
[2018-05-01 05:49] LABS: ALANINE AMINOTRANSFERASE 29 U/L (12-78); ALBUMIN 2.5 G/DL (3.4-5.0); ALBUMIN/GLOBULIN RATIO 0.8 (1.1-1.5); ALKALINE PHOSPHATASE 115 IU/L (46-116); ANION GAP -1 (8-16); ASPARTATE AMINO TRANSFERASE 22 U/L (10-37); BILIRUBIN,TOTAL 0.1 MG/DL (0.1-1.0); BLOOD UREA NITROGEN 2 MG/DL (7-18); BUN/CREATININE RATIO 5.3 (6.6-38.0); CALCIUM 8.9 MG/DL (8.5-10.1); CHLORIDE 104 MMOL/L (99-107); CREATININE 0.38 MG/DL (0.40-0.90); GLUCOSE 108 MG/DL (70-104); POTASSIUM 4.3 MMOL/L (3.5-5.1); SODIUM 141 MMOL/L (135-145); TOTAL CARBON DIOXIDE 37.8 MMOL/L (24-32); TOTAL PROTEIN 5.8 G/DL (6.4-8.2); eGFR > 90 ML/MIN
[2018-05-01] MEDS: guaiFENesin ER 600mg tablet PO SCH ×2 (08:00→20:23)
[2018-05-01] MEDS: nystatin 15 GM powder TP SCH ×3 (08:00→21:27)
[2018-05-01] MEDS: multivitamins, therapeutics tablet PO SCH (08:00)
[2018-05-01] MEDS: K and/or MAG REPLACEMENT MC SCH (08:00)
[2018-05-01] MEDS ORDERED: MIDAZolam 5mg/5ml vial ONE (08:03)
[2018-05-01] MEDS ORDERED: fentaNYL/PF 50MCG/1 ML 2ML syringe ONE (08:03)
[2018-05-01] MEDS: budesonide 0.5mg/2ml UD nebule IH SCH ×2 (09:00→20:13)
[2018-05-01] MEDS: pantoprazole 40mg Tablet.DR PO SCH (11:32)
[2018-05-01] MEDS: lisinopril 10 MG tablet PO SCH (11:32)
[2018-05-01] MEDS: diltiazem 30mg tablet PO SCH ×2 (11:33→15:58)
[2018-05-01] MEDS: enoxaparin 40mg/0.4ml syringe SUBCUT SCH (11:33)
[2018-05-01] MEDS: lactobacillus rhamnosus 10,000 MMU CELLS/CAPSULE PO SCH (11:33)
[2018-05-01] MEDS: carVEDilol 3.125mg tablet PO SCH ×2 (11:33→20:23)
[2018-05-01] MEDS: busPIRone 15mg tablet PO SCH ×2 (11:34→20:23)
[2018-05-01] MEDS ORDERED: ondansetron/PF 4mg/2ml inj IV PRN (11:40)
[2018-05-01] MEDS: PARoxetine 20mg tablet PO SCH (11:49)
[2018-05-01 15:17] LABS: HSV 1 PCR Negative (Negative); HSV 2 PCR Negative (Negative)
[2018-05-01] MEDS: albuterol 2.5 MG/3 ML nebule NEB PRN (17:59)
[2018-05-01] MEDS: acetaminophen 325mg tablet PO PRN (19:40)
[2018-05-01 19:56] LABS: ABG BASE EXCESS 8.1 mmol/L (-2.0-3.0); ABG HCO3 36.9 mmol/L (22.0-26.0); ABG OXYGEN SATURATION 66.5 % (95-98); ABG PCO2 (T) 84.4 mmHg (32.0-45.0); ABG PH (T) 7.258 (7.350-7.450); ABG PO2 (T) 36.7 mmHg (83-108); FCOHb 0.1 % (0.5-1.5); FLOW 2 L/min; FMetHb 0.2 % (0.3-1.12); FO2Hb 66.3 % (94-100); TOTAL HEMOGLOBIN 8.6 G/dl (12.0-16.0)
[2018-05-01] MEDS: ipratropium/albuterol 3ml nebule IH PRN (20:13)
[2018-05-01] MEDS: methylPREDNISolone sod succ 125mg/2ml vial IV SCH (21:27)
[2018-05-01 22:16] LABS: ABG BASE EXCESS 10.6 mmol/L (-2.0-3.0); ABG HCO3 39.7 mmol/L (22.0-26.0); ABG OXYGEN SATURATION 95.5 % (95-98); ABG PCO2 (T) 90.8 mmHg (32.0-45.0); ABG PH (T) 7.259 (7.350-7.450); FCOHb 0.4 % (0.5-1.5); FMetHb 0.2 % (0.3-1.12); FO2Hb 94.9 % (94-100); MINUTE VOLUME 6 L/min; RESPIRATORY RATE 24 b/min; RESPIRATORY RATE (OBSERVED) 26 b/min; TIDAL VOLUME 310 mL; TOTAL HEMOGLOBIN 8.9 G/dl (12.0-16.0)
[2018-05-02] MEDS: vancomycin 125mg/5ml ORAL solution 5ml UD bottle PO SCH ×3 (02:27→14:44)
[2018-05-02] MEDS: methylPREDNISolone sod succ 125mg/2ml vial IV SCH ×3 (02:28→14:41)
[2018-05-02] MEDS: ipratropium/albuterol 3ml nebule IH PRN ×3 (02:34→21:25)
[2018-05-02 03:00] VITALS: BP 133/80
[2018-05-02] MEDS: acetaminophen 325mg tablet PO PRN ×2 (04:09→16:18)
[2018-05-02] MEDS: cyclobenzaprine 10mg tablet PO PRN (04:09)
[2018-05-02 05:10] LABS: ABG BASE EXCESS 11.8 mmol/L (-2.0-3.0); ABG HCO3 39.7 mmol/L (22.0-26.0); ABG OXYGEN SATURATION 98.5 % (95-98); ABG PH (T) 7.345 (7.350-7.450); ABG PO2 (T) 126.2 mmHg (83-108); ALLEN'S TEST Positive; FCOHb 0.3 % (0.5-1.5); FMetHb 0.1 % (0.3-1.12); FO2Hb 98.1 % (94-100); MINUTE VOLUME 10 L/min; PATIENT TEMPERATURE 36.4; RESPIRATORY RATE 24 b/min; TOTAL HEMOGLOBIN 9.3 G/dl (12.0-16.0)
[2018-05-02 07:00] VITALS: BP 134/76
[2018-05-02] MEDS: K and/or MAG REPLACEMENT MC SCH (08:00)
[2018-05-02] MEDS: multivitamins, therapeutics tablet PO SCH (08:31)
[2018-05-02] MEDS: pantoprazole 40mg Tablet.DR PO SCH (08:31)
[2018-05-02] MEDS: lactobacillus rhamnosus 10,000 MMU CELLS/CAPSULE PO SCH (08:32)
[2018-05-02] MEDS: carVEDilol 3.125mg tablet PO SCH ×2 (08:32→20:14)
[2018-05-02] MEDS: guaiFENesin ER 600mg tablet PO SCH ×2 (08:32→20:14)
[2018-05-02] MEDS: lisinopril 10 MG tablet PO SCH (08:32)
[2018-05-02] MEDS: PARoxetine 20mg tablet PO SCH (08:32)
[2018-05-02] MEDS: diltiazem 30mg tablet PO SCH ×3 (08:32→16:14)
[2018-05-02] MEDS: busPIRone 15mg tablet PO SCH ×2 (08:33→20:13)
[2018-05-02] MEDS: enoxaparin 40mg/0.4ml syringe SUBCUT SCH (08:34)
[2018-05-02] MEDS: nystatin 15 GM powder TP SCH ×3 (08:35→21:00)
[2018-05-02] MEDS: ALPRAZolam 0.25mg tablet PO PRN ×2 (08:46→20:14)
[2018-05-02] MEDS: budesonide 0.5mg/2ml UD nebule IH SCH ×2 (09:01→21:24)
[2018-05-02] MEDS: traMADol 50MG tablet PO PRN (14:47)
[2018-05-02 15:00] VITALS: BP 117/57
[2018-05-02 17:37] LABS: ABG BASE EXCESS 7.4 mmol/L (-2.0-3.0); ABG HCO3 33.6 mmol/L (22.0-26.0); ABG OXYGEN SATURATION 95.2 % (95-98); ABG PCO2 (T) 56.5 mmHg (32.0-45.0); ABG PH (T) 7.392 (7.350-7.450); ABG PO2 (T) 82.8 mmHg (83-108); ALLEN'S TEST Positive; FCOHb 0.3 % (0.5-1.5); FLOW 3 L/min; FMetHb 0.3 % (0.3-1.12); FO2Hb 94.6 % (94-100)
[2018-05-02 19:00] VITALS: BP 152/81
[2018-05-02 23:00] VITALS: BP 135/86
[2018-05-03] MEDS: methylPREDNISolone sod succ/PF 40mg inj. IV SCH ×4 (01:58→19:24)
[2018-05-03 03:00] VITALS: BP 132/80
[2018-05-03 06:00] VITALS: BP 140/80
[2018-05-03] MEDS: nystatin 15 GM powder TP SCH ×3 (08:00→19:27)
[2018-05-03] MEDS: K and/or MAG REPLACEMENT MC SCH (08:00)
[2018-05-03 08:07] LABS: MAGNESIUM 1.6 MG/DL (1.5-2.4); POTASSIUM 4.2 MMOL/L (3.5-5.1)
[2018-05-03] MEDS: enoxaparin 40mg/0.4ml syringe SUBCUT SCH (09:06)
[2018-05-03] MEDS: ALPRAZolam 0.25mg tablet PO PRN ×2 (09:06→19:23)
[2018-05-03] MEDS: acetaminophen 325mg tablet PO PRN ×2 (09:07→17:02)
[2018-05-03] MEDS: carvedilol 6.25mg tablet PO SCH ×2 (09:08→19:23)
[2018-05-03] MEDS: busPIRone 15mg tablet PO SCH ×2 (09:09→19:23)
[2018-05-03] MEDS: lactobacillus rhamnosus 10,000 MMU CELLS/CAPSULE PO SCH (09:09)
[2018-05-03] MEDS: traMADol 50MG tablet PO PRN ×2 (09:09→13:31)
[2018-05-03] MEDS: PARoxetine 20mg tablet PO SCH (09:10)
[2018-05-03] MEDS: guaiFENesin ER 600mg tablet PO SCH ×2 (09:10→19:23)
[2018-05-03] MEDS: multivitamins, therapeutics tablet PO SCH (09:10)
[2018-05-03] MEDS: pantoprazole 40mg Tablet.DR PO SCH (09:10)
[2018-05-03] MEDS: lisinopril 10 MG tablet PO SCH (09:10)
[2018-05-03] MEDS: diltiazem 30mg tablet PO SCH ×3 (09:10→17:02)
[2018-05-03] MEDS: ipratropium/albuterol 3ml nebule IH PRN ×2 (09:21→20:28)
[2018-05-03] MEDS: budesonide 0.5mg/2ml UD nebule IH SCH ×2 (09:21→20:28)
[2018-05-03 11:00] VITALS: BP 147/88
[2018-05-03 19:00] VITALS: BP 153/80
[2018-05-03] MEDS: dronabinol 2.5mg capsule PO PRN (19:24)
[2018-05-03 23:00] VITALS: BP 151/78
[2018-05-04] MEDS: diltiazem 30mg tablet PO SCH ×4 (01:35→23:58)
[2018-05-04] MEDS: cyclobenzaprine 10mg tablet PO PRN ×2 (02:16→22:20)
[2018-05-04 03:00] VITALS: BP 145/76
[2018-05-04] MEDS: dronabinol 2.5mg capsule PO PRN ×3 (03:58→20:01)
[2018-05-04 05:24] LABS: BASOPHILS % (AUTO) 0 % (0-1); EOSINOPHILS # (AUTO) 0.1 X10'3 (0-0.9); EOSINOPHILS % (AUTO) 0.5 % (0-6); HEMOGLOBIN 7.6 g/dl (12.0-16.0); LYMPHOCYTES # (AUTO) 0.6 X10'3 (1.1-4.8); LYMPHOCYTES % (AUTO) 4.2 % (21-51); MEAN CORPUSCULAR HEMOGLOBIN 29.2 PG (27.0-31.0); MEAN CORPUSCULAR HGB CONC 31.8 % (33.0-36.5); MEAN CORPUSCULAR VOLUME 91.9 FL (78-98); MEAN PLATELET VOLUME 8.7 FL (7.4-10.4); MONOCYTES # (AUTO) 0.6 X10'3 (0-0.9); MONOCYTES % (AUTO) 4.3 % (2-12); NEUTROPHILS # (AUTO) 12.6 X10'3 (1.8-7.7); PLATELET COUNT 292 X10'3 (140-440); RED BLOOD COUNT 2.61 X10'6 (4.20-5.60); RED CELL DISTRIBUTION WIDTH 16.8 % (11.5-14.5); WHITE BLOOD COUNT 13.9 X10'3 (4.5-11.0)
[2018-05-04 06:18] LABS: ALANINE AMINOTRANSFERASE 15 U/L (12-78); ALBUMIN 2.5 G/DL (3.4-5.0); ALBUMIN/GLOBULIN RATIO 0.8 (1.1-1.5); ALKALINE PHOSPHATASE 92 IU/L (46-116); ANION GAP 1 (8-16); ASPARTATE AMINO TRANSFERASE 12 U/L (10-37); BILIRUBIN,TOTAL 0.1 MG/DL (0.1-1.0); BLOOD UREA NITROGEN 18 MG/DL (7-18); CHLORIDE 101 MMOL/L (99-107); GLUCOSE 175 MG/DL (70-104); POTASSIUM 4.1 MMOL/L (3.5-5.1); SODIUM 141 MMOL/L (135-145); TOTAL CARBON DIOXIDE 39.2 MMOL/L (24-32); TOTAL PROTEIN 5.8 G/DL (6.4-8.2); eGFR > 90 ML/MIN
[2018-05-04 07:00] VITALS: BP 146/71
[2018-05-04] MEDS: enoxaparin 40mg/0.4ml syringe SUBCUT SCH (08:00)
[2018-05-04] MEDS: nystatin 15 GM powder TP SCH ×3 (08:00→20:01)
[2018-05-04] MEDS: K and/or MAG REPLACEMENT MC SCH (08:00)
[2018-05-04] MEDS: methylPREDNISolone sod succ/PF 40mg inj. IV SCH (08:14)
[2018-05-04] MEDS: busPIRone 15mg tablet PO SCH ×2 (08:14→19:59)
[2018-05-04] MEDS: multivitamins, therapeutics tablet PO SCH (08:16)
[2018-05-04] MEDS: guaiFENesin ER 600mg tablet PO SCH ×2 (08:16→20:00)
[2018-05-04] MEDS: pantoprazole 40mg Tablet.DR PO SCH (08:16)
[2018-05-04] MEDS: carvedilol 6.25mg tablet PO SCH ×2 (08:16→20:00)
[2018-05-04] MEDS: PARoxetine 20mg tablet PO SCH (08:16)
[2018-05-04] MEDS: lisinopril 10 MG tablet PO SCH (08:16)
[2018-05-04] MEDS: lactobacillus rhamnosus 10,000 MMU CELLS/CAPSULE PO SCH (08:16)
[2018-05-04] MEDS: budesonide 0.5mg/2ml UD nebule IH SCH ×2 (09:30→20:20)
[2018-05-04] MEDS: ipratropium/albuterol 3ml nebule IH PRN ×3 (09:30→20:20)
[2018-05-04 11:00] VITALS: BP 136/54
[2018-05-04] MEDS: ALPRAZolam 0.25mg tablet PO PRN ×2 (12:12→21:26)
[2018-05-04 15:00] VITALS: BP 144/77
[2018-05-04] MEDS: traMADol 50MG tablet PO PRN ×3 (15:33→23:59)
[2018-05-04 19:30] VITALS: BP 158/82
[2018-05-04] MEDS: vancomycin 125mg/5ml ORAL solution 5ml UD bottle PO SCH (20:00)
[2018-05-04 23:00] VITALS: BP 167/95
[2018-05-05] MEDS: vancomycin 125mg/5ml ORAL solution 5ml UD bottle PO SCH ×2 (01:53→07:57)
[2018-05-05] MEDS: dronabinol 2.5mg capsule PO PRN ×4 (01:53→21:52)
[2018-05-05 02:00] VITALS: BP 141/85
[2018-05-05] MEDS: traMADol 50MG tablet PO PRN ×5 (04:19→19:52)
[2018-05-05 06:00] VITALS: BP 141/81
[2018-05-05 06:00] LABS: BASOPHILS % (AUTO) 0 % (0-1); EOSINOPHILS % (AUTO) 0.1 % (0-6); HEMATOCRIT 24.5 % (35.0-45.0); HEMOGLOBIN 7.9 g/dl (12.0-16.0); LYMPHOCYTES # (AUTO) 0.9 X10'3 (1.1-4.8); LYMPHOCYTES % (AUTO) 6.5 % (21-51); MEAN CORPUSCULAR HEMOGLOBIN 29.5 PG (27.0-31.0); MEAN CORPUSCULAR HGB CONC 32.3 % (33.0-36.5); MEAN CORPUSCULAR VOLUME 91.4 FL (78-98); MEAN PLATELET VOLUME 8.8 FL (7.4-10.4); MONOCYTES # (AUTO) 1.3 X10'3 (0-0.9); MONOCYTES % (AUTO) 9.4 % (2-12); PLATELET COUNT 351 X10'3 (140-440); RED BLOOD COUNT 2.68 X10'6 (4.20-5.60); RED CELL DISTRIBUTION WIDTH 15.9 % (11.5-14.5); WHITE BLOOD COUNT 14.2 X10'3 (4.5-11.0)
[2018-05-05 06:12] LABS: ALANINE AMINOTRANSFERASE 23 U/L (12-78); ALBUMIN 2.5 G/DL (3.4-5.0); ALBUMIN/GLOBULIN RATIO 0.8 (1.1-1.5); ALKALINE PHOSPHATASE 89 IU/L (46-116); ANION GAP 0 (8-16); ASPARTATE AMINO TRANSFERASE 19 U/L (10-37); BILIRUBIN,TOTAL 0.1 MG/DL (0.1-1.0); BLOOD UREA NITROGEN 25 MG/DL (7-18); BUN/CREATININE RATIO 40.3 (6.6-38.0); CALCIUM 9.2 MG/DL (8.5-10.1); CHLORIDE 102 MMOL/L (99-107); CREATININE 0.62 MG/DL (0.40-0.90); GLUCOSE 102 MG/DL (70-104); POTASSIUM 4.7 MMOL/L (3.5-5.1); SODIUM 141 MMOL/L (135-145); TOTAL PROTEIN 5.7 G/DL (6.4-8.2); eGFR > 90 ML/MIN
[2018-05-05] MEDS: pantoprazole 40mg Tablet.DR PO SCH (07:56)
[2018-05-05] MEDS: busPIRone 15mg tablet PO SCH ×2 (07:57→19:52)
[2018-05-05] MEDS: carvedilol 6.25mg tablet PO SCH ×2 (07:57→19:52)
[2018-05-05] MEDS: PARoxetine 20mg tablet PO SCH (07:57)
[2018-05-05] MEDS: guaiFENesin ER 600mg tablet PO SCH ×2 (07:57→19:52)
[2018-05-05] MEDS: diltiazem 30mg tablet PO SCH ×2 (07:57→15:45)
[2018-05-05] MEDS: multivitamins, therapeutics tablet PO SCH (07:57)
[2018-05-05] MEDS: lactobacillus rhamnosus 10,000 MMU CELLS/CAPSULE PO SCH (07:57)
[2018-05-05] MEDS: lisinopril 10 MG tablet PO SCH (07:57)
[2018-05-05] MEDS: enoxaparin 40mg/0.4ml syringe SUBCUT SCH (07:58)
[2018-05-05] MEDS ORDERED: predniSONE 20 mg tablet PO SCH (08:00)
[2018-05-05] MEDS: nystatin 15 GM powder TP SCH ×3 (08:00→19:53)
[2018-05-05] MEDS: K and/or MAG REPLACEMENT MC SCH (08:00)
[2018-05-05] MEDS: ALPRAZolam 0.25mg tablet PO PRN ×2 (08:14→15:45)
[2018-05-05] MEDS: budesonide 0.5mg/2ml UD nebule IH SCH ×2 (08:28→19:29)
[2018-05-05 11:00] VITALS: BP 159/87
[2018-05-05 15:00] VITALS: BP 166/88
[2018-05-05 18:00] VITALS: BP 147/85
[2018-05-05] MEDS: albuterol 2.5 MG/3 ML nebule NEB PRN (19:29)
[2018-05-05] MEDS: cyclobenzaprine 10mg tablet PO PRN (21:53)
[2018-05-05 22:00] VITALS: BP 158/84
[2018-05-06] MEDS: diltiazem 30mg tablet PO SCH ×3 (00:22→16:14)
[2018-05-06] MEDS: traMADol 50MG tablet PO PRN ×6 (00:22→20:51)
[2018-05-06] MEDS: ALPRAZolam 0.25mg tablet PO PRN ×3 (00:22→16:14)
[2018-05-06 02:00] VITALS: BP 149/84
[2018-05-06] MEDS: dronabinol 2.5mg capsule PO PRN ×4 (04:38→22:44)
[2018-05-06 06:00] VITALS: BP 140/83
[2018-05-06] MEDS: K and/or MAG REPLACEMENT MC SCH (07:49)
[2018-05-06] MEDS: guaiFENesin ER 600mg tablet PO SCH ×2 (07:59→20:50)
[2018-05-06] MEDS: lactobacillus rhamnosus 10,000 MMU CELLS/CAPSULE PO SCH (07:59)
[2018-05-06] MEDS: PARoxetine 20mg tablet PO SCH (08:00)
[2018-05-06] MEDS: lisinopril 10 MG tablet PO SCH (08:00)
[2018-05-06] MEDS: nystatin 15 GM powder TP SCH ×3 (08:00→20:53)
[2018-05-06] MEDS: multivitamins, therapeutics tablet PO SCH (08:00)
[2018-05-06] MEDS: fluconazole 100mg tablet PO SCH (08:00)
[2018-05-06] MEDS: carvedilol 6.25mg tablet PO SCH ×2 (08:01→20:50)
[2018-05-06] MEDS: busPIRone 15mg tablet PO SCH ×2 (08:02→20:51)
[2018-05-06] MEDS: pantoprazole 40mg Tablet.DR PO SCH (08:02)
[2018-05-06] MEDS: enoxaparin 40mg/0.4ml syringe SUBCUT SCH (08:03)
[2018-05-06] MEDS: budesonide 0.5mg/2ml UD nebule IH SCH ×2 (08:16→20:19)
[2018-05-06] MEDS: ipratropium/albuterol 3ml nebule IH PRN (08:17)
[2018-05-06 11:00] VITALS: BP 149/81
[2018-05-06 15:00] VITALS: BP 157/91
[2018-05-06 18:00] VITALS: BP 162/91
[2018-05-06] MEDS: albuterol 2.5 MG/3 ML nebule NEB PRN (20:18)
[2018-05-06 22:00] VITALS: BP 158/85
[2018-05-06] MEDS: cyclobenzaprine 10mg tablet PO PRN (22:44)
[2018-05-07] MEDS: ALPRAZolam 0.25mg tablet PO PRN ×3 (00:34→20:27)
[2018-05-07] MEDS: diltiazem 30mg tablet PO SCH ×4 (00:34→23:02)
[2018-05-07 02:00] VITALS: BP 133/74
[2018-05-07 06:00] VITALS: BP 151/83
[2018-05-07] MEDS: budesonide 0.5mg/2ml UD nebule IH SCH ×2 (07:46→20:01)
[2018-05-07] MEDS: nystatin 15 GM powder TP SCH ×3 (08:00→20:29)
[2018-05-07] MEDS: K and/or MAG REPLACEMENT MC SCH (08:00)
[2018-05-07] MEDS: dronabinol 2.5mg capsule PO PRN ×3 (08:57→22:49)
[2018-05-07] MEDS: fluconazole 100mg tablet PO SCH (08:58)
[2018-05-07] MEDS: multivitamins, therapeutics tablet PO SCH (08:58)
[2018-05-07] MEDS: lactobacillus rhamnosus 10,000 MMU CELLS/CAPSULE PO SCH (08:58)
[2018-05-07] MEDS: lisinopril 10 MG tablet PO SCH (08:58)
[2018-05-07] MEDS: pantoprazole 40mg Tablet.DR PO SCH (08:58)
[2018-05-07] MEDS: PARoxetine 20mg tablet PO SCH (08:59)
[2018-05-07] MEDS: carvedilol 6.25mg tablet PO SCH ×2 (08:59→20:28)
[2018-05-07] MEDS: guaiFENesin ER 600mg tablet PO SCH ×2 (08:59→20:28)
[2018-05-07] MEDS: traMADol 50MG tablet PO PRN ×3 (08:59→20:27)
[2018-05-07] MEDS: busPIRone 15mg tablet PO SCH ×2 (08:59→20:27)
[2018-05-07] MEDS: enoxaparin 40mg/0.4ml syringe SUBCUT SCH (09:00)
[2018-05-07 11:00] VITALS: BP 125/75
[2018-05-07] MEDS ORDERED: CARV6.253 PO (13:09)
[2018-05-07 14:01] LABS: BASOPHILS % (AUTO) 0.2 % (0-1); EOSINOPHILS # (AUTO) 0.5 X10'3 (0-0.9); EOSINOPHILS % (AUTO) 3.5 % (0-6); LYMPHOCYTES # (AUTO) 2.1 X10'3 (1.1-4.8); LYMPHOCYTES % (AUTO) 15.9 % (21-51); MEAN CORPUSCULAR HEMOGLOBIN 28.6 PG (27.0-31.0); MEAN CORPUSCULAR HGB CONC 31.1 % (33.0-36.5); MEAN CORPUSCULAR VOLUME 91.9 FL (78-98); MEAN PLATELET VOLUME 8.1 FL (7.4-10.4); MONOCYTES # (AUTO) 1.3 X10'3 (0-0.9); MONOCYTES % (AUTO) 9.5 % (2-12); NEUTROPHILS # (AUTO) 9.4 X10'3 (1.8-7.7); NEUTROPHILS % (AUTO) 70.9 % (42-75); PLATELET COUNT 565 X10'3 (140-440); RED BLOOD COUNT 3.15 X10'6 (4.20-5.60); RED CELL DISTRIBUTION WIDTH 15.8 % (11.5-14.5); WHITE BLOOD COUNT 13.3 X10'3 (4.5-11.0)
[2018-05-07 15:00] VITALS: BP 138/69
[2018-05-07 19:00] VITALS: BP 134/107
[2018-05-07] MEDS: albuterol 2.5 MG/3 ML nebule NEB PRN (20:00)
[2018-05-07] MEDS: cyclobenzaprine 10mg tablet PO PRN (22:49)
[2018-05-07 23:00] VITALS: BP 151/90
[2018-05-08] MEDS: traMADol 50MG tablet PO PRN ×3 (02:51→13:27)
[2018-05-08 03:00] VITALS: BP 126/80
[2018-05-08 06:00] VITALS: BP 127/85
[2018-05-08] MEDS: nystatin 15 GM powder TP SCH ×2 (08:00→13:00)
[2018-05-08] MEDS: K and/or MAG REPLACEMENT MC SCH (08:00)
[2018-05-08] MEDS: budesonide 0.5mg/2ml UD nebule IH SCH (08:24)
[2018-05-08] MEDS: albuterol 2.5 MG/3 ML nebule NEB PRN (08:24)
[2018-05-08] MEDS: fluconazole 100mg tablet PO SCH (08:51)
[2018-05-08] MEDS: carvedilol 6.25mg tablet PO SCH (08:52)
[2018-05-08] MEDS: diltiazem 30mg tablet PO SCH (08:53)
[2018-05-08] MEDS: pantoprazole 40mg Tablet.DR PO SCH (08:53)
[2018-05-08] MEDS: lactobacillus rhamnosus 10,000 MMU CELLS/CAPSULE PO SCH (08:53)
[2018-05-08] MEDS: multivitamins, therapeutics tablet PO SCH (08:53)
[2018-05-08] MEDS: PARoxetine 20mg tablet PO SCH (08:53)
[2018-05-08] MEDS: guaiFENesin ER 600mg tablet PO SCH (08:53)
[2018-05-08] MEDS: dronabinol 2.5mg capsule PO PRN ×2 (08:53→14:56)
[2018-05-08] MEDS: busPIRone 15mg tablet PO SCH (08:54)
[2018-05-08] MEDS: lisinopril 10 MG tablet PO SCH (08:54)
[2018-05-08] MEDS: enoxaparin 40mg/0.4ml syringe SUBCUT SCH (08:55)
[2018-05-08 11:00] VITALS: BP 112/71
[2018-05-08] MEDS: ALPRAZolam 0.25mg tablet PO PRN (11:43)
== END 2018-05-08 15:50 | disposition home health service (06) | DRG 246 ==
LOC: ER 08:52 → ED HOLD 14:22 → ORTHO 4S 15:50 → PCU 3S 05-01 20:50
PROVIDERS: ADMIT Internal Medicine; ATTEND Internal Medicine
PROC: 0DBK8ZX Excision of Ascending Colon, Via Natural or Artificial Opening Endoscopic, Diagnostic (ICD-10-PCS; principal; 2018-05-01)
PROC: 5A09357 Assistance with Respiratory Ventilation, Less than 24 Consecutive Hours, Continuous Positive Airway Pressure (ICD-10-PCS; 2018-05-01)
PROC: 5A09357 Assistance with Respiratory Ventilation, Less than 24 Consecutive Hours, Continuous Positive Airway Pressure (ICD-10-PCS; 2018-05-02)
PROC: 5A09357 Assistance with Respiratory Ventilation, Less than 24 Consecutive Hours, Continuous Positive Airway Pressure (ICD-10-PCS; 2018-05-03)
PROC: 5A09357 Assistance with Respiratory Ventilation, Less than 24 Consecutive Hours, Continuous Positive Airway Pressure (ICD-10-PCS; 2018-05-04)
PROC: 5A09357 Assistance with Respiratory Ventilation, Less than 24 Consecutive Hours, Continuous Positive Airway Pressure (ICD-10-PCS; 2018-05-05)
PROC: 5A09357 Assistance with Respiratory Ventilation, Less than 24 Consecutive Hours, Continuous Positive Airway Pressure (ICD-10-PCS; 2018-05-06)
PROC: 5A09357 Assistance with Respiratory Ventilation, Less than 24 Consecutive Hours, Continuous Positive Airway Pressure (ICD-10-PCS; 2018-05-07)
PROC: 5A09357 Assistance with Respiratory Ventilation, Less than 24 Consecutive Hours, Continuous Positive Airway Pressure (ICD-10-PCS; 2018-05-08)
DX: K55.9 Vascular disorder of intestine, unspecified (principal); J96.10 Chronic respiratory failure, unspecified whether with hypoxia or hypercapnia; K63.3 Ulcer of intestine; I50.9 Heart failure, unspecified; I11.0 Hypertensive heart disease with heart failure; E87.5 Hyperkalemia; Z99.81 Dependence on supplemental oxygen; D64.9 Anemia, unspecified; F32.9 Major depressive disorder, single episode, unspecified; G89.4 Chronic pain syndrome; I25.10 Atherosclerotic heart disease of native coronary artery without angina pectoris; J44.9 Chronic obstructive pulmonary disease, unspecified; K21.9 Gastro-esophageal reflux disease without esophagitis; M54.9 Dorsalgia, unspecified; D72.829 Elevated white blood cell count, unspecified; F41.9 Anxiety disorder, unspecified; Z60.2 Problems related to living alone; R00.0 Tachycardia, unspecified; R21 Rash and other nonspecific skin eruption; I25.2 Old myocardial infarction; Z82.49 Family history of ischemic heart disease and other diseases of the circulatory system; Z82.5 Family history of asthma and other chronic lower respiratory diseases; Z86.19 Personal history of other infectious and parasitic diseases; Z87.891 Personal history of nicotine dependence; Z90.49 Acquired absence of other specified parts of digestive tract; Z90.710 Acquired absence of both cervix and uterus; Z79.899 Other long term (current) drug therapy; Z88.5 Allergy status to narcotic agent; Z88.8 Allergy status to other drugs, medicaments and biological substances; Z80.9 Family history of malignant neoplasm, unspecified; Z84.89 Family history of other specified conditions
CPT/HCPCS: 36415; 36600; 45380; 71045; 74176; 80048; 80053; 82272; 82803; 83735; 83880; 84132; 84145; 84484; 85018; 85025; 85379; 85610; 87070; 87529; 93005; 93975; 94640; 94660; 94760; 96365; 96375; 97110; 97116; 97161; 97530; 97535; 99285; A6209; A6212; A6213; A6250; A6446; G0500; J1650; J1956; J2250; J2405; J2920; J2930; J3010; J3490; J7030; J7626; Q0167

== ENCOUNTER 2018-05-16 07:42 | Inpatient (IN) | payer MEDICAID ==
[~2018-05-16] VITALS: Ht 162.6 cm; Wt 51.0 kg
[~2018-05-16 07:42] MED LIST changes: +CARV6.253 PO; -COR3.125T PO; +PRED20TA PO
[2018-05-16 08:07] LABS: BASOPHILS % (AUTO) 0.1 % (0-1); EOSINOPHILS # (AUTO) 0.1 X10'3 (0-0.9); EOSINOPHILS % (AUTO) 0.3 % (0-6); HEMATOCRIT 31.5 % (35.0-45.0); HEMOGLOBIN 10.1 g/dl (12.0-16.0); LYMPHOCYTES % (AUTO) 8.2 % (21-51); MEAN CORPUSCULAR HEMOGLOBIN 28.6 PG (27.0-31.0); MEAN CORPUSCULAR HGB CONC 32.3 % (33.0-36.5); MEAN CORPUSCULAR VOLUME 88.6 FL (78-98); MEAN PLATELET VOLUME 8.3 FL (7.4-10.4); MONOCYTES # (AUTO) 1.4 X10'3 (0-0.9); MONOCYTES % (AUTO) 5.6 % (2-12); NEUTROPHILS # (AUTO) 21.1 X10'3 (1.8-7.7); NEUTROPHILS % (AUTO) 85.8 % (42-75); PLATELET COUNT 356 X10'3 (140-440); RED BLOOD COUNT 3.55 X10'6 (4.20-5.60); RED CELL DISTRIBUTION WIDTH 16.7 % (11.5-14.5); WHITE BLOOD COUNT 24.6 X10'3 (4.5-11.0)
[2018-05-16 08:15] LABS: PARTIAL THROMBOPLASTIN TIME 26 SECONDS (22-32); PROTHROMBIN TIME 10.3 SECONDS (9.0-12.0)
[2018-05-16 08:21] LABS: ALANINE AMINOTRANSFERASE 34 U/L (12-78); ALBUMIN 3.3 G/DL (3.4-5.0); ALBUMIN/GLOBULIN RATIO 0.8 (1.1-1.5); ALKALINE PHOSPHATASE 136 IU/L (46-116); ANION GAP 2 (8-16); ASPARTATE AMINO TRANSFERASE 22 U/L (10-37); BILIRUBIN,TOTAL 0.2 MG/DL (0.1-1.0); BLOOD UREA NITROGEN 13 MG/DL (7-18); BUN/CREATININE RATIO 20.6 (6.6-38.0); CALCIUM 9.7 MG/DL (8.5-10.1); CHLORIDE 95 MMOL/L (99-107); CREATININE 0.63 MG/DL (0.40-0.90); GLUCOSE 145 MG/DL (70-104); POTASSIUM 4.8 MMOL/L (3.5-5.1); SODIUM 136 MMOL/L (135-145); TOTAL CARBON DIOXIDE 38.7 MMOL/L (24-32); TOTAL PROTEIN 7.3 G/DL (6.4-8.2); eGFR > 90 ML/MIN
[2018-05-16] MEDS ORDERED: normal saline 1000ml 1,000 ML IVB ONE ×2 (08:36)
[2018-05-16] MEDS ORDERED: ipratropium/albuterol 3ml nebule NEB ONE (08:50)
[2018-05-16 08:54] LABS: MAGNESIUM 1.7 MG/DL (1.5-2.4)
[2018-05-16 10:26] LABS: CLARITY,URINE CLEAR (Clear); COLOR,URINE YELLOW (Yellow); GLUCOSE, URINE NEGATIVE (Neg); KETONES,URINE NEGATIVE (Neg); LEUKOCYTE ESTERASE ,URINE NEGATIVE (Neg); NITRITES, URINE NEGATIVE (Neg); OCCULT BLOOD,URINE NEGATIVE (Neg); PH,URINE 5.5 (4.8-8.0); PROTEIN,URINE TRACE mg/dl (Neg); UROBILINOGEN,URINE 0.2 E.U/dL (0.2-1.0)
[2018-05-16 10:27] LABS: URINE HCG NEGATIVE (NEG)
[2018-05-16 10:30] LABS: UA COLLECTION TYPE OTHER
[2018-05-16 10:33] LABS: BACTERIA,URINE FEW /HPF (Neg); MUCUS STRANDS NONE SEEN /LPF (Neg); RBC,URINE 0-2 /HPF (0-2); SQUAMOUS EPITHELIAL CELL,UR FEW /LPF (FEW); WBC,URINE NONE SEEN /HPF (0-4)
[2018-05-16 10:34] LABS: AMORPHOUS URATES 1+
[2018-05-16] MEDS ORDERED: vancomycin 250MG/10ML UD oral solution 10ML BOTTLE PO SCH (11:00)
[2018-05-16] MEDS ORDERED: ondansetron/PF 4mg/2ml inj IV PRN (11:30)
[2018-05-16] MEDS: normal saline 1000ml 1,000 ML IV SCH (11:54)
[2018-05-16 14:26] VITALS: BP 146/66
[2018-05-16] MEDS: traMADol 50MG tablet PO PRN ×2 (15:29→21:53)
[2018-05-16] MEDS: diltiazem 30mg tablet PO SCH ×2 (17:21→23:52)
[2018-05-16 18:00] VITALS: BP 107/64
[2018-05-16] MEDS ORDERED: BUSPIRONE HCL 7.5 MG PO SCH (20:00)
[2018-05-16] MEDS: busPIRone 15mg tablet PO SCH (20:45)
[2018-05-16] MEDS: carvedilol 6.25mg tablet PO SCH (20:46)
[2018-05-16] MEDS: guaiFENesin ER 600mg tablet PO SCH (20:46)
[2018-05-17] VITALS: BP 151/72
[2018-05-17] MEDS: normal saline 1000ml 1,000 ML IV SCH ×4 (01:58→19:44)
[2018-05-17] MEDS: ipratropium/albuterol 3ml nebule IH PRN ×2 (03:59→08:45)
[2018-05-17] MEDS: traMADol 50MG tablet PO PRN ×2 (04:01→10:49)
[2018-05-17 05:50] LABS: BASOPHILS % (AUTO) 0.1 % (0-1); EOSINOPHILS # (AUTO) 0.2 X10'3 (0-0.9); EOSINOPHILS % (AUTO) 1.2 % (0-6); HEMATOCRIT 25.6 % (35.0-45.0); HEMOGLOBIN 8.3 g/dl (12.0-16.0); LYMPHOCYTES # (AUTO) 1.6 X10'3 (1.1-4.8); LYMPHOCYTES % (AUTO) 7.9 % (21-51); MEAN CORPUSCULAR HEMOGLOBIN 28.7 PG (27.0-31.0); MEAN CORPUSCULAR HGB CONC 32.3 % (33.0-36.5); MEAN CORPUSCULAR VOLUME 88.9 FL (78-98); MEAN PLATELET VOLUME 9.3 FL (7.4-10.4); MONOCYTES # (AUTO) 1.3 X10'3 (0-0.9); MONOCYTES % (AUTO) 6.4 % (2-12); NEUTROPHILS # (AUTO) 16.7 X10'3 (1.8-7.7); NEUTROPHILS % (AUTO) 84.4 % (42-75); PLATELET COUNT 187 X10'3 (140-440); RED BLOOD COUNT 2.87 X10'6 (4.20-5.60); RED CELL DISTRIBUTION WIDTH 16.6 % (11.5-14.5); WHITE BLOOD COUNT 19.8 X10'3 (4.5-11.0)
[2018-05-17 06:03] LABS: ALBUMIN 2.6 G/DL (3.4-5.0); ANION GAP 5 (8-16); BLOOD UREA NITROGEN 8 MG/DL (7-18); BUN/CREATININE RATIO 16.7 (6.6-38.0); CALCIUM 8.8 MG/DL (8.5-10.1); CHLORIDE 100 MMOL/L (99-107); CREATININE 0.48 MG/DL (0.40-0.90); GLUCOSE 63 MG/DL (70-104); POTASSIUM 4.3 MMOL/L (3.5-5.1); SODIUM 137 MMOL/L (135-145); TOTAL CARBON DIOXIDE 32.5 MMOL/L (24-32); eGFR > 90 ML/MIN
[2018-05-17 07:07] VITALS: BP 161/88
[2018-05-17] MEDS ORDERED: MULTIVITS CA MINERALS PO SCH (08:00)
[2018-05-17] MEDS ORDERED: non-formulary drug (Lactobacillus Acidophilus (ACIDOPHILUS capsule) 1 CAP) PO SCH (08:00)
[2018-05-17] MEDS ORDERED: IRON PO SCH (08:00)
[2018-05-17] MEDS ORDERED: non-formulary drug (Omeprazole 1 CAP) PO SCH (08:00)
[2018-05-17] MEDS ORDERED: [UNRECOGNIZED DRUG - OTHER] PO SCH (08:00)
[2018-05-17] MEDS: lisinopril 10 MG tablet PO SCH (09:02)
[2018-05-17] MEDS: multivitamins, therapeutics tablet PO SCH (09:02)
[2018-05-17] MEDS: lactobacillus rhamnosus 10,000 MMU CELLS/CAPSULE PO SCH (09:02)
[2018-05-17] MEDS: busPIRone 15mg tablet PO SCH ×2 (09:03→19:29)
[2018-05-17] MEDS: PARoxetine 20mg tablet PO SCH (09:04)
[2018-05-17] MEDS: guaiFENesin ER 600mg tablet PO SCH ×2 (09:04→19:29)
[2018-05-17] MEDS: diltiazem 30mg tablet PO SCH ×3 (09:04→23:52)
[2018-05-17] MEDS: carvedilol 6.25mg tablet PO SCH ×2 (09:04→19:29)
[2018-05-17] MEDS: pantoprazole 40mg Tablet.DR PO SCH (09:08)
[2018-05-17 11:00] VITALS: BP 128/67
[2018-05-17 19:30] VITALS: BP 126/65
[2018-05-17] MEDS: cyclobenzaprine 10mg tablet PO PRN (21:10)
[2018-05-18] VITALS: BP 106/60
[2018-05-18] MEDS: normal saline 1000ml 1,000 ML IV SCH ×2 (04:07→16:10)
[2018-05-18 04:44] LABS: BASOPHILS % (AUTO) 0.1 % (0-1); EOSINOPHILS # (AUTO) 0.2 X10'3 (0-0.9); EOSINOPHILS % (AUTO) 1.1 % (0-6); HEMATOCRIT 25.8 % (35.0-45.0); HEMOGLOBIN 8.2 g/dl (12.0-16.0); LYMPHOCYTES # (AUTO) 1.4 X10'3 (1.1-4.8); LYMPHOCYTES % (AUTO) 9.4 % (21-51); MEAN CORPUSCULAR HEMOGLOBIN 28.6 PG (27.0-31.0); MEAN CORPUSCULAR HGB CONC 31.8 % (33.0-36.5); MEAN CORPUSCULAR VOLUME 89.9 FL (78-98); MEAN PLATELET VOLUME 8.4 FL (7.4-10.4); MONOCYTES # (AUTO) 1.5 X10'3 (0-0.9); MONOCYTES % (AUTO) 10.1 % (2-12); NEUTROPHILS # (AUTO) 11.5 X10'3 (1.8-7.7); NEUTROPHILS % (AUTO) 79.3 % (42-75); PLATELET COUNT 184 X10'3 (140-440); RED BLOOD COUNT 2.87 X10'6 (4.20-5.60); RED CELL DISTRIBUTION WIDTH 16.3 % (11.5-14.5); WHITE BLOOD COUNT 14.6 X10'3 (4.5-11.0)
[2018-05-18] MEDS: traMADol 50MG tablet PO PRN ×2 (04:50→17:52)
[2018-05-18 04:55] LABS: ALBUMIN 2.4 G/DL (3.4-5.0); ANION GAP 1 (8-16); BLOOD UREA NITROGEN 7 MG/DL (7-18); BUN/CREATININE RATIO 14.3 (6.6-38.0); CALCIUM 8.8 MG/DL (8.5-10.1); CHLORIDE 106 MMOL/L (99-107); CREATININE 0.49 MG/DL (0.40-0.90); GLUCOSE 101 MG/DL (70-104); POTASSIUM 3.8 MMOL/L (3.5-5.1); SODIUM 142 MMOL/L (135-145); TOTAL CARBON DIOXIDE 34.9 MMOL/L (24-32); eGFR > 90 ML/MIN
[2018-05-18 07:20] VITALS: BP 138/63
[2018-05-18] MEDS: pantoprazole 40mg Tablet.DR PO SCH (07:58)
[2018-05-18] MEDS: PARoxetine 20mg tablet PO SCH (07:59)
[2018-05-18] MEDS: guaiFENesin ER 600mg tablet PO SCH ×2 (07:59→19:21)
[2018-05-18] MEDS: diltiazem 30mg tablet PO SCH ×2 (08:00→16:10)
[2018-05-18] MEDS: multivitamins, therapeutics tablet PO SCH (08:00)
[2018-05-18] MEDS: carvedilol 6.25mg tablet PO SCH ×2 (08:00→19:22)
[2018-05-18] MEDS: lisinopril 10 MG tablet PO SCH (08:00)
[2018-05-18] MEDS: lactobacillus rhamnosus 10,000 MMU CELLS/CAPSULE PO SCH (08:00)
[2018-05-18] MEDS: busPIRone 15mg tablet PO SCH ×2 (08:01→19:22)
[2018-05-18] MEDS: ipratropium/albuterol 3ml nebule IH PRN ×2 (08:24→20:23)
[2018-05-18 11:00] VITALS: BP 137/74
[2018-05-18] MEDS ORDERED: ketorolac tromethamine 15mg/ml inj. IV ONE (12:20)
[2018-05-18 20:00] VITALS: BP 152/79
[2018-05-18] MEDS: cyclobenzaprine 10mg tablet PO PRN (21:16)
[2018-05-19] VITALS: BP 141/69
[2018-05-19] MEDS: diltiazem 30mg tablet PO SCH ×3 (00:50→16:52)
[2018-05-19] MEDS: traMADol 50MG tablet PO PRN ×4 (00:50→19:48)
[2018-05-19] MEDS: normal saline 1000ml 1,000 ML IV SCH (03:02)
[2018-05-19 05:05] LABS: BASOPHILS % (AUTO) 0.1 % (0-1); EOSINOPHILS # (AUTO) 0.1 X10'3 (0-0.9); EOSINOPHILS % (AUTO) 0.5 % (0-6); HEMATOCRIT 25.2 % (35.0-45.0); HEMOGLOBIN 7.8 g/dl (12.0-16.0); LYMPHOCYTES # (AUTO) 1.5 X10'3 (1.1-4.8); LYMPHOCYTES % (AUTO) 12.3 % (21-51); MEAN CORPUSCULAR HEMOGLOBIN 28.1 PG (27.0-31.0); MEAN CORPUSCULAR HGB CONC 30.9 % (33.0-36.5); MEAN CORPUSCULAR VOLUME 90.9 FL (78-98); MEAN PLATELET VOLUME 8.6 FL (7.4-10.4); MONOCYTES # (AUTO) 1.3 X10'3 (0-0.9); MONOCYTES % (AUTO) 10.5 % (2-12); NEUTROPHILS # (AUTO) 9.2 X10'3 (1.8-7.7); NEUTROPHILS % (AUTO) 76.6 % (42-75); PLATELET COUNT 175 X10'3 (140-440); RED BLOOD COUNT 2.77 X10'6 (4.20-5.60); RED CELL DISTRIBUTION WIDTH 16.9 % (11.5-14.5); WHITE BLOOD COUNT 12.1 X10'3 (4.5-11.0)
[2018-05-19 05:30] LABS: ALBUMIN 2.3 G/DL (3.4-5.0); ANION GAP 0 (8-16); BLOOD UREA NITROGEN 5 MG/DL (7-18); BUN/CREATININE RATIO 11.1 (6.6-38.0); CALCIUM 8.7 MG/DL (8.5-10.1); CHLORIDE 105 MMOL/L (99-107); CREATININE 0.45 MG/DL (0.40-0.90); GLUCOSE 102 MG/DL (70-104); POTASSIUM 3.8 MMOL/L (3.5-5.1); SODIUM 141 MMOL/L (135-145); TOTAL CARBON DIOXIDE 36.3 MMOL/L (24-32); eGFR > 90 ML/MIN
[2018-05-19] MEDS: PARoxetine 20mg tablet PO SCH (07:19)
[2018-05-19] MEDS: lisinopril 10 MG tablet PO SCH (07:19)
[2018-05-19] MEDS: carvedilol 6.25mg tablet PO SCH ×2 (07:19→19:47)
[2018-05-19] MEDS: guaiFENesin ER 600mg tablet PO SCH ×2 (07:19→19:48)
[2018-05-19] MEDS: multivitamins, therapeutics tablet PO SCH (07:19)
[2018-05-19] MEDS: lactobacillus rhamnosus 10,000 MMU CELLS/CAPSULE PO SCH (07:19)
[2018-05-19] MEDS: pantoprazole 40mg Tablet.DR PO SCH (07:20)
[2018-05-19] MEDS: busPIRone 15mg tablet PO SCH ×2 (07:20→19:48)
[2018-05-19 08:17] VITALS: BP 174/81
[2018-05-19 11:57] VITALS: BP 154/81
[2018-05-19] MEDS: acetaminophen 325mg tablet PO PRN (16:52)
[2018-05-19 20:00] VITALS: BP 145/74
[2018-05-20] VITALS: BP 144/80
[2018-05-20] MEDS: diltiazem 30mg tablet PO SCH ×2 (00:14→07:06)
[2018-05-20] MEDS: cyclobenzaprine 10mg tablet PO PRN (00:15)
[2018-05-20] MEDS: traMADol 50MG tablet PO PRN ×2 (03:02→10:35)
[2018-05-20 05:54] LABS: BASOPHILS % (AUTO) 0.1 % (0-1); EOSINOPHILS # (AUTO) 0.1 X10'3 (0-0.9); EOSINOPHILS % (AUTO) 0.5 % (0-6); HEMATOCRIT 26.6 % (35.0-45.0); HEMOGLOBIN 8.3 g/dl (12.0-16.0); LYMPHOCYTES # (AUTO) 1.3 X10'3 (1.1-4.8); LYMPHOCYTES % (AUTO) 12.5 % (21-51); MEAN CORPUSCULAR HEMOGLOBIN 28.6 PG (27.0-31.0); MEAN CORPUSCULAR HGB CONC 31.3 % (33.0-36.5); MEAN CORPUSCULAR VOLUME 91.5 FL (78-98); MONOCYTES % (AUTO) 9.2 % (2-12); NEUTROPHILS % (AUTO) 77.7 % (42-75); PLATELET COUNT 184 X10'3 (140-440); RED BLOOD COUNT 2.91 X10'6 (4.20-5.60); RED CELL DISTRIBUTION WIDTH 16.9 % (11.5-14.5); WHITE BLOOD COUNT 10.4 X10'3 (4.5-11.0)
[2018-05-20 06:02] LABS: ALBUMIN 2.5 G/DL (3.4-5.0); ANION GAP 1 (8-16); BLOOD UREA NITROGEN 4 MG/DL (7-18); BUN/CREATININE RATIO 8.7 (6.6-38.0); CALCIUM 9.2 MG/DL (8.5-10.1); CHLORIDE 102 MMOL/L (99-107); CREATININE 0.46 MG/DL (0.40-0.90); GLUCOSE 90 MG/DL (70-104); SODIUM 145 MMOL/L (135-145); eGFR > 90 ML/MIN
[2018-05-20 06:31] LABS: TOTAL CARBON DIOXIDE 41.8 MMOL/L (24-32)
[2018-05-20] MEDS: guaiFENesin ER 600mg tablet PO SCH (07:05)
[2018-05-20] MEDS: pantoprazole 40mg Tablet.DR PO SCH (07:06)
[2018-05-20] MEDS: busPIRone 15mg tablet PO SCH (07:06)
[2018-05-20] MEDS: carvedilol 6.25mg tablet PO SCH (07:06)
[2018-05-20] MEDS: lisinopril 10 MG tablet PO SCH (07:06)
[2018-05-20] MEDS: PARoxetine 20mg tablet PO SCH (07:06)
[2018-05-20] MEDS: acetaminophen 325mg tablet PO PRN (07:08)
[2018-05-20] MEDS: multivitamins, therapeutics tablet PO SCH (07:48)
[2018-05-20] MEDS: lactobacillus rhamnosus 10,000 MMU CELLS/CAPSULE PO SCH (07:48)
[2018-05-20 07:50] VITALS: BP 173/88
[2018-05-20 11:48] VITALS: BP 121/60
[2018-05-20] MEDS ORDERED: TRAM100T34 PO (12:19)
[2018-05-23] MEDS ORDERED: PRED10TA23 PO (12:56)
[2018-05-23] MEDS ORDERED: DILT30TA5 PO (12:56)
[2018-05-23] MEDS ORDERED: LEVO500T2 PO (12:58)
[2018-05-23] MEDS ORDERED: NAPR220T67 PO (14:44)
[2018-05-23] MEDS ORDERED: LEVA1.2527 NEB (14:44)
[2018-05-23] MEDS ORDERED: ATR0.5NEB NEB (14:44)
== END 2018-05-20 16:15 | disposition home health service (06) | DRG 249 ==
LOC: ER 07:42 → ED HOLD 11:27 → EDBEDREQ 13:29 → SUR 3N 14:08
PROVIDERS: ADMIT Internal Medicine; ATTEND Family Medicine
DX: K52.9 Noninfective gastroenteritis and colitis, unspecified (principal); J96.10 Chronic respiratory failure, unspecified whether with hypoxia or hypercapnia; I11.0 Hypertensive heart disease with heart failure; I50.9 Heart failure, unspecified; Z68.1 Body mass index [BMI] 19.9 or less, adult; D35.02 Benign neoplasm of left adrenal gland; F32.9 Major depressive disorder, single episode, unspecified; I25.10 Atherosclerotic heart disease of native coronary artery without angina pectoris; J44.9 Chronic obstructive pulmonary disease, unspecified; G89.29 Other chronic pain; M54.9 Dorsalgia, unspecified; T38.0X5A Adverse effect of glucocorticoids and synthetic analogues, initial encounter; Z88.6 Allergy status to analgesic agent; Z88.8 Allergy status to other drugs, medicaments and biological substances; I25.2 Old myocardial infarction; Z82.49 Family history of ischemic heart disease and other diseases of the circulatory system; Z82.5 Family history of asthma and other chronic lower respiratory diseases; Z87.891 Personal history of nicotine dependence; Z90.49 Acquired absence of other specified parts of digestive tract; Z90.710 Acquired absence of both cervix and uterus; Z79.899 Other long term (current) drug therapy; Z80.9 Family history of malignant neoplasm, unspecified; Z83.79 Family history of other diseases of the digestive system; Y92.89 Other specified places as the place of occurrence of the external cause; Z91.19 Patient's noncompliance with other medical treatment and regimen
CPT/HCPCS: 36415; 71045; 74176; 80048; 80053; 81001; 81025; 83605; 83735; 84145; 84484; 85025; 85610; 85730; 87040; 87070; 93005; 94640; 94760; 96360; 99285; A6212; J1885; J2405; J7030

== ENCOUNTER 2018-05-27 09:38 | Emergency (ER) | payer MEDICAID ==
[~2018-05-27] VITALS: Ht 162.6 cm; Wt 53.0 kg
[~2018-05-27 09:38] MED LIST changes: -CARV6.253 PO; -IPRA3AMP31 IH; +LEVO500T2 PO; +NAPR220T67 PO; +PRED10TA23 PO; -PRED20TA PO; -TRAM50TA2 PO
[2018-05-27] MEDS ORDERED: methylPREDNISolone sod succ 125mg/2ml vial IV ONE (10:00)
[2018-05-27] MEDS ORDERED: ipratropium/albuterol 3ml nebule NEB ONE (10:00)
[2018-05-27 10:11] LABS: BASOPHILS % (AUTO) 0.1 % (0-1); EOSINOPHILS # (AUTO) 0.2 X10'3 (0-0.9); EOSINOPHILS % (AUTO) 1.3 % (0-6); HEMATOCRIT 31.3 % (35.0-45.0); HEMOGLOBIN 9.8 g/dl (12.0-16.0); LYMPHOCYTES # (AUTO) 0.9 X10'3 (1.1-4.8); MEAN CORPUSCULAR HEMOGLOBIN 28.2 PG (27.0-31.0); MEAN CORPUSCULAR HGB CONC 31.4 % (33.0-36.5); MEAN CORPUSCULAR VOLUME 89.8 FL (78-98); MEAN PLATELET VOLUME 7.8 FL (7.4-10.4); MONOCYTES # (AUTO) 1.3 X10'3 (0-0.9); MONOCYTES % (AUTO) 8.6 % (2-12); NEUTROPHILS # (AUTO) 12.2 X10'3 (1.8-7.7); PLATELET COUNT 481 X10'3 (140-440); RED BLOOD COUNT 3.48 X10'6 (4.20-5.60); RED CELL DISTRIBUTION WIDTH 17.4 % (11.5-14.5); WHITE BLOOD COUNT 14.6 X10'3 (4.5-11.0)
[2018-05-27 10:11] LABS: ABG BASE EXCESS 28.9 mmol/L (-2.0-3.0); ABG HCO3 61.7 mmol/L (22.0-26.0); ABG OXYGEN SATURATION 93.1 % (95-98); ABG PH (T) 7.259 (7.350-7.450); ABG PO2 (T) 68.8 mmHg (83-108); ALLEN'S TEST Positive; FCOHb 9.4 % (0.5-1.5); FLOW 2 L/min; FMetHb 0.3 % (0.3-1.12); FO2Hb 84.1 % (94-100); TOTAL HEMOGLOBIN 10.3 G/dl (12.0-16.0)
[2018-05-27 10:19] LABS: PARTIAL THROMBOPLASTIN TIME 24 SECONDS (22-32); PROTHROMBIN TIME 10.4 SECONDS (9.0-12.0)
[2018-05-27 10:24] LABS: ALANINE AMINOTRANSFERASE 39 U/L (12-78); ALBUMIN/GLOBULIN RATIO 0.9 (1.1-1.5); ALKALINE PHOSPHATASE 126 IU/L (46-116); ASPARTATE AMINO TRANSFERASE 28 U/L (10-37); BILIRUBIN,TOTAL 0.1 MG/DL (0.1-1.0); BLOOD UREA NITROGEN 9 MG/DL (7-18); BUN/CREATININE RATIO 25.7 (6.6-38.0); CALCIUM 8.9 MG/DL (8.5-10.1); CHLORIDE 98 MMOL/L (99-107); CREATININE 0.35 MG/DL (0.40-0.90); GLUCOSE 143 MG/DL (70-104); POTASSIUM 3.7 MMOL/L (3.5-5.1); SODIUM 141 MMOL/L (135-145); TOTAL PROTEIN 6.4 G/DL (6.4-8.2); eGFR > 90 ML/MIN
[2018-05-27 10:39] LABS: ANION GAP -7 (8-16); TOTAL CARBON DIOXIDE > 50 MMOL/L (24-32)
[2018-05-27] MEDS ORDERED: furosemide 10 MG/1 ML 10ml inj IV ONE (10:45)
[2018-05-27] MEDS ORDERED: LISI40TA4 PO (10:55)
[2018-05-27] MEDS ORDERED: ONDA4TAB9 PO (10:56)
[2018-05-27] MEDS ORDERED: FURO-150 PO (10:58)
[2018-05-27] MEDS ORDERED: ASPI81TA52 PO (10:59)
[2018-05-27] MEDS ORDERED: LEVO500T2 PO (11:00)
[2018-05-27] MEDS ORDERED: NAPR220C15 PO (11:05)
[2018-05-27] MEDS ORDERED: DILT60TA PO (11:07)
[2018-05-27] MEDS ORDERED: DILT30TA2 (11:07)
[2018-05-27] MEDS ORDERED: NICO-631 TD (11:08)
[2018-05-27 12:45] LABS: ABG BASE EXCESS 29.9 mmol/L (-2.0-3.0); ABG HCO3 60.4 mmol/L (22.0-26.0); ABG OXYGEN SATURATION 95.9 % (95-98); ABG PCO2 (T) 104.7 mmHg (32.0-45.0); ABG PH (T) 7.379 (7.350-7.450); ABG PO2 (T) 73.8 mmHg (83-108); FCOHb 7.7 % (0.5-1.5); FMetHb 0.3 % (0.3-1.12); FO2Hb 88.2 % (94-100); MINUTE VOLUME 11 L/min; RESPIRATORY RATE 18 b/min; RESPIRATORY RATE (OBSERVED) 24 b/min; TOTAL HEMOGLOBIN 10.7 G/dl (12.0-16.0)
[2018-05-27 15:31] LABS: ABG BASE EXCESS 31.5 mmol/L (-2.0-3.0); ABG HCO3 59.9 mmol/L (22.0-26.0); ABG OXYGEN SATURATION 91.5 % (95-98); ABG PH (T) 7.471 (7.350-7.450); ABG PO2 (T) 54.5 mmHg (83-108); ALLEN'S TEST Positive; FCOHb 5.7 % (0.5-1.5); FLOW 2 L/min; FMetHb 0.3 % (0.3-1.12); TOTAL HEMOGLOBIN 10.1 G/dl (12.0-16.0)
[2018-05-27] MEDS ORDERED: ibuprofen tablet 400 MG TABLET PO ONE (15:50)
[2018-05-27 16:24] VITALS: BP 166/95
[2018-05-28 15:27] LABS: ALLEN'S TEST Positive
== END 2018-05-27 16:34 | disposition home or self-care (01) ==
LOC: ER 09:38
DX: J44.1 Chronic obstructive pulmonary disease with (acute) exacerbation (principal); J96.10 Chronic respiratory failure, unspecified whether with hypoxia or hypercapnia; I25.10 Atherosclerotic heart disease of native coronary artery without angina pectoris; I11.0 Hypertensive heart disease with heart failure; I50.9 Heart failure, unspecified; I25.2 Old myocardial infarction; G89.29 Other chronic pain; Z90.49 Acquired absence of other specified parts of digestive tract; Z90.710 Acquired absence of both cervix and uterus; Z98.890 Other specified postprocedural states; Z79.899 Other long term (current) drug therapy; Z88.8 Allergy status to other drugs, medicaments and biological substances; Z88.5 Allergy status to narcotic agent; Z88.6 Allergy status to analgesic agent
CPT/HCPCS: 36415; 36600; 71045; 80053; 82803; 83605; 83880; 84145; 84484; 85018; 85025; 85610; 85730; 87040; 93005; 94640; 94660; 94760; 96374; 96375; 99285; J1940; J2930

== ENCOUNTER 2018-06-01 08:41 | Emergency (ER) | payer MEDICAID ==
[~2018-06-01] VITALS: Ht 565.3 cm; Wt 51.8 kg
[~2018-06-01 08:41] MED LIST changes: +ASPI81TA52 PO; +DILT30TA2; +DILT60TA PO; +FURO-150 PO; +LISI40TA4 PO; +NAPR220C15 PO; +NICO-631 TD; +ONDA4TAB9 PO
[2018-06-01] MEDS ORDERED: ipratropium 0.5 MG/2.5ML nebule IH ONE (09:40)
[2018-06-01] MEDS ORDERED: albuterol 2.5 MG/3 ML nebule CONTNEB PRN (09:40)
[2018-06-01 10:11] LABS: ABG BASE EXCESS 40.6 mmol/L (-2.0-3.0); ABG HCO3 75.1 mmol/L (22.0-26.0); ABG OXYGEN SATURATION 96.4 % (95-98); ABG PCO2 (T) > 150.0 mmHg (32.0-45.0); ABG PH (T) 7.293 (7.350-7.450); ABG PO2 (T) 82.8 mmHg (83-108); ALLEN'S TEST Positive; FCOHb 15.3 % (0.5-1.5); FLOW 3 L/min; FMetHb 0.3 % (0.3-1.12); FO2Hb 81.4 % (94-100); TOTAL HEMOGLOBIN 10.8 G/dl (12.0-16.0)
[2018-06-01 11:56] LABS: ABG BASE EXCESS 31.7 mmol/L (-2.0-3.0); ABG HCO3 61.1 mmol/L (22.0-26.0); ABG OXYGEN SATURATION 89.3 % (95-98); ABG PCO2 (T) 91.8 mmHg (32.0-45.0); ABG PH (T) 7.441 (7.350-7.450); ALLEN'S TEST Positive; FCOHb 12.4 % (0.5-1.5); FMetHb 0.3 % (0.3-1.12); MINUTE VOLUME 12 L/min; RESPIRATORY RATE 22 b/min; RESPIRATORY RATE (OBSERVED) 24 b/min; TOTAL HEMOGLOBIN 10.6 G/dl (12.0-16.0)
[2018-06-01 13:31] VITALS: BP 156/77
[2018-06-01] MEDS ORDERED: acetaminophen 325mg tablet PO ONE (14:55)
== END 2018-06-01 15:17 | disposition home or self-care (01) ==
LOC: ER 08:42
DX: J44.9 Chronic obstructive pulmonary disease, unspecified (principal); J96.20 Acute and chronic respiratory failure, unspecified whether with hypoxia or hypercapnia; I11.0 Hypertensive heart disease with heart failure; I50.9 Heart failure, unspecified; I25.10 Atherosclerotic heart disease of native coronary artery without angina pectoris; I25.2 Old myocardial infarction; G89.29 Other chronic pain; Z90.49 Acquired absence of other specified parts of digestive tract; Z90.710 Acquired absence of both cervix and uterus; Z88.5 Allergy status to narcotic agent; Z88.6 Allergy status to analgesic agent; Z88.8 Allergy status to other drugs, medicaments and biological substances; Z79.82 Long term (current) use of aspirin; Z79.2 Long term (current) use of antibiotics; Z79.899 Other long term (current) drug therapy; Z60.2 Problems related to living alone
CPT/HCPCS: 36600; 82803; 85018; 93005; 94644; 94660; 94760; 99285